=== PATIENT | male | born 1935 | race Caucasian/White ===

== ENCOUNTER → 2017-11-26 11:00 | Outpatient (CLI) | payer MEDICARE, OTHER, SELFPAY ==
--- NOTE | 2017-11-26 | DI.CT.S_ITS ---
PROCEDURE: CT ABDOMEN WO/W CON INDICATIONS: Renal lesion TECHNIQUE: Optional 5 mm thick noncontrast images acquired from the diaphragm to the iliac crests. After the administration of intravenous contrast, 5 mm thick images again acquired from the diaphragm to the iliac crests in the arterial and urographic phases. 5 mm thick coronal and sagittal reformats were then acquired. For radiation dose reduction, the following was used: automated exposure control, adjustment of mA and/or kV according to patient size. COMPARISON: [facility], CT, IVP (ABD & PEL WWO CONTRAST), 08/20/2017, 10:38. FINDINGS: Image quality: Excellent. Lung bases: Lung bases are clear. Heart size is normal. Small hiatal hernia. Genitourinary: The 7 mm partially exophytic hyperdensity in the lateral margin of the lower pole left kidney history identified. On precontrast imaging, this shows an internal attenuation of 45. On post contrast arterial phase, the attenuation is 48 and on 10 minute delayed imaging is 49. The finding is therefore most consistent with a hyperdense cyst, showing no appreciable enhancement or washout. Both kidneys otherwise appear normal. Other solid organs: Liver is normal in size and enhancement. Gallbladder appears normal. Biliary system is non dilated. Pancreas enhances normally. Spleen is normal in size and enhancement noting scattered calcifications. No adrenal nodules. Peritoneum and bowel: Unenhanced bowel loops are normal in wall thickness and caliber. No free fluid or air. Nodes and vessels: No retroperitoneal or mesenteric adenopathy by size criteria. Aorta and inferior vena cava are normal in caliber. Retroaortic left renal vein is incidentally noted. Bones: No suspicious bony lesions. No vertebral body compression fractures. Miscellaneous: Small fat filled umbilical hernia. IMPRESSION: 1. The 7 mm exophytic hyperdensity in the lower pole of the left kidney laterally is most consistent with a benign hyperdense cyst. Followup renal ultrasound at 6-12 months is suggested. 2. Incidental findings include a small hiatal hernia, colonic diverticulosis, small fat filled umbilical hernia and splenic calcifications. Dictated by: Aristeo Hansen M.D. on 11/26/2017 at 13:51 Approved by: Aristeo Hansen M.D. on 11/26/2017 at 14:03
[2017-11-26 11:38] LABS: BUN Creatinine Ratio 10.9 (6-22); Blood Urea Nitrogen 12 mg/dL (9-20); Estimated Glomerular Filt Rate > 60.0 mL/min (>60)
== END ==
PROVIDERS: Family Provider Family Medicine; PCP Family Medicine; Visit Provider Urology
DX: N28.89 Other specified disorders of kidney and ureter (principal); K44.9 Diaphragmatic hernia without obstruction or gangrene; K57.90 Diverticulosis of intestine, part unspecified, without perforation or abscess without bleeding; K42.9 Umbilical hernia without obstruction or gangrene
CPT/HCPCS: 36415; 74170; 82565; 84520; Q9967

== ENCOUNTER 2018-01-20 11:21 | Emergency (ER) | payer MEDICARE, OTHER, SELFPAY ==
--- NOTE | 2018-01-20 11:20 | ED_ITS ---
HPI - Syncope <MARC Meyer - Last Filed: 01/20/18 20:15> General Chief Complaint: Syncope Stated Complaint: Near syncope Time Seen by Provider: 01/20/18 11:28 Source: patient Mode of arrival: EMS Limitations: no limitations History of Present Illness HPI narrative: 82-year-old male with history of AFib and is a nonsmoker here for complaint of having a presyncopal episode this morning. He was brought in by EMS. He reports that for approximately about a minute he felt as if he reports having tunnel vision. He states that he did not fully lose consciousness however he states that he heard that his was talking to him and could not respond back. He reports that he has he had 4 episodes like this over the past year and has had several episodes over the last several years. 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 He denies any chest pain. No shortness of breath. No nausea vomiting. He states that he has been eating and drinking well with no nausea or vomiting. He denies any other concerns or complaints at this time. He states that he was sitting when the episode started he denies any changes in his position. Related Data Home Medications Medication Instructions Recorded Confirmed [LYSINE] 500 mg PO QDAY #0 05/30/10 [SAW PALMETTO] #0 05/30/10 [SHARK CARTILAGE] 650 mg PO QDAY #0 05/30/10 [VIT D3 ] 2,000 iu PO QDAY #0 05/30/10 finasteride 5 mg PO HS #0 05/30/10 alfuzosin [Uroxatral] 10 mg PO QAM #0 04/05/17 amiodarone 200 mg PO QDAY #0 04/05/17 apixaban [Eliquis] 2.5 mg PO BID #0 04/05/17 clobetasol 1 ruiz TOPICAL PRN PRN #0 04/05/17 ferrous sulfate [Iron (ferrous 325 mg PO QDAY #0 04/05/17 sulfate)] fluticasone [Flonase Allergy 1 spray INTRANASAL BID #0 04/05/17 Relief] furosemide 20 mg PO QDAY #0 04/05/17 ibuprofen 600 mg PO QDAYP PRN #0 04/05/17 metoprolol succinate [Toprol XL] 50 mg PO QAM #0 04/05/17 metronidazole 1 ruiz TP HS #0 04/05/17 omeprazole 20 mg PO QPM #0 04/05/17 tolterodine [Detrol LA] 2 mg PO QDAY #0 04/05/17 ascorbic acid (vitamin C) 1,000 mg PO QDAY #0 04/10/17 glucosamine sulfate [Marge] 750 mg PO QDAY #0 04/10/17 ketotifen fumarate 1 drp OU BIDP PRN #0 04/10/17 multivitamin [Multiple Vitamins] 1 tab PO QDAY #0 04/10/17 omega 8-dva-ody-fish oil [Fish Oil] 1,000 mg PO QDAY #0 04/10/17 triamcinolone acetonide 1 ruiz TOPICAL PRN PRN #0 04/10/17 fexofenadine 180 mg PO HS #0 04/23/17 Previous Rx's Medication Instructions Recorded hydrocodone-acetaminophen 1 - 2 tab PO Q4HP PRN #60 tab 04/30/17 Allergies Allergy/AdvReac Type Severity Reaction Status Date / Time oxybutynin Allergy Hives Verified 01/20/18 11:53 tamsulosin Allergy Hives Verified 01/20/18 11:52 Review of Systems <MARC Meyer - Last Filed: 01/20/18 20:15> Constitutional Denies chills, Denies fatigue, Denies fever(s), Denies lethargy and Denies weakness Eyes Denies change in vision, Denies eye discharge, Denies irritation and Denies loss of vision ENT Ears, Nose, Mouth, and Throat: Denies change in voice, Denies neck pain and Denies sore throat Cardiovascular Reports syncope, Denies dyspnea and Denies dyspnea on exertion Respiratory Denies cough, Denies dyspnea, Denies dyspnea on exertion and Denies wheezing Gastrointestinal Gastrointestinal: Denies abdominal pain, Denies change in bowel habits, Denies diarrhea, Denies nausea and Denies vomiting Genitourinary Denies hematuria, Denies flank pain, Denies urinary incontinence and Denies urinary urgency Musculoskeletal Denies neck pain Integumentary/Breasts Denies pruritus, Denies erythema, Denies rash and Denies wounds Neurologic Denies confusion, Reports syncope, Denies loss of vision and Denies weakness Psychiatric Denies anxiety, Denies confusion, Denies depression, Denies homicidal ideation and Denies suicidal ideation Endocrine Denies fatigue and Denies flushing Allergic/Immunologic Denies wheezing Exam <MARC Meyer - Last Filed: 01/20/18 20:15> Initial Vital Signs Initial Vital Signs: Vital Signs Temperature 98.0 F 01/20/18 11:32 Pulse Rate 58 L 01/20/18 11:32 Respiratory Rate 12 01/20/18 11:32 Blood Pressure 154/81 H 01/20/18 11:32 Pulse Oximetry 98 01/20/18 11:32 Const General: cooperative and well developed Nutritional Appearance: well nourished Orientation: alert, awake, oriented x3 and not confused HENMT Mouth: oral mucosae normal and moist mucous membranes Eyes Conjunctivae: conjunctivae normal Sclera: sclerae normal Pupils: PERRL EOM: EOM intact bilaterally Chest Chest: normal inspection of the chest Resp Effort & Inspection: normal respiratory effort, able to speak in complete sentences, no respiratory distress and no use of accessory muscles Auscultation: clear to auscultation bilaterally, no rales, no rhonchi and no wheezes Cardio Rate: regular rate Rhythm: abnormal rhythm regularly irregular Heart Sounds: no click, no gallops, no murmurs and no rubs Pulses: normal peripheral pulses GI Inspection: non-distended Palpation: soft, no hepatosplenomegaly, No guarding, No pulsatile mass and No tender Auscultation: normal bowel sounds Skin General: no rashes or lesions noted, No jaundice and No petechiae Neuro General: alert, oriented x3, gait normal and no focal motor deficits Speech: speech normal <Zaria Arce DO - Last Filed: 01/24/18 12:13> Initial Vital Signs Initial Vital Signs: Vital Signs Temperature 98.0 F 01/20/18 11:32 Pulse Rate 58 L 01/20/18 11:32 Respiratory Rate 12 01/20/18 11:32 Blood Pressure 154/81 H 01/20/18 11:32 Pulse Oximetry 98 01/20/18 11:32 Course <MARC Meyer - Last Filed: 01/20/18 20:15> Orders Ordered: Discontinued Medications Sodium Chloride (Normal Saline 0.9%) 1,000 mls @ 150 mls/hr IV CONT MARGO Last Infusion: 01/20/18 15:21 Dose: 0 mls/hr Admin: 01/20/18 12:00 Dose: 150 mls/hr Vital Signs - 8 hr 01/20/18 12:30 01/20/18 13:41 01/20/18 14:30 Pulse Rate 69 70 67 Respiratory Rate 17 12 12 Blood Pressure [Right Arm] 148/70 H 143/66 H 126/76 Pulse Oximetry 97 98 100 <Zaria Arce DO - Last Filed: 01/24/18 12:13> Orders Ordered: Discontinued Medications Sodium Chloride (Normal Saline 0.9%) 1,000 mls @ 150 mls/hr IV CONT MARGO Last Infusion: 01/20/18 15:21 Dose: 0 mls/hr Admin: 01/20/18 12:00 Dose: 150 mls/hr Vital Signs - 8 hr 01/20/18 12:30 01/20/18 13:41 01/20/18 14:30 Pulse Rate 69 70 67 Respiratory Rate 17 12 12 Blood Pressure [Right Arm] 148/70 H 143/66 H 126/76 Pulse Oximetry 97 98 100 MDM - Syncope <MARC Meyer - Last Filed: 01/20/18 20:15> Lab Data Result diagrams: 01/20/18 11:55 01/20/18 11:55 Lab Results 01/20/18 01/20/18 01/20/18 Range/Units 11:55 11:55 11:55 WBC 5.7 (4.5-11.0) X10^3/uL RBC 3.95 L (4.5-5.9) X10^6/uL Hgb 12.6 L (13.5-17.5) g/dL Hct 36.1 L (41-53) % MCV 91.4 (80-100) fL MCH 31.9 (26-34) PG MCHC 34.9 (30-36) % RDW 13.5 (11.6-14.8) % Plt Count 124 L (150-400) X10^3/uL Neut % (Auto) 68.4 (50-75) % Lymph % (Auto) 18.5 L (25-40) % [place] % (Auto) 9.7 (3-14) % Eos % (Auto) 3.0 (2-4) % Baso % (Auto) 0.4 (0-2) % Neut # (Auto) 3900 (7815-8985) /uL Sodium 137 (137-145) mmol/L Potassium 4.4 (3.4-5.1) mmol/L Chloride 99 (98-107) mmol/L Carbon Dioxide 29 (22-32) mmol/L BUN 19 (9-20) mg/dL Creatinine 1.20 (0.66-1.25) mg/dL Estimated GFR 58.0 L (>60) mL/min BUN/Creatinine Ratio 15.8 (6-22) Glucose 108 (80-110) mg/dL Calcium 9.3 (8.4-10.2) mg/dL Total Bilirubin 0.6 (0.2-1.3) mg/dL AST 23 (17-59) IU/L ALT 28 (21-72) IU/L Alkaline Phosphatase 53 (38-126) U/L Total Creatine Kinase 53 L (55-170) U/L Troponin I < 0.012 (0.01-0.034) ng/mL Total Protein 7.2 (6.3-8.2) g/dL Albumin 4.2 (3.5-5.0) g/dL Globulin 3.0 (1.7-4.1) g/dL Albumin/Globulin Ratio 1.4 (1.0-2.8) TSH 2.85 (0.47-4.68) uIU/mL 01/20/18 Range/Units 14:10 WBC (4.5-11.0) X10^3/uL RBC (4.5-5.9) X10^6/uL Hgb (13.5-17.5) g/dL Hct (41-53) % MCV (80-100) fL MCH (26-34) PG MCHC (30-36) % RDW (11.6-14.8) % Plt Count (150-400) X10^3/uL Neut % (Auto) (50-75) % Lymph % (Auto) (25-40) % [place] % (Auto) (3-14) % Eos % (Auto) (2-4) % Baso % (Auto) (0-2) % Neut # (Auto) (7734-8540) /uL Sodium (137-145) mmol/L Potassium (3.4-5.1) mmol/L Chloride (98-107) mmol/L Carbon Dioxide (22-32) mmol/L BUN (9-20) mg/dL Creatinine (0.66-1.25) mg/dL Estimated GFR (>60) mL/min BUN/Creatinine Ratio (6-22) Glucose (80-110) mg/dL Calcium (8.4-10.2) mg/dL Total Bilirubin (0.2-1.3) mg/dL AST (17-59) IU/L ALT (21-72) IU/L Alkaline Phosphatase (38-126) U/L Total Creatine Kinase (55-170) U/L Troponin I < 0.012 (0.01-0.034) ng/mL Total Protein (6.3-8.2) g/dL Albumin (3.5-5.0) g/dL Globulin (1.7-4.1) g/dL Albumin/Globulin Ratio (1.0-2.8) TSH (0.47-4.68) uIU/mL Point of Care Testing Glucose POC 119 Urine Dip Bedside Urine Glucose Negative Bedside Urine Bilirubin - Negative Bedside Urine Ketone - Negative Urine Specific [place] 1.015 Bedside Urine Occult Blood - Negative Bedside Urine pH 6.5 Bedside Urine Protein - Negative Bedside Urine Urobilinogen - Negative Bedside Urine Nitrite - Negative Bedside Urine Leukocytes - Negative Esterase Imaging Data Chest x-ray: Radiologist's impression: [address] [address] XRay Report Signed Patient: Beto Hernandez MR#: [id number] : 1935 Acct:[id number] Age/Sex: 82 / M Date of Service: 01/20/18 Loc: ED Accession Number: [id number] Procedure: XR chest 1V Ordering Provider: Domenico Oviedo PROCEDURE: XR CHEST 1V INDICATIONS: Pre syncopal episode TECHNIQUE: One view of the chest was acquired. COMPARISON: None. FINDINGS: Surgical changes and devices: None. Lungs and pleura: No pleural effusions or pneumothorax. Lungs are clear. Mediastinum: Mediastinal contours appear normal. Heart size is normal. Bones and chest wall: No suspicious bony lesions. Overlying soft tissues appear unremarkable. Convex-right thoracic spine scoliosis IMPRESSION: No acute cardiopulmonary disease process. Dictated by: Yessenia Gilliam MD, PhD on 01/20/2018 at 11:52 Approved by: Yessenia Gilliam MD, PhD on 01/20/2018 at 11:52 [facility] Narrative Medical decision making narrative: EKG shows sinus rhythm with 1st degree AV block and right bundle branch block and ST changes at 3 and AVF as compared to EKG from 2016. Two sets of cardiac enzymes were obtained and were negative. CBC shows slight anemia however is consistent with prior lab values. TSH was obtained and was unremarkable. Chem panel was obtained was unremarkable. Chest x -ray was negative for any acute findings. No clear etiology for syncopal episodes. He is waiting to see Cardiology as he had a syncopal episode a week 2 weeks ago and was sent to Cardiology from his primary care provider. Differential between cardiac origin and vasovagal. Follow up with primary care provider. Follow up with Cardiology. Return emergency room for worsening symptoms. <Zaria Arce, - Last Filed: 01/24/18 12:13> Lab Data Lab Results 01/20/18 01/20/18 01/20/18 Range/Units 11:55 11:55 11:55 WBC 5.7 (4.5-11.0) X10^3/uL RBC 3.95 L (4.5-5.9) X10^6/uL Hgb 12.6 L (13.5-17.5) g/dL Hct 36.1 L (41-53) % MCV 91.4 (80-100) fL MCH 31.9 (26-34) PG MCHC 34.9 (30-36) % RDW 13.5 (11.6-14.8) % Plt Count 124 L (150-400) X10^3/uL Neut % (Auto) 68.4 (50-75) % Lymph % (Auto) 18.5 L (25-40) % [place] % (Auto) 9.7 (3-14) % Eos % (Auto) 3.0 (2-4) % Baso % (Auto) 0.4 (0-2) % Neut # (Auto) 3900 (5790-7566) /uL Sodium 137 (137-145) mmol/L Potassium 4.4 (3.4-5.1) mmol/L Chloride 99 (98-107) mmol/L Carbon Dioxide 29 (22-32) mmol/L BUN 19 (9-20) mg/dL Creatinine 1.20 (0.66-1.25) mg/dL Estimated GFR 58.0 L (>60) mL/min BUN/Creatinine Ratio 15.8 (6-22) Glucose 108 (80-110) mg/dL Calcium 9.3 (8.4-10.2) mg/dL Total Bilirubin 0.6 (0.2-1.3) mg/dL AST 23 (17-59) IU/L ALT 28 (21-72) IU/L Alkaline Phosphatase 53 (38-126) U/L Total Creatine Kinase 53 L (55-170) U/L Troponin I < 0.012 (0.01-0.034) ng/mL Total Protein 7.2 (6.3-8.2) g/dL Albumin 4.2 (3.5-5.0) g/dL Globulin 3.0 (1.7-4.1) g/dL Albumin/Globulin Ratio 1.4 (1.0-2.8) TSH 2.85 (0.47-4.68) uIU/mL 01/20/18 Range/Units 14:10 WBC (4.5-11.0) X10^3/uL RBC (4.5-5.9) X10^6/uL Hgb (13.5-17.5) g/dL Hct (41-53) % MCV (80-100) fL MCH (26-34) PG MCHC (30-36) % RDW (11.6-14.8) % Plt Count (150-400) X10^3/uL Neut % (Auto) (50-75) % Lymph % (Auto) (25-40) % [place] % (Auto) (3-14) % Eos % (Auto) (2-4) % Baso % (Auto) (0-2) % Neut # (Auto) (9885-3410) /uL Sodium (137-145) mmol/L Potassium (3.4-5.1) mmol/L Chloride (98-107) mmol/L Carbon Dioxide (22-32) mmol/L BUN (9-20) mg/dL Creatinine (0.66-1.25) mg/dL Estimated GFR (>60) mL/min BUN/Creatinine Ratio (6-22) Glucose (80-110) mg/dL Calcium (8.4-10.2) mg/dL Total Bilirubin (0.2-1.3) mg/dL AST (17-59) IU/L ALT (21-72) IU/L Alkaline Phosphatase (38-126) U/L Total Creatine Kinase (55-170) U/L Troponin I < 0.012 (0.01-0.034) ng/mL Total Protein (6.3-8.2) g/dL Albumin (3.5-5.0) g/dL Globulin (1.7-4.1) g/dL Albumin/Globulin Ratio (1.0-2.8) TSH (0.47-4.68) uIU/mL Point of Care Testing Glucose POC 119 Urine Dip Bedside Urine Glucose Negative Bedside Urine Bilirubin - Negative Bedside Urine Ketone - Negative Urine Specific [place] 1.015 Bedside Urine Occult Blood - Negative Bedside Urine pH 6.5 Bedside Urine Protein - Negative Bedside Urine Urobilinogen - Negative Bedside Urine Nitrite - Negative Bedside Urine Leukocytes - Negative Esterase ECG Data Attestation: I personally reviewed and interpreted this ECG as follows: Prior ECG tracings: available for review Interpretation: Sinus rhythm with 1st degree AV block and right bundle branch block. Rate of 63, P are 221, QRS of 145 and QTC of 478. Patient has ST depression in 1 to in aVL. Patient also has some elevation in [address] changes and the 1B to as compared to prior from August of 2015. Discharge Plan Departure Patient Disposition: Home Clinical Impression: Syncope Discharge Date/Time: 01/20/18 15:22 Interventions: ED Discharge Assessment Last Done: 01/20/18 15:22 Instructions: DI for Syncope in Adults (Fainting) Activity Restrictions/Additional Instructions: EKG showed some changes to her EKG from a couple of years ago. Recommend follow up with Cardiology this week. Laboratory results show a slight anemia however is consistent with prior lab values. Follow up with your primary care provider. Ensure drinking plenty of fluids. Try to change position from sitting to standing slowly. For any worsening symptoms return to the emergency room. Prescriptions: No Action finasteride 5 MG tablet 5 mg PO HS Qty: 0 RF: 0 [SHARK CARTILAGE] 650 mg PO QDAY Qty: 0 RF: 0 [LYSINE] 500 mg PO QDAY Qty: 0 RF: 0 [VIT D3 ] 2,000 iu PO QDAY Qty: 0 RF: 0 [SAW PALMETTO] Qty: 0 RF: 0 tolterodine [Detrol LA] 2 MG capsule,extended release 24hr 2 mg PO QDAY Qty: 0 RF: 0 furosemide 20 MG tablet 20 mg PO QDAY Qty: 0 RF: 0 ferrous sulfate [Iron (ferrous sulfate)] 325 MG tablet 325 mg PO QDAY Qty: 0 RF: 0 omeprazole 20 MG capsule,delayed release(DR/EC) 20 mg PO QPM Qty: 0 RF: 0 fluticasone [Flonase Allergy Relief] 9.9 ML spray,suspension 1 spray Intranasal BID Qty: 0 RF: 0 ibuprofen 600 MG tablet 600 mg PO QDAYP PRNQty: 0 RF: 0 amiodarone 200 MG tablet 200 mg PO QDAY Qty: 0 RF: 0 apixaban [Eliquis] 2.5 MG tablet 2.5 mg PO BID Qty: 0 RF: 0 metoprolol succinate [Toprol XL] 50 MG tablet extended release 24 hr 50 mg PO QAM Qty: 0 RF: 0 clobetasol 0.05 % ointment 1 ruiz Topical PRN PRNQty: 0 RF: 0 metronidazole 1 % gel 1 ruiz TP HS Qty: 0 RF: 0 alfuzosin [Uroxatral] 10 MG tablet extended release 24 hr 10 mg PO QAM Qty: 0 RF: 0 multivitamin [Multiple Vitamins] 1 EACH tablet 1 tab PO QDAY Qty: 0 RF: 0 triamcinolone acetonide 0.5 % cream 1 ruiz Topical PRN PRNQty: 0 RF: 0 ketotifen fumarate 5 ML drops 1 drp OU BIDP PRNQty: 0 RF: 0 glucosamine sulfate [Marge] 750 MG tablet 750 mg PO QDAY Qty: 0 RF: 0 ascorbic acid (vitamin C) 500 MG tablet 1,000 mg PO QDAY Qty: 0 RF: 0 omega 2-tls-fuj-fish oil [Fish Oil] 1,000 MG capsule 1,000 mg PO QDAY Qty: 0 RF: 0 fexofenadine 180 MG tablet 180 mg PO HS Qty: 0 RF: 0 hydrocodone-acetaminophen 5 MG/325 MG tablet 1 - 2 tab PO Q4HP PRNQty: 60 RF: 0 Referrals: Rod Horn MD [Primary Care Provider] - Reinier Cruz MD [Non-Staff] - <Zaria Arce DO - Last Filed: 01/24/18 12:13> Cosign ED Attending Cosignature Attestation: I was immediately available in the department for consultation. This documentation has been reviewed and I agree with assessment and plan. Supervised by Zaria Arce DO
--- NOTE | 2018-01-20 11:29 | DI.RAD.S_ITS ---
PROCEDURE: XR CHEST 1V INDICATIONS: Pre syncopal episode TECHNIQUE: One view of the chest was acquired. COMPARISON: None. FINDINGS: Surgical changes and devices: None. Lungs and pleura: No pleural effusions or pneumothorax. Lungs are clear. Mediastinum: Mediastinal contours appear normal. Heart size is normal. Bones and chest wall: No suspicious bony lesions. Overlying soft tissues appear unremarkable. Convex-right thoracic spine scoliosis IMPRESSION: No acute cardiopulmonary disease process. Dictated by: Yessenia Gilliam MD, PhD on 01/20/2018 at 11:52 Approved by: Yessenia Gilliam MD, PhD on 01/20/2018 at 11:52
[2018-01-20 11:32] VITALS: BP 154/81; PULSE 58; RESP 12; TEMP 36.7; O2SAT 98; BMI 27.1
[2018-01-20 11:39] VITALS: BP 125/64; BP 142/69; BP 156/70; PULSE 50; PULSE 63; PULSE 65
[2018-01-20] MEDS: SODIUM CHLORIDE 0.9% 1,000 ML 150 ML IV (12:00)
[2018-01-20 12:04] VITALS: BP 158/79; PULSE 64; RESP 16; O2SAT 100
[2018-01-20 12:09] LABS: Add Manual Diff / Slide Review NO; Basophils Percent Auto 0.4 % (0-2); Hematocrit 36.1 % (41-53); Hemoglobin 12.6 g/dL (13.5-17.5); Lymphocytes Percent Auto 18.5 % (25-40); Mean Corpuscular HGB Conc 34.9 % (30-36); Mean Corpuscular Hemoglobin 31.9 PG (26-34); Mean Corpuscular Volume 91.4 fL (80-100); Monocytes Percent Auto 9.7 % (3-14); Neutrophils Absolute Auto 3900 /uL (3000-5900); Neutrophils Percent Auto 68.4 % (50-75); Platelet Count 124 X10^3/uL (150-400); Red Blood Cell Count 3.95 X10^6/uL (4.5-5.9); Red Cell Distribution Width 13.5 % (11.6-14.8); White Blood Cell Count 5.7 X10^3/uL (4.5-11.0)
[2018-01-20 12:15] LABS: Alanine Aminotransferase 28 IU/L (21-72); Albumin 4.2 g/dL (3.5-5.0); Albumin Globulin Ratio 1.4 (1.0-2.8); Alkaline Phosphatase 53 U/L (38-126); Aspartate Aminotransferase 23 IU/L (17-59); BUN Creatinine Ratio 15.8 (6-22); Bilirubin Total 0.6 mg/dL (0.2-1.3); Blood Urea Nitrogen 19 mg/dL (9-20); Calcium 9.3 mg/dL (8.4-10.2); Carbon Dioxide 29 mmol/L (22-32); Chloride 99 mmol/L (98-107); Creatine Kinase 53 U/L (55-170); Glucose 108 mg/dL (80-110); HEMOLYSIS < 15 (0-50); Potassium 4.4 mmol/L (3.4-5.1); Sodium 137 mmol/L (137-145); Total Protein 7.2 g/dL (6.3-8.2)
[2018-01-20 12:28] LABS: Troponin I < 0.012 ng/mL (0.01-0.034)
[2018-01-20 12:30] VITALS: BP 148/70; PULSE 69; RESP 17; O2SAT 97
[2018-01-20 13:08] LABS: Thyroid Stimulating Hormone 2.85 uIU/mL (0.47-4.68)
[2018-01-20 13:41] VITALS: BP 143/66; PULSE 70; RESP 12; O2SAT 98
[2018-01-20 14:30] VITALS: BP 126/76; PULSE 67; RESP 12; O2SAT 100
[2018-01-20 14:49] LABS: Troponin I < 0.012 ng/mL (0.01-0.034)
== END 2018-01-20 15:22 | disposition home or self-care (01) ==
PROVIDERS: Emergency Provider Nurse Practitioner Family; Family Provider Family Medicine; PCP Family Medicine
DX: R55 Syncope and collapse (principal)
CPT/HCPCS: 36415; 71045; 80053; 81003; 82550; 82553; 84443; 84484; 85025; 93005; 93010; 96360; 96361; 99284; 99285

== ENCOUNTER → 2018-04-23 13:27 | Outpatient (CLI) | payer MEDICARE, OTHER, SELFPAY ==
--- NOTE | 2018-04-23 15:16 | P.PCN_ITS ---
Cardiac Stress Test Report Referral & Results Date Patient Seen: 04/23/18 Requesting provider: Reinier Cruz Indication: Right bundle branch block Rest ECG: Right bundle branch block Procedure Note: After both written and verbal informed consent the patient had an IV started by the diagnostic imaging RN and then was hooked up to the treadmill monitoring system. The patient was placed on the treadmill at 1 mile an hour with no elevation and was then injected with the Sandra scan material. The Cardiolite was then immediately administered. The patient spent an additional 2-3 minutes on the treadmill before being returned to the [facility] in the supine position. The patient had a normal response to all infused materials. Occasional PVCs and PACs were identified Impression: Normal response to infuse materials as above. Perfusion imaging will be reported separately Please note: Actual ECG tracings can be found in the PACS system.
--- NOTE | 2018-04-24 14:27 | DI.NM.S_ITS ---
DATE OF SERVICE: 04/23/2018 PROCEDURE: Pharmacological perfusion study. INDICATION: Syncope with underlying right bundle branch block. RADIOPHARMACEUTICAL: 26.6 mCi technetium-99m Myoview IV was injected at stress, and 24.8 mCi technetium-99m Myoview IV was injected at rest. CARDIAC STRESS: Patient underwent IV Lexiscan perfusion study under the supervision of an attending staff as per standard protocol. Patient remained hemodynamically stable. Completed the protocol. No significant symptoms were reported. Baseline rhythm revealed sinus rhythm with right bundle branch block. During stress, there were no convincing ischemic changes; however, patient has some intermittent PACs, PVCs without any sustained ventricular or supraventricular arrhythmias. RAW DATA: There was increased subdiaphragmatic activity. Patient's weight is 209 pounds. GATED STUDY: Resting LV ejection fraction 73% and stress LV ejection fraction 90%. No obvious wall motion abnormalities. No transient ischemic dilatation. TID is 0.83, which is within normal limits. Resting end-diastolic volume 81 mL. Lung/heart ratio 0.28, which is within normal limits. MYOCARDIAL PERFUSION SCAN: Stress supine images revealed small-sized mildly decreased perfusion of distal inferior wall extending into the inferior apex which got resolved during prone images, suggestive of diaphragmatic tissue attenuation artifact. CONCLUSION: 1. I will call this study a normal myocardial perfusion study with evidence of diaphragmatic tissue attenuation artifact which got resolved during prone images. Patient had perfusion study August 27, 2015. At that time also, he had similar perfusion defect. As far as perfusion scan is concerned, there is a low- risk myocardial perfusion scan. Beto Hernandez - [employer]/fn/kv doc#: [id number]/job#: [id number] dd: 04/24/2018 12:37:00 dt: 04/24/2018 14:21:00 DICTATING MD/COPIES TO: Jose Ponce MD COPIES MNE: SELVIN
== END ==
PROVIDERS: Family Provider Family Medicine; PCP Family Medicine; Visit Provider Internal Medicine Cardiovascular Disease
DX: I45.10 Unspecified right bundle-branch block (principal); R55 Syncope and collapse
CPT/HCPCS: 78452; 93016; 93017; 93018; A9502

== ENCOUNTER → 2018-06-11 13:06 | Outpatient (CLI) | payer MEDICARE, OTHER, SELFPAY ==
--- NOTE | 2018-06-11 | DI.US.S_ITS ---
PROCEDURE: US RENAL COMPLETE INDICATIONS: RENAL CYST TECHNIQUE: Real-time scanning was performed of the kidneys and bladder, with image documentation. COMPARISON: [facility], CT, CT ABDOMEN WO/W CON, 11/26/2017, 11:36. FINDINGS: Kidneys: Kidneys are normal in size. Right kidney measures 10.0 cm long; left kidney measures 9.6 cm long. Right renal cortical thickness is 1.3 cm; left renal cortical thickness is 1.4 cm. Renal cortical echotexture is normal. No hydronephrosis or nephrolithiasis. No suspicious solid mass lesions. No renal cyst identified. Bladder: Pre-void bladder volume is 772 mL. Post-void residual is 323 mL. Pre-void images demonstrate no intraluminal masses or stones. On pre-void images, bilateral ureteral jets are noted with color Doppler interrogation. (Of note, ureteral jets may not be detectable in up to 25% of cases due to insufficient differences in specific gravity between ureteral and bladder urine). Miscellaneous: No free pelvic fluid. IMPRESSION: 1. Normal appearance the kidneys. 2. 323 cc postvoid residual. 3. Previous renal cyst seen by CT not visualized. Dictated by: Ventura Walls [facility] Interpreted: Celestino Perez MD on 06/11/2018 at 16:51 Approved by: Celestino Perez M.D. on 06/11/2018 at 17:09
== END ==
PROVIDERS: PCP Family Medicine; Visit Provider Urology
DX: N28.1 Cyst of kidney, acquired (principal)
CPT/HCPCS: 76770

== ENCOUNTER → 2018-11-18 10:29 | Outpatient (CLI) | payer MEDICARE, OTHER, SELFPAY ==
--- NOTE | 2018-11-18 | DI.RAD.S_ITS ---
PROCEDURE: XR SHOULDER RT MIN 2V INDICATIONS: R SHOULDER PAIN TECHNIQUE: 3 views of the shoulder were acquired. COMPARISON: None. FINDINGS: Bones: No fractures or dislocations. No suspicious bony lesions. Visualized ribs appear intact. Mild acromioclavicular ankle joint degeneration. Soft tissues: No suspicious soft tissue calcifications. IMPRESSION: Mild right shoulder degeneration. If the patient's pain or other symptoms persist, consider further evaluation with MRI Dictated by: Harjeet Omalley M.D. on 11/18/2018 at 16:28 Approved by: Harjeet Omalley M.D. on 11/18/2018 at 16:29
== END ==
PROVIDERS: PCP Family Medicine; Visit Provider Family Medicine
DX: M25.511 Pain in right shoulder (principal); M19.011 Primary osteoarthritis, right shoulder
CPT/HCPCS: 73030

== ENCOUNTER 2019-06-14 10:26 | Emergency (ER) | payer MEDICARE, OTHER, SELFPAY ==
[2019-06-14 11:01] VITALS: BP 132/76; PULSE 98; RESP 16; TEMP 36.2; O2SAT 98
--- NOTE | 2019-06-14 11:18 | ED_ITS ---
HPI - Fall <Zaria Gordon, EXECUTIVE VICE PRESIDENT AND CHIEF FINANCIAL OFFICER-BC - Last Filed: 06/14/19 15:14> General Chief Complaint: Trauma Stated Complaint: TRIPPED ON CURB FELL/ LEFT SIDE PAIN Time Seen by Provider: 06/14/19 11:05 Source: patient Mode of arrival: Ambulatory Limitations: no limitations History of Present Illness HPI Narrative: The patient is an 84-year-old male nonsmoker with history of AFib who takes Eliquis every day who presents with a chief complaint of a ground level fall yesterday. He states that he tripped on a curb, landed with his left ribs on wood chips on top of cement. He states it is painful to take a deep breath. He states he saw stars when he fell, not sure whether not he lost consciousness. He denies any neck pain back pain, incontinence bowel, incontinence of bladder saddle anesthesia. He states he took ibuprofen yesterday as well as half of a pain pill, he is not sure what kind of pain pill he took. He denies any other injuries, but comes to the emergency department today because there is blood in his saliva this morning. He also notes that he had a dental procedure yesterday. He states that he had specks of blood in his saliva. He is adamant that there is no hemoptysis or cough. He denies any chest pain or shortness of breath but states that he has pain on the back of the left side of his chest when he moves. Given that the patient is a ground level fall on blood thinners, a modified trauma was activated Related Data Home Medications Medication Instructions Recorded Confirmed [LYSINE] 500 mg PO QDAY #0 05/30/10 [SAW PALMETTO] #0 05/30/10 [SHARK CARTILAGE] 650 mg PO QDAY #0 05/30/10 [VIT D3 ] 2,000 iu PO QDAY #0 05/30/10 finasteride 5 mg PO HS #0 05/30/10 alfuzosin [Uroxatral] 10 mg PO QAM #0 04/05/17 amiodarone 200 mg PO QDAY #0 04/05/17 apixaban [Eliquis] 2.5 mg PO BID #0 04/05/17 clobetasol 1 ruiz TOPICAL PRN PRN #0 04/05/17 ferrous sulfate [Iron (ferrous 325 mg PO QDAY #0 04/05/17 sulfate)] fluticasone propionate [Flonase 1 spray INTRANASAL BID #0 04/05/17 Allergy Relief] furosemide 20 mg PO QDAY #0 04/05/17 ibuprofen 600 mg PO QDAYP PRN #0 04/05/17 metoprolol succinate [Toprol XL] 50 mg PO QAM #0 04/05/17 metronidazole 1 ruiz TP HS #0 04/05/17 omeprazole 20 mg PO QPM #0 04/05/17 tolterodine [Detrol LA] 2 mg PO QDAY #0 04/05/17 ascorbic acid (vitamin C) 1,000 mg PO QDAY #0 04/10/17 glucosamine sulfate [Marge] 750 mg PO QDAY #0 04/10/17 ketotifen fumarate 1 drp OU BIDP PRN #0 04/10/17 multivitamin [Multiple Vitamins] 1 tab PO QDAY #0 04/10/17 omega 7-eiq-dpv-fish oil [Fish Oil] 1,000 mg PO QDAY #0 04/10/17 triamcinolone acetonide 1 ruiz TOPICAL PRN PRN #0 04/10/17 fexofenadine 180 mg PO HS #0 04/23/17 Previous Rx's Medication Instructions Recorded hydrocodone-acetaminophen 1 - 2 tab PO Q4HP PRN #60 tab 04/30/17 hydrocodone-acetaminophen [[place]] 1 tab PO Q4-6H PRN #10 tab 06/14/19 lidocaine 1 patch TOP DAILY #15 each 06/14/19 Allergies Allergy/AdvReac Type Severity Reaction Status Date / Time oxybutynin Allergy Hives Verified 01/20/18 11:53 tamsulosin Allergy Hives Verified 01/20/18 11:52 Review of Systems <ROSEMARY De La Rosa- - Last Filed: 06/14/19 15:14> Review of Systems Narrative: GENERAL: Denies chills, fatigue, malaise, fever, sweats. HEENT: Denies sinus pain, ear pain, sore throat, difficulty swallowing, dizziness. RESPIRATORY: See HPI CARDIOVASCULAR: Denies chest pain, palpitations, orthopnea, edema, GASTROINTESTINAL: Denies nausea, vomiting, abdominal pain, diarrhea, cons tipation, melena. : Denies dysuria, frequency, incontinence, hematuria, urinary retention. MUSCULOSKELETAL: denies weakness, joint pain, or bony pain SKIN: Denies rash, skin lesions, or other NEUROLOGIC: See HPI PSYCHIATRIC: No concerning psychosocial issues. 12 point review of systems is negative except for those stated above Patient History <ROSEMARY De La Rosa-BC - Last Filed: 06/14/19 15:14> Social History Smoking Status: Never smoker Smoking Status: Never smoker Substance Use Type: does not use Exam <JORDIN De La RosaP-BC - Last Filed: 06/14/19 15:14> Narrative Exam Narrative: GENERAL: This is a well-nourished, well-developed patient, in no acute distress HEAD: Atraumatic. Normocephalic. No temporal or scalp tenderness. EYES: Pupils equal round and reactive. Extraocular motions intact. No scleral icterus. No injection or drainage. ENT: Nose without bleeding, purulent drainage or septal hematoma. Throat without erythema, tonsillar hypertrophy or exudate. Uvula midline. Airway patent. NECK: Trachea midline. No JVD or lymphadenopathy. Supple, nontender, no meningeal signs. CARDIOVASCULAR: Regular rate and rhythm without murmurs, gallops, or rubs. RESPIRATORY: Clear to auscultation. Breath sounds equal bilaterally. No wheezes, rales, or rhonchi. No cough. No increased respiratory effort. No accessory muscle use. Pain to palpation left posterior ribs. Pain on lateral chest wall compression. GASTROINTESTINAL: Abdomen soft, non-tender, nondistended. No hepato- splenomegaly, or palpable masses. No guarding. EXTREMITIES: No clubbing, cyanosis, or edema. No joint tenderness, effusion, or edema noted. BACK: No pain to cervical thoracic or lumbar spine palpation. No palpable step-offs or deformities. NEURO: AOx3. No gross cranial nerve deficit. Steady gait. Clear speech. SKIN: No rash or erythema on visible skin no ecchymosis noted posterior left ribs Initial Vital Signs Initial Vital Signs: Vital Signs Temperature 97.1 F L 06/14/19 11:01 Pulse Rate 98 H 06/14/19 11:01 Respiratory Rate 16 06/14/19 11:01 Blood Pressure 132/76 06/14/19 11:01 Pulse Oximetry 98 06/14/19 11:01 <Mounika Matson DO - Last Filed: 06/15/19 07:55> Initial Vital Signs Initial Vital Signs: Vital Signs Temperature 97.1 F L 06/14/19 11:01 Pulse Rate 98 H 06/14/19 11:01 Respiratory Rate 16 06/14/19 11:01 Blood Pressure 132/76 06/14/19 11:01 Pulse Oximetry 98 06/14/19 11:01 Scores <SERGO De La Rosa - Last Filed: 06/14/19 15:14> GCS [place] coma scale eye opening: Spontaneous [place] coma scale verbal response: Orientated [place] coma scale motor response: Obey commands [place] coma scale total score: 15 Nexus Score for C-Spine Focal Neurologic deficit present: No Midline spinal tenderness present: No Altered level of conciousness present: No Intoxication present: No Distracting Injury Present: No Nexus Criteria for C-spine: 0 Course <SERGO De La Rosa - Last Filed: 06/14/19 15:14> Orders Ordered: Discontinued Medications Hydrocodone Bitart/Acetaminophen ([place] 5/325) 1 tab PO NOW ONE Stop: 06/14/19 12:52 Last Admin: 06/14/19 13:38 Dose: 1 tab Documented by: MATHEW Lidocaine (Lidoderm) 1 each TOP NOW ONE Stop: 06/14/19 11:24 Last Admin: 06/14/19 11:56 Dose: 1 each Documented by: MATHEW Vital Signs Vital signs: Vital Signs - 8 hr 06/14/19 11:01 06/14/19 13:42 Temperature 97.1 F L Pulse Rate 98 H 88 Respiratory Rate 16 18 Blood Pressure 132/76 Blood Pressure [Right Arm] 159/89 H Pulse Oximetry 98 98 <Mounika Matson DO - Last Filed: 06/15/19 07:55> Orders Ordered: Discontinued Medications Hydrocodone Bitart/Acetaminophen ([place] 5/325) 1 tab PO NOW ONE Stop: 06/14/19 12:52 Last Admin: 06/14/19 13:38 Dose: 1 tab Documented by: MATHEW Lidocaine (Lidoderm) 1 each TOP NOW ONE Stop: 06/14/19 11:24 Last Admin: 06/14/19 11:56 Dose: 1 each Documented by: MATHEW Vital Signs Vital signs: Vital Signs - 8 hr 06/14/19 11:01 06/14/19 13:42 Temperature 97.1 F L Pulse Rate 98 H 88 Respiratory Rate 16 18 Blood Pressure 132/76 Blood Pressure [Right Arm] 159/89 H Pulse Oximetry 98 98 MDM - Fall <SERGO De La Rosa - Last Filed: 06/14/19 15:14> Imaging Data t spine xray : Radiologist's Impression: [address] [place] [id number] XRay Report Signed Patient: Beto Hernandez AMR#: [id number] : 5Acct:[id number] Age/Sex: 84 / MDate of Service: 06/14/19 Loc: ED Accession Number: [id number] Procedure: XR thoracic spine 2V Ordering Provider: Zaria Gordon PROCEDURE: XR THORACIC SPINE 2V INDICATIONS: pain sp fall TECHNIQUE: 3 views of the thoracic spine were acquired. COMPARISON: [facility], , XR CHEST 1V, 01/20/2018, 11:38. FINDINGS: Bones: On the lateral views, the cervicothoracic junction is adequately visualized and the alignment through this region is within normal limits. There is mild anterior wedging involving multiple vertebral bodies within the mid to lower thoracic spine, which appear to be chronic in nature. Otherwise, the remainder of the vertebral body heights are within normal limits throughout the thoracic spine without evidence to suggest acute compression fracture. The bone mineralization is decreased. Moderate to severe multilevel degenerative changes of the thoracic spine are identified but there is a disc height loss and anterior disc osteophyte complexes. Endplate sclerosis is evident. There is moderate dextroconvex curvature of the thoracic spine, centered at the T8-T9 level. Soft tissues: There is aortic atherosclerosis. Otherwise, the imaged overlying soft tissues of the chest are within normal limits. IMPRESSION: 1. Age-indeterminate compression deformities of the mid to lower thoracic spine are likely chronic. 2. 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 Dictated by: Clark Casas M.D. on 06/14/2019 at 11:11 Approved by: Clark Casas M.D. on 06/14/2019 at 11:14 ribs xray : Radiologist's Impression: [address] [place] [id number] XRay Report Signed Patient: Beto Hernandez AMR#: [id number] : 5Acct:[id number] Age/Sex: 84 / MDate of Service: 06/14/19 Loc: ED Accession Number: [id number] Procedure: XR ribs LT min 3V w CXR1V Ordering Provider: Zaria Gordon PROCEDURE: XR RIBS LT MIN 3V W CXR1V INDICATIONS: fall with left posterior rib pain TECHNIQUE: 2 views of the left ribs were acquired, along with a single view chest. COMPARISON: [facility], , XR CHEST 1V, 01/20/2018, 11:38. FINDINGS: Surgical changes and devices: The cardiac pacer/defibrillator is evident. Bones and chest wall: Nondisplaced posterior left 7th and 8th rib fractures are identified. There may be additional more distal rib fractures involving the 6th and 7th ribs. No suspicious bony lesions. Overlying soft tissues appear unremarkable. Dextroscoliosis of the thoracic spine is present. Lungs and pleura: No pleural effusions or pneumothorax. Lungs appear clear. Mediastinum: Mediastinal contours appear normal. Heart size is normal. There is aortic atherosclerosis. IMPRESSION: 1. Nondisplaced left 7th and 8th posterior rib fractures. 2. No pneumothorax. Dictated by: Clark Casas M.D. on 06/14/2019 at 11:14 Approved by: Clark Casas M.D. on 06/14/2019 at 11:16 CT scan - head: Radiologist's Impression: [address] [place] [id number] Scan Report Signed Patient: Beto Hernandez AMR#: [id number] : 5Acct:[id number] Age/Sex: 84 / MDate of Service: 06/14/19 Loc: ED Accession Number: [id number] Procedure: CT head/brain wo con Ordering Provider: Zaria Gordon PROCEDURE: CT HEAD/BRAIN WO CON INDICATIONS: Ground-level fall in a patient who is actively on blood thinners TECHNIQUE: Noncontrast 4.5 mm thick angled axial sections acquired from the foramen magnum to the vertex, with coronal and sagittal reformats. For radiation dose reduction, the following was used: automated exposure control, adjustment of mA and/or kV according to patient size. COMPARISON: [facility], CT, HEAD WITHOUT CONTRAST, 08/02/2015, 14:57. FINDINGS: Image quality: Diagnostic. CSF spaces: Basal cisterns are patent. No extra-axial fluid collections. Ventricles are prominent in size with corresponding parenchymal volume loss, slightly more pronounced. Brain: No midline shift. No intracranial masses or hemorrhage. Lopez-white matter interface is normal. Scattered areas of low attenuation are seen within the periventricular and deep white matter of the supratentorial brain, slightly more prominent on the current exam. Skull and face: Calvarium and visualized facial bones are intact, without suspicious lesions. Sinuses: Visualized sinuses and mastoids are clear. IMPRESSION: 1. No acute intracranial hemorrhage. 2. Chronic small vessel ischemic changes and parenchymal volume loss slightly progressed in the interim. Dictated by: Clark Casas M.D. on 06/14/2019 at 10:44 Approved by: Clark Casas M.D. on 06/14/2019 at 10:46 MDM Narrative Medical decision making narrative: The patient is an 84-year-old male who presents with a chief complaint of left posterior pain since a fall yesterday. Rib x-rays concerning for fractures, the patient received incentive trauma to the teaching was evaluated by respiratory therapist he received a prescription [place], discussing the constipating and sedating. Discussed at length the importance of follow-up with primary care provider. He is nontoxic appearing, oxygenating well and in no acute distress. T-spine x-ray shows compression fractures, which the patient states are old and correlates with the appearance of the fracture. Head CT shows no acute findings. Patient states understanding of return precautions of any acute concerns, shortness of breath, difficulty breathing etcetera. Patient has no questions or concerns upon discharge and states understanding of return precautions as well as follow-up care. Discharge Plan Departure Patient Disposition: Home Clinical Impression: Fall from ground level Left rib fracture Qualifiers: Encounter type: initial encounter Rib fracture type: multiple ribs Fracture type: closed Qualified Code(s): S22.42XA - Multiple fractures of ribs, left side, initial encounter for closed fracture Discharge Date/Time: 06/14/19 13:52 Instructions: How to Use an Incentive Spirometer, DI for Rib Fracture, How to Prevent Falls Activity Restrictions/Additional Instructions: Thank you for trusting us with your care today. As discussed you have posterior rib fractures. These can be very painful. I sent a prescription of hydrocodone with [facility] to [facility] [place] Please use the incentive spirometer as that will help prevent pneumonia You have been prescribed narcotic medications. While on these medications you cannot drive or operate heavy machinery. Additionally you cannot sign legal documents or perform any duties such as this. Many people get constipated on narcotic medications so it would be advisable to discuss stool softeners with the pharmacist when you excelsior picker your prescription. Please follow-up with primary care provider in the next few days. Your thoracic x-ray showed no acute findings and your head CT came back normal. Please come back to emergency department for any acute concerns such as shortness of breath etcetera Prescriptions: New hydrocodone-acetaminophen [[place]] 5-325 mg tablet 1 tab PO Q4-6H PRN (Reason: pain) Qty: 10 RF: 0 lidocaine 5 % adhesive patch,medicated 1 patch TOP DAILY Qty: 15 RF: 0 No Action finasteride 5 MG tablet 5 mg PO HS Qty: 0 RF: 0 [SHARK CARTILAGE] 650 mg PO QDAY Qty: 0 RF: 0 [LYSINE] 500 mg PO QDAY Qty: 0 RF: 0 [VIT D3 ] 2,000 iu PO QDAY Qty: 0 RF: 0 [SAW PALMETTO] Qty: 0 RF: 0 tolterodine [Detrol LA] 2 MG capsule,extended release 24hr 2 mg PO QDAY Qty: 0 RF: 0 furosemide 20 MG tablet 20 mg PO QDAY Qty: 0 RF: 0 ferrous sulfate [Iron (ferrous sulfate)] 325 MG tablet 325 mg PO QDAY Qty: 0 RF: 0 omeprazole 20 MG capsule,delayed release(DR/EC) 20 mg PO QPM Qty: 0 RF: 0 fluticasone propionate [Flonase Allergy Relief] 9.9 ML spray,suspension 1 spray Intranasal BID Qty: 0 RF: 0 ibuprofen 600 MG tablet 600 mg PO QDAYP PRNQty: 0 RF: 0 amiodarone 200 MG tablet 200 mg PO QDAY Qty: 0 RF: 0 apixaban [Eliquis] 2.5 MG tablet 2.5 mg PO BID Qty: 0 RF: 0 metoprolol succinate [Toprol XL] 50 MG tablet extended release 24 hr 50 mg PO QAM Qty: 0 RF: 0 clobetasol 0.05 % ointment 1 ruiz Topical PRN PRNQty: 0 RF: 0 metronidazole 1 % gel 1 ruiz TP HS Qty: 0 RF: 0 alfuzosin [Uroxatral] 10 MG tablet extended release 24 hr 10 mg PO QAM Qty: 0 RF: 0 multivitamin [Multiple Vitamins] 1 EACH tablet 1 tab PO QDAY Qty: 0 RF: 0 triamcinolone acetonide 0.5 % cream 1 ruiz Topical PRN PRNQty: 0 RF: 0 ketotifen fumarate 5 ML drops 1 drp OU BIDP PRNQty: 0 RF: 0 glucosamine sulfate [Marge] 750 MG tablet 750 mg PO QDAY Qty: 0 RF: 0 ascorbic acid (vitamin C) 500 MG tablet 1,000 mg PO QDAY Qty: 0 RF: 0 omega 3-ozl-qce-fish oil [Fish Oil] 1,000 MG capsule 1,000 mg PO QDAY Qty: 0 RF: 0 fexofenadine 180 MG tablet 180 mg PO HS Qty: 0 RF: 0 hydrocodone-acetaminophen 5 MG/325 MG tablet 1 - 2 tab PO Q4HP PRNQty: 60 RF: 0 Referrals: Rod Horn MD [Primary Care Provider] -
--- NOTE | 2019-06-14 11:23 | DI.RAD.S_ITS ---
PROCEDURE: XR THORACIC SPINE 2V INDICATIONS: pain sp fall TECHNIQUE: 3 views of the thoracic spine were acquired. COMPARISON: [facility], CR, XR CHEST 1V, 01/20/2018, 11:38. FINDINGS: Bones: On the lateral views, the cervicothoracic junction is adequately visualized and the alignment through this region is within normal limits. There is mild anterior wedging involving multiple vertebral bodies within the mid to lower thoracic spine, which appear to be chronic in nature. Otherwise, the remainder of the vertebral body heights are within normal limits throughout the thoracic spine without evidence to suggest acute compression fracture. The bone mineralization is decreased. Moderate to severe multilevel degenerative changes of the thoracic spine are identified but there is a disc height loss and anterior disc osteophyte complexes. Endplate sclerosis is evident. There is moderate dextroconvex curvature of the thoracic spine, centered at the T8-T9 level. Soft tissues: There is aortic atherosclerosis. Otherwise, the imaged overlying soft tissues of the chest are within normal limits. IMPRESSION: 1. Age-indeterminate compression deformities of the mid to lower thoracic spine are likely chronic. 2. 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 Dictated by: Clark Casas M.D. on 06/14/2019 at 11:11 Approved by: Clark Caass M.D. on 06/14/2019 at 11:14
--- NOTE | 2019-06-14 11:23 | DI.CT.S_ITS ---
PROCEDURE: CT HEAD/BRAIN WO CON INDICATIONS: Ground-level fall in a patient who is actively on blood thinners TECHNIQUE: Noncontrast 4.5 mm thick angled axial sections acquired from the foramen magnum to the vertex, with coronal and sagittal reformats. For radiation dose reduction, the following was used: automated exposure control, adjustment of mA and/or kV according to patient size. COMPARISON: [facility], CT, HEAD WITHOUT CONTRAST, 08/02/2015, 14:57. FINDINGS: Image quality: Diagnostic. CSF spaces: Basal cisterns are patent. No extra-axial fluid collections. Ventricles are prominent in size with corresponding parenchymal volume loss, slightly more pronounced. Brain: No midline shift. No intracranial masses or hemorrhage. Lopez-white matter interface is normal. Scattered areas of low attenuation are seen within the periventricular and deep white matter of the supratentorial brain, slightly more prominent on the current exam. Skull and face: Calvarium and visualized facial bones are intact, without suspicious lesions. Sinuses: Visualized sinuses and mastoids are clear. IMPRESSION: 1. No acute intracranial hemorrhage. 2. Chronic small vessel ischemic changes and parenchymal volume loss slightly progressed in the interim. Dictated by: Clark Casas M.D. on 06/14/2019 at 10:44 Approved by: Clark Casas M.D. on 06/14/2019 at 10:46
--- NOTE | 2019-06-14 11:23 | DI.RAD.S_ITS ---
PROCEDURE: XR RIBS LT MIN 3V W CXR1V INDICATIONS: fall with left posterior rib pain TECHNIQUE: 2 views of the left ribs were acquired, along with a single view chest. COMPARISON: [facility], , XR CHEST 1V, 01/20/2018, 11:38. FINDINGS: Surgical changes and devices: The cardiac pacer/defibrillator is evident. Bones and chest wall: Nondisplaced posterior left 7th and 8th rib fractures are identified. There may be additional more distal rib fractures involving the 6th and 7th ribs. No suspicious bony lesions. Overlying soft tissues appear unremarkable. Dextroscoliosis of the thoracic spine is present. Lungs and pleura: No pleural effusions or pneumothorax. Lungs appear clear. Mediastinum: Mediastinal contours appear normal. Heart size is normal. There is aortic atherosclerosis. IMPRESSION: 1. Nondisplaced left 7th and 8th posterior rib fractures. 2. No pneumothorax. Dictated by: Clark Casas M.D. on 06/14/2019 at 11:14 Approved by: Clark Casas M.D. on 06/14/2019 at 11:16
[2019-06-14] MEDS: LIDOCAINE PATCH 1 EACH ADH..PATCH TOP (11:56)
[2019-06-14] MEDS: HYDROCODONE/ACET 5/325 TABLET 1 TAB PO (13:38)
[2019-06-14 13:42] VITALS: BP 159/89; PULSE 88; RESP 18; O2SAT 98
== END 2019-06-14 13:52 | disposition home or self-care (01) ==
PROVIDERS: Emergency Provider Nurse Practitioner Family; PCP Family Medicine
DX: S22.42XA Multiple fractures of ribs, left side, initial encounter for closed fracture (principal); W01.198A Fall on same level from slipping, tripping and stumbling with subsequent striking against other object, initial encounter; Z79.01 Long term (current) use of anticoagulants
CPT/HCPCS: 70450; 71101; 72070; 93005; 99284

== ENCOUNTER → 2019-07-14 12:17 | Outpatient (CLI) | payer MEDICARE, OTHER, SELFPAY ==
--- NOTE | 2019-07-14 | DI.RAD.S_ITS ---
PROCEDURE: XR CHEST 2V INDICATIONS: left side rib fractures TECHNIQUE: 2 views of the chest were acquired. COMPARISON: [facility], , XR CHEST 1V, 01/20/2018, 11:38. [facility], , CHEST 1 VIEW, 08/23/2015, 22:09. FINDINGS: Surgical changes and devices: Implanted left paramedian cardiac monitoring device overlies the cardiac silhouette.. Lungs and pleura: Lungs are clear. No pleural effusions or pneumothorax. Mediastinum: Mediastinal contours are normal. Heart size is normal. Bones and chest wall: No definite acute suspicious bony abnormalities. Soft tissues appear unremarkable. IMPRESSION: Mild morphologic distortion of the lateral mid left chest ribs, consistent with a clinically reported history of left-sided rib fractures. No acute fracture or displaced fracture fragment is seen. Cardiac monitoring device overlies the left cardiac margin. No pneumothorax. Dictated by: Celestino Perez M.D. on 07/14/2019 at 13:10 Approved by: Celestino Perez M.D. on 07/14/2019 at 13:11
== END ==
PROVIDERS: PCP Family Medicine; Referring Provider Family Medicine; Visit Provider Family Medicine
DX: S22.42XD Multiple fractures of ribs, left side, subsequent encounter for fracture with routine healing (principal); X58.XXXD Exposure to other specified factors, subsequent encounter
CPT/HCPCS: 71046

== ENCOUNTER → 2019-09-04 10:04 | Outpatient (CLI) | payer MEDICARE, OTHER, SELFPAY ==
--- NOTE | 2019-09-04 | DI.CT.S_ITS ---
PROCEDURE: CT ANGIO HEAD AND NECK INDICATIONS: PAROXYSMAL AFIB TECHNIQUE: Pre-contrast 4.5 mm thick sections acquired from the foramen magnum to the vertex. After the administration of intravenous contrast, 1 mm thick sections acquired from the aortic arch through the [place] of [place]. Post-contrast 4.5 mm thick sections then re-acquired from the foramen magnum to the vertex. 3-dimensional ijbazfg-qolpaoieh-bocvzhwisa (MIP) and/or volume rendering reformats were acquired of the central intracranial vasculature and neck separately. COMPARISON: [facility], CT, CT ABDOMEN WO/W CON, 11/26/2017, 11:36. CT, HEAD WITHOUT CONTRAST, 01/01/2009, 13:35. MR, BRAIN WITHOUT CONTRAST, 02/09/2009, 8:13. [facility], CT, CT HEAD/BRAIN WO CON, 06/14/2019, 11:26. FINDINGS: Image quality: Excellent. BRAIN: The ventricular system and cortical sulci demonstrate atrophy, consistent for the patient's stated age. There are areas of hypodensity within the periventricular and subcortical white matter. There is no acute intra-or extra axial fluid collection. No acute hemorrhage, mass lesion or midline shift. Brainstem is unremarkable. Globes are symmetrical. Sinuses are aerated. Osseous structures are intact. HEAD CT ANGIOGRAPHY: Anterior circulation: Intracranial internal carotid arteries are normal in size and flow. The flow within the paired anterior cerebral arteries is normal and symmetric. The flow within the middle cerebral arteries is normal and symmetric. The anterior communicating artery is seen. No aneurysms are seen. Posterior circulation: Visualized portions of the vertebral arteries demonstrate normal caliber, and join to form a normal appearing basilar artery. Flow within the posterior cerebral arteries is normal and symmetric. No aneurysms are seen. NECK CT ANGIOGRAPHY: The origins of the left and right common and external carotid arteries demonstrate no areas of hemodynamically significant stenosis, vascular occlusion or aneurysmal dilation. There is calcification at the origin of the left internal carotid artery with approximately 20% stenosis. There is a second focus of prominent calcification with luminal narrowing in the proximal left internal carotid artery measuring approximately 57% located 15 mm distal to the origin. The right internal carotid artery demonstrates a focus of luminal narrowing measuring approximately 30%, 16 mm distal to the origin. Origins of the left and right vertebral arteries demonstrate no areas of hemodynamically significant stenosis, vascular occlusion or aneurysmal dilation. Aortic arch demonstrates conventional anatomy. Limited, visualized portions of the subclavian vasculature are unremarkable. There is an anterior right middle lobe nodule measuring 8 mm on series 12 image 231. Anterior right lower lobe nodule measuring 8 mm is present on series 12 image 234. No prior exams including these areas within the field of view are available for comparison. IMPRESSION: 1. No acute intracranial process. 2. Moderate atrophy and chronic microvascular ischemic changes. 3. No areas of hemodynamically significant stenosis, vascular occlusion or aneurysmal dilation within the anterior or posterior circulation. 4. Approximate 50% narrowing within the proximal left internal carotid artery as above. 5. Two, 8mm pulmonary nodules as above. No priors are available for comparison. Recommend interval followup as below, as they are nonspecific. Fleischner Society criteria for SOLID lung nodule followup. Nodule size (mm)Low-risk patientHigh-risk patient<6 (single or multiple)No routine followup.Optional CT at 12 months. 6-8 (single or multiple)CT at 6-12 months, then optional CT at 18-24 mo.CT at 6-12 months, then CT at 18-24 months. >8 (single)CT, PET-CT, or biopsy at 3 months. Same as for low-risk pts. >8 (multiple)CT at 3-6 months, then optional CT at 18-24 mo.CT at 3-6 months, then CT at 18-24 months. Recommendations do not apply to lung cancer screening, patients with immunosuppression, or patients with known primary cancer. Any quantitative measurements of stenosis were performed using NASCET criteria. Dictated by: Ada Quiroga M.D. on 09/04/2019 at 11:51 Approved by: Ada Quiroga M.D. on 09/04/2019 at 12:26
[2019-09-04 10:54] LABS: BUN Creatinine Ratio 15.9 (6-22); Blood Urea Nitrogen 17 mg/dL (9-20); Calcium 9.4 mg/dL (8.4-10.2); Carbon Dioxide 27 mmol/L (22-32); Chloride 99 mmol/L (98-107); Estimated Glomerular Filt Rate > 60.0 mL/min (>60); Glucose 103 mg/dL (80-110); HEMOLYSIS < 15 (0-50); Potassium 4.3 mmol/L (3.4-5.1); Sodium 132 mmol/L (137-145)
== END ==
PROVIDERS: PCP Family Medicine; Referring Provider Internal Medicine Cardiovascular Disease; Visit Provider Internal Medicine Cardiovascular Disease
DX: I48.0 Paroxysmal atrial fibrillation (principal); R42 Dizziness and giddiness; I65.22 Occlusion and stenosis of left carotid artery; R91.8 Other nonspecific abnormal finding of lung field
CPT/HCPCS: 36415; 70496; 70498; 80048; Q9967

== ENCOUNTER → 2019-12-13 10:33 | Outpatient (CLI) | payer MEDICARE, OTHER, SELFPAY ==
[2019-12-15 06:33] LABS: COVID19 Sendout Not Detected (Not Detect)
== END ==
PROVIDERS: PCP Family Medicine; Visit Provider Physician Assistant
DX: Z01.818 Encounter for other preprocedural examination (principal)
CPT/HCPCS: 87635

== ENCOUNTER → 2019-12-13 10:45 | Outpatient (CLI) | payer MEDICARE, OTHER, SELFPAY | PROVIDERS: PCP Family Medicine; Referring Provider Orthopaedic Surgery; Visit Provider Orthopaedic Surgery | DX: Z01.818 Encounter for other preprocedural examination (principal); Z11.59 Encounter for screening for other viral diseases | CPT/HCPCS: 87635; 93005 ==

== ENCOUNTER → 2019-12-16 11:52 | Day surgery (SDC) | payer MEDICARE, OTHER, SELFPAY ==
[2019-12-15 12:38] VITALS: BMI 28.0
[2019-12-16] VITALS (10 sets, daily range): BP systolic 166–192; BP diastolic 82–99; PULSE 65–88; RESP 10–18; TEMP 36.2–36.6; O2SAT 96–99; BMI 28.0
[2019-12-16] MEDS: LACTATED RINGERS 1,000 ML 42 ML IV (13:25)
--- NOTE | 2019-12-16 15:47 | PM.PREOP ---
Pre-operative Note Interval Note History & Physical reviewed/Exam performed by Physician: Yes Changes to H&P: No H&P completed within 30 days and has changed as indicated here:: COR RRR, no murmer, lungs clear, abd benign, left arm skin intact, TTP ulna
--- NOTE | 2019-12-16 15:48 | P.OP_ITS ---
Operative Date/Time/Diagnoses Date of procedure: 12/16/19 Time of procedure: 15:59 Pre-op diagnosis: left ulna fracture, history of a radius fracture Post-op diagnosis: same Procedure & Clinicians Procedure: ORIF left ulna Same procedure as scheduled: Yes Indications: This 84-year-old gentleman who fell on his outstretched left arm and sustained a comminuted displaced left ulna fractures brought the operating room for open reduction internal fixation. Has a remote history of a previous distal radius fracture. Surgeon: Maria Elena Soni Banking Services Officer: Klai Mauricio Anesthesia Type: General Operative Notes Findings: Comminuted left ulna fracture, stable fixation and internal fixation Closure Type: primary Prosthetic devices, grafts, tissues, transplants, or devices: Synthes DCP plate 7 hole with 7 screws. Estimated Blood Loss (mL): 100 Tourniquet time (min): 60 Procedure in detail: Patient is brought to the operating room and underwent induction of a general anesthesia the patient's left upper extremities prepped draped standard sterile fashion. High arm tourniquet was applied and elevated for just under an hour. The ulnar-sided incision was made dissection was carried out through skin and subcutaneous tissues. The soft tissue was gently stripped from the ulna. The fracture was anatomically reduced. Looked at the surfaces and picked the dorsal surface for plate fixation. Had a fairly large ulna bone there was comminution of the fragments. The fracture was anatomically reduced and held with several clamps. It was then fixed with a 7 hole sent these the CP plate with compression across the fracture site. Good quality compression was achieved. Fracture was noted to be anatomic. Radiograph AP lateral and several oblique 6 confirmed position of the screws. Several screws were a little short and had the length and 2 screws. The fracture was noted to be anatomic. The wound was meticulously irrigated with normal saline it was closed with interrupted nylon and skin leah. Marcaine was injected. The patient was placed in a sterile dressing with Xeroform and cast padding. Postoperative plan return to clinic in 10-14 days for x-rays and staple removal okay to begin immediate range of motion of his hand wrist and elbow. Complications: none Post-operative Condition: stable Disposition: Acute Care Plan for aftercare: Range of motion left wrist hand and elbow. Keep dressing dry. Suture removal 10-14 days postoperatively. X-rays a postop follow-up.
[2019-12-16] MEDS: CEFAZOLIN 2 GM/100 ML FROZ.PIGGY IV (15:55)
[2019-12-16] MEDS: BUPIVACAINE 0.5% (PF) VIAL 30 ML INJ (16:20)
--- NOTE | 2019-12-16 16:22 | SUR.OPER ---
Supine on padded OR bed, head on pillow, nonoperative arm secured on padded arm boards at <90 degrees abduction, operative arm on hand table, legs uncrossed, safety belt at thigh, tape over blanket over lower legs.
[2019-12-16] MEDS: HYDROCODONE/ACET 5/325 TABLET 1 TAB PO (18:06)
--- NOTE | 2019-12-16 18:09 | SUR.PHASEII ---
gave po pain medication for c/o pain and elevated blood pressure. Dr Soni aware patient's blood pressure is elevated. Dr advised patient to take his BP medication when he gets home.
--- NOTE | 2019-12-16 18:40 | SUR.PHASEII ---
Patient states pain is improving
--- NOTE | 2019-12-16 19:05 | SUR.PHASEII ---
Held patient in post op for elevated BP. Current GABRIELA 166/82.
== END | disposition home or self-care (01) ==
PROVIDERS: PCP Family Medicine; Referring Provider Orthopaedic Surgery; Visit Provider Orthopaedic Surgery
PROC: (CPT 25545; principal; 2019-12-16 14:30)
DX: S52.252A Displaced comminuted fracture of shaft of ulna, left arm, initial encounter for closed fracture (principal); I48.0 Paroxysmal atrial fibrillation; K21.9 Gastro-esophageal reflux disease without esophagitis; I10 Essential (primary) hypertension; E78.5 Hyperlipidemia, unspecified; W01.0XXA Fall on same level from slipping, tripping and stumbling without subsequent striking against object, initial encounter
CPT/HCPCS: 25545; J0690; J2704; J3010

== ENCOUNTER → 2020-04-14 12:26 | Outpatient (CLI) | payer MEDICARE, OTHER, SELFPAY ==
--- NOTE | 2020-04-14 12:31 | DI.RAD.S_ITS ---
PROCEDURE: XR HIP W PEL IF DONE RT 2V INDICATIONS: RT HIP PAIN TECHNIQUE: AP pelvis with lateral view(s) of the right hip(s). COMPARISON: [facility], CR, [id number] W PEL IF PERFORMED, 04/26/2017, 16:21. [facility], CR, [id number] W PEL IF PERFORMED, 11/16/2015, 15:38. FINDINGS: Bones: No fractures or dislocations. Pelvic ring appears intact. No suspicious bony lesions. Soft tissues: The visualized bowel gas pattern is normal. No suspicious soft tissue calcifications. IMPRESSION: Prior left total hip arthroplasty, recent right total hip arthroplasty, normal arthroplasty positioning and alignment, no evidence of device loosening or disruption. Dictated by: Celestino Perez M.D. on 04/14/2020 at 12:55 Approved by: Celestino Perez M.D. on 04/14/2020 at 12:56
== END ==
PROVIDERS: PCP Family Medicine; Referring Provider Family Medicine; Visit Provider Family Medicine
DX: M25.551 Pain in right hip (principal); Z96.643 Presence of artificial hip joint, bilateral
CPT/HCPCS: 73502

== ENCOUNTER 2021-06-21 12:56 | Emergency (ER) | payer MEDICARE, OTHER, SELFPAY ==
[2021-06-21] VITALS (20 sets, daily range): BP systolic 159–220; BP diastolic 75–100; PULSE 62–79; RESP 14–29; TEMP 36.2; O2SAT 97–99
--- NOTE | 2021-06-21 13:19 | DI.RAD.S_ITS ---
PROCEDURE: XR CHEST 1V INDICATIONS: chest pain TECHNIQUE: One view of the chest was acquired. COMPARISON: [facility], , CHEST 1 VIEW, 08/23/2015, 22:09. [facility], CR, XR CHEST 1V, 01/20/2018, 11:38. [facility], CR, XR CHEST 2V, 07/14/2019, 12:19. FINDINGS: Surgical changes and devices: An apparent leadless pacer can be seen. Lungs and pleura: Lungs are clear. No pleural effusions or pneumothorax. Mediastinum: The cardiac contours are within normal limits. The aorta demonstrates calcification and tortuosity. Bones and chest wall: No suspicious bony lesions. Age-appropriate bony degenerative changes are seen. Mild dextroconvex scoliotic curvature is seen. Overlying soft tissues appear unremarkable. IMPRESSION: Unremarkable portable chest for age, with postoperative and degenerative change. Dictated by: Adiel Castelan M.D. on 06/21/2021 at 13:02 Approved by: Adiel Castelan M.D. on 06/21/2021 at 13:03
[2021-06-21 13:29] LABS: Add Manual Diff / Slide Review NO; Basophils Absolute Auto 0 /uL (0-100); Basophils Percent Auto 0.7 % (0-2); Eosinophils Absolute Auto 400 /uL (0-450); Eosinophils Percent Auto 6.9 % (2-4); Hematocrit 36.1 % (41-53); Hemoglobin 12.6 g/dL (13.5-17.5); Lymphocytes Absolute Auto 1600 /uL (1100-4500); Lymphocytes Percent Auto 27.7 % (25-40); Mean Corpuscular HGB Conc 34.9 % (30-36); Mean Corpuscular Volume 88.6 fL (80-100); Monocytes Absolute Auto 600 /uL (0-900); Monocytes Percent Auto 10.9 % (3-14); Neutrophils Absolute Auto 3100 /uL (1500-7000); Neutrophils Percent Auto 53.8 % (50-75); Platelet Count 137 X10^3/uL (150-400); Red Blood Cell Count 4.08 X10^6/uL (4.5-5.9); Red Cell Distribution Width 13.5 % (11.6-14.8); White Blood Cell Count 5.8 X10^3/uL (4.5-11.0)
[2021-06-21 13:30] LABS: INR 1.3 (0.9-1.3); Prothrombin Time 14.7 SECONDS (10.1-12.7)
[2021-06-21 13:33] LABS: PTT Partial Thromboplastin Tim 39 SECONDS (26.4-36.2)
[2021-06-21 13:44] LABS: COVID19 -Nasal RAPID Negative (Negative)
[2021-06-21 13:46] LABS: Alanine Aminotransferase 15 IU/L (<50); Albumin 4.2 g/dL (3.5-5.0); Albumin Globulin Ratio 1.4 (1.0-2.8); Alkaline Phosphatase 69 U/L (38-126); Aspartate Aminotransferase 27 IU/L (17-59); Bilirubin Total 0.5 mg/dL (0.2-1.3); Blood Urea Nitrogen 18 mg/dL (9-20); Calcium 9.2 mg/dL (8.4-10.2); Carbon Dioxide 28 mmol/L (22-32); Chloride 96 mmol/L (98-107); Creatine Kinase 64 U/L (55-170); Estimated Glomerular Filt Rate > 60.0 mL/min (>60); Globulin 3.1 g/dL (1.7-4.1); Glucose 110 mg/dL (80-110); HEMOLYSIS < 15 (0-50); Lipase 126 U/L (23-300); Magnesium 2.1 mg/dL (1.6-2.3); Potassium 3.9 mmol/L (3.4-5.1); Sodium 128 mmol/L (137-145); Total Protein 7.3 g/dL (6.3-8.2)
[2021-06-21 13:58] LABS: Troponin I < 0.012 ng/mL (0.01-0.034)
--- NOTE | 2021-06-21 14:03 | ED_ITS ---
HPI - Chest Pain General Chief Complaint: Chest Pain Stated Complaint: chest pain Time Seen by Provider: 06/21/21 13:14 Source: patient and family Mode of arrival: Wheelchair Limitations: no limitations History of Present Illness HPI narrative: Patient is a 86-year-old male who is here for evaluation of chest discomfort. He states that he woke up this morning with tingling in his right hand and also right-sided chest discomfort. He states the tingling in his right hand happens to him. He states that has happened in the past when he is driving. That has since resolved. He was also having pain in the right side of his chest. He has had similar pain on the left side of his chest in the past but he states that he burps and goes away. He potentially things that happened earlier today with the right-sided discomfort. He currently is asymptomatic. Related Data Home Medications Medication Instructions Recorded Confirmed [LYSINE] 500 mg PO QDAY #0 05/30/10 12/16/19 [SAW PALMETTO] #0 05/30/10 [SHARK CARTILAGE] 650 mg PO QDAY #0 05/30/10 [VIT D3 ] 2,000 iu PO QDAY #0 05/30/10 12/16/19 finasteride 5 mg tablet 5 mg PO HS #0 05/30/10 12/16/19 alfuzosin 10 mg tablet,extended 10 mg PO QAM #0 04/05/17 12/16/19 release 24 hr (Uroxatral) amiodarone 200 mg tablet 200 mg PO QDAY #0 04/05/17 12/16/19 apixaban 2.5 mg tablet (Eliquis) 2.5 mg PO BID #0 04/05/17 12/16/19 clobetasol 0.05 % topical ointment 1 ruiz TOPICAL PRN PRN #0 04/05/17 12/16/19 ferrous sulfate 325 mg (65 mg 325 mg PO QDAY #0 04/05/17 12/16/19 iron) tablet (Iron (ferrous sulfate)) fluticasone propionate 50 1 spray INTRANASAL BID #0 04/05/17 12/16/19 mcg/actuation nasal spray,suspension (Flonase Allergy Relief) ibuprofen 600 mg tablet 600 mg PO QDAYP PRN #0 04/05/17 12/16/19 metronidazole 1 % topical gel 1 ruiz TP HS #0 04/05/17 12/16/19 omeprazole 20 mg capsule,delayed 20 mg PO QPM #0 04/05/17 12/16/19 release ascorbic acid (vitamin C) 500 mg 1,000 mg PO QDAY #0 04/10/17 tablet glucosamine sulfate 750 mg tablet 750 mg PO QDAY #0 04/10/17 12/16/19 (Marge) ketotifen fumarate 0.025 % (0.035 1 drp OU BIDP PRN #0 04/10/17 12/16/19 %) eye drops multivitamin (Multiple Vitamins) 1 tab PO QDAY #0 04/10/17 12/16/19 omega 0-btr-xrd-fish oil 1,000 mg 1,000 mg PO QDAY #0 04/10/17 12/16/19 (120 mg-180 mg) capsule (Fish Oil) triamcinolone acetonide 0.5 % 1 ruiz TOPICAL PRN PRN #0 04/10/17 12/16/19 topical cream Eliquis 2.5 mg PO DAILY 12/16/19 12/16/19 loratadine 10 mg tablet 10 mg PO DAILY 12/16/19 12/16/19 Previous Rx's Medication Instructions Recorded hydrocodone 5 mg-acetaminophen 325 1 - 2 tab PO Q4HP PRN #60 tab 04/30/17 mg tablet hydrocodone 5 mg-acetaminophen 325 1 tab PO Q4-6H PRN #10 tab 06/14/19 mg tablet ([place]) lidocaine 5 % topical patch 1 patch TOP DAILY #15 each 06/14/19 tramadol 50 mg tablet 50 mg PO Q8H PRN #10 tab 12/16/19 Allergies Allergy/AdvReac Type Severity Reaction Status Date / Time oxybutynin Allergy Hives Verified 06/21/21 13:25 tamsulosin Allergy Hives Verified 06/21/21 13:25 Review of Systems Constitutional Constitutional: Denies headache(s) ENT Ears, Nose, Mouth, and Throat: Denies headache(s) Cardiovascular Cardiovascular: Reports as per HPI, Reports system reviewed and no additional complaints, except as documented and Denies dyspnea Respiratory Respiratory: Denies cough and Denies dyspnea Gastrointestinal Gastrointestinal: Denies abdominal pain, Denies nausea and Denies vomiting Musculoskeletal Musculoskeletal: Reports system reviewed and no additional complaints, except as documented Integumentary/Breasts Skin/Breast: Reports system reviewed and no additional complaints, except as documented Neurologic Neurologic: Denies headache(s) Hematologic/Lymphatic On Anticoagulants: Yes Allergic/Immunologic Allergic/Immunologic: Reports system reviewed and no additional complaints, except as documented Patient History Medical History Afib Dermatitis Diverticulosis Edema GERD (gastroesophageal reflux disease) Heart disease HLD (hyperlipidemia) HTN (hypertension) Iron deficiency anemia Left wrist fracture Melanoma Memory changes Memory deficit PSVT (paroxysmal supraventricular tachycardia) Rheumatic fever Surgical History (Updated 12/15/19 @ 13:35 by Roopa Bai RN) 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 right hip arthroplasty (04/26/17) Hx of prostatectomy Hx of sinus surgery Hx of tonsillectomy Hx of transurethral resection of prostate Social History household members: spouse Smoking Status: Former smoker alcohol intake: current Smoking Status: Former smoker alcohol intake frequency: 0-2 drinks per day Substance Use Type: does not use Exam Initial Vital Signs Initial Vital Signs: Vital Signs Temperature 97.2 F L 06/21/21 13:00 Pulse Rate 78 06/21/21 13:00 Respiratory Rate 18 06/21/21 13:00 Blood Pressure 205/98 H 06/21/21 13:00 Pulse Oximetry 99 06/21/21 13:00 HENMT Head: normal to inspection and normocephalic Resp Effort & Inspection: normal respiratory effort Auscultation: clear to auscultation bilaterally Cardio Rate: regular rate Rhythm: regular rhythm GI Inspection: normal to inspection Skin General: no rashes or lesions noted Neuro General: patient alert, patient awake and moves all extremities Extrem General: normal to inspection and capillary refill normal Psych Appearance: grossly normal and well kempt Scores GCS Rico coma scale eye opening: Spontaneous Rico coma scale verbal response: Orientated Rico coma scale motor response: Obey commands Rico coma scale total score: 15 Course Orders Ordered: ED Orders 06/21/21 13:15 COVID19 -Nasal swab/Pre-Proc Stat Complete Blood Count AUTO DIFF Stat Comprehensive Metabolic Panel Stat Lipase Stat Magnesium Stat Partial Thromboplastin Time Stat Prothrombin Time INR Stat Troponin & CK Cardiac Panel Stat 06/21/21 13:19 XR chest 1V Stat EKG-12 Lead Stat 06/21/21 15:15 Troponin I Stat Discontinued Medications Labetalol HCl (Labetalol 20 Mg/4 Ml Syringe) 10 mg IV NOW ONE Stop: 06/21/21 14:05 Last Admin: 06/21/21 14:10 Dose: 10 mg Documented by: A[place]ANDRIA Vital Signs Vital signs: Vital Signs - 8 hr 06/21/21 13:00 06/21/21 13:08 06/21/21 13:09 Temperature 97.2 F L Pulse Rate 78 77 77 Respiratory Rate 18 14 18 Blood Pressure 205/98 H 205/98 H Pulse Oximetry 99 99 06/21/21 13:15 06/21/21 13:30 06/21/21 13:45 Temperature Pulse Rate 73 67 69 Respiratory Rate 21 20 23 Blood Pressure 200/88 H 220/96 H Pulse Oximetry 99 98 97 06/21/21 13:59 06/21/21 14:00 06/21/21 14:10 Temperature Pulse Rate 74 73 79 Respiratory Rate 28 H 24 Blood Pressure 210/98 H 205/100 H Pulse Oximetry 97 97 06/21/21 14:15 06/21/21 14:30 06/21/21 14:45 Temperature Pulse Rate 65 62 63 Respiratory Rate 20 28 H 17 Blood Pressure Pulse Oximetry 98 98 97 06/21/21 14:52 06/21/21 14:53 06/21/21 15:00 Temperature Pulse Rate 64 71 Respiratory Rate 23 29 H Blood Pressure 167/88 H 167/95 H Pulse Oximetry 98 06/21/21 15:15 06/21/21 15:30 06/21/21 15:31 Temperature Pulse Rate 62 66 67 Respiratory Rate 17 25 H 20 Blood Pressure 166/84 H 191/91 H Pulse Oximetry 06/21/21 15:45 06/21/21 16:00 Temperature Pulse Rate 66 64 Respiratory Rate 16 15 Blood Pressure 181/86 H 159/75 H Pulse Oximetry MDM - Chest Pain Lab Data Attestation: I reviewed the patient's lab results. Result diagrams: 06/21/21 13:15 06/21/21 13:15 Labs: Lab Results 06/21/21 06/21/21 06/21/21 Range/Units 13:15 13:15 13:15 WBC 5.8 (4.5-11.0) X10^3/uL RBC 4.08 L (4.5-5.9) X10^6/uL Hgb 12.6 L (13.5-17.5) g/dL Hct 36.1 L (41-53) % MCV 88.6 (80-100) fL MCH 31.0 (26-34) PG MCHC 34.9 (30-36) % RDW 13.5 (11.6-14.8) % Plt Count 137 L (150-400) X10^3/uL Neut % (Auto) 53.8 (50-75) % Lymph % (Auto) 27.7 (25-40) % [place] % (Auto) 10.9 (3-14) % Eos % (Auto) 6.9 H (2-4) % Baso % (Auto) 0.7 (0-2) % Neut # (Auto) 3100 (4554-4730) /uL Lymph # (Auto) 1600 (9825-7975) /uL [place] # (Auto) 600 (0-900) /uL Eos # (Auto) 400 (0-450) /uL Baso # (Auto) 0 (0-100) /uL PT 14.7 H (10.1-12.7) SECONDS INR 1.3 (0.9-1.3) APTT 39 H (26.4-36.2) SECONDS Sodium 128 L (137-145) mmol/L Potassium 3.9 (3.4-5.1) mmol/L Chloride 96 L (98-107) mmol/L Carbon Dioxide 28 (22-32) mmol/L BUN 18 (9-20) mg/dL Creatinine 1.06 (0.66-1.25) mg/dL Estimated GFR > 60.0 (>60) mL/min BUN/Creatinine Ratio 17.0 (6-22) Glucose 110 (80-110) mg/dL Calcium 9.2 (8.4-10.2) mg/dL Magnesium 2.1 (1.6-2.3) mg/dL Total Bilirubin 0.5 (0.2-1.3) mg/dL AST 27 (17-59) IU/L ALT 15 (<50) IU/L Alkaline Phosphatase 69 (38-126) U/L Total Creatine Kinase 64 (55-170) U/L CK-MB (CK-2) TNP CK-MB (CK-2) Rel Index TNP Troponin I < 0.012 (0.01-0.034) ng/mL Total Protein 7.3 (6.3-8.2) g/dL Albumin 4.2 (3.5-5.0) g/dL Globulin 3.1 (1.7-4.1) g/dL Albumin/Globulin Ratio 1.4 (1.0-2.8) Lipase 126 (23-300) U/L SARS-CoV-2 (PCR) (Negative) 06/21/21 06/21/21 Range/Units 13:15 15:15 WBC (4.5-11.0) X10^3/uL RBC (4.5-5.9) X10^6/uL Hgb (13.5-17.5) g/dL Hct (41-53) % MCV (80-100) fL MCH (26-34) PG MCHC (30-36) % RDW (11.6-14.8) % Plt Count (150-400) X10^3/uL Neut % (Auto) (50-75) % Lymph % (Auto) (25-40) % [place] % (Auto) (3-14) % Eos % (Auto) (2-4) % Baso % (Auto) (0-2) % Neut # (Auto) (4896-5774) /uL Lymph # (Auto) (0712-9661) /uL [place] # (Auto) (0-900) /uL Eos # (Auto) (0-450) /uL Baso # (Auto) (0-100) /uL PT (10.1-12.7) SECONDS INR (0.9-1.3) APTT (26.4-36.2) SECONDS Sodium (137-145) mmol/L Potassium (3.4-5.1) mmol/L Chloride (98-107) mmol/L Carbon Dioxide (22-32) mmol/L BUN (9-20) mg/dL Creatinine (0.66-1.25) mg/dL Estimated GFR (>60) mL/min BUN/Creatinine Ratio (6-22) Glucose (80-110) mg/dL Calcium (8.4-10.2) mg/dL Magnesium (1.6-2.3) mg/dL Total Bilirubin (0.2-1.3) mg/dL AST (17-59) IU/L ALT (<50) IU/L Alkaline Phosphatase (38-126) U/L Total Creatine Kinase (55-170) U/L CK-MB (CK-2) CK-MB (CK-2) Rel Index Troponin I < 0.012 (0.01-0.034) ng/mL Total Protein (6.3-8.2) g/dL Albumin (3.5-5.0) g/dL Globulin (1.7-4.1) g/dL Albumin/Globulin Ratio (1.0-2.8) Lipase (23-300) U/L SARS-CoV-2 (PCR) Negative (Negative) Imaging Data Chest x-ray: Radiologist's Impression: [address] [address] XRay Report Signed Patient: Beto Hernandez MR#: [id number] : 1935 Acct:[id number] Age/Sex: 86 / M Date of Service: 06/21/21 Loc: ED Accession Number: [id number] ?? Procedure: XR chest 1V Ordering Provider: Favian Thompson D.O. PROCEDURE:? XR CHEST 1V ? INDICATIONS:? chest pain ? TECHNIQUE:? One view of the chest was acquired.? ? COMPARISON:? [facility], , CHEST 1 VIEW, 08/23/2015, 22:09.? [facility], XR CHEST 1V, 01/20/2018, 11:38.? [facility], , XR CHEST 2V, 07/14/2019, 12:19. ? FINDINGS:? ? Surgical changes and devices:? An apparent leadless pacer can be seen. ? Lungs and pleura:? Lungs are clear.? No pleural effusions or pneumothorax.? ? Mediastinum:? The cardiac contours are within normal limits. The aorta demonstrates calcification and tortuosity. ? Bones and chest wall:? No suspicious bony lesions.? Age-appropriate bony degenerative changes are seen.? Mild dextroconvex scoliotic curvature is seen. ? ? Overlying soft tissues appear unremarkable.? ? ? IMPRESSION:? Unremarkable portable chest for age, with postoperative and degenerative change. ? ? Dictated by: Adiel Castelan M.D. on 06/21/2021 at 13:02 ? ? Approved by: Adiel Castelan M.D. on 06/21/2021 at 13:03? ECG Data Attestation: I personally reviewed and interpreted this ECG as follows: Interpretation: Sinus rhythm Ventricular rate is 71 QRS 1 3 milliseconds Right bundle branch block QTC [address] T wave changes MDM Narrative Medical decision making narrative: Patient has been asymptomatic. His EKG is unremarkable. Vital signs unremarkable. Troponins are negative x2. Chest x-ray is unremarkable. Right- sided chest discomfort that seemed to get better with a burp. Suspect more GI etiology. Will discharge home. Have him continue all of his medications. Was given return precautions and follow-up instructions. He expressed understanding and agreement. Discharge Plan Departure Patient Disposition: Home Clinical Impression: Atypical chest pain, Hypertension Instructions: Essential Hypertension, DI for Atypical Chest Pain Activity Restrictions/Additional Instructions: Continue to take all of your medications as directed and continue to take your blood pressure at home as directed. Contact your primary doctor for a follow- up. Return to the emergency department for any new or worsening symptoms. Prescriptions: No Action finasteride 5 MG tablet 5 mg PO HS Qty: 0 0RF [SHARK CARTILAGE] 650 mg PO QDAY Qty: 0 0RF [LYSINE] 500 mg PO QDAY Qty: 0 0RF [VIT D3 ] 2,000 iu PO QDAY Qty: 0 0RF [SAW PALMETTO] Qty: 0 0RF ferrous sulfate [Iron (ferrous sulfate)] 325 MG tablet 325 mg PO QDAY Qty: 0 0RF omeprazole 20 MG capsule,delayed release(DR/EC) 20 mg PO QPM Qty: 0 0RF fluticasone propionate [Flonase Allergy Relief] 9.9 ML spray,suspension 1 spray Intranasal BID Qty: 0 0RF ibuprofen 600 MG tablet 600 mg PO QDAYP PRN (Reason: Pain (Scale Score 1-3)) Qty: 0 0RF amiodarone 200 MG tablet 200 mg PO QDAY Qty: 0 0RF Eliquis 2.5 MG tablet 2.5 mg PO BID Qty: 0 0RF clobetasol 0.05 % ointment 1 ruiz Topical PRN PRN (Reason: Itching) Qty: 0 0RF metronidazole 1 % gel 1 ruiz TP HS Qty: 0 0RF alfuzosin [Uroxatral] 10 MG tablet extended release 24 hr 10 mg PO QAM Qty: 0 0RF multivitamin [Multiple Vitamins] 1 EACH tablet 1 tab PO QDAY Qty: 0 0RF triamcinolone acetonide 0.5 % cream 1 ruiz Topical PRN PRN (Reason: Rash) Qty: 0 0RF ketotifen fumarate 5 ML drops 1 drp OU BIDP PRN (Reason: Pain (Scale Score 1-3)) Qty: 0 0RF glucosamine sulfate [Marge] 750 MG tablet 750 mg PO QDAY Qty: 0 0RF ascorbic acid (vitamin C) 500 MG tablet 1,000 mg PO QDAY Qty: 0 0RF omega 1-wex-lyt-fish oil [Fish Oil] 1,000 MG capsule 1,000 mg PO QDAY Qty: 0 0RF hydrocodone-acetaminophen 5 MG/325 MG tablet 1 - 2 tab PO Q4HP PRNQty: 60 0RF hydrocodone-acetaminophen [[place]] 5-325 mg tablet 1 tab PO Q4-6H PRN (Reason: pain) Qty: 10 0RF lidocaine 5 % adhesive patch,medicated 1 patch TOP DAILY Qty: 15 0RF Rx Instructions: leave on most painful area for up to 12 hrs loratadine 10 mg tablet 10 mg PO DAILY 0RF Eliquis 2.5 mg PO DAILY 0RF tramadol 50 mg tablet 50 mg PO Q8H PRN (Reason: pain) Qty: 10 1RF Referrals: Rod Horn MD [Primary Care Provider] -
[2021-06-21] MEDS: LABETALOL 20 MG/4 ML SYRINGE 10 MG IV (14:10)
[2021-06-21 15:58] LABS: Troponin I < 0.012 ng/mL (0.01-0.034)
== END 2021-06-21 16:31 | disposition home or self-care (01) ==
PROVIDERS: Emergency Provider Emergency Medicine; PCP Family Medicine
DX: R07.89 Other chest pain (principal); I10 Essential (primary) hypertension; Z87.891 Personal history of nicotine dependence; Z20.822 Contact with and (suspected) exposure to COVID-19
CPT/HCPCS: 36415; 71045; 80053; 82550; 83690; 83735; 84484; 85025; 85610; 85730; 87635; 93005; 96374; 99284; C9803

== ENCOUNTER → 2021-09-12 13:22 | Outpatient (CLI) | payer MEDICARE, OTHER, SELFPAY ==
[2021-09-12 17:41] LABS: COVID19 -Nasal RAPID Negative (Negative)
== END ==
PROVIDERS: PCP Family Medicine; Visit Provider Family Medicine Sleep Medicine
DX: Z20.822 Contact with and (suspected) exposure to COVID-19 (principal)
CPT/HCPCS: 87635; C9803

== ENCOUNTER → 2021-09-13 10:36 | Outpatient (CLI) | payer MEDICARE, OTHER, SELFPAY ==
--- NOTE | 2021-09-13 10:40 | DI.NM.S_ITS ---
PROCEDURE: NM [place] PERF SPECT R&S PHARM Rest and pharmacological stress myocardial perfusion SPECT with gated imaging and ejection fraction RADIOPHARMACEUTICAL: 12.3 mCi Tc-99m tetrafosmin IV at rest and 26.6 mCi Tc-99m tetrafosmin IV at peak effect of pharmacological stress. [id number]-[id number] was performed. INDICATIONS: Cardiac murmur, unspecified;Chest pain TECHNIQUE: Radiopharmaceutical was injected at peak stress test, and also at rest. SPECT images were obtained. SPECT myocardial perfusion images were displayed in short axis, horizontal long axis, and vertical long axis views. Gated images were reviewed using [employer] software. COMPARISON: None. CARDIAC STRESS: A pharmacologic stress test was performed under the supervision of an attending staff, using an infusion of Regadenoson. Hemodynamic data: There is normal blood pressure and heart rate response to pharmacologic stress. Symptoms: The patient denied anginal chest pain. EKG: No diagnostic changes of ischemia; no ectopy. FINDINGS: Raw data: There is good myocardial uptake of radiotracer. No significant motion artifacts. Xiai-ru-[id number] ratio is 0.36 (normal is less than 0.38 for tetrafosmin tracer). Left ventricle function: Gated images demonstrate normal left ventricular wall thickening. No segmental wall motion abnormalities. No transient ischemic dilation; TID is 1.05 (normal less than 1.3). Left ventricle resting end diastolic volume is 91 mL. Left ventricle stress ejection fraction is >75%; normal range is above 45%. Myocardial perfusion: There is a large size, mild intensity fixed inferior wall defect with preserved wall motion consistent with diaphragmatic attenuation. No reversible perfusion defects. IMPRESSION: No evidence of pharmacologic induced ischemia. No significant change compared to prior study 04/23/2018. Dictated by: Salome Avery D.O. on 09/13/2021 at 16:07 Approved by: Salome Avery D.O. on 09/13/2021 at 16:13
--- NOTE | 2021-09-13 10:40 | DI.ECHO.S_ITS ---
[facility] +---------+ : : [address] [place] [address] [place] : : : : [id number] : : : : Phone: [phone]+ Echocardiogram Report + + :Name: NGOZI TORRES Study Date: 09/13/2021 Height: 71 in : :[facility] ReadingLocation: Weight: 190 lb : : Gender: Male BSA: 2.1 m2 : :: 1935 Age: 86 yrs BP: 178/100 mmHg: :Reason For Study: CARDIAC MURMUR, CHEST PAIN : :Ordering Physician: LORENA, : :YAMILE Performed By: Asia Ivory : :Referring: YAMILE CARRILLO : + + Interpretation Summary The ejection fraction is estimated to be 55-60%. Diastolic function could not be accurately assessed due to unobtainable data. The right ventricle is normal in size and function. The mitral valve leaflets are mildly calcified. The aortic valve is moderately calcified. Pulmonary artery pressures cannot be estimated because of the lack of a measurable TR jet velocity. Procedure: A two-dimensional transthoracic echocardiogram with color flow and Doppler was performed. The study quality was technically adequate. There is no prior echocardiogram noted for this patient. The patient was in sinus rhythm with heart rates between 73-85 bpm during the exam. Left Ventricle: The left ventricle is normal in size and wall thickness. The ejection fraction is estimated to be 55-60%. Diastolic function could not be accurately assessed due to unobtainable data. Right Ventricle: The right ventricle is normal in size and function. Atria: Both atria are normal in size. Mitral Valve: There is moderate mitral annular calcification. The mitral valve leaflets are mildly calcified. The mitral valve mean gradient is 3.3 mmHg. There is trace mitral regurgitation. Aortic Valve: The aortic valve is moderately calcified. There is mildly reduced leaflet mobility. There is mild aortic valve sclerosis. There is no aortic valve stenosis. There is trace aortic regurgitation. Tricuspid Valve: The tricuspid valve is not well visualized, but is grossly normal. There is trace tricuspid regurgitation. Pulmonary artery pressures cannot be estimated because of the lack of a measurable TR jet velocity. Pulmonic Valve: The pulmonic valve is not well visualized. There is mild pulmonic regurgitation. Great Vessels: The aortic root is normal size. The ascending aorta is at the upper limits of normal in size. The IVC is of normal diameter and collapses greater than 50% with a sniff. This suggests a low right atrial pressure of 3 mm Hg. Pericardium/ Pleura There is no pericardial effusion. There is no pleural effusion. MMode/2D Measurements & Calculations LVIDd: 4.7 cm LVOT diam: 2.2 cm LVIDs: 2.8 cm Ao root diam: 3.6 cm FS: 38.8 % asc Aorta Diam: 3.9 cm IVSd: 0.65 cm Ao Arch Diam (Prox Trans): 3.5 cm LVPWd: 0.95 cm LV sosa. diameter/BSA (cm/m^2): 2.3 LV sys. diameter/BSA (cm/m^2): 1.4 LA A2 area: 22.5 cm2 RA long axis: 5.4 cm LA A4 area: 18.2 cm2 RA area: 17.1 cm2 LA length (vol): 5.3 cm RA vol: 45.9 ml LA vol: 65.5 ml RA : 22.2 ml/m2 LA vol index: 31.7 ml/m2 IVC diam: 1.7 cm RVD1 (basal): 3.9 cm RVD2 (mid): 3.5 cm TAPSE: 2.2 cm Doppler Measurements & Calculations Ao V2 max: 189.1 cm/sec LVOT Max Slim: 106.3 cm/sec Ao V2 mean: 122.8 cm/sec LV V1 max P.5 mmHg Ao max P.5 mmHg LV V1 VTI: 24.2 cm Ao mean P.7 mmHg LIDIA(I,D): 2.2 cm2 Ao V2 VTI: 42.4 cm LIDIA(V,D): 2.1 cm2 sev ratio: 0.57 LIDIA indexed to BSA (cm^2/m^2): 1.0 MV E max slim: 87.4 cm/sec PA V2 max: 92.3 cm/sec MV A max slim: 121.7 cm/sec PA V2 mean: 66.2 cm/sec MV E/A: 0.72 PA mean P.0 mmHg Med Peak E' Slim: 7.6 cm/sec PA pr(Accel): 41.3 mmHg E/E' med: 11.6 Lat Peak E' Slim: 6.9 cm/sec E/E' lat: 12.7 E/e' average: 12.1 MV dec time: 0.45 sec MVA(VTI): 2.4 cm2 MV V2 mean: 82.4 cm/sec SV(LVOT): 91.7 ml MV mean P.2 mmHg MV V2 VTI: 38.1 cm Reading Physician:03:44 PM
== END ==
PROVIDERS: PCP Family Medicine; Referring Provider Nurse Practitioner Acute Care; Visit Provider Nurse Practitioner Acute Care
DX: R01.1 Cardiac murmur, unspecified (principal); R07.9 Chest pain, unspecified
CPT/HCPCS: 78452; 93017; 93306; A9502; J2785

== ENCOUNTER → 2021-10-14 11:27 | Outpatient (CLI) | payer MEDICARE, OTHER, SELFPAY ==
[2021-10-14 12:50] LABS: COVID19 -Nasal RAPID Negative (Negative)
== END ==
PROVIDERS: PCP Family Medicine; Referring Provider Internal Medicine; Visit Provider Internal Medicine
DX: Z20.822 Contact with and (suspected) exposure to COVID-19 (principal)
CPT/HCPCS: 87635; C9803

== ENCOUNTER → 2021-10-14 11:30 | Outpatient (CLI) | payer MEDICARE, OTHER, SELFPAY ==
--- NOTE | 2021-10-23 13:37 | PM.PFT.1 ---
Pulmonary Function Test Referral & Results Date Patient Seen: 10/14/21 Requesting provider: Angela Velasco Results: The spirometry demonstrates an FVC of 3.89 L which is 95% of predicted. The FEV1 was measured at 2.62 L which is 92% of predicted. The FEV1/FVC ratio was 67 which is 96% of predicted. Following the administration of bronchodilator there was no notable change Lung volumes show an SVC of 3.52 L which is 76% of predicted. The diffusing capacity was measured at 21.13 which is 60% of predicted. No hemoglobin value was provided, so no correction for potential anemia could be made, if appropriate. The maximum voluntary ventilation was normal Interpretation: This study demonstrates normal spirometry although there may be a slight reduction in lung volumes suggesting the possibility of very mild restrictive lung disease Diffusing capacity is moderately reduced suggesting disease at the capillary alveolar level Clinical correlation suggested
== END ==
PROVIDERS: PCP Family Medicine; Referring Provider Nurse Practitioner Acute Care; Visit Provider Nurse Practitioner Acute Care
DX: Z79.899 Other long term (current) drug therapy (principal); Z87.891 Personal history of nicotine dependence; Z20.822 Contact with and (suspected) exposure to COVID-19; J98.8 Other specified respiratory disorders
CPT/HCPCS: 87635; 94060; 94726; 94729; C9803

== ENCOUNTER → 2021-10-21 10:13 | Outpatient (CLI) | payer MEDICARE, OTHER, SELFPAY ==
--- NOTE | 2021-10-21 | DI.RAD.S_ITS ---
PROCEDURE: XR CERVICAL SPINE 2V OR 3V INDICATIONS: NECK PAIN TECHNIQUE: 5 view(s) of the cervical spine were acquired. COMPARISON: None. FINDINGS: Bones: No fractures or dislocations to the T1 level. There is rightward curvature of the cervical spine. The lateral masses of C1 appear intact on the odontoid view. No suspicious bony lesions. Soft tissues: No prevertebral soft tissue swelling. Calcifications are noted in the IMPRESSION: 1. Multilevel degenerative changes of the cervical spine. 2. Rightward curvature of the cervical spine. Dictated by: Myke Tavera M.D. on 10/21/2021 at 11:32 Approved by: Myke Tavera M.D. on 10/21/2021 at 12:02
== END ==
PROVIDERS: PCP Family Medicine; Referring Provider Family Medicine; Visit Provider Family Medicine
DX: M54.2 Cervicalgia (principal); M47.812 Spondylosis without myelopathy or radiculopathy, cervical region
CPT/HCPCS: 72040

== ENCOUNTER 2022-02-08 20:19 | Emergency (ER) | payer MEDICARE, OTHER, SELFPAY ==
[2022-02-08] VITALS (12 sets, daily range): BP systolic 164–203; BP diastolic 78–94; PULSE 71–80; RESP 16–22; TEMP 36.6; O2SAT 96–99; BMI 27.8
--- NOTE | 2022-02-08 20:28 | DI.CT.S_ITS ---
PROCEDURE: CT ANGIO CHEST ABDOMEN PELVIS INDICATIONS: HTN with chest pain TECHNIQUE: Precontrast 5 mm thick sections acquired from the lung apices to the iliac crests. After the administration of intravenous contrast, 2.5 mm thick sections again acquired from the lung apices to the iliac crests. Maximum intensity projection (MIP) oblique sagittal and coronal reformats were then acquired. For radiation dose reduction, the following was used: automated exposure control. COMPARISON: Merged With [facility], CT, CT ABDOMEN WO/W CON, 11/26/2017, 11:36. FINDINGS: Image quality: There is metallic streak artifact from patient's bilateral hip prostheses limiting evaluation. AORTA: Noncontrast images demonstrate no evidence of intramural hematoma. The aorta is normal in caliber and contour without intimal flaps to suggest dissection. There is conventional branching of the aortic arch. The visualized great vessels are normal in caliber and appear patent. The celiac, superior mesenteric, and inferior mesenteric arteries are patent, with mild to moderate narrowing at the origin of the superior mesenteric artery. There are single renal arteries bilaterally which also appear patent. The common, external, and internal iliac arteries appear patent. The common femoral and visualized proximal superficial femoral arteries appear patent. CHEST: Lower Neck: No lymphadenopathy by size criteria. Thyroid: Visualized thyroid demonstrates no discrete nodules. Axillae: No lymphadenopathy by size criteria. Chest Wall: Unremarkable. Bones: Visualized osseous structures demonstrate no suspicious lesions. Lungs and Airways: No acute consolidation. There is scarring within the bilateral apices. Linear dependent atelectasis and scarring also demonstrated in the lung bases. There is a pleural-based nodule in the right hemithorax along the right upper and middle lobes measuring up to 1.0 cm on series 6, image 162. There is nodular thickening in the right lower lobe along the major fissure measuring up to 0.6 cm on series 6, image 170. The trachea and central airways are patent. Pleura: No pneumothorax or pleural effusions. Heart: Heart size is normal. No pericardial effusion. Thoracic Vessels: The pulmonary arteries are normal in size and demonstrate no filling defects to suggest central pulmonary embolism. Mediastinum and [place]: There are mildly enlarged mediastinal lymph nodes measuring up to 1.0 cm in short axis. Esophagus: No wall thickening. There is a small hiatal hernia. ABDOMEN: Liver: No mass lesion. Gallbladder: Within normal limits without calcified gallstones. Biliary ducts: No biliary ductal dilatation. Pancreas: Unremarkable. Spleen: Normal in size. Adrenal Glands: No adrenal nodules. Kidneys and Ureters: No hydronephrosis. Stomach and Bowel: Stomach, small bowel loops, and colon are normal in caliber and wall thickness. The appendix is normal in appearance. There is colonic diverticulosis without acute diverticulitis. Peritoneum: No abnormal intraperitoneal fluid. No free air. Ventral Wall: No hernia. Abdominal Nodes: No retroperitoneal or mesenteric adenopathy by size criteria. Vessels: Aorta and inferior vena cava are normal in size. PELVIS: Pelvic Organs: Unremarkable. Bladder: Unremarkable. Pelvic Nodes: No enlarged lymph nodes. Miscellaneous: No inguinal hernias are seen. Bones: There is a mild S-shaped scoliosis of the thoracolumbar spine. Visualized osseous structures demonstrate no suspicious focal lesions. IMPRESSION: 1. No evidence of aortic aneurysm or dissection. 2. No evidence of central pulmonary embolism. 3. No acute airspace consolidation. 4. Small pulmonary nodules as described. If clinically indicated, follow-up chest CT may be performed in 6-12 months to demonstrate stability. 5. Colonic diverticulosis. Dictated by: Terrance Nieves M.D. on 02/08/2022 at 22:41 Approved by: Terrance Nieves M.D. on 02/08/2022 at 22:48
[2022-02-08] MEDS: SODIUM CHLORIDE 0.9% 1,000 ML 150 ML IV (20:34)
[2022-02-08 20:45] LABS: INR 1.2 (0.9-1.3); Prothrombin Time 14.3 SECONDS (10.1-12.7)
[2022-02-08 20:47] LABS: Add Manual Diff / Slide Review NO; Basophils Absolute Auto 0 /uL (0-100); Basophils Percent Auto 0.5 % (0-2); Eosinophils Absolute Auto 300 /uL (0-450); Eosinophils Percent Auto 5.1 % (2-4); Hematocrit 31.5 % (41-53); Hemoglobin 11.1 g/dL (13.5-17.5); Lymphocytes Absolute Auto 1700 /uL (1100-4500); Mean Corpuscular HGB Conc 35.1 % (30-36); Mean Corpuscular Hemoglobin 31.2 PG (26-34); Mean Corpuscular Volume 88.8 fL (80-100); Monocytes Absolute Auto 700 /uL (0-900); Neutrophils Absolute Auto 2900 /uL (1500-7000); Neutrophils Percent Auto 51.4 % (50-75); Platelet Count 124 X10^3/uL (150-400); Red Blood Cell Count 3.55 X10^6/uL (4.5-5.9); Red Cell Distribution Width 13.8 % (11.6-14.8); White Blood Cell Count 5.6 X10^3/uL (4.5-11.0)
[2022-02-08 20:48] LABS: PTT Partial Thromboplastin Tim 34 SECONDS (26-36)
[2022-02-08 20:51] LABS: Alanine Aminotransferase 16 IU/L (<50); Albumin 3.9 g/dL (3.5-5.0); Albumin Globulin Ratio 1.3 (1.0-2.8); Alkaline Phosphatase 63 U/L (38-126); Aspartate Aminotransferase 26 IU/L (17-59); Bilirubin Total 0.4 mg/dL (0.2-1.3); Blood Urea Nitrogen 23 mg/dL (9-20); Calcium 8.8 mg/dL (8.4-10.2); Carbon Dioxide 23 mmol/L (22-32); Chloride 98 mmol/L (98-107); Creatine Kinase 67 U/L (55-170); Estimated Glomerular Filt Rate > 60 mL/min (>60); Globulin 2.9 g/dL (1.7-4.1); Glucose 103 mg/dL (80-110); HEMOLYSIS 34 (0-50); Lipase 151 U/L (23-300); Potassium 3.7 mmol/L (3.4-5.1); Sodium 130 mmol/L (137-145); Total Protein 6.8 g/dL (6.3-8.2)
[2022-02-08 21:00] LABS: NT-proBNP (BNP-Adult 18+) 342 pg/mL (<450)
[2022-02-08 21:02] LABS: Troponin I < 0.012 ng/mL (0.01-0.034)
--- NOTE | 2022-02-08 21:04 | ED_ITS ---
HPI - Chest Pain General Chief Complaint: Chest Pain Stated Complaint: Chest Pain Time Seen by Provider: 02/08/22 20:27 Source: patient and EMS Mode of arrival: EMS Limitations: no limitations History of Present Illness HPI narrative: Patient is an 86-year-old male with presumed history of atrial fibrillation being on amiodarone and Eliquis, hypertension and hyperlipidemia presenting today with chest discomfort. He says he was sitting in [employer] crying when he felt some chest discomfort. It did not radiate. Nothing made it worse. EMS was called he was given 3 nitroglycerin in the ambulance and is no longer having chest pain. He has no shortness of breath. He states that he has a loop recorder that was placed. His director of managed care Dr. Arias called the few weeks ago for an event that happened that he was completely asymptomatic for. Related Data Home Medications Medication Instructions Recorded Confirmed [LYSINE] 500 mg PO QDAY ##0 05/30/10 12/16/19 [SAW PALMETTO] ##0 05/30/10 [SHARK CARTILAGE] 650 mg PO QDAY ##0 05/30/10 [VIT D3 ] 2,000 iu PO QDAY ##0 05/30/10 12/16/19 finasteride 5 mg tablet 5 mg PO HS ##0 05/30/10 12/16/19 alfuzosin 10 mg tablet,extended 10 mg PO QAM ##0 04/05/17 12/16/19 release 24 hr (Uroxatral) amiodarone 200 mg tablet 200 mg PO QDAY ##0 04/05/17 12/16/19 apixaban 2.5 mg tablet (Eliquis) 2.5 mg PO BID ##0 04/05/17 12/16/19 clobetasol 0.05 % topical ointment 1 ruiz topical PRN PRN Itching ##0 04/05/17 12/16/19 ferrous sulfate 325 mg (65 mg 325 mg PO QDAY ##0 04/05/17 12/16/19 iron) tablet (Iron (ferrous sulfate)) fluticasone propionate 50 1 spray intranasal BID ##0 04/05/17 12/16/19 mcg/actuation nasal spray,suspension (Flonase Allergy Relief) ibuprofen 600 mg tablet 600 mg PO QDAYP PRN Pain (Scale 04/05/17 12/16/19 Score 1-3) ##0 metronidazole 1 % topical gel 1 ruiz TP HS ##0 04/05/17 12/16/19 omeprazole 20 mg capsule,delayed 20 mg PO QPM ##0 04/05/17 12/16/19 release ascorbic acid (vitamin C) 500 mg 1,000 mg PO QDAY ##0 04/10/17 tablet glucosamine sulfate 750 mg tablet 750 mg PO QDAY ##0 04/10/17 12/16/19 (Marge) ketotifen fumarate 0.025 % (0.035 1 drp OU BIDP PRN Pain (Scale 04/10/17 12/16/19 %) eye drops Score 1-3) ##0 multivitamin (Multiple Vitamins 1 tab PO QDAY ##0 04/10/17 12/16/19 tablet) omega 1-zzu-nyi-fish oil 1,000 mg 1,000 mg PO QDAY ##0 04/10/17 12/16/19 (120 mg-180 mg) capsule (Fish Oil) triamcinolone acetonide 0.5 % 1 ruiz topical PRN PRN Rash ##0 04/10/17 12/16/19 topical cream Eliquis 2.5 mg PO DAILY 12/16/19 12/16/19 loratadine 10 mg tablet 10 mg PO DAILY 12/16/19 12/16/19 Previous Rx's Medication Instructions Recorded hydrocodone 5 mg-acetaminophen 325 1 - 2 tab PO Q4HP PRN #60 tabs 04/30/17 mg tablet hydrocodone 5 mg-acetaminophen 325 1 tab PO Q4-6H PRN pain #10 tabs 06/14/19 mg tablet ([place]) lidocaine 5 % topical patch 1 patch topical DAILY #15 ea 06/14/19 tramadol 50 mg tablet 50 mg PO Q8H PRN pain #10 tabs 12/16/19 Allergies Allergy/AdvReac Type Severity Reaction Status Date / Time oxybutynin Allergy Hives Verified 02/08/22 20:24 tamsulosin Allergy Hives Verified 02/08/22 20:24 Review of Systems Review of Systems Narrative: GENERAL: Denies chills, fatigue, malaise, fever, sweats, travel HEENT: Denies sinus pain, ear pain, sore throat, difficulty swallowing, neck pain RESPIRATORY: Denies dyspnea, cough, wheezing, hemoptysis, sputum. CARDIOVASCULAR: See HPI GASTROINTESTINAL: Denies nausea, vomiting, abdominal pain, diarrhea, constipation, melena. : Denies dysuria, frequency, incontinence, hematuria, urinary retention, flank pain. MUSCULOSKELETAL: Denies weakness, joint pain, or bony pain SKIN: No rash, no erythema, no pruritus NEUROLOGIC: Denies weakness, dizziness, headache, numbness, change in speech, confusion PSYCHIATRIC: No concerning psychosocial issues. 12 point review of systems is negative except for those stated above and HPI Patient History Medical History Afib Dermatitis Diverticulosis Edema GERD (gastroesophageal reflux disease) Heart disease HLD (hyperlipidemia) HTN (hypertension) Iron deficiency anemia Left wrist fracture Melanoma Memory changes Memory deficit PSVT (paroxysmal supraventricular tachycardia) Rheumatic fever Surgical History (Updated 12/15/19 @ 13:35 by Roopa Bai RN) 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 right hip arthroplasty (04/26/17) Hx of prostatectomy Hx of sinus surgery Hx of tonsillectomy Hx of transurethral resection of prostate Social History household members: spouse Smoking Status: Former smoker alcohol intake: current Smoking Status: Former smoker alcohol intake frequency: 0-2 drinks per day Substance Use Type: does not use Exam Initial Vital Signs Initial Vital Signs: Vital Signs Pulse Rate 80 02/08/22 20:21 Blood Pressure 201/91 H 02/08/22 20:21 Pulse Oximetry 96 02/08/22 20:21 GENERAL: Pleasant alert 86-year-old male HEENT: Head atraumatic,EOMI, pupils reactive, face symmetric, moist mucous membranes CARDIOVASCULAR: Regular rate and rhythm without murmurs, rubs or gallops. RESPIRATORY: Breath sounds equal bilaterally, no wheezes rales or rhonchi. ABDOMEN: Soft, nontender. Normoactive bowel sounds all 4 quadrants. No guarding or rebound. EXTREMITIES: Normal range of motion, no clubbing or edema. Neurovascularly intact NEUROLOGICAL: Alert and oriented x4.Normal gait and speech. SKIN: Warm, dry, no laceration, no petechiae, no rashes or lesions. Course Orders Ordered: ED Orders 02/08/22 20:34 EKG-12 Lead Stat 02/08/22 22:14 Trop I [Troponin I] Stat Discontinued Medications Sodium Chloride (Normal Saline 0.9%) 1,000 mls @ 150 mls/hr IV CONT MARGO Last Infusion: 02/09/22 00:03 Dose: 0 mls/hr Documented By: Admin: 02/08/22 20:34 Dose: 150 mls/hr Documented By: ROSALINA Vital Signs Vital signs: Vital Signs - 8 hr 02/08/22 21:33 02/08/22 21:34 02/08/22 21:34 Pulse Rate 79 Respiratory Rate 17 Blood Pressure 200/89 H Pulse Oximetry 98 98 Oxygen Delivery Method 02/08/22 21:57 02/08/22 21:57 02/08/22 22:00 Pulse Rate 73 Respiratory Rate 16 Blood Pressure 168/78 H 177/82 H Pulse Oximetry 98 Oxygen Delivery Method 02/08/22 22:00 02/08/22 22:30 02/08/22 22:30 Pulse Rate 78 75 Respiratory Rate 22 16 Blood Pressure 168/88 H Pulse Oximetry 98 Oxygen Delivery Method 02/08/22 23:08 02/08/22 23:09 02/08/22 23:09 Pulse Rate 79 Respiratory Rate 18 Blood Pressure 177/85 H Pulse Oximetry 99 99 Oxygen Delivery Method 02/09/22 00:04 Pulse Rate 75 Respiratory Rate 16 Blood Pressure 175/88 H Pulse Oximetry 95 Oxygen Delivery Method Room Air MDM - Chest Pain Lab Data Result diagrams: 02/08/22 20:29 02/08/22 20:29 Labs: Lab Results 02/08/22 02/08/22 02/08/22 Range/Units 20:29 20:29 20:29 WBC 5.6 (4.5-11.0) X10^3/uL RBC 3.55 L (4.5-5.9) X10^6/uL Hgb 11.1 L (13.5-17.5) g/dL Hct 31.5 L (41-53) % MCV 88.8 (80-100) fL MCH 31.2 (26-34) PG MCHC 35.1 (30-36) % RDW 13.8 (11.6-14.8) % Plt Count 124 L (150-400) X10^3/uL Neut % (Auto) 51.4 (50-75) % Lymph % (Auto) 31.0 (25-40) % Thomas % (Auto) 12.0 (3-14) % Eos % (Auto) 5.1 H (2-4) % Baso % (Auto) 0.5 (0-2) % Neut # (Auto) 2900 (2967-7220) /uL Lymph # (Auto) 1700 (8183-8619) /uL Thomas # (Auto) 700 (0-900) /uL Eos # (Auto) 300 (0-450) /uL Baso # (Auto) 0 (0-100) /uL PT 14.3 H (10.1-12.7) SECONDS INR 1.2 (0.9-1.3) APTT 34 (26-36) SECONDS Sodium 130 L (137-145) mmol/L Potassium 3.7 (3.4-5.1) mmol/L Chloride 98 (98-107) mmol/L Carbon Dioxide 23 (22-32) mmol/L BUN 23 H (9-20) mg/dL Creatinine 1.15 (0.66-1.25) mg/dL Estimated GFR > 60 (>60) mL/min BUN/Creatinine Ratio 20.0 (6-22) Glucose 103 (80-110) mg/dL Calcium 8.8 (8.4-10.2) mg/dL Total Bilirubin 0.4 (0.2-1.3) mg/dL AST 26 (17-59) IU/L ALT 16 (<50) IU/L Alkaline Phosphatase 63 (38-126) U/L Total Creatine Kinase 67 (55-170) U/L CK-MB (CK-2) TNP CK-MB (CK-2) Rel Index TNP Troponin I < 0.012 (0.01-0.034) ng/mL NT-Pro-B Natriuret Pep (<450) pg/mL Total Protein 6.8 (6.3-8.2) g/dL Albumin 3.9 (3.5-5.0) g/dL Globulin 2.9 (1.7-4.1) g/dL Albumin/Globulin Ratio 1.3 (1.0-2.8) Lipase 151 (23-300) U/L 02/08/22 02/08/22 Range/Units 20:29 22:14 WBC (4.5-11.0) X10^3/uL RBC (4.5-5.9) X10^6/uL Hgb (13.5-17.5) g/dL Hct (41-53) % MCV (80-100) fL MCH (26-34) PG MCHC (30-36) % RDW (11.6-14.8) % Plt Count (150-400) X10^3/uL Neut % (Auto) (50-75) % Lymph % (Auto) (25-40) % Thomas % (Auto) (3-14) % Eos % (Auto) (2-4) % Baso % (Auto) (0-2) % Neut # (Auto) (3648-0820) /uL Lymph # (Auto) (1722-4761) /uL Thomas # (Auto) (0-900) /uL Eos # (Auto) (0-450) /uL Baso # (Auto) (0-100) /uL PT (10.1-12.7) SECONDS INR (0.9-1.3) APTT (26-36) SECONDS Sodium (137-145) mmol/L Potassium (3.4-5.1) mmol/L Chloride (98-107) mmol/L Carbon Dioxide (22-32) mmol/L BUN (9-20) mg/dL Creatinine (0.66-1.25) mg/dL Estimated GFR (>60) mL/min BUN/Creatinine Ratio (6-22) Glucose (80-110) mg/dL Calcium (8.4-10.2) mg/dL Total Bilirubin (0.2-1.3) mg/dL AST (17-59) IU/L ALT (<50) IU/L Alkaline Phosphatase (38-126) U/L Total Creatine Kinase (55-170) U/L CK-MB (CK-2) CK-MB (CK-2) Rel Index Troponin I < 0.012 (0.01-0.034) ng/mL NT-Pro-B Natriuret Pep 342 (<450) pg/mL Total Protein (6.3-8.2) g/dL Albumin (3.5-5.0) g/dL Globulin (1.7-4.1) g/dL Albumin/Globulin Ratio (1.0-2.8) Lipase (23-300) U/L Imaging Data CT scan - chest: Radiologist's Impression: : Beto Hernandez MR#: [id number] : 1935 Acct:[id number] Age/Sex: 86 / M Date of Service: 02/08/22 Loc: ED Accession Number: [id number] ?? Procedure: CT angio chest abdomen pelvis Ordering Provider: Mounika Matson D.O. PROCEDURE:? CT ANGIO CHEST ABDOMEN PELVIS ? INDICATIONS:? HTN with chest pain ? TECHNIQUE:? Precontrast 5 mm thick sections acquired from the lung apices to the iliac crests.? After the administration of intravenous contrast, 2.5 mm thick sections again acquired from the lung apices to the iliac crests.? Maximum intensity projection (MIP) oblique sagittal and coronal reformats were then acquired.? For radiation dose reduction, the follow ing was used:? automated exposure control.? ? COMPARISON:? , CT, CT ABDOMEN WO/W CON, 11/26/2017, 11:36. ? FINDINGS:? Image quality:? There is metallic streak artifact from patient's bilateral hip prostheses limiting evaluation.? ? AORTA:? Noncontrast images demonstrate no evidence of intramural hematoma.? The aorta is normal in caliber and contour without intimal flaps to suggest dissection.? There is conventional branching of the aortic arch.? The visualized great vessels are nor mal in caliber and appear patent.? The celiac, superior mesenteric, and inferior mesenteric arteries are patent, with mild to moderate narrowing at the origin of the superior mesenteric artery.? There are single renal arteries bilaterally which also appear patent. ?The common, external, and internal iliac arteries appear patent.? The common femoral and visualized proximal superficial femoral arteries appear patent. ? CHEST:? Lower Neck: No lymphadenopathy by size criteria. Thyroid:? Visualized thyroid demonstrates no discrete nodules. Axillae: No lymphadenopathy by size criteria. Chest Wall:? Unremarkable.? Bones: Visualized osseous structures demonstrate no suspicious lesions. ? Lungs and Airways:? No acute consolidation.? There is scarring within the bilateral apices.? Linear dependent atelectasis and scarring also demonstrated in the lung bases.? There is a pleural-based nodule in the right hemithorax along the right upper and middle lobes measuring up to 1.0 cm on series 6, image 162. There is nodular thickening in the right lower lobe along the major fissure measuring up to 0.6 cm on series 6, image 170.? The trachea and central airways are patent. Pleura: No pneumothorax or pleural effusions.? ? Heart: Heart size is normal.? No pericardial effusion. Thoracic Vessels: The pulmonary arteries are normal in size and demonstrate no filling defects to suggest central pulmonary embolism.? Mediastinum and [place]:? There are mildly enlarged mediastinal lymph nodes measuring up to 1.0 cm in short axis. Esophagus: No wall thickening.? There is a small hiatal hernia. ? ABDOMEN: Liver:? No mass lesion. Gallbladder:? Within normal limits without calcified gallstones.? ? Biliary ducts:? No biliary ductal dilatation.? ? Pancreas:? Unremarkable.? ? Spleen:? Normal in size.? ? Adrenal Glands:? No adrenal nodules.? ? Kidneys and Ureters:? No hydronephrosis.? ? ? Stomach and Bowel:? Stomach, small bowel loops, and colon are normal in caliber and wall thickness.? The appendix is normal in appearance.? There is colonic diverticulosis without acute diverticulitis. Peritoneum:? No abnormal intraperitoneal fluid.? No free air.? ? Ventral Wall: ? No hernia.? Abdominal Nodes:? No retroperitoneal or mesenteric adenopathy by size criteria.? Vessels:? Aorta and inferior vena cava are normal in size.? ? PELVIS: Pelvic Organs:? Unremarkable.? ? Bladder:? Unremarkable.? ? Pelvic Nodes: No enlarged lymph nodes.? Miscellaneous: No inguinal hernias are seen. ? ? ? Bones:? There is a mild S-shaped scoliosis of the thoracolumbar spine.? Visualized osseous structures demonstrate no suspicious focal lesions. ? ? IMPRESSION:? ? 1. No evidence of aortic aneurysm or dissection. ? 2. No evidence of central pulmonary embolism. ? 3. No acute airspace consolidation. ? 4. Small pulmonary nodules as described.? If clinically indicated, follow-up chest CT may be performed in 6-12 months to demonstrate stability.? ? 5. Colonic diverticulosis. ? Dictated by: Terrance Nieves M.D. on 02/08/2022 at 22:41 ? ? ECG Data Interpretation: Sinus rhythm artifact noted rate 76 KS interval 180 QRS [address] changes similar to previous EKG and June 2021 MDM Narrative Medical decision making narrative: Patient has had no recurrence of chest discomfort while in the emergency department. He said the aspirin and the nitro that EMS provided him has relieved it. He is noted to be quite hypertensive in the emergency department blood pressure in the 200s. CT angio did not show any sort of dissection. Patient actually had a stress test 09/13/2021 of this year which did not show any evidence of ischemia. At this time recommend patient follow-up with Cardiology in monitor his blood pressure Discharge Plan Departure Patient Disposition: Home Clinical Impression: Atypical chest pain Instructions: DI for Atypical Chest Pain Activity Restrictions/Additional Instructions: *You have been diagnosed with atypical chest pain *What to do: At this time please follow-up with your primary care provider in your director of managed care. Blood work head scan today do not show any abnormality *Continue to take medications as directed *Follow up with your primary care provider in 2-3 days or call [phone] *Return to ER if you should have increasing chest pain palpitation shortness of or any new, worsening or concerning symptoms Prescriptions: No Action finasteride 5 MG tablet 5 mg PO HS Qty: 0 [SHARK CARTILAGE] 650 mg PO QDAY Qty: 0 [LYSINE] 500 mg PO QDAY Qty: 0 [VIT D3 ] 2,000 iu PO QDAY Qty: 0 [SAW PALMETTO] Qty: 0 ferrous sulfate [Iron (ferrous sulfate)] 325 MG tablet 325 mg PO QDAY Qty: 0 omeprazole 20 MG capsule,delayed release(DR/EC) 20 mg PO QPM Qty: 0 fluticasone propionate [Flonase Allergy Relief] 9.9 ML spray,suspension 1 spray Intranasal BID Qty: 0 ibuprofen 600 MG tablet 600 mg PO QDAYP PRN (Reason: Pain (Scale Score 1-3)) Qty: 0 amiodarone 200 MG tablet 200 mg PO QDAY Qty: 0 Eliquis 2.5 MG tablet 2.5 mg PO BID Qty: 0 clobetasol 0.05 % ointment 1 ruiz Topical PRN PRN (Reason: Itching) Qty: 0 metronidazole 1 % gel 1 ruiz TP HS Qty: 0 alfuzosin [Uroxatral] 10 MG tablet extended release 24 hr 10 mg PO QAM Qty: 0 multivitamin [Multiple Vitamins] 1 EACH tablet 1 tab PO QDAY Qty: 0 triamcinolone acetonide 0.5 % cream 1 ruiz Topical PRN PRN (Reason: Rash) Qty: 0 ketotifen fumarate 5 ML drops 1 drp OU BIDP PRN (Reason: Pain (Scale Score 1-3)) Qty: 0 glucosamine sulfate [Marge] 750 MG tablet 750 mg PO QDAY Qty: 0 ascorbic acid (vitamin C) 500 MG tablet 1,000 mg PO QDAY Qty: 0 omega 8-hug-tpy-fish oil [Fish Oil] 1,000 MG capsule 1,000 mg PO QDAY Qty: 0 hydrocodone-acetaminophen 5 MG/325 MG tablet 1 - 2 tab PO Q4HP PRNQty: 60 0RF hydrocodone-acetaminophen [[place]] 5-325 mg tablet 1 tab PO Q4-6H PRN (Reason: pain) Qty: 10 0RF lidocaine 5 % adhesive patch,medicated 1 patch TOP DAILY Qty: 15 0RF Rx Instructions: leave on most painful area for up to 12 hrs loratadine 10 mg tablet 10 mg PO DAILY Eliquis 2.5 mg PO DAILY tramadol 50 mg tablet 50 mg PO Q8H PRN (Reason: pain) Qty: 10 1RF Referrals: Rod Horn MD [Primary Care Provider] - Visit Report Forms: Patient Portal/API
[2022-02-08 22:42] LABS: Troponin I < 0.012 ng/mL (0.01-0.034)
[2022-02-09 00:04] VITALS: BP 175/88; PULSE 75; RESP 16; O2SAT 95
== END 2022-02-09 00:04 | disposition home or self-care (01) ==
PROVIDERS: Emergency Provider Emergency Medicine; PCP Family Medicine
DX: R07.89 Other chest pain (principal)
CPT/HCPCS: 36415; 71275; 74174; 80053; 82550; 83690; 83880; 84484; 85025; 85610; 85730; 93005; 93010; 96360; 96361; 99284; Q9967

== ENCOUNTER 2022-02-09 15:03 | Emergency (ER) | payer MEDICARE, OTHER, SELFPAY ==
[2022-02-09] VITALS (9 sets, daily range): BP systolic 179–201; BP diastolic 90–97; PULSE 70–76; RESP 15; TEMP 36.7; O2SAT 97–98; BMI 26.2
--- NOTE | 2022-02-09 15:14 | DI.RAD.S_ITS ---
PROCEDURE: XR CHEST 1V INDICATIONS: chest pain TECHNIQUE: One view of the chest was acquired. COMPARISON: [facility], CT, CT ANGIO CHEST ABDOMEN PELVIS, 02/08/2022, 21:19. [facility], CR, XR CHEST 2V, 07/14/2019, 12:19. [facility], CR, XR CHEST 1V, 06/21/2021, 13:38. FINDINGS: Surgical changes and devices: A leadless pacer can be seen. Lungs and pleura: Lungs are clear. No pleural effusions or pneumothorax. Mediastinum: Mediastinal contours appear normal. Heart size is normal. The cardiac contours are within normal limits. The aorta demonstrates calcification and tortuosity. Bones and chest wall: No suspicious bony lesions. Mild dextroconvex scoliotic curvature is seen. Age-appropriate bony degenerative changes are seen. Overlying soft tissues appear unremarkable. IMPRESSION: No acute portable chest abnormality can be seen. Dictated by: Adiel Castelan M.D. on 02/09/2022 at 14:55 Approved by: Adiel Castelan M.D. on 02/09/2022 at 14:56
[2022-02-09 15:33] LABS: Add Manual Diff / Slide Review NO; Basophils Absolute Auto 0 /uL (0-100); Basophils Percent Auto 0.8 % (0-2); Eosinophils Absolute Auto 300 /uL (0-450); Hematocrit 34.4 % (41-53); Hemoglobin 11.8 g/dL (13.5-17.5); Lymphocytes Absolute Auto 1200 /uL (1100-4500); Lymphocytes Percent Auto 24.1 % (25-40); Mean Corpuscular HGB Conc 34.4 % (30-36); Mean Corpuscular Hemoglobin 30.6 PG (26-34); Monocytes Absolute Auto 600 /uL (0-900); Monocytes Percent Auto 11.9 % (3-14); Neutrophils Absolute Auto 2900 /uL (1500-7000); Neutrophils Percent Auto 57.2 % (50-75); Platelet Count 128 X10^3/uL (150-400); Red Blood Cell Count 3.86 X10^6/uL (4.5-5.9); Red Cell Distribution Width 13.6 % (11.6-14.8); White Blood Cell Count 5.1 X10^3/uL (4.5-11.0)
[2022-02-09 15:45] LABS: Alanine Aminotransferase 15 IU/L (<50); Albumin 4.1 g/dL (3.5-5.0); Albumin Globulin Ratio 1.4 (1.0-2.8); Alkaline Phosphatase 67 U/L (38-126); Aspartate Aminotransferase 25 IU/L (17-59); BUN Creatinine Ratio 15.5 (6-22); Bilirubin Total 0.5 mg/dL (0.2-1.3); Blood Urea Nitrogen 18 mg/dL (9-20); Calcium 8.7 mg/dL (8.4-10.2); Carbon Dioxide 23 mmol/L (22-32); Chloride 98 mmol/L (98-107); Creatine Kinase 79 U/L (55-170); Estimated Glomerular Filt Rate > 60 mL/min (>60); Glucose 90 mg/dL (80-110); HEMOLYSIS < 15 (0-50); Lipase 115 U/L (23-300); Magnesium 2.1 mg/dL (1.6-2.3); Potassium 3.6 mmol/L (3.4-5.1); Sodium 138 mmol/L (137-145); Total Protein 7.1 g/dL (6.3-8.2)
[2022-02-09 15:56] LABS: Troponin I < 0.012 ng/mL (0.01-0.034)
--- NOTE | 2022-02-09 17:03 | PC.NURSE ---
during iv insertion pt states he's had this chest pain on and off for 2 years and no one can figure it out. i asked how long does it last when it happens, a breath, its quick
--- NOTE | 2022-02-09 17:54 | ED.CHESTPAIN ---
HPI - Chest Pain <Kodi Green MD - Last Filed: 02/10/22 07:08> General Chief Complaint: Chest Pain Stated Complaint: SHARP PAIN IN CHEST/BACK PAIN Time Seen by Provider: 02/09/22 17:26 Source: patient Mode of arrival: Ambulatory Limitations: no limitations History of Present Illness HPI narrative: Patient here for chest pain this morning that was less than 5 minutes. Sharp pain 9/10. Patient seen here last night for the same pain. It was relieved with nitroglycerin prior to arrival to this department by EMS. Patient sees Dr. Avery. Patient in no chest pain at this time. Patient states pain is sharp. Not radiating. No nausea sweating syncope. It is left breast area. At times it feels as if it is reproducible at times it is not. Patient uncertain when his last stress test was. Patient has history atrial fibrillation. Related Data Home Medications Medication Instructions Recorded Confirmed [LYSINE] 500 mg PO QDAY ##0 05/30/10 12/16/19 [SAW PALMETTO] ##0 05/30/10 [SHARK CARTILAGE] 650 mg PO QDAY ##0 05/30/10 [VIT D3 ] 2,000 iu PO QDAY ##0 05/30/10 12/16/19 finasteride 5 mg tablet 5 mg PO HS ##0 05/30/10 12/16/19 alfuzosin 10 mg tablet,extended 10 mg PO QAM ##0 04/05/17 12/16/19 release 24 hr (Uroxatral) amiodarone 200 mg tablet 200 mg PO QDAY ##0 04/05/17 12/16/19 apixaban 2.5 mg tablet (Eliquis) 2.5 mg PO BID ##0 04/05/17 12/16/19 clobetasol 0.05 % topical ointment 1 ruiz topical PRN PRN Itching ##0 04/05/17 12/16/19 ferrous sulfate 325 mg (65 mg 325 mg PO QDAY ##0 04/05/17 12/16/19 iron) tablet (Iron (ferrous sulfate)) fluticasone propionate 50 1 spray intranasal BID ##0 04/05/17 12/16/19 mcg/actuation nasal spray,suspension (Flonase Allergy Relief) ibuprofen 600 mg tablet 600 mg PO QDAYP PRN Pain (Scale 04/05/17 12/16/19 Score 1-3) ##0 metronidazole 1 % topical gel 1 ruiz TP HS ##0 04/05/17 12/16/19 omeprazole 20 mg capsule,delayed 20 mg PO QPM ##0 04/05/17 12/16/19 release ascorbic acid (vitamin C) 500 mg 1,000 mg PO QDAY ##0 04/10/17 tablet glucosamine sulfate 750 mg tablet 750 mg PO QDAY ##0 04/10/17 12/16/19 (Marge) ketotifen fumarate 0.025 % (0.035 1 drp OU BIDP PRN Pain (Scale 04/10/17 12/16/19 %) eye drops Score 1-3) ##0 multivitamin (Multiple Vitamins 1 tab PO QDAY ##0 04/10/17 12/16/19 tablet) omega 9-qtx-xyf-fish oil 1,000 mg 1,000 mg PO QDAY ##0 04/10/17 12/16/19 (120 mg-180 mg) capsule (Fish Oil) triamcinolone acetonide 0.5 % 1 ruiz topical PRN PRN Rash ##0 04/10/17 12/16/19 topical cream Eliquis 2.5 mg PO DAILY 12/16/19 12/16/19 loratadine 10 mg tablet 10 mg PO DAILY 12/16/19 12/16/19 Previous Rx's Medication Instructions Recorded hydrocodone 5 mg-acetaminophen 325 1 - 2 tab PO Q4HP PRN #60 tabs 04/30/17 mg tablet hydrocodone 5 mg-acetaminophen 325 1 tab PO Q4-6H PRN pain #10 tabs 06/14/19 mg tablet (Eden) lidocaine 5 % topical patch 1 patch topical DAILY #15 ea 06/14/19 tramadol 50 mg tablet 50 mg PO Q8H PRN pain #10 tabs 12/16/19 Allergies Allergy/AdvReac Type Severity Reaction Status Date / Time oxybutynin Allergy Hives Verified 02/09/22 15:41 tamsulosin Allergy Hives Verified 02/09/22 15:41 Review of Systems <Kodi Green MD - Last Filed: 02/10/22 07:08> Review of Systems Narrative: GENERAL: Denies chills, fatigue, malaise, fever, sweats. HEENT: Denies sinus pain, ear pain, sore throat RESPIRATORY: Denies dyspnea, cough CARDIOVASCULAR: Positive for chest pain, negative palpitations GASTROINTESTINAL: Denies nausea, vomiting, abdominal pain : Denies dysuria, frequency, hematuria MUSCULOSKELETAL: denies muscle or bony pain SKIN: Denies rash, skin lesions NEUROLOGIC: Denies weakness, numbness ROS Unobtainable: All systems reviewed & are unremarkable except as noted in HPI and below Patient History <Kodi Green MD - Last Filed: 02/10/22 07:08> Medical History Afib Dermatitis Diverticulosis Edema GERD (gastroesophageal reflux disease) Heart disease HLD (hyperlipidemia) HTN (hypertension) Iron deficiency anemia Left wrist fracture Melanoma Memory changes Memory deficit PSVT (paroxysmal supraventricular tachycardia) Rheumatic fever Surgical History 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 EYES: Pupils equal round No scleral icterus. ENT: Mucous membranes moist. NECK: Trachea midline. CARDIOVASCULAR: Regular rate and rhythm, strong bilateral carotid and radial pulses RESPIRATORY: Clear to auscultation. Breath sounds equal bilaterally. No wheezes, rales, or rhonchi. GASTROINTESTINAL: Abdomen soft, non-tender EXTREMITIES: No gross deformities. BACK: No flank tenderness. NEURO: AOx4. SKIN: Warm and dry PSYCH: Not anxious, is cooperative Initial Vital Signs Initial Vital Signs: Vital Signs Temperature 98.1 F 02/09/22 15:05 Pulse Rate 70 02/09/22 15:05 Respiratory Rate 15 02/09/22 15:05 Blood Pressure 179/91 H 02/09/22 15:05 Pulse Oximetry 98 02/09/22 15:05 Oxygen Delivery Method 02/09/22 15:05 <Mounika Matson DO - Last Filed: 02/10/22 01:14> Initial Vital Signs Initial Vital Signs: Vital Signs Temperature 98.1 F 02/09/22 15:05 Pulse Rate 70 02/09/22 15:05 Respiratory Rate 15 02/09/22 15:05 Blood Pressure 179/91 H 02/09/22 15:05 Pulse Oximetry 98 02/09/22 15:05 Oxygen Delivery Method 02/09/22 15:05 Course <Kodi Green MD - Last Filed: 02/10/22 07:08> Course Course Narrative: 6:00 p.m.. Sign out to Dr. Matson, will need repeat trop, all patient's cardiology group or may need admit/transfer for stress echo Orders Ordered: Discontinued Medications Aspirin (Aspirin 81 Mg Chew Tab) 324 mg PO NOW ONE Stop: 02/09/22 17:55 Last Admin: 02/09/22 18:10 Dose: 324 mg Documented By: JOCE Metoprolol Succinate (Metoprolol Er 25 Mg Tablet) 25 mg PO NOW ONE Stop: 02/09/22 20:33 Last Admin: 02/09/22 20:49 Dose: 25 mg Documented By: STEPHANIE Vital Signs Vital signs: Vital Signs - 8 hr 02/09/22 20:49 02/09/22 20:18 02/09/22 20:21 Pulse Rate 71 71 Blood Pressure 197/97 H 197/97 H Pulse Oximetry 98 02/09/22 20:21 02/09/22 20:30 02/09/22 20:30 Pulse Rate 75 76 Blood Pressure 198/97 H Pulse Oximetry 98 98 02/09/22 20:48 02/09/22 20:48 02/09/22 21:00 Pulse Rate 72 71 Blood Pressure 201/94 H Pulse Oximetry 97 97 02/09/22 21:01 02/09/22 21:01 02/09/22 21:07 Pulse Rate 72 Blood Pressure 195/90 H 185/92 H Pulse Oximetry 97 <Mounika Matson DO - Last Filed: 02/10/22 01:14> Orders Ordered: Discontinued Medications Aspirin (Aspirin 81 Mg Chew Tab) 324 mg PO NOW ONE Stop: 02/09/22 17:55 Last Admin: 02/09/22 18:10 Dose: 324 mg Documented By: JOCE Metoprolol Succinate (Metoprolol Er 25 Mg Tablet) 25 mg PO NOW ONE Stop: 02/09/22 20:33 Last Admin: 02/09/22 20:49 Dose: 25 mg Documented By: STEPHANIE Vital Signs Vital signs: Vital Signs - 8 hr 02/09/22 20:49 02/09/22 20:18 02/09/22 20:21 Pulse Rate 71 71 Blood Pressure 197/97 H 197/97 H Pulse Oximetry 98 02/09/22 20:21 02/09/22 20:30 02/09/22 20:30 Pulse Rate 75 76 Blood Pressure 198/97 H Pulse Oximetry 98 98 02/09/22 20:48 02/09/22 20:48 02/09/22 21:00 Pulse Rate 72 71 Blood Pressure 201/94 H Pulse Oximetry 97 97 02/09/22 21:01 02/09/22 21:01 02/09/22 21:07 Pulse Rate 72 Blood Pressure 195/90 H 185/92 H Pulse Oximetry 97 MDM - Chest Pain <Kodi Green MD - Last Filed: 02/10/22 07:08> Differential Diagnosis Differential diagnosis: Likely stable angina, unstable angina pectoris, atypical chest pain, st elevation myocardial infarction, costochondritis and chest pain Lab Data Result diagrams: 02/09/22 15:18 02/09/22 15:18 Labs: Lab Results 02/09/22 02/09/22 02/09/22 Range/Units 15:18 15:18 17:59 WBC 5.1 (4.5-11.0) X10^3/uL RBC 3.86 L (4.5-5.9) X10^6/uL Hgb 11.8 L (13.5-17.5) g/dL Hct 34.4 L (41-53) % MCV 89.0 (80-100) fL MCH 30.6 (26-34) PG MCHC 34.4 (30-36) % RDW 13.6 (11.6-14.8) % Plt Count 128 L (150-400) X10^3/uL Neut % (Auto) 57.2 (50-75) % Lymph % (Auto) 24.1 L (25-40) % [place] % (Auto) 11.9 (3-14) % Eos % (Auto) 6.0 H (2-4) % Baso % (Auto) 0.8 (0-2) % Neut # (Auto) 2900 (4314-9641) /uL Lymph # (Auto) 1200 (4526-5209) /uL [place] # (Auto) 600 (0-900) /uL Eos # (Auto) 300 (0-450) /uL Baso # (Auto) 0 (0-100) /uL Sodium 138 (137-145) mmol/L Potassium 3.6 (3.4-5.1) mmol/L Chloride 98 (98-107) mmol/L Carbon Dioxide 23 (22-32) mmol/L BUN 18 (9-20) mg/dL Creatinine 1.16 (0.66-1.25) mg/dL Estimated GFR > 60 (>60) mL/min BUN/Creatinine Ratio 15.5 (6-22) Glucose 90 (80-110) mg/dL Calcium 8.7 (8.4-10.2) mg/dL Magnesium 2.1 (1.6-2.3) mg/dL Total Bilirubin 0.5 (0.2-1.3) mg/dL AST 25 (17-59) IU/L ALT 15 (<50) IU/L Alkaline Phosphatase 67 (38-126) U/L Total Creatine Kinase 79 84 (55-170) U/L CK-MB (CK-2) TNP TNP CK-MB (CK-2) Rel Index TNP TNP Troponin I < 0.012 < 0.012 (0.01-0.034) ng/mL Total Protein 7.1 (6.3-8.2) g/dL Albumin 4.1 (3.5-5.0) g/dL Globulin 3.0 (1.7-4.1) g/dL Albumin/Globulin Ratio 1.4 (1.0-2.8) Lipase 115 (23-300) U/L Imaging Data Chest x-ray: Radiologist's Impression: [address] [address] XRay Report Signed Patient: Beto Hernandez MR#: [id number] : 1935 Acct:[id number] Age/Sex: 86 / M Date of Service: 02/09/22 Loc: ED Accession Number: [id number] ?? Procedure: XR chest 1V Ordering Provider: Kodi Green MD PROCEDURE:? XR CHEST 1V ? INDICATIONS:? chest pain ? TECHNIQUE:? One view of the chest was acquired.? ? COMPARISON:? [facility], CT, CT ANGIO CHEST ABDOMEN PELVIS, 02/08/2022, 21:19.? [facility], CR, XR CHEST 2V, 07/14/2019, 12:19.? [facility], CR, XR CHEST 1V, 06/21/2021, 13:38. ? FINDINGS:? ? Surgical changes and devices:? A leadless pacer can be seen. ? Lungs and pleura:? Lungs are clear.? No pleural effusions or pneumothorax.? ? Mediastinum:? Mediastinal contours appear normal.? Heart size is normal.? The cardiac contours are within normal limits. The aorta demonstrates calcification and tortuosity. ? Bones and chest wall:? No suspicious bony lesions.? Mild dextroconvex scoliotic curvature is seen.? Age-appropriate bony degenerative changes are seen. ? ? Overlying soft tissues appear unremarkable.? ? IMPRESSION:? No acute portable chest abnormality can be seen. ? Dictated by: Adiel Castelan M.D. on 02/09/2022 at 14:55 ? ? Approved by: Adiel Castelan M.D. on 02/09/2022 at 14:56 ? ECG Data Interpretation: Sinus rhythm rate 66 right bundle-branch block no ST elevation or depression <Mounika Matson, - Last Filed: 02/10/22 01:14> Lab Data Labs: Lab Results 02/09/22 02/09/22 02/09/22 Range/Units 15:18 15:18 17:59 WBC 5.1 (4.5-11.0) X10^3/uL RBC 3.86 L (4.5-5.9) X10^6/uL Hgb 11.8 L (13.5-17.5) g/dL Hct 34.4 L (41-53) % MCV 89.0 (80-100) fL MCH 30.6 (26-34) PG MCHC 34.4 (30-36) % RDW 13.6 (11.6-14.8) % Plt Count 128 L (150-400) X10^3/uL Neut % (Auto) 57.2 (50-75) % Lymph % (Auto) 24.1 L (25-40) % [place] % (Auto) 11.9 (3-14) % Eos % (Auto) 6.0 H (2-4) % Baso % (Auto) 0.8 (0-2) % Neut # (Auto) 2900 (0418-5846) /uL Lymph # (Auto) 1200 (0404-6264) /uL [place] # (Auto) 600 (0-900) /uL Eos # (Auto) 300 (0-450) /uL Baso # (Auto) 0 (0-100) /uL Sodium 138 (137-145) mmol/L Potassium 3.6 (3.4-5.1) mmol/L Chloride 98 (98-107) mmol/L Carbon Dioxide 23 (22-32) mmol/L BUN 18 (9-20) mg/dL Creatinine 1.16 (0.66-1.25) mg/dL Estimated GFR > 60 (>60) mL/min BUN/Creatinine Ratio 15.5 (6-22) Glucose 90 (80-110) mg/dL Calcium 8.7 (8.4-10.2) mg/dL Magnesium 2.1 (1.6-2.3) mg/dL Total Bilirubin 0.5 (0.2-1.3) mg/dL AST 25 (17-59) IU/L ALT 15 (<50) IU/L Alkaline Phosphatase 67 (38-126) U/L Total Creatine Kinase 79 84 (55-170) U/L CK-MB (CK-2) TNP TNP CK-MB (CK-2) Rel Index TNP TNP Troponin I < 0.012 < 0.012 (0.01-0.034) ng/mL Total Protein 7.1 (6.3-8.2) g/dL Albumin 4.1 (3.5-5.0) g/dL Globulin 3.0 (1.7-4.1) g/dL Albumin/Globulin Ratio 1.4 (1.0-2.8) Lipase 115 (23-300) U/L MDM Narrative Medical decision making narrative: Patient signed out to me by Dr. Green. I have seen evaluated patient myself. Actually saw him last night for chest discomfort what he received nitroglycerin. He went home went to sleep woke up and then felt some left-sided chest pain for just few seconds. It seems to be reproducible on the left side to palpation. It did not seem to be this way last night. He has a negative troponin his EKG does not show any changes. It is reproducible with palpation. 1939 Dr. Pollack cardiology updated patient's symptoms test results. Agrees with atypical chest pain and agrees with outpatient follow-up. Also reassuring with her recent stress test Discharge Plan Departure Patient Disposition: Home Clinical Impression: Atypical chest pain Instructions: DI for Atypical Chest Pain Activity Restrictions/Additional Instructions: *You have been diagnosed with atypical chest *What to do: At this time please follow-up with your note specialist *Continue to take medications as directed Tylenol 650 mg every 4-6 hours if needed for pain *Follow up with your primary care provider in 2-3 days or call [phone] *Return to ER if you should have increase pain shortness of breath or any new, worsening or concerning symptoms Prescriptions: No Action finasteride 5 MG tablet 5 mg PO HS Qty: 0 [SHARK CARTILAGE] 650 mg PO QDAY Qty: 0 [LYSINE] 500 mg PO QDAY Qty: 0 [VIT D3 ] 2,000 iu PO QDAY Qty: 0 [SAW PALMETTO] Qty: 0 ferrous sulfate [Iron (ferrous sulfate)] 325 MG tablet 325 mg PO QDAY Qty: 0 omeprazole 20 MG capsule,delayed release(DR/EC) 20 mg PO QPM Qty: 0 fluticasone propionate [Flonase Allergy Relief] 9.9 ML spray,suspension 1 spray Intranasal BID Qty: 0 ibuprofen 600 MG tablet 600 mg PO QDAYP PRN (Reason: Pain (Scale Score 1-3)) Qty: 0 amiodarone 200 MG tablet 200 mg PO QDAY Qty: 0 Eliquis 2.5 MG tablet 2.5 mg PO BID Qty: 0 clobetasol 0.05 % ointment 1 ruiz Topical PRN PRN (Reason: Itching) Qty: 0 metronidazole 1 % gel 1 ruiz TP HS Qty: 0 alfuzosin [Uroxatral] 10 MG tablet extended release 24 hr 10 mg PO QAM Qty: 0 multivitamin [Multiple Vitamins] 1 EACH tablet 1 tab PO QDAY Qty: 0 triamcinolone acetonide 0.5 % cream 1 ruiz Topical PRN PRN (Reason: Rash) Qty: 0 ketotifen fumarate 5 ML drops 1 drp OU BIDP PRN (Reason: Pain (Scale Score 1-3)) Qty: 0 glucosamine sulfate [Marge] 750 MG tablet 750 mg PO QDAY Qty: 0 ascorbic acid (vitamin C) 500 MG tablet 1,000 mg PO QDAY Qty: 0 omega 4-nva-fmv-fish oil [Fish Oil] 1,000 MG capsule 1,000 mg PO QDAY Qty: 0 hydrocodone-acetaminophen 5 MG/325 MG tablet 1 - 2 tab PO Q4HP PRNQty: 60 0RF hydrocodone-acetaminophen [Eden] 5-325 mg tablet 1 tab PO Q4-6H PRN (Reason: pain) Qty: 10 0RF lidocaine 5 % adhesive patch,medicated 1 patch TOP DAILY Qty: 15 0RF Rx Instructions: leave on most painful area for up to 12 hrs loratadine 10 mg tablet 10 mg PO DAILY Eliquis 2.5 mg PO DAILY tramadol 50 mg tablet 50 mg PO Q8H PRN (Reason: pain) Qty: 10 1RF Referrals: Rod Horn MD [Primary Care Provider] - Visit Report Forms: Patient Portal/API
[2022-02-09] MEDS: ASPIRIN 81 MG CHEW TAB 324 MG PO (18:10)
[2022-02-09 19:50] LABS: Creatine Kinase 84 U/L (55-170)
[2022-02-09 20:03] LABS: Troponin I < 0.012 ng/mL (0.01-0.034)
[2022-02-09] MEDS: METOPROLOL ER 25 MG TABLET PO (20:49)
== END 2022-02-09 21:12 | disposition home or self-care (01) ==
PROVIDERS: Emergency Medicine; Emergency Provider Emergency Medicine; PCP Family Medicine
DX: R07.89 Other chest pain (principal)
CPT/HCPCS: 36415; 71045; 80053; 82550; 83690; 83735; 84484; 85025; 93005; 93010; 99283; 99284

== ENCOUNTER 2022-09-13 08:36 | Inpatient (IN) | payer MEDICARE, OTHER, SELFPAY ==
[2022-09-13] VITALS (54 sets, daily range): BP systolic 125–212; BP diastolic 60–93; PULSE 72–107; RESP 17–36; TEMP 36.7–37.6; O2SAT 93–98; BMI 25.7
--- NOTE | 2022-09-13 08:44 | ED.GENADULT ---
HPI - General Adult General Chief complaint: Fever Stated complaint: weak, cough,spitting blood, can't hold head up Time Seen by Provider: 09/13/22 08:42 History of Present Illness HPI narrative: 87-year-old male former smoker with reported history of atrial fibrillation on Eliquis presents with his in the chief complaint of gradually worsening generalized weakness over the past few days. He states he started feeling poorly a few days ago and it started with some left ear pain that resulted in some drainage followed by a nosebleed and since he is had continued worsening generalized weakness, poor appetite. cough. He states today he is so weak that he is having a hard time getting out of bed and struggling even to keep his head upright. He denies any blurred vision or trouble with speech. He denies any chest pain or trouble breathing. He has no abdominal pain but does admit to frequent urination particularly at night. He denies any new medications or specific dietary change other than having a poor appetite. Related Data Home Medications Medication Instructions Recorded Confirmed [VIT D3 ] 2,000 iu PO QDAY ##0 05/30/10 09/13/22 finasteride 5 mg tablet 5 mg PO HS ##0 05/30/10 09/13/22 alfuzosin 10 mg tablet,extended 10 mg PO QAM ##0 04/05/17 09/13/22 release 24 hr (Uroxatral) amiodarone 200 mg tablet 200 mg PO QDAY ##0 04/05/17 09/13/22 clobetasol 0.05 % topical ointment 1 ruiz topical PRN PRN Itching ##0 04/05/17 09/13/22 ferrous sulfate 325 mg (65 mg 325 mg PO QDAY ##0 04/05/17 09/13/22 iron) tablet (Iron (ferrous sulfate)) fluticasone propionate 50 1 spray intranasal BID ##0 04/05/17 09/13/22 mcg/actuation nasal spray,suspension (Flonase Allergy Relief) ibuprofen 600 mg tablet 600 mg PO QDAYP PRN Pain (Scale 04/05/17 09/13/22 Score 1-3) ##0 metronidazole 1 % topical gel 1 ruiz TP HS ##0 04/05/17 09/13/22 omeprazole 20 mg capsule,delayed 20 mg PO QPM ##0 04/05/17 09/13/22 release ascorbic acid (vitamin C) 500 mg 1,000 mg PO QDAY ##0 04/10/17 09/13/22 tablet multivitamin (Multiple Vitamins 1 tab PO QDAY ##0 04/10/17 09/13/22 tablet) omega 3-[id number] oil 1,000 mg 1,000 mg PO QDAY ##0 04/10/17 09/13/22 (120 mg-180 mg) capsule (Fish Oil) Eliquis 2.5 mg PO DAILY 12/16/19 09/13/22 loratadine 10 mg tablet 10 mg PO DAILY 12/16/19 09/13/22 amlodipine 2.5 mg tablet 2.5 mg PO DAILY 09/13/22 09/13/22 metoprolol succinate 25 mg 25 mg PO DAILY 09/13/22 09/13/22 tablet,extended release 24 hr rosuvastatin 10 mg tablet 10 mg PO DAILY 09/13/22 09/13/22 Allergies Allergy/AdvReac Type Severity Reaction Status Date / Time oxybutynin Allergy Hives Verified 09/13/22 09:00 tamsulosin Allergy Hives Verified 09/13/22 09:00 Review of Systems Review of Systems Narrative: GENERAL: See HPI HEENT: See HPI RESPIRATORY: See HPI CARDIOVASCULAR: Denies chest pain, palpitations, orthopnea, edema, GASTROINTESTINAL: Denies nausea, vomiting, abdominal pain, diarrhea, constipation, melena. : Denies dysuria, frequency, incontinence, hematuria, urinary retention. MUSCULOSKELETAL: denies weakness, joint pain, or bony pain SKIN: Denies rash, skin lesions, or other NEUROLOGIC: See HPI PSYCHIATRIC: No concerning psychosocial issues. 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 Well-developed patient, in mild distress. Generally weak, GCS 15. HEAD: Atraumatic. Normocephalic. EYES: Pupils equal round and reactive. Extraocular motions intact. No scleral icterus. No injection or drainage. ENT: Dry mucous membranes, Nose without bleeding, purulent drainage. Throat without erythema, tonsillar hypertrophy or exudate. Airway patent. NECK: Trachea midline. Non tender CARDIOVASCULAR: Regular rate and rhythm without murmurs, gallops, or rubs. RESPIRATORY: Clear to auscultation. Breath sounds equal bilaterally. No wheezes, rales, or rhonchi. GASTROINTESTINAL: Abdomen soft, non-tender, nondistended. EXTREMITIES: No edema or joint tenderness. BACK: Nontender without deformity or crepitance. No flank tenderness. NEURO: AOx3. SKIN: Poor skin turgor No rash or erythema of visible areas Initial Vital Signs Initial Vital Signs: Vital Signs Temperature 98.7 F 09/13/22 08:55 Pulse Rate 80 09/13/22 08:55 Respiratory Rate 18 09/13/22 08:55 Blood Pressure 212/93 H 09/13/22 08:55 Pulse Oximetry 97 09/13/22 08:55 Oxygen Delivery Method Room Air 09/13/22 08:55 Course Orders Ordered: ED Orders 09/15/22 05:00 BMP [Basic Metabolic Panel] DAILY CBC Auto Diff [Complete Blood Count AUTO DIFF] DAILY Magnesium DAILY 09/16/22 05:00 BMP [Basic Metabolic Panel] DAILY CBC Auto Diff [Complete Blood Count AUTO DIFF] DAILY Magnesium DAILY Acetaminophen (Acetaminophen 325 Mg Tablet) 650 mg PO Q6H PRN PRN Reason: Fever/Mild Pain (1-3) Amiodarone HCl (Amiodarone 200 Mg Tablet) 200 mg PO DAILY [facility] Last Admin: 09/14/22 08:43 Dose: 200 mg Documented By: DELANO Amlodipine Besylate (Amlodipine 5 Mg Tablet) 2.5 mg PO DAILY [facility] Last Admin: 09/14/22 08:42 Dose: 2.5 mg Documented By: MM Apixaban (Apixaban 5 Mg Tablet) 5 mg PO BID [facility] Last Admin: 09/14/22 20:28 Dose: 5 mg Documented By: CT Atorvastatin Calcium (Atorvastatin 20 Mg Tablet) 20 mg PO BEDTIME [facility] Last Admin: 09/14/22 20:28 Dose: 20 mg Documented By: Admin: 09/13/22 20:42 Dose: 20 mg Documented By: CT Benzonatate (Benzonatate 100 Mg Capsule) 100 mg PO TID PRN PRN Reason: Cough Last Admin: 09/14/22 15:42 Dose: 100 mg Documented By: Admin: 09/13/22 20:41 Dose: 100 mg Documented By: Admin: 09/13/22 12:01 Dose: 100 mg Documented By: RLS Doxycycline Hyclate (Doxycycline Hyclate 100 Mg Tablet) 100 mg PO BID [facility] Stop: 09/18/22 14:59 Last Admin: 09/14/22 20:28 Dose: 100 mg Documented By: Admin: 09/14/22 08:43 Dose: 100 mg Documented By: Admin: 09/13/22 20:41 Dose: 100 mg Documented By: Admin: 09/13/22 15:28 Dose: 100 mg Documented By: MM Finasteride (Finasteride 5 Mg Tablet) 5 mg PO BEDTIME [facility] Last Admin: 09/14/22 20:28 Dose: 5 mg Documented By: Admin: 09/13/22 20:41 Dose: 5 mg Documented By: CT Guaifenesin (Guaifenesin Solution 100 Mg/5 Ml Udc) 100 mg PO Q4HR PRN PRN Reason: Cough Last Admin: 09/14/22 20:28 Dose: 100 mg Documented By: Admin: 09/14/22 16:37 Dose: 100 mg Documented By: Admin: 09/14/22 12:31 Dose: 100 mg Documented By: Admin: 09/14/22 08:41 Dose: 100 mg Documented By: Admin: 09/13/22 20:40 Dose: 100 mg Documented By: Admin: 09/13/22 15:28 Dose: 100 mg Documented By: MM Ceftriaxone Sodium 1,000 mg/ (Sodium Chloride) 100 mls @ 200 mls/hr IV Q24H [place] Stop: 09/18/22 08:59 Last Infusion: 09/14/22 10:43 Dose: 0 mls/hr Documented By: Admin: 09/14/22 08:43 Dose: 200 mls/hr Documented By: MM Loratadine (Loratadine 10 Mg Tablet) 10 mg PO DAILY [facility] Last Admin: 09/14/22 08:43 Dose: 10 mg Documented By: MM Melatonin (Melatonin 3 Mg Tablet) 6 mg PO BEDTIME PRN PRN Reason: Insomnia Metoprolol Succinate (Metoprolol Er 25 Mg Tablet) 25 mg PO DAILY [facility] Last Admin: 09/14/22 08:45 Dose: 25 mg Documented By: MM Naloxone HCl (Naloxone 0.4 Mg/Ml Vial) 0.2 mg IV Q2MIN PRN PRN Reason: Opiate Reversal Nf - Alfuzosin ( Uroxatral) 10 Mg Er Tablet 10 mg PO DAILY [facility] Last Admin: 09/14/22 08:44 Dose: Not Given Documented By: MM Ondansetron HCl (Ondansetron 4 Mg/2 Ml Inj) 4 mg IV Q6HR [facility] Last Admin: 09/14/22 19:16 Dose: Not Given Documented By: Admin: 09/14/22 13:01 Dose: Not Given Documented By: Admin: 09/14/22 05:55 Dose: Not Given Documented By: Admin: 09/14/22 00:01 Dose: Not Given Documented By: Admin: 09/13/22 17:41 Dose: Not Given Documented By: Admin: 09/13/22 14:12 Dose: Not Given Documented By: MM Pantoprazole Sodium (Pantoprazole Dr 20 Mg Tablet) 20 mg PO BEDTIME [facility] Last Admin: 09/14/22 20:28 Dose: 20 mg Documented By: Admin: 09/13/22 20:41 Dose: 20 mg Documented By: CT Polyethylene Glycol (Polyethylene Glycol 3350 17 Gm Powd.Pack) 17 gm PO DAILY PRN PRN Reason: Constipation Potassium Chloride (Potassium Chloride 20 Meq Tab) 40 meq PO TIDWM [facility] Stop: 09/15/22 08:01 Last Admin: 09/14/22 16:38 Dose: 40 meq Documented By: Admin: 09/14/22 13:55 Dose: 40 meq Documented By: MM Sennosides (Sennosides 8.6 Mg Tablet) 8.6 mg PO BID PRN PRN Reason: Constipation Sodium Chloride (Sodium Chloride 1,000 Mg Tablet) 1,000 mg PO DAILY [facility] Last Admin: 09/14/22 08:42 Dose: 1,000 mg Documented By: MM Discontinued Medications Apixaban (Apixaban 5 Mg Tablet) 2.5 mg PO BID [facility] Last Admin: 09/14/22 08:42 Dose: 2.5 mg Documented By: Admin: 09/13/22 20:41 Dose: 2.5 mg Documented By: CT Doxycycline Hyclate (Doxycycline Hyclate 100 Mg Tablet) 100 mg PO BID [facility] Stop: 09/18/22 11:29 Last Admin: 09/13/22 13:53 Dose: Not Given Documented By: DELANO Guaifenesin (Guaifenesin Er 600 Mg Tab) 600 mg PO NOW ONE Stop: 09/13/22 11:23 Last Admin: 09/13/22 14:11 Dose: 600 mg Documented By: DELANO Sodium Chloride (Normal Saline 0.9%) 1,000 mls @ 1,000 mls/hr IV BOLUS ONE Stop: 09/13/22 10:21 Last Infusion: 09/13/22 10:35 Dose: 0 mls/hr Documented By: Admin: 09/13/22 09:33 Dose: 1,000 mls/hr Documented By: RADHA POTASSIUM CHLORIDE IN WATER (Potassium Cl 10 Meq/100 Ml Loren) 10 meq in 100 mls @ 100 mls/hr IV Q1H [facility] Stop: 09/13/22 14:14 Last Infusion: 09/13/22 17:38 Dose: 0 mls/hr Documented By: Admin: 09/13/22 15:36 Dose: 100 mls/hr Documented By: Infusion: 09/13/22 15:14 Dose: 100 mls/hr Documented By: Admin: 09/13/22 14:14 Dose: 100 mls/hr Documented By: Infusion: 09/13/22 13:01 Dose: 0 mls/hr Documented By: Admin: 09/13/22 11:31 Dose: 100 mls/hr Documented By: Infusion: 09/13/22 11:28 Dose: 0 mls/hr Documented By: Admin: 09/13/22 10:17 Dose: 100 mls/hr Documented By: RADHA Ceftriaxone Sodium 1,000 mg/ (Sodium Chloride) 100 mls @ 200 mls/hr IV NOW ONE Stop: 09/13/22 11:14 Last Infusion: 09/13/22 12:05 Dose: 0 mls/hr Documented By: Admin: 09/13/22 11:32 Dose: 200 mls/hr Documented By: RADHA Azithromycin 500 mg/ Dextrose 250 mls @ 250 mls/hr IV NOW ONE Stop: 09/13/22 11:14 Last Infusion: 09/13/22 13:13 Dose: 0 mls/hr Documented By: Admin: 09/13/22 12:22 Dose: 250 mls/hr Documented By: RADHA Sodium Chloride (Normal Saline 0.9%) 1,000 mls @ 100 mls/hr IV CONT [facility] Stop: 09/13/22 23:29 Last Infusion: 09/14/22 07:00 Dose: 100 mls/hr Documented By: Admin: 09/13/22 14:12 Dose: 100 mls/hr Documented By: DELANO Magnesium Sulfate (Magnesium Sulfate) 2 gm in 50 mls @ 25 mls/hr IV NOW ONE Stop: 09/13/22 13:19 Last Infusion: 09/13/22 16:25 Dose: 0 mls/hr Documented By: DELANO Co-signed By: HCW Admin: 09/13/22 14:12 Dose: 25 mls/hr Documented By: DELANO Co-signed By: KATHERINE Magnesium Sulfate (Magnesium Sulfate) 2 gm in 50 mls @ 25 mls/hr IV NOW ONE Stop: 09/14/22 09:50 Last Infusion: 09/14/22 10:43 Dose: 0 mls/hr Documented By: DELANO Co-signed By: CLL Admin: 09/14/22 08:49 Dose: 25 mls/hr Documented By: DELANO Co-signed By: KATHERINE Potassium Chloride (Potassium Chloride 20 Meq Tab) 40 meq PO TIDWM [facility] Stop: 09/14/22 08:01 Last Admin: 09/14/22 08:42 Dose: 40 meq Documented By: Admin: 09/13/22 17:41 Dose: 40 meq Documented By: Admin: 09/13/22 14:34 Dose: 40 meq Documented By: DELANO Potassium Chloride (Potassium Chloride 20 Meq Tab) 40 meq PO Q6H [facility] Stop: 09/14/22 17:01 Last Admin: 09/14/22 12:31 Dose: 40 meq Documented By: MM Vital Signs Vital signs: Vital Signs - 8 hr 09/13/22 08:55 09/13/22 09:27 09/13/22 09:10 Temperature 98.7 F Pulse Rate 80 78 Pulse Rate [Orthostatic Lying] 75 Pulse Rate [Orthostatic Sitting] 80 Pulse Rate [Orthostatic Standing] 86 Respiratory Rate 18 23 Blood Pressure 212/93 H Blood Pressure [Orthostatic Lying] 201/86 H Blood Pressure [Orthostatic Sitting] 169/80 H Blood Pressure [Orthostatic Standing] 125/60 Pulse Oximetry 97 98 Oxygen Delivery Method Room Air 09/13/22 09:11 09/13/22 09:12 09/13/22 09:13 Temperature Pulse Rate 75 77 75 Pulse Rate [Orthostatic Lying] Pulse Rate [Orthostatic Sitting] Pulse Rate [Orthostatic Standing] Respiratory Rate 23 Blood Pressure Blood Pressure [Orthostatic Lying] Blood Pressure [Orthostatic Sitting] Blood Pressure [Orthostatic Standing] Pulse Oximetry 98 98 98 Oxygen Delivery Method 09/13/22 09:14 09/13/22 09:15 09/13/22 09:16 Temperature Pulse Rate 75 76 74 Pulse Rate [Orthostatic Lying] Pulse Rate [Orthostatic Sitting] Pulse Rate [Orthostatic Standing] Respiratory Rate 22 25 H 23 Blood Pressure Blood Pressure [Orthostatic Lying] Blood Pressure [Orthostatic Sitting] Blood Pressure [Orthostatic Standing] Pulse Oximetry 97 97 97 Oxygen Delivery Method 09/13/22 09:17 09/13/22 09:18 09/13/22 09:19 Temperature Pulse Rate 79 79 74 Pulse Rate [Orthostatic Lying] Pulse Rate [Orthostatic Sitting] Pulse Rate [Orthostatic Standing] Respiratory Rate 21 26 H 25 H Blood Pressure Blood Pressure [Orthostatic Lying] Blood Pressure [Orthostatic Sitting] Blood Pressure [Orthostatic Standing] Pulse Oximetry 97 98 96 Oxygen Delivery Method 09/13/22 09:20 09/13/22 09:21 09/13/22 09:22 Temperature Pulse Rate 74 74 73 Pulse Rate [Orthostatic Lying] Pulse Rate [Orthostatic Sitting] Pulse Rate [Orthostatic Standing] Respiratory Rate 24 24 22 Blood Pressure Blood Pressure [Orthostatic Lying] Blood Pressure [Orthostatic Sitting] Blood Pressure [Orthostatic Standing] Pulse Oximetry 96 96 96 Oxygen Delivery Method 09/13/22 09:23 09/13/22 09:24 09/13/22 09:25 Temperature Pulse Rate 81 79 79 Pulse Rate [Orthostatic Lying] Pulse Rate [Orthostatic Sitting] Pulse Rate [Orthostatic Standing] Respiratory Rate 32 H 31 H 27 H Blood Pressure Blood Pressure [Orthostatic Lying] Blood Pressure [Orthostatic Sitting] Blood Pressure [Orthostatic Standing] Pulse Oximetry 97 97 97 Oxygen Delivery Method 09/13/22 09:26 09/13/22 09:26 09/13/22 09:27 Temperature Pulse Rate 75 75 Pulse Rate [Orthostatic Lying] Pulse Rate [Orthostatic Sitting] Pulse Rate [Orthostatic Standing] Respiratory Rate 26 H 24 Blood Pressure 201/86 H Blood Pressure [Orthostatic Lying] Blood Pressure [Orthostatic Sitting] Blood Pressure [Orthostatic Standing] Pulse Oximetry 95 96 Oxygen Delivery Method 09/13/22 09:28 09/13/22 09:29 09/13/22 09:30 Temperature Pulse Rate 86 85 Pulse Rate [Orthostatic Lying] Pulse Rate [Orthostatic Sitting] Pulse Rate [Orthostatic Standing] Respiratory Rate 28 H 21 Blood Pressure 169/80 H Blood Pressure [Orthostatic Lying] Blood Pressure [Orthostatic Sitting] Blood Pressure [Orthostatic Standing] Pulse Oximetry 96 95 Oxygen Delivery Method 09/13/22 09:30 09/13/22 09:31 09/13/22 09:32 Temperature Pulse Rate 80 81 Pulse Rate [Orthostatic Lying] Pulse Rate [Orthostatic Sitting] Pulse Rate [Orthostatic Standing] Respiratory Rate 22 25 H Blood Pressure 125/60 Blood Pressure [Orthostatic Lying] Blood Pressure [Orthostatic Sitting] Blood Pressure [Orthostatic Standing] Pulse Oximetry 95 94 Oxygen Delivery Method 09/13/22 09:32 09/13/22 09:33 09/13/22 09:34 Temperature Pulse Rate 89 107 H 95 H Pulse Rate [Orthostatic Lying] Pulse Rate [Orthostatic Sitting] Pulse Rate [Orthostatic Standing] Respiratory Rate 25 H 31 H 29 H Blood Pressure Blood Pressure [Orthostatic Lying] Blood Pressure [Orthostatic Sitting] Blood Pressure [Orthostatic Standing] Pulse Oximetry 94 94 Oxygen Delivery Method 09/13/22 09:35 09/13/22 09:36 09/13/22 09:37 Temperature Pulse Rate 88 98 H 78 Pulse Rate [Orthostatic Lying] Pulse Rate [Orthostatic Sitting] Pulse Rate [Orthostatic Standing] Respiratory Rate 25 H 36 H 30 H Blood Pressure Blood Pressure [Orthostatic Lying] Blood Pressure [Orthostatic Sitting] Blood Pressure [Orthostatic Standing] Pulse Oximetry Oxygen Delivery Method 09/13/22 09:38 09/13/22 09:39 09/13/22 09:40 Temperature Pulse Rate 81 80 77 Pulse Rate [Orthostatic Lying] Pulse Rate [Orthostatic Sitting] Pulse Rate [Orthostatic Standing] Respiratory Rate 27 H 21 24 Blood Pressure Blood Pressure [Orthostatic Lying] Blood Pressure [Orthostatic Sitting] Blood Pressure [Orthostatic Standing] Pulse Oximetry 96 97 97 Oxygen Delivery Method 09/13/22 09:41 09/13/22 09:42 09/13/22 09:43 Temperature Pulse Rate 76 76 77 Pulse Rate [Orthostatic Lying] Pulse Rate [Orthostatic Sitting] Pulse Rate [Orthostatic Standing] Respiratory Rate 26 H 27 H 28 H Blood Pressure Blood Pressure [Orthostatic Lying] Blood Pressure [Orthostatic Sitting] Blood Pressure [Orthostatic Standing] Pulse Oximetry 96 96 97 Oxygen Delivery Method 09/13/22 09:44 Temperature Pulse Rate 77 Pulse Rate [Orthostatic Lying] Pulse Rate [Orthostatic Sitting] Pulse Rate [Orthostatic Standing] Respiratory Rate 26 H Blood Pressure Blood Pressure [Orthostatic Lying] Blood Pressure [Orthostatic Sitting] Blood Pressure [Orthostatic Standing] Pulse Oximetry 97 Oxygen Delivery Method Medical Decision Making Lab Data 09/14/22 05:44 09/14/22 17:03 Labs: Lab Results 09/13/22 09/13/22 09/13/22 Range/Units 09:09 09:09 09:09 WBC 5.3 (4.5-11.0) X10^3/uL RBC 3.83 L (4.5-5.9) X10^6/uL Hgb 11.9 L (13.5-17.5) g/dL Hct 33.6 L (41-53) % MCV 87.7 (80-100) fL MCH 31.1 (26-34) PG MCHC 35.4 (30-36) % RDW 13.3 (11.6-14.8) % Plt Count 102 L (150-400) X10^3/uL Neut % (Auto) 68.7 (50-75) % Lymph % (Auto) 14.4 L (25-40) % [place] % (Auto) 16.4 H (3-14) % Eos % (Auto) 0.1 L (2-4) % Baso % (Auto) 0.4 (0-2) % Neut # (Auto) 3600 (9699-8091) /uL Lymph # (Auto) 800 L (9831-6429) /uL [place] # (Auto) 900 (0-900) /uL Eos # (Auto) 0 (0-450) /uL Baso # (Auto) 0 (0-100) /uL PT (10.1-12.7) SECONDS INR (0.9-1.3) APTT (26-36) SECONDS D-Dimer 609 H (<500) ng/ml Sodium 126 L (137-145) mmol/L Potassium 2.8 L (3.4-5.1) mmol/L Chloride 89 L (98-107) mmol/L Carbon Dioxide 28 (22-32) mmol/L BUN 10 (9-20) mg/dL Creatinine 0.73 (0.66-1.25) mg/dL Estimated GFR > 60 (>60) mL/min BUN/Creatinine Ratio 13.7 (6-22) Glucose 118 H (80-110) mg/dL Lactate (0.7-2.1) mmol/L Calcium 8.5 (8.4-10.2) mg/dL Magnesium (1.6-2.3) mg/dL Total Bilirubin 1.2 (0.2-1.3) mg/dL AST 35 (17-59) IU/L ALT 19 (<50) IU/L Alkaline Phosphatase 57 (38-126) U/L Total Creatine Kinase (55-170) U/L CK-MB (CK-2) CK-MB (CK-2) Rel Index Troponin I (0.01-0.034) ng/mL C-Reactive Protein 7.1 H (<1.0) mg/dL NT-Pro-B Natriuret Pep (<450) pg/mL Total Protein 7.1 (6.3-8.2) g/dL Albumin 3.9 (3.5-5.0) g/dL Globulin 3.2 (1.7-4.1) g/dL Albumin/Globulin Ratio 1.2 (1.0-2.8) Lipase (23-300) U/L Procalcitonin (<0.5) ng/mL Urine Color Urine Appearance Urine pH (4.5-8.0) Ur Specific [place] (1.000-1.035) Urine Protein (Negative) Urine Glucose (UA) (Negative) g/dL Urine Ketones (NEGATIVE) Urine Occult Blood (Negative) Urine Nitrate (Negative) Urine Bilirubin (NEGATIVE) Urine Urobilinogen (0.2) E.U./dL Ur Leukocyte Esterase (NEGATIVE) Urine RBC (0-5/HPF) Urine WBC (0-5/HPF) Ur Squamous Epith Cells (0-5/HPF) Urine Bacteria (None) Ur Culture Indicated? SARS-CoV-2 (PCR) (Negative) Influenza A (RT-PCR) (NEGATIVE) Influenza B (RT-PCR) (NEGATIVE) RSV (PCR) (Negative) 09/13/22 09/13/22 09/13/22 Range/Units 09:09 09:09 09:09 WBC (4.5-11.0) X10^3/uL RBC (4.5-5.9) X10^6/uL Hgb (13.5-17.5) g/dL Hct (41-53) % MCV (80-100) fL MCH (26-34) PG MCHC (30-36) % RDW (11.6-14.8) % Plt Count (150-400) X10^3/uL Neut % (Auto) (50-75) % Lymph % (Auto) (25-40) % [place] % (Auto) (3-14) % Eos % (Auto) (2-4) % Baso % (Auto) (0-2) % Neut # (Auto) (9808-5979) /uL Lymph # (Auto) (2376-8714) /uL [place] # (Auto) (0-900) /uL Eos # (Auto) (0-450) /uL Baso # (Auto) (0-100) /uL PT 16.2 H (10.1-12.7) SECONDS INR 1.4 H (0.9-1.3) APTT 32 (26-36) SECONDS D-Dimer (<500) ng/ml Sodium (137-145) mmol/L Potassium (3.4-5.1) mmol/L Chloride (98-107) mmol/L Carbon Dioxide (22-32) mmol/L BUN (9-20) mg/dL Creatinine (0.66-1.25) mg/dL Estimated GFR (>60) mL/min BUN/Creatinine Ratio (6-22) Glucose (80-110) mg/dL Lactate 1.1 (0.7-2.1) mmol/L Calcium (8.4-10.2) mg/dL Magnesium 1.8 (1.6-2.3) mg/dL Total Bilirubin (0.2-1.3) mg/dL AST (17-59) IU/L ALT (<50) IU/L Alkaline Phosphatase (38-126) U/L Total Creatine Kinase (55-170) U/L CK-MB (CK-2) CK-MB (CK-2) Rel Index Troponin I (0.01-0.034) ng/mL C-Reactive Protein (<1.0) mg/dL NT-Pro-B Natriuret Pep 1530 H (<450) pg/mL Total Protein (6.3-8.2) g/dL Albumin (3.5-5.0) g/dL Globulin (1.7-4.1) g/dL Albumin/Globulin Ratio (1.0-2.8) Lipase 84 (23-300) U/L Procalcitonin (<0.5) ng/mL Urine Color Urine Appearance Urine pH (4.5-8.0) Ur Specific [place] (1.000-1.035) Urine Protein (Negative) Urine Glucose (UA) (Negative) g/dL Urine Ketones (NEGATIVE) Urine Occult Blood (Negative) Urine Nitrate (Negative) Urine Bilirubin (NEGATIVE) Urine Urobilinogen (0.2) E.U./dL Ur Leukocyte Esterase (NEGATIVE) Urine RBC (0-5/HPF) Urine WBC (0-5/HPF) Ur Squamous Epith Cells (0-5/HPF) Urine Bacteria (None) Ur Culture Indicated? SARS-CoV-2 (PCR) (Negative) Influenza A (RT-PCR) (NEGATIVE) Influenza B (RT-PCR) (NEGATIVE) RSV (PCR) (Negative) 09/13/22 09/13/22 09/13/22 Range/Units 09:09 09:09 09:40 WBC (4.5-11.0) X10^3/uL RBC (4.5-5.9) X10^6/uL Hgb (13.5-17.5) g/dL Hct (41-53) % MCV (80-100) fL MCH (26-34) PG MCHC (30-36) % RDW (11.6-14.8) % Plt Count (150-400) X10^3/uL Neut % (Auto) (50-75) % Lymph % (Auto) (25-40) % [place] % (Auto) (3-14) % Eos % (Auto) (2-4) % Baso % (Auto) (0-2) % Neut # (Auto) (1271-9213) /uL Lymph # (Auto) (3981-0498) /uL [place] # (Auto) (0-900) /uL Eos # (Auto) (0-450) /uL Baso # (Auto) (0-100) /uL PT (10.1-12.7) SECONDS INR (0.9-1.3) APTT (26-36) SECONDS D-Dimer (<500) ng/ml Sodium (137-145) mmol/L Potassium (3.4-5.1) mmol/L Chloride (98-107) mmol/L Carbon Dioxide (22-32) mmol/L BUN (9-20) mg/dL Creatinine (0.66-1.25) mg/dL Estimated GFR (>60) mL/min BUN/Creatinine Ratio (6-22) Glucose (80-110) mg/dL Lactate (0.7-2.1) mmol/L Calcium (8.4-10.2) mg/dL Magnesium (1.6-2.3) mg/dL Total Bilirubin (0.2-1.3) mg/dL AST (17-59) IU/L ALT (<50) IU/L Alkaline Phosphatase (38-126) U/L Total Creatine Kinase 68 (55-170) U/L CK-MB (CK-2) TNP CK-MB (CK-2) Rel Index TNP Troponin I 0.031 (0.01-0.034) ng/mL C-Reactive Protein (<1.0) mg/dL NT-Pro-B Natriuret Pep (<450) pg/mL Total Protein (6.3-8.2) g/dL Albumin (3.5-5.0) g/dL Globulin (1.7-4.1) g/dL Albumin/Globulin Ratio (1.0-2.8) Lipase (23-300) U/L Procalcitonin (<0.5) ng/mL Urine Color Yellow Urine Appearance Clear Urine pH 7.5 (4.5-8.0) Ur Specific [place] 1.015 (1.000-1.035) Urine Protein 1+ H (Negative) Urine Glucose (UA) Negative (Negative) g/dL Urine Ketones 2+ H (NEGATIVE) Urine Occult Blood Negative (Negative) Urine Nitrate Negative (Negative) Urine Bilirubin Negative (NEGATIVE) Urine Urobilinogen 4.0 H (0.2) E.U./dL Ur Leukocyte Esterase Trace H (NEGATIVE) Urine RBC 1-5/hpf (0-5/HPF) Urine WBC 5-10/hpf H (0-5/HPF) Ur Squamous Epith Cells 1-5 /hpf (0-5/HPF) Urine Bacteria Few (2-10) H (None) Ur Culture Indicated? Specimen cultured SARS-CoV-2 (PCR) Positive H (Negative) Influenza A (RT-PCR) Flu a negative (NEGATIVE) Influenza B (RT-PCR) Flu b negative (NEGATIVE) RSV (PCR) Negative (Negative) 09/13/22 Range/Units 11:21 WBC (4.5-11.0) X10^3/uL RBC (4.5-5.9) X10^6/uL Hgb (13.5-17.5) g/dL Hct (41-53) % MCV (80-100) fL MCH (26-34) PG MCHC (30-36) % RDW (11.6-14.8) % Plt Count (150-400) X10^3/uL Neut % (Auto) (50-75) % Lymph % (Auto) (25-40) % [place] % (Auto) (3-14) % Eos % (Auto) (2-4) % Baso % (Auto) (0-2) % Neut # (Auto) (0621-4122) /uL Lymph # (Auto) (7441-5204) /uL [place] # (Auto) (0-900) /uL Eos # (Auto) (0-450) /uL Baso # (Auto) (0-100) /uL PT (10.1-12.7) SECONDS INR (0.9-1.3) APTT (26-36) SECONDS D-Dimer (<500) ng/ml Sodium (137-145) mmol/L Potassium (3.4-5.1) mmol/L Chloride (98-107) mmol/L Carbon Dioxide (22-32) mmol/L BUN (9-20) mg/dL Creatinine (0.66-1.25) mg/dL Estimated GFR (>60) mL/min BUN/Creatinine Ratio (6-22) Glucose (80-110) mg/dL Lactate (0.7-2.1) mmol/L Calcium (8.4-10.2) mg/dL Magnesium (1.6-2.3) mg/dL Total Bilirubin (0.2-1.3) mg/dL AST (17-59) IU/L ALT (<50) IU/L Alkaline Phosphatase (38-126) U/L Total Creatine Kinase (55-170) U/L CK-MB (CK-2) CK-MB (CK-2) Rel Index Troponin I (0.01-0.034) ng/mL C-Reactive Protein (<1.0) mg/dL NT-Pro-B Natriuret Pep (<450) pg/mL Total Protein (6.3-8.2) g/dL Albumin (3.5-5.0) g/dL Globulin (1.7-4.1) g/dL Albumin/Globulin Ratio (1.0-2.8) Lipase (23-300) U/L Procalcitonin 0.12 (<0.5) ng/mL Urine Color Urine Appearance Urine pH (4.5-8.0) Ur Specific [place] (1.000-1.035) Urine Protein (Negative) Urine Glucose (UA) (Negative) g/dL Urine Ketones (NEGATIVE) Urine Occult Blood (Negative) Urine Nitrate (Negative) Urine Bilirubin (NEGATIVE) Urine Urobilinogen (0.2) E.U./dL Ur Leukocyte Esterase (NEGATIVE) Urine RBC (0-5/HPF) Urine WBC (0-5/HPF) Ur Squamous Epith Cells (0-5/HPF) Urine Bacteria (None) Ur Culture Indicated? SARS-CoV-2 (PCR) (Negative) Influenza A (RT-PCR) (NEGATIVE) Influenza B (RT-PCR) (NEGATIVE) RSV (PCR) (Negative) ECG Data Interpretation: [77] EKG is normal sinus rhythm rate [ ] and free of any signs of ischemia or ectopy. No ST segmental elevation or depression. No T wave inversions MDM Narrative Medical decision making narrative: 87-year-old male presents with , generally weak and worsening over the past few days is found to have critically low sodium and potassium as well as BNP. There is no notable elevated white blood cell count, no signs of anemia, no significant left shift Discharge Plan Departure Patient Disposition: Admitted As Inpatient Clinical Impression: Acute hyponatremia, Acute hypokalemia, Acute dehydration, Acute UTI, Left lower lobe pneumonia, COVID-19 Admit Date/Time: 09/13/22 11:48 Admit Provider: Zach James
[2022-09-13 09:22] LABS: Add Manual Diff / Slide Review NO; Basophils Absolute Auto 0 /uL (0-100); Basophils Percent Auto 0.4 % (0-2); Eosinophils Absolute Auto 0 /uL (0-450); Eosinophils Percent Auto 0.1 % (2-4); Hematocrit 33.6 % (41-53); Hemoglobin 11.9 g/dL (13.5-17.5); Lymphocytes Absolute Auto 800 /uL (1100-4500); Lymphocytes Percent Auto 14.4 % (25-40); Mean Corpuscular HGB Conc 35.4 % (30-36); Mean Corpuscular Hemoglobin 31.1 PG (26-34); Mean Corpuscular Volume 87.7 fL (80-100); Monocytes Absolute Auto 900 /uL (0-900); Monocytes Percent Auto 16.4 % (3-14); Neutrophils Absolute Auto 3600 /uL (1500-7000); Neutrophils Percent Auto 68.7 % (50-75); Platelet Count 102 X10^3/uL (150-400); Red Blood Cell Count 3.83 X10^6/uL (4.5-5.9); Red Cell Distribution Width 13.3 % (11.6-14.8); White Blood Cell Count 5.3 X10^3/uL (4.5-11.0)
[2022-09-13 09:28] LABS: INR 1.4 (0.9-1.3); Prothrombin Time 16.2 SECONDS (10.1-12.7)
[2022-09-13 09:30] LABS: PTT Partial Thromboplastin Tim 32 SECONDS (26-36)
[2022-09-13] MEDS: SODIUM CHLORIDE 0.9% 1,000 ML 1000 ML IV (09:33)
[2022-09-13 09:35] LABS: Creatine Kinase 68 U/L (55-170); Lipase 84 U/L (23-300); Magnesium 1.8 mg/dL (1.6-2.3)
[2022-09-13 09:37] LABS: Lactate (Lactic Acid) 1.1 mmol/L (0.7-2.1)
[2022-09-13 09:41] LABS: Alanine Aminotransferase 19 IU/L (<50); Albumin 3.9 g/dL (3.5-5.0); Albumin Globulin Ratio 1.2 (1.0-2.8); Alkaline Phosphatase 57 U/L (38-126); Aspartate Aminotransferase 35 IU/L (17-59); BUN Creatinine Ratio 13.7 (6-22); Bilirubin Total 1.2 mg/dL (0.2-1.3); Blood Urea Nitrogen 10 mg/dL (9-20); C-Reactive Protein Quant 7.1 mg/dL (<1.0); Calcium 8.5 mg/dL (8.4-10.2); Carbon Dioxide 28 mmol/L (22-32); Chloride 89 mmol/L (98-107); Estimated Glomerular Filt Rate > 60 mL/min (>60); Globulin 3.2 g/dL (1.7-4.1); Glucose 118 mg/dL (80-110); HEMOLYSIS < 15 (0-50); Potassium 2.8 mmol/L (3.4-5.1); Sodium 126 mmol/L (137-145); Total Protein 7.1 g/dL (6.3-8.2)
[2022-09-13 09:42] LABS: D Dimer 609 ng/ml (<500)
[2022-09-13 09:43] LABS: NT-proBNP (BNP-Adult 18+) 1530 pg/mL (<450)
[2022-09-13 09:47] LABS: Troponin I 0.031 ng/mL (0.01-0.034)
--- NOTE | 2022-09-13 09:49 | DI.RAD.S_ITS ---
PROCEDURE: XR CHEST 2V INDICATIONS: cough, fever TECHNIQUE: 2 views of the chest were acquired. COMPARISON: [facility], CR, XR CHEST 1V, 02/09/2022, 15:32. [facility], CR, XR CHEST 1V, 06/21/2021, 13:38. [facility], CR, XR CHEST 2V, 07/14/2019, 12:19. FINDINGS: Surgical changes and devices: None. Lungs and pleura: Left lower lobe infiltrate and consolidation suspicious for pneumonia. Bilateral interstitial prominence. Right apical scarring. No pleural effusions or pneumothorax. Mediastinum: Mediastinal contours are normal. Heart size is normal. Bones and chest wall: No suspicious bony abnormalities. Soft tissues appear unremarkable. IMPRESSION: Left lower lobe pneumonia. Dictated by: Julius Shukla M.D. on 09/13/2022 at 10:11 Approved by: Julius Shukla M.D. on 09/13/2022 at 10:12
[2022-09-13 09:59] LABS: Influenza A - CEPHEID Flu A NEGATIVE (NEGATIVE); Influenza B - CEPHEID Flu B NEGATIVE (NEGATIVE); Respiratory Syncytial Virus Negative (Negative)
[2022-09-13 10:06] LABS: Appearance Urine UA CLEAR; Bilirubin Urine UA NEGATIVE (NEGATIVE); Color Urine UA YELLOW; Glucose Urine UA NEGATIVE (Negative); Ketones Urine UA 2+ (NEGATIVE); Leukocyte Esterase Urine UA TRACE (NEGATIVE); Nitrite Urine UA NEGATIVE (Negative); Occult Blood Urine UA NEGATIVE (Negative); Protein Urine UA 1+ (Negative); Specific Gravity Urine UA 1.015 (1.000-1.035); pH Urine UA 7.5 (4.5-8.0)
[2022-09-13] MEDS: POTASSIUM CHLORIDE IN WATER 10 MEQ/100 ML PIGGYBACK 100 MEQ IV ×4 (10:17→15:36)
[2022-09-13 10:18] LABS: Bacteria Urine Few (2-10); Culture Indicated Urine Specimen Cultured; RBC Urine 1-5/HPF (0-5/HPF); Squamous Epithelial Cell Urine 1-5 /HPF (0-5/HPF); WBC Urine 5-10/HPF (0-5/HPF)
[2022-09-13 10:36] LABS: COVID-19 CEPHEID 4-PLEX PCR POSITIVE (Negative)
--- NOTE | 2022-09-13 11:25 | PM.HP.1 ---
History of Present Illness History of Present Illness Chief complaint: weak, cough,spitting blood, can't hold head up Narrative: Beto Hernanedz is an 87yo M with PMH of A-fib on eliquis, HTN, HLD, GERD, and BPH who presents with worsening weakness and found to have COVID with pneumonia, hyponatremia and hypokalemia. Patient says he has had a hacking cough for the past couple weeks and has gotten progressively weaker where even walking across the room is too difficult. He also hasn't eaten much the past couple days. He is vaccinated against COVID and has never had COVID before. He denies SOB, CP, abd pain or diarrhea. In the ED patient found to be COVID positive with Na of 126, K of 2.8 and CRP 7.1. CXR showed LLL infiltrate consistent with pneumonia. 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/17) Hx of prostatectomy Hx of sinus surgery Hx of tonsillectomy Hx of transurethral resection of prostate Social History household members: spouse Smoking Status: Former smoker alcohol intake: current Meds Home Medications and Allergies Home Medications Medication Instructions Recorded Confirmed Type [VIT D3 ] 2,000 iu PO QDAY ##0 05/30/10 09/13/22 History finasteride 5 mg tablet 5 mg PO HS ##0 05/30/10 09/13/22 History alfuzosin 10 mg tablet,extended 10 mg PO QAM ##0 04/05/17 09/13/22 History release 24 hr (Uroxatral) amiodarone 200 mg tablet 200 mg PO QDAY ##0 04/05/17 09/13/22 History clobetasol 0.05 % topical ointment 1 ruiz topical PRN PRN Itching ##0 04/05/17 09/13/22 History ferrous sulfate 325 mg (65 mg 325 mg PO QDAY ##0 04/05/17 09/13/22 History iron) tablet (Iron (ferrous sulfate)) fluticasone propionate 50 1 spray intranasal BID ##0 04/05/17 09/13/22 History mcg/actuation nasal spray,suspension (Flonase Allergy Relief) ibuprofen 600 mg tablet 600 mg PO QDAYP PRN Pain (Scale 04/05/17 09/13/22 History Score 1-3) ##0 metronidazole 1 % topical gel 1 ruiz TP HS ##0 04/05/17 09/13/22 History omeprazole 20 mg capsule,delayed 20 mg PO QPM ##0 04/05/17 09/13/22 History release ascorbic acid (vitamin C) 500 mg 1,000 mg PO QDAY ##0 04/10/17 09/13/22 History tablet multivitamin (Multiple Vitamins 1 tab PO QDAY ##0 04/10/17 09/13/22 History tablet) omega 0-auw-fwz-fish oil 1,000 mg 1,000 mg PO QDAY ##0 04/10/17 09/13/22 History (120 mg-180 mg) capsule (Fish Oil) Eliquis 2.5 mg PO DAILY 12/16/19 09/13/22 History loratadine 10 mg tablet 10 mg PO DAILY 12/16/19 09/13/22 History amlodipine 2.5 mg tablet 2.5 mg PO DAILY 09/13/22 09/13/22 History metoprolol succinate 25 mg 25 mg PO DAILY 09/13/22 09/13/22 History tablet,extended release 24 hr rosuvastatin 10 mg tablet 10 mg PO DAILY 09/13/22 09/13/22 History Allergies Allergy/AdvReac Type Severity Reaction Status Date / Time oxybutynin Allergy Hives Verified 09/13/22 09:00 tamsulosin Allergy Hives Verified 09/13/22 09:00 Review of Systems Review of Systems Narrative: All other systems reviewed with the patient and are negative unless otherwise stated. Exam Vital Signs (past 8 hours): - 09/13/22 08:55 09/13/22 09:27 09/13/22 09:10 Temperature 98.7 F Pulse Rate 80 78 Pulse Rate [Orthostatic Lying] 75 Pulse Rate [Orthostatic Sitting] 80 Pulse Rate [Orthostatic Standing] 86 Respiratory Rate 18 23 Blood Pressure 212/93 H Blood Pressure [Orthostatic Lying] 201/86 H Blood Pressure [Orthostatic Sitting] 169/80 H Blood Pressure [Orthostatic Standing] 125/60 Pulse Oximetry 97 98 Oxygen Delivery Method Room Air 09/13/22 09:11 09/13/22 09:12 09/13/22 09:13 Temperature Pulse Rate 75 77 75 Pulse Rate [Orthostatic Lying] Pulse Rate [Orthostatic Sitting] Pulse Rate [Orthostatic Standing] Respiratory Rate 23 Blood Pressure Blood Pressure [Orthostatic Lying] Blood Pressure [Orthostatic Sitting] Blood Pressure [Orthostatic Standing] Pulse Oximetry 98 98 98 Oxygen Delivery Method 09/13/22 09:14 09/13/22 09:15 09/13/22 09:16 Temperature Pulse Rate 75 76 74 Pulse Rate [Orthostatic Lying] Pulse Rate [Orthostatic Sitting] Pulse Rate [Orthostatic Standing] Respiratory Rate 22 25 H 23 Blood Pressure Blood Pressure [Orthostatic Lying] Blood Pressure [Orthostatic Sitting] Blood Pressure [Orthostatic Standing] Pulse Oximetry 97 97 97 Oxygen Delivery Method 09/13/22 09:17 09/13/22 09:18 09/13/22 09:19 Temperature Pulse Rate 79 79 74 Pulse Rate [Orthostatic Lying] Pulse Rate [Orthostatic Sitting] Pulse Rate [Orthostatic Standing] Respiratory Rate 21 26 H 25 H Blood Pressure Blood Pressure [Orthostatic Lying] Blood Pressure [Orthostatic Sitting] Blood Pressure [Orthostatic Standing] Pulse Oximetry 97 98 96 Oxygen Delivery Method 09/13/22 09:20 09/13/22 09:21 09/13/22 09:22 Temperature Pulse Rate 74 74 73 Pulse Rate [Orthostatic Lying] Pulse Rate [Orthostatic Sitting] Pulse Rate [Orthostatic Standing] Respiratory Rate 24 24 22 Blood Pressure Blood Pressure [Orthostatic Lying] Blood Pressure [Orthostatic Sitting] Blood Pressure [Orthostatic Standing] Pulse Oximetry 96 96 96 Oxygen Delivery Method 09/13/22 09:23 09/13/22 09:24 09/13/22 09:25 Temperature Pulse Rate 81 79 79 Pulse Rate [Orthostatic Lying] Pulse Rate [Orthostatic Sitting] Pulse Rate [Orthostatic Standing] Respiratory Rate 32 H 31 H 27 H Blood Pressure Blood Pressure [Orthostatic Lying] Blood Pressure [Orthostatic Sitting] Blood Pressure [Orthostatic Standing] Pulse Oximetry 97 97 97 Oxygen Delivery Method 09/13/22 09:26 09/13/22 09:26 09/13/22 09:27 Temperature Pulse Rate 75 75 Pulse Rate [Orthostatic Lying] Pulse Rate [Orthostatic Sitting] Pulse Rate [Orthostatic Standing] Respiratory Rate 26 H 24 Blood Pressure 201/86 H Blood Pressure [Orthostatic Lying] Blood Pressure [Orthostatic Sitting] Blood Pressure [Orthostatic Standing] Pulse Oximetry 95 96 Oxygen Delivery Method 09/13/22 09:28 09/13/22 09:29 09/13/22 09:30 Temperature Pulse Rate 86 85 Pulse Rate [Orthostatic Lying] Pulse Rate [Orthostatic Sitting] Pulse Rate [Orthostatic Standing] Respiratory Rate 28 H 21 Blood Pressure 169/80 H Blood Pressure [Orthostatic Lying] Blood Pressure [Orthostatic Sitting] Blood Pressure [Orthostatic Standing] Pulse Oximetry 96 95 Oxygen Delivery Method 09/13/22 09:30 09/13/22 09:31 09/13/22 09:32 Temperature Pulse Rate 80 81 Pulse Rate [Orthostatic Lying] Pulse Rate [Orthostatic Sitting] Pulse Rate [Orthostatic Standing] Respiratory Rate 22 25 H Blood Pressure 125/60 Blood Pressure [Orthostatic Lying] Blood Pressure [Orthostatic Sitting] Blood Pressure [Orthostatic Standing] Pulse Oximetry 95 94 Oxygen Delivery Method 09/13/22 09:32 09/13/22 09:33 09/13/22 09:34 Temperature Pulse Rate 89 107 H 95 H Pulse Rate [Orthostatic Lying] Pulse Rate [Orthostatic Sitting] Pulse Rate [Orthostatic Standing] Respiratory Rate 25 H 31 H 29 H Blood Pressure Blood Pressure [Orthostatic Lying] Blood Pressure [Orthostatic Sitting] Blood Pressure [Orthostatic Standing] Pulse Oximetry 94 94 Oxygen Delivery Method 09/13/22 09:35 09/13/22 09:36 09/13/22 09:37 Temperature Pulse Rate 88 98 H 78 Pulse Rate [Orthostatic Lying] Pulse Rate [Orthostatic Sitting] Pulse Rate [Orthostatic Standing] Respiratory Rate 25 H 36 H 30 H Blood Pressure Blood Pressure [Orthostatic Lying] Blood Pressure [Orthostatic Sitting] Blood Pressure [Orthostatic Standing] Pulse Oximetry Oxygen Delivery Method 09/13/22 09:38 09/13/22 09:39 09/13/22 09:40 Temperature Pulse Rate 81 80 77 Pulse Rate [Orthostatic Lying] Pulse Rate [Orthostatic Sitting] Pulse Rate [Orthostatic Standing] Respiratory Rate 27 H 21 24 Blood Pressure Blood Pressure [Orthostatic Lying] Blood Pressure [Orthostatic Sitting] Blood Pressure [Orthostatic Standing] Pulse Oximetry 96 97 97 Oxygen Delivery Method 09/13/22 09:41 09/13/22 09:42 09/13/22 09:43 Temperature Pulse Rate 76 76 77 Pulse Rate [Orthostatic Lying] Pulse Rate [Orthostatic Sitting] Pulse Rate [Orthostatic Standing] Respiratory Rate 26 H 27 H 28 H Blood Pressure Blood Pressure [Orthostatic Lying] Blood Pressure [Orthostatic Sitting] Blood Pressure [Orthostatic Standing] Pulse Oximetry 96 96 97 Oxygen Delivery Method 09/13/22 09:44 09/13/22 09:45 09/13/22 10:00 Temperature Pulse Rate 77 78 Pulse Rate [Orthostatic Lying] Pulse Rate [Orthostatic Sitting] Pulse Rate [Orthostatic Standing] Respiratory Rate 26 H 34 H Blood Pressure 185/88 H Blood Pressure [Orthostatic Lying] Blood Pressure [Orthostatic Sitting] Blood Pressure [Orthostatic Standing] Pulse Oximetry 97 97 Oxygen Delivery Method 09/13/22 10:00 09/13/22 10:15 09/13/22 10:30 Temperature Pulse Rate 74 106 H 80 Pulse Rate [Orthostatic Lying] Pulse Rate [Orthostatic Sitting] Pulse Rate [Orthostatic Standing] Respiratory Rate 26 H 29 H 24 Blood Pressure Blood Pressure [Orthostatic Lying] Blood Pressure [Orthostatic Sitting] Blood Pressure [Orthostatic Standing] Pulse Oximetry 97 98 Oxygen Delivery Method 09/13/22 10:45 09/13/22 11:00 Temperature Pulse Rate 83 93 H Pulse Rate [Orthostatic Lying] Pulse Rate [Orthostatic Sitting] Pulse Rate [Orthostatic Standing] Respiratory Rate 29 H 28 H Blood Pressure Blood Pressure [Orthostatic Lying] Blood Pressure [Orthostatic Sitting] Blood Pressure [Orthostatic Standing] Pulse Oximetry 96 95 Oxygen Delivery Method Room Air Oxygen Delivery Method Room Air Narrative Exam Narrative: GEN: ill appearing elderly male HEENT: moist mucous membranes, PERRL NECK: trachea midline, no JVD CV: regular rate and rhythm, no murmurs PULM: diffuse coarse breath sounds ABD: soft, nontender, nondistended, no organomegaly EXT: warm and well perfused with no edema NEURO: awake, alert, oriented, no focal deficits Objective Labs 09/13/22 09:09 09/13/22 09:09 Labs: Laboratory Results - last 24 hr 09/13/22 09/13/22 09/13/22 09:09 09:09 09:09 WBC 5.3 RBC 3.83 L Hgb 11.9 L Hct 33.6 L MCV 87.7 MCH 31.1 MCHC 35.4 RDW 13.3 Plt Count 102 L Neut % (Auto) 68.7 Lymph % (Auto) 14.4 L [place] % (Auto) 16.4 H Eos % (Auto) 0.1 L Baso % (Auto) 0.4 Neut # (Auto) 3600 Lymph # (Auto) 800 L [place] # (Auto) 900 Eos # (Auto) 0 Baso # (Auto) 0 PT INR APTT D-Dimer 609 H Sodium 126 L Potassium 2.8 L Chloride 89 L Carbon Dioxide 28 BUN 10 Creatinine 0.73 Estimated GFR > 60 BUN/Creatinine Ratio 13.7 Glucose 118 H Lactate Calcium 8.5 Magnesium Total Bilirubin 1.2 AST 35 ALT 19 Alkaline Phosphatase 57 Total Creatine Kinase CK-MB (CK-2) CK-MB (CK-2) Rel Index Troponin I C-Reactive Protein 7.1 H NT-Pro-B Natriuret Pep Total Protein 7.1 Albumin 3.9 Globulin 3.2 Albumin/Globulin Ratio 1.2 Lipase Urine Color Urine Appearance Urine pH Ur Specific [place] Urine Protein Urine Glucose (UA) Urine Ketones Urine Occult Blood Urine Nitrate Urine Bilirubin Urine Urobilinogen Ur Leukocyte Esterase Urine RBC Urine WBC Ur Squamous Epith Cells Urine Bacteria Ur Culture Indicated? SARS-CoV-2 (PCR) Influenza A (RT-PCR) Influenza B (RT-PCR) RSV (PCR) 09/13/22 09/13/22 09/13/22 09:09 09:09 09:09 WBC RBC Hgb Hct MCV MCH MCHC RDW Plt Count Neut % (Auto) Lymph % (Auto) [place] % (Auto) Eos % (Auto) Baso % (Auto) Neut # (Auto) Lymph # (Auto) [place] # (Auto) Eos # (Auto) Baso # (Auto) PT 16.2 H INR 1.4 H APTT 32 D-Dimer Sodium Potassium Chloride Carbon Dioxide BUN Creatinine Estimated GFR BUN/Creatinine Ratio Glucose Lactate 1.1 Calcium Magnesium 1.8 Total Bilirubin AST ALT Alkaline Phosphatase Total Creatine Kinase CK-MB (CK-2) CK-MB (CK-2) Rel Index Troponin I C-Reactive Protein NT-Pro-B Natriuret Pep 1530 H Total Protein Albumin Globulin Albumin/Globulin Ratio Lipase 84 Urine Color Urine Appearance Urine pH Ur Specific [place] Urine Protein Urine Glucose (UA) Urine Ketones Urine Occult Blood Urine Nitrate Urine Bilirubin Urine Urobilinogen Ur Leukocyte Esterase Urine RBC Urine WBC Ur Squamous Epith Cells Urine Bacteria Ur Culture Indicated? SARS-CoV-2 (PCR) Influenza A (RT-PCR) Influenza B (RT-PCR) RSV (PCR) 09/13/22 09/13/22 09/13/22 09:09 09:09 09:40 WBC RBC Hgb Hct MCV MCH MCHC RDW Plt Count Neut % (Auto) Lymph % (Auto) [place] % (Auto) Eos % (Auto) Baso % (Auto) Neut # (Auto) Lymph # (Auto) [place] # (Auto) Eos # (Auto) Baso # (Auto) PT INR APTT D-Dimer Sodium Potassium Chloride Carbon Dioxide BUN Creatinine Estimated GFR BUN/Creatinine Ratio Glucose Lactate Calcium Magnesium Total Bilirubin AST ALT Alkaline Phosphatase Total Creatine Kinase 68 CK-MB (CK-2) TNP CK-MB (CK-2) Rel Index TNP Troponin I 0.031 C-Reactive Protein NT-Pro-B Natriuret Pep Total Protein Albumin Globulin Albumin/Globulin Ratio Lipase Urine Color Yellow Urine Appearance Clear Urine pH 7.5 Ur Specific [place] 1.015 Urine Protein 1+ H Urine Glucose (UA) Negative Urine Ketones 2+ H Urine Occult Blood Negative Urine Nitrate Negative Urine Bilirubin Negative Urine Urobilinogen 4.0 H Ur Leukocyte Esterase Trace H Urine RBC 1-5/hpf Urine WBC 5-10/hpf H Ur Squamous Epith Cells 1-5 /hpf Urine Bacteria Few (2-10) H Ur Culture Indicated? Specimen cultured SARS-CoV-2 (PCR) Positive H Influenza A (RT-PCR) Flu a negative Influenza B (RT-PCR) Flu b negative RSV (PCR) Negative Assessment & Plan Assessment & Plan narrative: # community acquired pneumonia -CXR with LLL infiltrate, procal 0.12 -given age will elect to treat with IV abx -continue rocephin and doxy (instead of azithro since patient on amio) -sputum culture if able -f/u blood cultures # COVID -positive on admission PCR swab -supportive care -not on supp O2 # UTI -UA with pyuria -f/u urine culture -abx as above # hyponatremia, unknown if acute or chronic -sodium 126, likely hypovolemic from poor po intake as chloride also low -start IVF -daily BMP's -goal 134 on 09/14 # hypokalemia -K 2.8 on admission -from poor po intake -replete and monitor # generalized weakness -likely secondary to electrolyte derangements, PNA and COVID -PT/OT ordered -treat PNA, hyponatremia and hypokalemia as above # paroxysmal atrial fibrillation -continue home Eliquis, amio and metoprolol # hypertension -continue home amlodipine # hyperlipidemia -continue home Crestor # GERD -continue home PPI # BPH -continue home finasteride and uroxatral Code status is DNR. COVID positive. DVT prophylaxis with Eliquis. Proxy is Ly[place]. I have reviewed home meds and used all available resources to reconcile the home meds. This patient will be admitted as inpatient and will require greater than 2 midnights of hospital time to treat pneumonia, hyponatremia and hypokalemia.
[2022-09-13] MEDS: cefTRIAXone 1,000 MG in SODIUM CHLORIDE 0.9% 100 ML 200 MG IV (11:32)
[2022-09-13 11:58] LABS: Procalcitonin 0.12 ng/mL (<0.5)
[2022-09-13] MEDS: BENZONATATE 100 MG CAPSULE PO ×2 (12:01→20:41)
[2022-09-13] MEDS: AZITHROMYCIN 500 MG in DEXTROSE 5% IN WATER 250 ML 250 MG IV (12:22)
[2022-09-13] MEDS: guaiFENesin ER 600 MG TAB PO (14:11)
[2022-09-13] MEDS: MAGNESIUM SULFATE 2 GM/50 ML PIGGYBACK IV (14:12)
[2022-09-13] MEDS: SODIUM CHLORIDE 0.9% 1,000 ML 100 ML IV (14:12)
[2022-09-13] MEDS: POTASSIUM CHLORIDE 20 MEQ TAB 40 MEQ PO ×2 (14:34→17:41)
[2022-09-13] MEDS: DOXYCYCLINE HYCLATE 100 MG TABLET PO ×2 (15:28→20:41)
[2022-09-13] MEDS: guaiFENesin Solution 100 MG/5 ML UDC PO ×2 (15:28→20:40)
[2022-09-13] MEDS: FINASTERIDE 5 MG TABLET PO (20:41)
[2022-09-13] MEDS: APIXABAN 5 MG TABLET 2.5 MG PO (20:41)
[2022-09-13] MEDS: PANTOPRAZOLE DR 20 MG TABLET PO (20:41)
[2022-09-13] MEDS: ATORVASTATIN 20 MG TABLET PO (20:42)
[2022-09-14] VITALS (10 sets, daily range): BP systolic 159–181; BP diastolic 78–95; PULSE 74–86; RESP 17–20; TEMP 36.8–37.7; O2SAT 93–98
[2022-09-14 05:56] LABS: Add Manual Diff / Slide Review NO; Basophils Absolute Auto 0 /uL (0-100); Basophils Percent Auto 0.2 % (0-2); Eosinophils Absolute Auto 0 /uL (0-450); Eosinophils Percent Auto 0.1 % (2-4); Hematocrit 30.4 % (41-53); Hemoglobin 10.8 g/dL (13.5-17.5); Lymphocytes Absolute Auto 1100 /uL (1100-4500); Lymphocytes Percent Auto 17.3 % (25-40); Mean Corpuscular HGB Conc 35.4 % (30-36); Mean Corpuscular Hemoglobin 30.6 PG (26-34); Mean Corpuscular Volume 86.5 fL (80-100); Monocytes Absolute Auto 1100 /uL (0-900); Monocytes Percent Auto 16.9 % (3-14); Neutrophils Absolute Auto 4100 /uL (1500-7000); Neutrophils Percent Auto 65.5 % (50-75); Platelet Count 107 X10^3/uL (150-400); Red Blood Cell Count 3.51 X10^6/uL (4.5-5.9); Red Cell Distribution Width 13.4 % (11.6-14.8); White Blood Cell Count 6.3 X10^3/uL (4.5-11.0)
[2022-09-14 06:07] LABS: Magnesium 1.7 mg/dL (1.6-2.3)
[2022-09-14 06:08] LABS: BUN Creatinine Ratio 9.6 (6-22); Blood Urea Nitrogen 7 mg/dL (9-20); Calcium 7.5 mg/dL (8.4-10.2); Carbon Dioxide 27 mmol/L (22-32); Chloride 91 mmol/L (98-107); Estimated Glomerular Filt Rate > 60 mL/min (>60); Glucose 119 mg/dL (80-110); HEMOLYSIS < 15 (0-50); Potassium 3.3 mmol/L (3.4-5.1); Sodium 122 mmol/L (137-145)
--- NOTE | 2022-09-14 07:48 | PM.PN.1 ---
Subjective Subjective Interval history: Sodium dropped to 122 from 126 with IVF. Now on fluid restriction and improved to 124. Patient says he is thirsty but his cough is slowly improving. Exam Vital Signs (past 8 hours): - 09/14/22 00:38 09/14/22 03:24 Temperature 99.1 F 99.8 F H Pulse Rate 74 86 Respiratory Rate 17 19 Blood Pressure 159/78 H 181/94 H Pulse Oximetry 94 95 Oxygen Flow Rate 0 0 Oxygen Delivery Method Room Air Oxygen Flow Rate 0 Narrative Exam Narrative: GEN: ill appearing elderly male HEENT: moist mucous membranes, PERRL NECK: trachea midline, no JVD CV: regular rate and rhythm, no murmurs PULM: diffuse coarse breath sounds ABD: soft, nontender, nondistended, no organomegaly EXT: warm and well perfused with no edema NEURO: awake, alert, oriented, no focal deficits Objective Labs 09/14/22 05:44 09/14/22 11:11 Labs: Laboratory Results - last 24 hr 09/13/22 09/13/22 09/13/22 09:09 09:09 09:09 WBC 5.3 RBC 3.83 L Hgb 11.9 L Hct 33.6 L MCV 87.7 MCH 31.1 MCHC 35.4 RDW 13.3 Plt Count 102 L Neut % (Auto) 68.7 Lymph % (Auto) 14.4 L [place] % (Auto) 16.4 H Eos % (Auto) 0.1 L Baso % (Auto) 0.4 Neut # (Auto) 3600 Lymph # (Auto) 800 L [place] # (Auto) 900 Eos # (Auto) 0 Baso # (Auto) 0 PT INR APTT D-Dimer 609 H Sodium 126 L Potassium 2.8 L Chloride 89 L Carbon Dioxide 28 BUN 10 Creatinine 0.73 Estimated GFR > 60 BUN/Creatinine Ratio 13.7 Glucose 118 H Lactate Calcium 8.5 Magnesium Total Bilirubin 1.2 AST 35 ALT 19 Alkaline Phosphatase 57 Total Creatine Kinase CK-MB (CK-2) CK-MB (CK-2) Rel Index Troponin I C-Reactive Protein 7.1 H NT-Pro-B Natriuret Pep Total Protein 7.1 Albumin 3.9 Globulin 3.2 Albumin/Globulin Ratio 1.2 Lipase Procalcitonin Urine Color Urine Appearance Urine pH Ur Specific [place] Urine Protein Urine Glucose (UA) Urine Ketones Urine Occult Blood Urine Nitrate Urine Bilirubin Urine Urobilinogen Ur Leukocyte Esterase Urine RBC Urine WBC Ur Squamous Epith Cells Urine Bacteria Ur Culture Indicated? SARS-CoV-2 (PCR) Influenza A (RT-PCR) Influenza B (RT-PCR) RSV (PCR) 09/13/22 09/13/22 09/13/22 09:09 09:09 09:09 WBC RBC Hgb Hct MCV MCH MCHC RDW Plt Count Neut % (Auto) Lymph % (Auto) [place] % (Auto) Eos % (Auto) Baso % (Auto) Neut # (Auto) Lymph # (Auto) [place] # (Auto) Eos # (Auto) Baso # (Auto) PT 16.2 H INR 1.4 H APTT 32 D-Dimer Sodium Potassium Chloride Carbon Dioxide BUN Creatinine Estimated GFR BUN/Creatinine Ratio Glucose Lactate 1.1 Calcium Magnesium 1.8 Total Bilirubin AST ALT Alkaline Phosphatase Total Creatine Kinase CK-MB (CK-2) CK-MB (CK-2) Rel Index Troponin I C-Reactive Protein NT-Pro-B Natriuret Pep 1530 H Total Protein Albumin Globulin Albumin/Globulin Ratio Lipase 84 Procalcitonin Urine Color Urine Appearance Urine pH Ur Specific [place] Urine Protein Urine Glucose (UA) Urine Ketones Urine Occult Blood Urine Nitrate Urine Bilirubin Urine Urobilinogen Ur Leukocyte Esterase Urine RBC Urine WBC Ur Squamous Epith Cells Urine Bacteria Ur Culture Indicated? SARS-CoV-2 (PCR) Influenza A (RT-PCR) Influenza B (RT-PCR) RSV (PCR) 09/13/22 09/13/22 09/13/22 09:09 09:09 09:40 WBC RBC Hgb Hct MCV MCH MCHC RDW Plt Count Neut % (Auto) Lymph % (Auto) [place] % (Auto) Eos % (Auto) Baso % (Auto) Neut # (Auto) Lymph # (Auto) [place] # (Auto) Eos # (Auto) Baso # (Auto) PT INR APTT D-Dimer Sodium Potassium Chloride Carbon Dioxide BUN Creatinine Estimated GFR BUN/Creatinine Ratio Glucose Lactate Calcium Magnesium Total Bilirubin AST ALT Alkaline Phosphatase Total Creatine Kinase 68 CK-MB (CK-2) TNP CK-MB (CK-2) Rel Index TNP Troponin I 0.031 C-Reactive Protein NT-Pro-B Natriuret Pep Total Protein Albumin Globulin Albumin/Globulin Ratio Lipase Procalcitonin Urine Color Yellow Urine Appearance Clear Urine pH 7.5 Ur Specific [place] 1.015 Urine Protein 1+ H Urine Glucose (UA) Negative Urine Ketones 2+ H Urine Occult Blood Negative Urine Nitrate Negative Urine Bilirubin Negative Urine Urobilinogen 4.0 H Ur Leukocyte Esterase Trace H Urine RBC 1-5/hpf Urine WBC 5-10/hpf H Ur Squamous Epith Cells 1-5 /hpf Urine Bacteria Few (2-10) H Ur Culture Indicated? Specimen cultured SARS-CoV-2 (PCR) Positive H Influenza A (RT-PCR) Flu a negative Influenza B (RT-PCR) Flu b negative RSV (PCR) Negative 09/13/22 09/14/22 09/14/22 11:21 05:44 05:44 WBC 6.3 RBC 3.51 L Hgb 10.8 L Hct 30.4 L MCV 86.5 MCH 30.6 MCHC 35.4 RDW 13.4 Plt Count 107 L Neut % (Auto) 65.5 Lymph % (Auto) 17.3 L [place] % (Auto) 16.9 H Eos % (Auto) 0.1 L Baso % (Auto) 0.2 Neut # (Auto) 4100 Lymph # (Auto) 1100 [place] # (Auto) 1100 H Eos # (Auto) 0 Baso # (Auto) 0 PT INR APTT D-Dimer Sodium Potassium Chloride Carbon Dioxide BUN Creatinine Estimated GFR BUN/Creatinine Ratio Glucose Lactate Calcium Magnesium 1.7 Total Bilirubin AST ALT Alkaline Phosphatase Total Creatine Kinase CK-MB (CK-2) CK-MB (CK-2) Rel Index Troponin I C-Reactive Protein NT-Pro-B Natriuret Pep Total Protein Albumin Globulin Albumin/Globulin Ratio Lipase Procalcitonin 0.12 Urine Color Urine Appearance Urine pH Ur Specific [place] Urine Protein Urine Glucose (UA) Urine Ketones Urine Occult Blood Urine Nitrate Urine Bilirubin Urine Urobilinogen Ur Leukocyte Esterase Urine RBC Urine WBC Ur Squamous Epith Cells Urine Bacteria Ur Culture Indicated? SARS-CoV-2 (PCR) Influenza A (RT-PCR) Influenza B (RT-PCR) RSV (PCR) 09/14/22 05:44 WBC RBC Hgb Hct MCV MCH MCHC RDW Plt Count Neut % (Auto) Lymph % (Auto) [place] % (Auto) Eos % (Auto) Baso % (Auto) Neut # (Auto) Lymph # (Auto) [place] # (Auto) Eos # (Auto) Baso # (Auto) PT INR APTT D-Dimer Sodium 122 L Potassium 3.3 L Chloride 91 L Carbon Dioxide 27 BUN 7 L Creatinine 0.73 Estimated GFR > 60 BUN/Creatinine Ratio 9.6 Glucose 119 H Lactate Calcium 7.5 L Magnesium Total Bilirubin AST ALT Alkaline Phosphatase Total Creatine Kinase CK-MB (CK-2) CK-MB (CK-2) Rel Index Troponin I C-Reactive Protein NT-Pro-B Natriuret Pep Total Protein Albumin Globulin Albumin/Globulin Ratio Lipase Procalcitonin Urine Color Urine Appearance Urine pH Ur Specific [place] Urine Protein Urine Glucose (UA) Urine Ketones Urine Occult Blood Urine Nitrate Urine Bilirubin Urine Urobilinogen Ur Leukocyte Esterase Urine RBC Urine WBC Ur Squamous Epith Cells Urine Bacteria Ur Culture Indicated? 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/17) Hx of prostatectomy Hx of sinus surgery Hx of tonsillectomy Hx of transurethral resection of prostate Social History household members: spouse Smoking Status: Former smoker alcohol intake: current Assessment & Plan Assessment & Plan narrative: # community acquired pneumonia -CXR with LLL infiltrate, procal 0.12 -given age will elect to treat with IV abx -continue rocephin and doxy (instead of azithro since patient on amio) -sputum culture if able -blood cultures NGTD # COVID -positive on admission PCR swab -supportive care -not on supp O2 # UTI, ruled out -UA with pyuria -urine culture negative # hyponatremia, unknown if acute or chronic -sodium 126, then dropped to 122 with IVF 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 COVID positive. DVT prophylaxis with Eliquis. Proxy is Lyly. Dispo: Home in 1-2 days pending PT eval and Na improvement. Quality VTE Deep Vein Thrombosis/Pulmonary Embolism Present on Admission: No
[2022-09-14] MEDS: guaiFENesin Solution 100 MG/5 ML UDC PO ×4 (08:41→20:28)
[2022-09-14] MEDS: SODIUM CHLORIDE 1,000 MG TABLET 1000 MG PO (08:42)
[2022-09-14] MEDS: AMLODIPINE 5 MG TABLET 2.5 MG PO (08:42)
[2022-09-14] MEDS: POTASSIUM CHLORIDE 20 MEQ TAB 40 MEQ PO ×4 (08:42→16:38)
[2022-09-14] MEDS: APIXABAN 5 MG TABLET 2.5 MG PO (08:42)
[2022-09-14] MEDS: DOXYCYCLINE HYCLATE 100 MG TABLET PO ×2 (08:43→20:28)
[2022-09-14] MEDS: AMIODARONE 200 MG TABLET PO (08:43)
[2022-09-14] MEDS: cefTRIAXone 1,000 MG in SODIUM CHLORIDE 0.9% 100 ML 200 MG IV (08:43)
[2022-09-14] MEDS: LORATADINE 10 MG TABLET PO (08:43)
[2022-09-14] MEDS: METOPROLOL ER 25 MG TABLET PO (08:45)
[2022-09-14] MEDS: MAGNESIUM SULFATE 2 GM/50 ML PIGGYBACK IV (08:49)
[2022-09-14 11:48] LABS: BUN Creatinine Ratio 8.3 (6-22); Blood Urea Nitrogen 6 mg/dL (9-20); Calcium 7.4 mg/dL (8.4-10.2); Carbon Dioxide 27 mmol/L (22-32); Chloride 92 mmol/L (98-107); Estimated Glomerular Filt Rate > 60 mL/min (>60); Glucose 146 mg/dL (80-110); HEMOLYSIS < 15 (0-50); Potassium 3.2 mmol/L (3.4-5.1); Sodium 124 mmol/L (137-145)
--- NOTE | 2022-09-14 14:02 | CM.DANOTE ---
Initial DCP Assessment Note 87 yo M resident of [place], arrives with increasing weakness at home and found to be COVID+ with community acquired pneumonia, admitted for further management Chart reviewed. Therapy eval pending. Patient appears to navigate indp at his baseline. CM team will plan to follow closely for continued assessment of need and coordination of DCP; likely return home w/family and HH DORIE Discharge Planning/Care Management CM Discharge Assessment Start: 09/14/22 13:57 Freq: Status: Active Protocol: Document 09/14/22 13:57 DORIE (Rec: 09/14/22 14:02 DORIE [id number]) Discharge Planning Assessment Assigned Warehouse Processor LORETO Simmons DPOA/Assigned Designee Name Lyly Hernandez, spouse Contact Information [phone] Advance Directives? Yes Advance Directives on File No History Provided By Patient,Medical Record Prior Living Arrangements House Household Members spouse Type of transporation used prior to Relies on Others admit Independent with ADL's Yes Is patient alert and oriented? Yes Patient/Family Preference Home with Home Health Barriers to Discharge No Comment Anticipate home w/spouse and HH. COVID+ will be a barrier to SNF placement and patient may not require SNF. Home health may benefit patient Discharge Plan Home with Home Health Transportation Arrangement Family Additional Comment Following closely as medical plan of care unfolds
--- NOTE | 2022-09-14 15:17 | OT.IPNOTE ---
Pt's nurse states pt has been able to get up and PT states mainly pt is mainly barrier is deconditioning. Therefore discharge OT eval orders.
--- NOTE | 2022-09-14 15:41 | PT.IIE ---
Addendum entered and electronically signed by Erica Soni PT 09/14/22 16:06: Patient has a hurry cane at home. Original Note: Current Diagnoses Pneumonia, unspecified organism (09/13/22) Surgical History (Last Reviewed 09/13/22 @ 10:09 by Ventura Live DO) 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 right hip arthroplasty (04/26/17) Hx of prostatectomy Hx of sinus surgery Hx of tonsillectomy Hx of transurethral resection of prostate Medical History (Last Reviewed 09/13/22 @ 10:09 by Ventura Live DO) Afib Dermatitis Diverticulosis Edema GERD (gastroesophageal reflux disease) Heart disease HLD (hyperlipidemia) HTN (hypertension) Iron deficiency anemia Left wrist fracture Melanoma Memory changes Memory deficit PSVT (paroxysmal supraventricular tachycardia) Rheumatic fever Physical Therapy Inpatient Evaluation/Re-Eval M1 PT/OT-IP Prior Functional Status Start: 09/14/22 15:24 Freq: NEEDED Status: Active Protocol: Document 09/14/22 15:26 ES (Rec: 09/14/22 15:40 ES [id number]) Medical Review Prior Functional Status Medical History Reviewed Yes Communication WFL Mobility and Gait Indep Activities of Daily Living and IADL's Indep Social History Household Members spouse Living Arrangements House Number of Floors (Floors) 3 or More Floors Number of Stairs To Enter/Railing? 3 with B rails Employment Status Retired Additional Social History Comment 3 story home, kitchen and living area on main level as well as recliner he can sleep in, bedroom and bathroom on upper level with full fight of stairs and B rails. Can get a FWW from the [employer] if needed. is currently sick with COVID also. M2 PT-IP Current Condition Start: 09/14/22 15:24 Freq: NEEDED Status: Active Protocol: Document 09/14/22 15:26 ES (Rec: 09/14/22 15:40 ES [id number]) Physical Therapy Current Condition Current Condition Evaluation Date 09/14/22 Treatment Diagnosis COVID+, pneumonia, weakness Onset Date 09/13/22 M3 PT-IP Subjective Start: 09/14/22 15:24 Freq: NEEDED Status: Active Protocol: Document 09/14/22 15:26 ES (Rec: 04/27/23 15:40 ES [id number]) Subjective Physical Therapy Visit Type Type Initial Evaluation Visit Start Time 14:49 Visit Stop Time 15:11 Total Visit Minutes 22 Physical Therapy Visit Comments Patient Comments Patient reported feeling overall weak and tired. Has been coughing a lot. Agreeable to work with PT but declined to get up to chair. Therapy Pain Assessment Pain Present Pain Present Denied Pain M4 PT-IP Mobility and Gait Start: 09/14/22 15:24 Freq: NEEDED Status: Active Protocol: Document 09/14/22 15:26 ES (Rec: 09/14/22 15:40 ES [id number]) PT-Bed Mobility Assessment Rolling Type of Rolling Log Rolling,Roll to Right,Roll to Left Level of Assist Standby Assistance Supine to Sit Supine to Sit Standby Assistance,Bedrails Sit to Supine Sit to Supine Minimal Assistance,Bedrails Scooting Scooting to Edge of Bed Standby Assistance Scooting Up and Down in Bed Independent PT-Transfer Assessment Sit to and From Stand Sit to and from Stand Contact Guard Assistance,Use of Upper Extremities Equipment Transfer Assistive Device Gait Belt,Front Wheeled Walker Gait Assessment Gait Gait Assistance Required: Standby Assistance Distance (Feet) 45 Assistive Devices Assistive Device Gait Belt,Front Wheeled Walker Gait Deviations General Gait Pattern Decreased Stride Length, Decreased Feet Clearance, Flexed Trunk Factors Limiting Gait Function Factors Limiting Gait Function Decreased Strength Comments Gait Comments Ambulated with decreased speed and tia. PT-Balance Assessment Sitting Balance and Reactions Static Sitting Balance Ability Good Dynamic Sitting Balance Ability Good Standing Balance and Reactions Static Standing Balance Ability Good Dynamic Standing Balance Ability Fair Device Used FWW M5 PT-IP Objective Assessments Start: 09/14/22 15:24 Freq: NEEDED Status: Active Protocol: Document 09/14/22 15:26 ES (Rec: 09/14/22 15:40 ES [id number]) Orientation Orientation/Cognition Level of Alertness Alert Language Function Ability Hard of Hearing Safety Awareness Understands Safety Issues Memory Description No Deficits Noted Gross Range of Motion Upper Extremity ROM Assessment Within Functional Limits Lower Extremity ROM Assessment Within Functional Limits Strength Upper Extremity Strength Assessment Within Functional Limits Lower Extremity Strength Assessment Within Functional Limits Coordination Assessment Gross Coordination Gross Coordination WNL M6 PT-IP Treatment Start: 09/14/22 15:24 Freq: NEEDED Status: Active Protocol: Document 09/14/22 15:26 ES (Rec: 09/14/22 15:40 ES [id number]) Physical Therapy Treatment Education Education Provided Safety M7 PT-IP Assessment and Plan Start: 09/14/22 15:24 Freq: NEEDED Status: Active Protocol: Document 09/14/22 15:26 ES (Rec: 09/14/22 15:40 ES [id number]) PT Summary Assessment and Plan Potential Rehabilitation Potential Good Status of Condition at Evaluation Stable Summary Impairments Strength,Bed Mobility, Transfers,Gait,Activity Tolerance Assessment Summary Patient is a 87 year old male who presents with impaired functional mobility due to the above problems. He demonstrated overall weakness and deconditioning, requiring assist to get in bed and with limited distance ambulation with use of FWW. He will need to be able to navigate a flight of stairs at home. Recommend continued PT to increase strength and activity tolerance to be able to d/c home safely. Goals Bed Mobility Goal Independent Transfer Goal Independent,Front Wheeled Walker Gait Goal Independent,Front Wheel Walker Gait Distance 100 Other Goals Patient will be able to ascend /descend 12 stairs with B rails independently. Days to Meet Goals 3 Frequency of Treatment Frequency Of Treatment Once a Day Treatment Plan Physical Therapy Treatment Plan Bed Mobility Training,Transfer Training,Gait Training, Therapeutic Exercise,Balance Retraining,Discharge Planning, Neuromuscular Re-ed Recommendations To Nursing Amount of Assist Needed 1 Person Assist Discharge Recommendations PT Discharge Recommendations Home Equipment Needed for Home Before Likely FWW Discharge Transportation Needs at Discharge Private Vehicle
[2022-09-14] MEDS: BENZONATATE 100 MG CAPSULE PO (15:42)
[2022-09-14 18:00] LABS: BUN Creatinine Ratio 9.6 (6-22); Blood Urea Nitrogen 7 mg/dL (9-20); Calcium 7.8 mg/dL (8.4-10.2); Carbon Dioxide 27 mmol/L (22-32); Chloride 93 mmol/L (98-107); Estimated Glomerular Filt Rate > 60 mL/min (>60); Glucose 115 mg/dL (80-110); HEMOLYSIS < 15 (0-50); Potassium 4.5 mmol/L (3.4-5.1); Sodium 124 mmol/L (137-145)
[2022-09-14] MEDS: FINASTERIDE 5 MG TABLET PO (20:28)
[2022-09-14] MEDS: ATORVASTATIN 20 MG TABLET PO (20:28)
[2022-09-14] MEDS: PANTOPRAZOLE DR 20 MG TABLET PO (20:28)
[2022-09-14] MEDS: APIXABAN 5 MG TABLET PO (20:28)
[2022-09-15] VITALS (7 sets, daily range): BP systolic 152–178; BP diastolic 67–88; PULSE 68–85; RESP 16–20; TEMP 36.4–37.3; O2SAT 93–95
[2022-09-15 06:13] LABS: Blood Urea Nitrogen 9 mg/dL (9-20); Calcium 7.8 mg/dL (8.4-10.2); Carbon Dioxide 26 mmol/L (22-32); Chloride 93 mmol/L (98-107); Estimated Glomerular Filt Rate > 60 mL/min (>60); Glucose 107 mg/dL (80-110); HEMOLYSIS < 15 (0-50); Potassium 3.7 mmol/L (3.4-5.1); Sodium 123 mmol/L (137-145)
[2022-09-15 06:17] LABS: Magnesium 1.9 mg/dL (1.6-2.3)
[2022-09-15 07:03] LABS: Add Manual Diff / Slide Review NO; Basophils Absolute Auto 0 /uL (0-100); Basophils Percent Auto 0.3 % (0-2); Eosinophils Absolute Auto 0 /uL (0-450); Eosinophils Percent Auto 0.5 % (2-4); Hematocrit 31.4 % (41-53); Hemoglobin 11.1 g/dL (13.5-17.5); Lymphocytes Absolute Auto 900 /uL (1100-4500); Lymphocytes Percent Auto 16.9 % (25-40); Mean Corpuscular HGB Conc 35.2 % (30-36); Mean Corpuscular Volume 87.9 fL (80-100); Monocytes Absolute Auto 1000 /uL (0-900); Monocytes Percent Auto 17.9 % (3-14); Neutrophils Absolute Auto 3600 /uL (1500-7000); Neutrophils Percent Auto 64.4 % (50-75); Platelet Count 132 X10^3/uL (150-400); Red Blood Cell Count 3.58 X10^6/uL (4.5-5.9); Red Cell Distribution Width 13.6 % (11.6-14.8); White Blood Cell Count 5.6 X10^3/uL (4.5-11.0)
[2022-09-15 08:30] LABS: Sodium Urine Random 110 mmol/L (30-90)
[2022-09-15] MEDS: SODIUM CHLORIDE 1,000 MG TABLET 1000 MG PO ×3 (09:19→22:01)
[2022-09-15] MEDS: AMIODARONE 200 MG TABLET PO (09:20)
[2022-09-15] MEDS: DOXYCYCLINE HYCLATE 100 MG TABLET PO ×2 (09:20→22:01)
[2022-09-15] MEDS: cefTRIAXone 1,000 MG in SODIUM CHLORIDE 0.9% 100 ML 200 MG IV (09:20)
[2022-09-15] MEDS: APIXABAN 5 MG TABLET PO ×2 (09:20→22:02)
[2022-09-15] MEDS: AMLODIPINE 5 MG TABLET 2.5 MG PO (09:20)
[2022-09-15] MEDS: METOPROLOL ER 25 MG TABLET PO (09:21)
[2022-09-15] MEDS: LORATADINE 10 MG TABLET PO (09:21)
[2022-09-15] MEDS: POTASSIUM CHLORIDE 20 MEQ TAB 40 MEQ PO (09:24)
[2022-09-15] MEDS: guaiFENesin Solution 100 MG/5 ML UDC PO (09:30)
[2022-09-15] MEDS: BENZONATATE 100 MG CAPSULE PO (09:31)
[2022-09-15] MEDS: ACETAMINOPHEN 325 MG TABLET 650 MG PO ×2 (11:34→17:04)
[2022-09-15 12:26] LABS: BUN Creatinine Ratio 13.2 (6-22); Blood Urea Nitrogen 9 mg/dL (9-20); Calcium 7.9 mg/dL (8.4-10.2); Carbon Dioxide 27 mmol/L (22-32); Chloride 89 mmol/L (98-107); Estimated Glomerular Filt Rate > 60 mL/min (>60); Glucose 117 mg/dL (80-110); HEMOLYSIS < 15 (0-50); Potassium 4.9 mmol/L (3.4-5.1); Sodium 122 mmol/L (137-145)
--- NOTE | 2022-09-15 13:15 | PT.IPTN ---
Current Diagnoses Pneumonia, unspecified organism (09/13/22) Physical Therapy Treatment Note M2 PT-IP Current Condition Start: 09/14/22 15:24 Freq: NEEDED Status: Active Protocol: Document 09/14/22 15:26 ES (Rec: 09/14/22 15:40 ES [id number]) Physical Therapy Current Condition Current Condition Evaluation Date 09/14/22 Treatment Diagnosis COVID+, pneumonia, weakness Onset Date 09/13/22 M3 PT-IP Subjective Start: 09/14/22 15:24 Freq: NEEDED Status: Active Protocol: Document 09/15/22 13:54 TS (Rec: 09/15/22 14:11 TS [id number]) Subjective Physical Therapy Visit Type Type Treatment Note Visit Start Time 13:15 Visit Stop Time 13:45 Total Visit Minutes 30 Number of LABEL DRIER Visits 1 Physical Therapy Visit Comments Patient Comments Pt reports feeling tired/ sleeping all day, agreeable to PT session. M4 PT-IP Mobility and Gait Start: 09/14/22 15:24 Freq: NEEDED Status: Active Protocol: Document 09/15/22 13:54 TS (Rec: 09/15/22 14:11 TS [id number]) PT-Bed Mobility Assessment Supine to Sit Supine to Sit Contact Guard Assistance, Bedrails Scooting Scooting to Edge of Bed Standby Assistance PT-Transfer Assessment Sit to and From Stand Sit to and from Stand Standby Assistance,Use of Upper Extremities Equipment Transfer Assistive Device None,Gait Belt,Front Wheeled Walker Comments Mobility Comments Pt found resting in bed, agreeable to PT session. Supine to sit CGA from flat bed, provided cues to come up on elbows for uprighting of trunk and progression of LEs over EOB. Sit to stand x2 SBA w/FWW, required momentum to come into standing from chair. Pt ambulated in room ~75' SBA , reported some dizziness required rest break after ~30' , BP unremarkable, no signs of LOB or buckling. Pt performed stairs x8 CGA with BUE support on FWW and sink counter, no signs of LOB. Pt was left in bedside chair with call light nearby, all needs met. Gait Assessment Gait Gait Assistance Required: Standby Assistance Distance (Feet) 75 Assistive Devices Assistive Device Gait Belt,Front Wheeled Walker Gait Deviations General Gait Pattern Decreased Stride Length, Decreased Feet Clearance, Flexed Trunk Factors Limiting Gait Function Factors Limiting Gait Function Decreased Activity Tolerance, Decreased Strength Comments Gait Comments Pt amublated ~5' with no AD. See mobility comments. Stair Climbing Assessment Evaluation Level of Assist On Stairs Contact Guard Assistance Devices Stair Climbing Assistive Devices Left Railing,Right Railing Technique/Endurance Stair Climbing Direction Ascend and Descend Stair Climbing Technique Step to Step Number of Steps Climbed 8 Comments Stair Climbing Comments See mobility comments. PT-Balance Assessment Sitting Balance and Reactions Static Sitting Balance Ability Good Dynamic Sitting Balance Ability Good Standing Balance and Reactions Static Standing Balance Ability Good Dynamic Standing Balance Ability Fair Device Used FWW M5 PT-IP Objective Assessments Start: 09/14/22 15:24 Freq: NEEDED Status: Active Protocol: Document 09/14/22 15:26 ES (Rec: 09/14/22 15:40 ES [id number]) Orientation Orientation/Cognition Level of Alertness Alert Language Function Ability Hard of Hearing Safety Awareness Understands Safety Issues Memory Description No Deficits Noted Gross Range of Motion Upper Extremity ROM Assessment Within Functional Limits Lower Extremity ROM Assessment Within Functional Limits Strength Upper Extremity Strength Assessment Within Functional Limits Lower Extremity Strength Assessment Within Functional Limits Coordination Assessment Gross Coordination Gross Coordination WNL M6 PT-IP Treatment Start: 09/14/22 15:24 Freq: NEEDED Status: Active Protocol: Document 09/15/22 13:54 TS (Rec: 09/15/22 14:11 TS [id number]) Physical Therapy Treatment Education Education Provided Safety M7 PT-IP Assessment and Plan Start: 09/14/22 15:24 Freq: NEEDED Status: Active Protocol: Document 09/15/22 13:54 TS (Rec: 09/15/22 14:11 TS [id number]) PT Summary Assessment and Plan Potential Rehabilitation Potential Good Status of Condition at Evaluation Stable Summary Impairments Strength,Bed Mobility, Transfers,Gait,Activity Tolerance Assessment Summary Pt requiring increased assist for supine to sit from flat bed to CGA. He progressed his sit to stands x1 SBA with FWW, x1 with no AD, increased his ambulation distance to ~75 SBA with FWW and ~5' with no AD, no signs of buckling or LOB and performed stairs x8 with BUE support with rails. Pt c/o some dizziness during ambulation and required ~30 sec rest break, BP was unremarkable. PT recommends at this time return home with assistance. Goals Bed Mobility Goal Independent Transfer Goal Independent,Front Wheeled Walker Gait Goal Independent,Front Wheel Walker Gait Distance 100 Other Goals Patient will be able to ascend /descend 12 stairs with B rails independently. Days to Meet Goals 3 Frequency of Treatment Frequency Of Treatment Once a Day Treatment Plan Physical Therapy Treatment Plan Bed Mobility Training,Transfer Training,Gait Training, Therapeutic Exercise,Balance Retraining,Discharge Planning, Neuromuscular Re-ed Recommendations To Nursing Amount of Assist Needed 1 Person Assist Discharge Recommendations PT Discharge Recommendations Home,Home with Assistance Equipment Needed for Home Before Likely FWW Discharge Transportation Needs at Discharge Private Vehicle
[2022-09-15] MEDS: ONDANSETRON 4 MG/2 ML INJ IV (17:02)
--- NOTE | 2022-09-15 19:01 | P.PN_ITS ---
Subjective Subjective Interval history: Sodium levels down to 122. Patient's salt tabs increased to TID. Patient says he is feeling better with less cough today. Exam Vital Signs (past 8 hours): Oxygen Delivery Method Room Air Oxygen Flow Rate 0 Narrative Exam Narrative: GEN: ill appearing elderly male HEENT: moist mucous membranes, PERRL NECK: trachea midline, no JVD CV: regular rate and rhythm, no murmurs PULM: diffuse coarse breath sounds ABD: soft, nontender, nondistended, no organomegaly EXT: warm and well perfused with no edema NEURO: awake, alert, oriented, no focal deficits Objective Labs 09/15/22 05:20 09/15/22 12:05 Labs: Laboratory Results - last 24 hr 09/15/22 09/15/22 09/15/22 05:20 05:20 05:20 WBC 5.6 RBC 3.58 L Hgb 11.1 L Hct 31.4 L MCV 87.9 MCH 31.0 MCHC 35.2 RDW 13.6 Plt Count 132 L Neut % (Auto) 64.4 Lymph % (Auto) 16.[address] [place] % (Auto) 17.9 H Eos % (Auto) 0.5 L Baso % (Auto) 0.3 Neut # (Auto) 3600 Lymph # (Auto) [address] [place] # (Auto) 1000 H Eos # (Auto) 0 Baso # (Auto) 0 Sodium 123 L Potassium 3.7 Chloride 93 L Carbon Dioxide 26 BUN 9 Creatinine 0.69 Estimated GFR > 60 BUN/Creatinine Ratio 13.0 Glucose 107 Calcium 7.8 L Magnesium 1.9 Ur Random Sodium 09/15/22 09/15/22 08:00 12:05 WBC RBC Hgb Hct MCV MCH MCHC RDW Plt Count Neut % (Auto) Lymph % (Auto) [place] % (Auto) Eos % (Auto) Baso % (Auto) Neut # (Auto) Lymph # (Auto) [place] # (Auto) Eos # (Auto) Baso # (Auto) Sodium 122 L Potassium 4.9 D Chloride 89 L Carbon Dioxide 27 BUN 9 Creatinine 0.68 Estimated GFR > 60 BUN/Creatinine Ratio 13.2 Glucose 117 H Calcium 7.9 L Magnesium Ur Random Sodium 110 H 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/17) Hx of prostatectomy Hx of sinus surgery Hx of tonsillectomy Hx of transurethral resection of prostate Social History household members: spouse Smoking Status: Former smoker alcohol intake: current Assessment & Plan Assessment & Plan narrative: # community acquired pneumonia -CXR with LLL infiltrate, procal 0.12 -given age will elect to treat with IV abx -continue rocephin and doxy (instead of azithro since patient on amio) -sputum culture if able -blood cultures NGTD # COVID -positive on admission PCR swab -supportive care -not on supp O2 # UTI, ruled out -UA with pyuria -urine culture negative # hyponatremia, unknown if acute or chronic -sodium 126, then dropped to 122 with IVF 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 COVID positive. DVT prophylaxis with Eliquis. Proxy is Lyly. Dispo: Home in 1-2 days pending Na improvement. Quality VTE Deep Vein Thrombosis/Pulmonary Embolism Present on Admission: No
[2022-09-15 19:27] LABS: BUN Creatinine Ratio 14.9 (6-22); Blood Urea Nitrogen 11 mg/dL (9-20); Calcium 7.7 mg/dL (8.4-10.2); Carbon Dioxide 24 mmol/L (22-32); Chloride 93 mmol/L (98-107); Estimated Glomerular Filt Rate > 60 mL/min (>60); Glucose 124 mg/dL (80-110); HEMOLYSIS < 15 (0-50); Potassium 4.2 mmol/L (3.4-5.1); Sodium 122 mmol/L (137-145)
[2022-09-15] MEDS: PANTOPRAZOLE DR 20 MG TABLET PO (22:01)
[2022-09-15] MEDS: FINASTERIDE 5 MG TABLET PO (22:01)
[2022-09-15] MEDS: ATORVASTATIN 20 MG TABLET PO (22:01)
[2022-09-16] VITALS (39 sets, daily range): BP systolic 164–201; BP diastolic 74–93; PULSE 63–87; RESP 16–36; TEMP 36.2–37.2; O2SAT 92–98
[2022-09-16] MEDS: ACETAMINOPHEN 325 MG TABLET 650 MG PO (03:39)
[2022-09-16 06:47] LABS: BUN Creatinine Ratio 15.7 (6-22); Blood Urea Nitrogen 11 mg/dL (9-20); Calcium 8.2 mg/dL (8.4-10.2); Carbon Dioxide 24 mmol/L (22-32); Chloride 92 mmol/L (98-107); Estimated Glomerular Filt Rate > 60 mL/min (>60); Glucose 97 mg/dL (80-110); HEMOLYSIS < 15 (0-50); Potassium 3.9 mmol/L (3.4-5.1); Sodium 123 mmol/L (137-145)
[2022-09-16 07:02] LABS: Add Manual Diff / Slide Review NO; Basophils Absolute Auto 0 /uL (0-100); Basophils Percent Auto 0.5 % (0-2); Eosinophils Absolute Auto 100 /uL (0-450); Eosinophils Percent Auto 1.5 % (2-4); Hematocrit 33.8 % (41-53); Lymphocytes Absolute Auto 1400 /uL (1100-4500); Lymphocytes Percent Auto 21.5 % (25-40); Mean Corpuscular HGB Conc 35.5 % (30-36); Mean Corpuscular Hemoglobin 30.7 PG (26-34); Mean Corpuscular Volume 86.3 fL (80-100); Monocytes Absolute Auto 800 /uL (0-900); Monocytes Percent Auto 12.8 % (3-14); Neutrophils Absolute Auto 4100 /uL (1500-7000); Neutrophils Percent Auto 63.7 % (50-75); Platelet Count 158 X10^3/uL (150-400); Red Blood Cell Count 3.92 X10^6/uL (4.5-5.9); Red Cell Distribution Width 13.4 % (11.6-14.8); White Blood Cell Count 6.5 X10^3/uL (4.5-11.0)
[2022-09-16] MEDS: cefTRIAXone 1,000 MG in SODIUM CHLORIDE 0.9% 100 ML 200 MG IV (10:01)
[2022-09-16] MEDS: METOPROLOL ER 25 MG TABLET PO (10:01)
[2022-09-16] MEDS: AMLODIPINE 5 MG TABLET 2.5 MG PO ×2 (10:02→23:01)
[2022-09-16] MEDS: SODIUM CHLORIDE 1,000 MG TABLET 1000 MG PO ×3 (10:02→21:00)
[2022-09-16] MEDS: LORATADINE 10 MG TABLET PO (10:04)
[2022-09-16] MEDS: APIXABAN 5 MG TABLET PO ×2 (10:04→21:00)
[2022-09-16] MEDS: AMIODARONE 200 MG TABLET PO (10:06)
[2022-09-16] MEDS: DOXYCYCLINE HYCLATE 100 MG TABLET PO ×2 (10:06→21:00)
[2022-09-16] MEDS: BENZONATATE 100 MG CAPSULE PO (10:19)
[2022-09-16] MEDS: guaiFENesin Solution 100 MG/5 ML UDC PO (10:19)
--- NOTE | 2022-09-16 12:30 | PT.IPTN ---
Current Diagnoses Pneumonia, unspecified organism (09/13/22) Physical Therapy Treatment Note M2 PT-IP Current Condition Start: 09/14/22 15:24 Freq: NEEDED Status: Active Protocol: Document 09/14/22 15:26 ES (Rec: 09/14/22 15:40 ES [id number]) Physical Therapy Current Condition Current Condition Evaluation Date 09/14/22 Treatment Diagnosis COVID+, pneumonia, weakness Onset Date 09/13/22 M3 PT-IP Subjective Start: 09/14/22 15:24 Freq: NEEDED Status: Active Protocol: Document 09/16/22 13:11 TS (Rec: 09/16/22 13:23 TS [id number]) Subjective Physical Therapy Visit Type Type Treatment Note Visit Start Time 12:30 Visit Stop Time 12:55 Total Visit Minutes 25 Number of FIELD TECHNICAL SUPPORT CONSULTANT Visits 2 Physical Therapy Visit Comments Patient Comments Pt reports feeling weak today, c/o dizziness standing. M4 PT-IP Mobility and Gait Start: 09/14/22 15:24 Freq: NEEDED Status: Active Protocol: Document 09/16/22 13:11 TS (Rec: 09/16/22 13:23 TS [id number]) PT-Bed Mobility Assessment Supine to Sit Supine to Sit Standby Assistance Sit to Supine Sit to Supine Standby Assistance Scooting Scooting to Edge of Bed Standby Assistance Scooting Up and Down in Bed Standby Assistance PT-Transfer Assessment Sit to and From Stand Sit to and from Stand Standby Assistance,Use of Upper Extremities Equipment Transfer Assistive Device None,Gait Belt,Front Wheeled Walker Comments Mobility Comments Pt found resting in bed, agreeable to PT session. Supine to sit SBA with bed flat and BUE support into sitting. Sit to stand x2 SBA with BUE support pushing from bed, demmonstrated good carryover from previous session. In standing pt reported dizziness, BP unremarkable, pt requested back to bed. Sit to supine SBA , required cues for pushing through heels and handrail assist for scooting to HOB. Pt was left in bed with call light nearby, all needs met, RN notified. Gait Assessment Comments Gait Comments Did not ambulate today. Stair Climbing Assessment Comments Stair Climbing Comments Did not want to ambulate. M5 PT-IP Objective Assessments Start: 09/14/22 15:24 Freq: NEEDED Status: Active Protocol: Document 09/14/22 15:26 ES (Rec: 09/14/22 15:40 ES [id number]) Orientation Orientation/Cognition Level of Alertness Alert Language Function Ability Hard of Hearing Safety Awareness Understands Safety Issues Memory Description No Deficits Noted Gross Range of Motion Upper Extremity ROM Assessment Within Functional Limits Lower Extremity ROM Assessment Within Functional Limits Strength Upper Extremity Strength Assessment Within Functional Limits Lower Extremity Strength Assessment Within Functional Limits Coordination Assessment Gross Coordination Gross Coordination WNL M6 PT-IP Treatment Start: 09/14/22 15:24 Freq: NEEDED Status: Active Protocol: Document 09/16/22 13:11 TS (Rec: 09/16/22 13:23 TS [id number]) Physical Therapy Treatment Education Education Provided Safety M7 PT-IP Assessment and Plan Start: 09/14/22 15:24 Freq: NEEDED Status: Active Protocol: Document 09/16/22 13:11 TS (Rec: 09/16/22 13:23 TS [id number]) PT Summary Assessment and Plan Potential Rehabilitation Potential Good Status of Condition at Evaluation Stable Summary Impairments Strength,Bed Mobility, Transfers,Gait,Activity Tolerance Assessment Summary Pt progressed his bed mobility to SBA from flat bed and sit to stands SBA x2. Pt c/o dizziness in standing, BP unremarkable. He requestd to go back to bed stating he feels too weak. PT recommends return home with assist from spouse. Goals Bed Mobility Goal Independent Transfer Goal Independent,Front Wheeled Walker Gait Goal Independent,Front Wheel Walker Gait Distance 100 Other Goals Patient will be able to ascend /descend 12 stairs with B rails independently. Days to Meet Goals 3 Frequency of Treatment Frequency Of Treatment Once a Day Treatment Plan Physical Therapy Treatment Plan Bed Mobility Training,Transfer Training,Gait Training, Therapeutic Exercise,Balance Retraining,Discharge Planning, Neuromuscular Re-ed Recommendations To Nursing Amount of Assist Needed Standby Assistance Discharge Recommendations PT Discharge Recommendations Home,Home with Assistance Equipment Needed for Home Before Likely FWW Discharge Transportation Needs at Discharge Private Vehicle
[2022-09-16 12:45] LABS: BUN Creatinine Ratio 14.1 (6-22); Blood Urea Nitrogen 11 mg/dL (9-20); Calcium 7.8 mg/dL (8.4-10.2); Carbon Dioxide 25 mmol/L (22-32); Chloride 91 mmol/L (98-107); Estimated Glomerular Filt Rate > 60 mL/min (>60); Glucose 104 mg/dL (80-110); HEMOLYSIS < 15 (0-50); Potassium 4.3 mmol/L (3.4-5.1); Sodium 121 mmol/L (137-145)
--- NOTE | 2022-09-16 13:02 | PC.NURSE ---
Call placed to by this nurse at wifes request. states concerns of patient being on a fluid restiction and not able to have any water. states he needs Smart water to get better. This nurse explained that given the current level of patients sodium levels its imparative we cont. with the fluid restrictions and other medical treatments guided by physician at this time. states she is going to bring in water for patient to drink. Explained to that this would only make his sodium levels worsen. states she too had low sodium levels and passed out in town and was admited and the only thing that helped her was Smart Water. Patients is asking for prognosis of patient and expected lenght of time for stay. Vidya was then forwarded to Provider on staff to answer questions and concerns.
--- NOTE | 2022-09-16 13:46 | CM.DPNOTE ---
DCP NOte Discharge anticipated today, home w/spouse and close outpatient folllow up No needs identified from this CM team, patient cleared by therapy for return home w/assist during his recovery JW
[2022-09-16] MEDS: SODIUM CHLORIDE 3 % 50 ML 20 ML IV (14:29)
[2022-09-16] MEDS: ONDANSETRON 4 MG/2 ML INJ IV (16:30)
[2022-09-16 16:38] LABS: MRSA (Nasal) PCR Not Detected (Not Detect)
--- NOTE | 2022-09-16 17:00 | PC.NURSE ---
Pt moved to room 231 from 212 due to need for 3% Hypertonic solution due to hyponatremia (121), report received from Christopher GUNTER pt oriented to room and call light system, bed alarm on and call light within reach, will continue to monitor.
[2022-09-16 17:34] LABS: BUN Creatinine Ratio 15.7 (6-22); Blood Urea Nitrogen 11 mg/dL (9-20); Calcium 8.2 mg/dL (8.4-10.2); Carbon Dioxide 25 mmol/L (22-32); Chloride 91 mmol/L (98-107); Estimated Glomerular Filt Rate > 60 mL/min (>60); Glucose 103 mg/dL (80-110); HEMOLYSIS < 15 (0-50); Potassium 3.8 mmol/L (3.4-5.1); Sodium 122 mmol/L (137-145)
[2022-09-16 17:58] LABS: Sodium Urine Random 96 mmol/L (30-90)
--- NOTE | 2022-09-16 18:22 | P.PN_ITS ---
Subjective Subjective Interval history: Patient doing well and has no complaints. Na dipped to 121 today. Spoke to nephro who recommended 3% NS so pt moved to ICU for this. Exam Vital Signs (past 8 hours): - 09/16/22 12:20 09/16/22 12:20 09/16/22 14:26 Temperature Pulse Rate 69 Respiratory Rate 27 H Blood Pressure Pulse Oximetry 95 96 Oxygen Delivery Method Room Air Room Air 09/16/22 14:30 09/16/22 14:45 09/16/22 15:00 Temperature Pulse Rate 69 65 72 Respiratory Rate 22 18 23 Blood Pressure Pulse Oximetry 96 95 92 Oxygen Delivery Method 09/16/22 15:15 09/16/22 15:30 09/16/22 15:31 Temperature Pulse Rate 65 68 Respiratory Rate 22 25 H Blood Pressure 184/86 H Pulse Oximetry 96 95 Oxygen Delivery Method 09/16/22 15:31 09/16/22 15:45 09/16/22 16:00 Temperature Pulse Rate 67 63 Respiratory Rate 25 H 26 H Blood Pressure 185/86 H Pulse Oximetry 95 95 Oxygen Delivery Method 09/16/22 16:00 09/16/22 16:15 09/16/22 16:30 Temperature Pulse Rate 67 69 77 Respiratory Rate 23 24 27 H Blood Pressure Pulse Oximetry 95 95 94 Oxygen Delivery Method 09/16/22 17:00 Temperature 98.7 F Pulse Rate Respiratory Rate Blood Pressure Pulse Oximetry Oxygen Delivery Method Oxygen Delivery Method Room Air Oxygen Flow Rate 0 Narrative Exam Narrative: GEN: elderly male in NAD HEENT: moist mucous membranes, PERRL NECK: trachea midline, no JVD CV: regular rate and rhythm, no murmurs PULM: diffuse coarse breath sounds ABD: soft, nontender, nondistended, no organomegaly EXT: warm and well perfused with no edema NEURO: awake, alert, oriented, no focal deficits Objective Labs 09/16/22 05:40 09/16/22 16:35 Labs: Laboratory Results - last 24 hr 09/15/22 09/16/22 09/16/22 19:08 05:40 05:40 WBC 6.5 RBC 3.92 L Hgb 12.0 L Hct 33.8 L MCV 86.3 MCH 30.7 MCHC 35.5 RDW 13.4 Plt Count 158 Neut % (Auto) 63.7 Lymph % (Auto) 21.5 L [place] % (Auto) 12.8 Eos % (Auto) 1.5 L Baso % (Auto) 0.5 Neut # (Auto) 4100 Lymph # (Auto) 1400 [place] # (Auto) 800 Eos # (Auto) 100 Baso # (Auto) 0 Sodium 122 L 123 L Potassium 4.2 3.9 Chloride 93 L 92 L Carbon Dioxide 24 24 BUN 11 11 Creatinine 0.74 0.70 Estimated GFR > 60 > 60 BUN/Creatinine Ratio 14.9 15.7 Glucose 124 H 97 Calcium 7.7 L 8.2 L Ur Random Sodium Nasal Screen MRSA (PCR) 09/16/22 09/16/22 09/16/22 12:25 14:41 16:32 WBC RBC Hgb Hct MCV MCH MCHC RDW Plt Count Neut % (Auto) Lymph % (Auto) [place] % (Auto) Eos % (Auto) Baso % (Auto) Neut # (Auto) Lymph # (Auto) [place] # (Auto) Eos # (Auto) Baso # (Auto) Sodium 121 L Potassium 4.3 Chloride 91 L Carbon Dioxide 25 BUN 11 Creatinine 0.78 Estimated GFR > 60 BUN/Creatinine Ratio 14.1 Glucose 104 Calcium 7.8 L Ur Random Sodium 96 H Nasal Screen MRSA (PCR) Not detected 09/16/22 16:35 WBC RBC Hgb Hct MCV MCH MCHC RDW Plt Count Neut % (Auto) Lymph % (Auto) [place] % (Auto) Eos % (Auto) Baso % (Auto) Neut # (Auto) Lymph # (Auto) [place] # (Auto) Eos # (Auto) Baso # (Auto) Sodium 122 L Potassium 3.8 Chloride 91 L Carbon Dioxide 25 BUN 11 Creatinine 0.70 Estimated GFR > 60 BUN/Creatinine Ratio 15.7 Glucose 103 Calcium 8.2 L Ur Random Sodium Nasal Screen MRSA (PCR) [facility] Medical History Afib Dermatitis Diverticulosis Edema GERD (gastroesophageal reflux disease) Heart disease HLD (hyperlipidemia) HTN (hypertension) Iron deficiency anemia Left wrist fracture Melanoma Memory changes Memory deficit PSVT (paroxysmal supraventricular tachycardia) Rheumatic fever Surgical History 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 Last sodium on record was 138 back in Jan 2022 -daily BMP's -improved to 124 with fluid restriction and salt tabs, then dropped to 121 -increased salt tabs to TID -spoke to nephro who rec 3% NS at 20cc/hr and checking Na every 2 hours, dc 3% NS once Na at 125 then continue with fluid restriction and salt tabs # community acquired pneumonia -CXR with LLL infiltrate, procal 0.12 -given age will elect to treat with IV abx -continue rocephin and doxy (instead of azithro since patient on amio) -sputum culture if able -blood cultures NGTD # COVID -positive on admission PCR swab -supportive care -not on supp O2 # UTI, ruled out -UA with pyuria -urine culture negative # hypokalemia -K 2.8 on admission -from poor po intake -replete and monitor # generalized weakness -likely secondary to electrolyte derangements, PNA and COVID -PT/OT ordered -treat PNA, hyponatremia and hypokalemia as above # paroxysmal atrial fibrillation -continue home Eliquis, amio and metoprolol # hypertension -continue home amlodipine # hyperlipidemia -continue home Crestor # GERD -continue home PPI # BPH -continue home finasteride and uroxatral Code status is DNR. COVID positive. DVT prophylaxis with Eliquis. Proxy is Lyly. Dispo: Home in 1-2 days pending Na improvement. Quality VTE Deep Vein Thrombosis/Pulmonary Embolism Present on Admission: No
[2022-09-16 18:57] LABS: Sodium 122 mmol/L (137-145)
[2022-09-16] MEDS: FINASTERIDE 5 MG TABLET PO (21:00)
[2022-09-16] MEDS: PANTOPRAZOLE DR 20 MG TABLET PO (21:00)
[2022-09-16] MEDS: ATORVASTATIN 20 MG TABLET PO (21:00)
[2022-09-16 21:57] LABS: Sodium 122 mmol/L (137-145)
--- NOTE | 2022-09-16 23:09 | PC.NURSE ---
Addendum entered by Oneida Mendoza R.N. 09/17/22 06:04: Blood pressure varying greatly throughout shift, blood pressure decreasing after dose of norvasc, but slowly increasing once again towards morning. Original Note: Blood pressure elevated and called to Dr. Doss. Patient medicated with additional dose of norvasc awaiting results.
[2022-09-17] VITALS (25 sets, daily range): BP systolic 113–194; BP diastolic 65–88; PULSE 63–79; RESP 17–30; TEMP 36.5–37.1; O2SAT 93–98
[2022-09-17 01:38] LABS: BUN Creatinine Ratio 14.5 (6-22); Blood Urea Nitrogen 10 mg/dL (9-20); Calcium 7.9 mg/dL (8.4-10.2); Carbon Dioxide 25 mmol/L (22-32); Chloride 91 mmol/L (98-107); Estimated Glomerular Filt Rate > 60 mL/min (>60); Glucose 95 mg/dL (80-110); HEMOLYSIS < 15 (0-50); Potassium 3.5 mmol/L (3.4-5.1); Sodium 122 mmol/L (137-145)
[2022-09-17 05:12] LABS: Add Manual Diff / Slide Review NO; Basophils Absolute Auto 0 /uL (0-100); Basophils Percent Auto 0.2 % (0-2); Eosinophils Absolute Auto 0 /uL (0-450); Eosinophils Percent Auto 0.9 % (2-4); Hematocrit 33.3 % (41-53); Hemoglobin 11.9 g/dL (13.5-17.5); Lymphocytes Absolute Auto 1000 /uL (1100-4500); Mean Corpuscular HGB Conc 35.8 % (30-36); Mean Corpuscular Hemoglobin 30.7 PG (26-34); Mean Corpuscular Volume 85.7 fL (80-100); Monocytes Absolute Auto 600 /uL (0-900); Monocytes Percent Auto 11.4 % (3-14); Neutrophils Absolute Auto 4000 /uL (1500-7000); Neutrophils Percent Auto 69.5 % (50-75); Platelet Count 171 X10^3/uL (150-400); Red Blood Cell Count 3.88 X10^6/uL (4.5-5.9); Red Cell Distribution Width 13.5 % (11.6-14.8); White Blood Cell Count 5.7 X10^3/uL (4.5-11.0)
[2022-09-17 05:25] LABS: BUN Creatinine Ratio 14.1 (6-22); Blood Urea Nitrogen 10 mg/dL (9-20); Carbon Dioxide 24 mmol/L (22-32); Chloride 93 mmol/L (98-107); Estimated Glomerular Filt Rate > 60 mL/min (>60); Glucose 93 mg/dL (80-110); HEMOLYSIS < 15 (0-50); Potassium 3.5 mmol/L (3.4-5.1); Sodium 123 mmol/L (137-145)
[2022-09-17] MEDS: SODIUM CHLORIDE 3 % 500 ML 29 ML IV (08:32)
[2022-09-17] MEDS: AMIODARONE 200 MG TABLET PO (08:54)
[2022-09-17] MEDS: AMLODIPINE 5 MG TABLET PO (08:54)
[2022-09-17] MEDS: APIXABAN 5 MG TABLET PO ×2 (08:54→21:38)
[2022-09-17] MEDS: METOPROLOL ER 25 MG TABLET PO (08:54)
[2022-09-17] MEDS: LORATADINE 10 MG TABLET PO (08:54)
[2022-09-17] MEDS: SODIUM CHLORIDE 1,000 MG TABLET 1000 MG PO ×3 (08:54→21:38)
[2022-09-17] MEDS: DOXYCYCLINE HYCLATE 100 MG TABLET PO ×2 (08:55→21:38)
[2022-09-17] MEDS: cefTRIAXone 1,000 MG in SODIUM CHLORIDE 0.9% 100 ML 200 MG IV (08:55)
[2022-09-17] MEDS: ALFUZOSIN 10 MG 10 EACH PO (09:00)
[2022-09-17 09:14] LABS: BUN Creatinine Ratio 13.3 (6-22); Blood Urea Nitrogen 10 mg/dL (9-20); Calcium 7.8 mg/dL (8.4-10.2); Carbon Dioxide 27 mmol/L (22-32); Chloride 92 mmol/L (98-107); Estimated Glomerular Filt Rate > 60 mL/min (>60); Glucose 93 mg/dL (80-110); HEMOLYSIS < 15 (0-50); Potassium 3.6 mmol/L (3.4-5.1); Sodium 124 mmol/L (137-145)
[2022-09-17 12:45] LABS: BUN Creatinine Ratio 14.3 (6-22); Blood Urea Nitrogen 11 mg/dL (9-20); Calcium 7.9 mg/dL (8.4-10.2); Carbon Dioxide 26 mmol/L (22-32); Chloride 93 mmol/L (98-107); Estimated Glomerular Filt Rate > 60 mL/min (>60); Glucose 102 mg/dL (80-110); HEMOLYSIS < 15 (0-50); Potassium 3.7 mmol/L (3.4-5.1); Sodium 126 mmol/L (137-145)
--- NOTE | 2022-09-17 13:32 | P.PN_ITS ---
Subjective Subjective Date Patient Seen: 09/17/22 Interval history: Pt states feeling better. Denies dyspnea. Has slight cough. Na 123 this AM, only 1 to 2 points up in 24 hr, on 20 cc/hr hypertonic saline. Exam Vital Signs (past 8 hours): - 09/17/22 06:00 09/17/22 06:00 09/17/22 07:00 Pulse Rate 66 Respiratory Rate 25 H Blood Pressure 166/78 H Pulse Oximetry 94 Oxygen Delivery Method Room Air 09/17/22 07:00 Pulse Rate Respiratory Rate Blood Pressure Pulse Oximetry Oxygen Delivery Method Room Air Oxygen Delivery Method Room Air Oxygen Flow Rate 0 Narrative Exam Narrative: Gen: alert, NAD Lungs: clear Ext: no edema Neuro: not appearing confused, nl affect and speech Objective Labs 09/17/22 04:50 09/17/22 12:15 Labs: Laboratory Results - last 24 hr 09/16/22 09/16/22 09/16/22 14:41 16:32 16:35 WBC RBC Hgb Hct MCV MCH MCHC RDW Plt Count Neut % (Auto) Lymph % (Auto) [place] % (Auto) Eos % (Auto) Baso % (Auto) Neut # (Auto) Lymph # (Auto) [place] # (Auto) Eos # (Auto) Baso # (Auto) Sodium 122 L Potassium 3.8 Chloride 91 L Carbon Dioxide 25 BUN 11 Creatinine 0.70 Estimated GFR > 60 BUN/Creatinine Ratio 15.7 Glucose 103 Calcium 8.2 L Ur Random Sodium 96 H Nasal Screen MRSA (PCR) Not detected 09/16/22 09/16/22 09/17/22 18:43 21:30 01:20 WBC RBC Hgb Hct MCV MCH MCHC RDW Plt Count Neut % (Auto) Lymph % (Auto) [place] % (Auto) Eos % (Auto) Baso % (Auto) Neut # (Auto) Lymph # (Auto) [place] # (Auto) Eos # (Auto) Baso # (Auto) Sodium 122 L 122 L 122 L Potassium 3.5 Chloride 91 L Carbon Dioxide 25 BUN 10 Creatinine 0.69 Estimated GFR > 60 BUN/Creatinine Ratio 14.5 Glucose 95 Calcium 7.9 L Ur Random Sodium Nasal Screen MRSA (PCR) 09/17/22 09/17/22 09/17/22 04:50 04:50 08:40 WBC 5.7 RBC 3.88 L Hgb 11.9 L Hct 33.3 L MCV 85.7 MCH 30.7 MCHC 35.8 RDW 13.5 Plt Count 171 Neut % (Auto) 69.5 Lymph % (Auto) 18.0 L [place] % (Auto) 11.4 Eos % (Auto) 0.9 L Baso % (Auto) 0.2 Neut # (Auto) 4000 Lymph # (Auto) 1000 L [place] # (Auto) 600 Eos # (Auto) 0 Baso # (Auto) 0 Sodium 123 L 124 L Potassium 3.5 3.6 Chloride 93 L 92 L Carbon Dioxide 24 27 BUN 10 10 Creatinine 0.71 0.75 Estimated GFR > 60 > 60 BUN/Creatinine Ratio 14.1 13.3 Glucose 93 93 Calcium 8.0 L 7.8 L Ur Random Sodium Nasal Screen MRSA (PCR) 09/17/22 12:15 WBC RBC Hgb Hct MCV MCH MCHC RDW Plt Count Neut % (Auto) Lymph % (Auto) [place] % (Auto) Eos % (Auto) Baso % (Auto) Neut # (Auto) Lymph # (Auto) [place] # (Auto) Eos # (Auto) Baso # (Auto) Sodium 126 L Potassium 3.7 Chloride 93 L Carbon Dioxide 26 BUN 11 Creatinine 0.77 Estimated GFR > 60 BUN/Creatinine Ratio 14.3 Glucose 102 Calcium 7.9 L Ur Random Sodium Nasal Screen MRSA (PCR) 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 Last sodium on record was 138 back in Jan 2022 -daily BMP's -improved to 124 with fluid restriction and salt tabs, then dropped to 121 -increased salt tabs to TID -spoke to nephro who rec 3% NS at 20cc/hr and checking Na every 2 hours, dc 3% NS once Na at 125 then continue with fluid restriction and salt tabs -on 09/17 increased 3% NS to 29 cc/hr, with sodium increased from 123 to 126 after 4 hrs, d/c'd 3% NS, cont fluid restriction and salt tabs # community acquired pneumonia -CXR with LLL infiltrate, procal 0.12 -given age will elect to treat with IV abx -continue rocephin and doxy (instead of azithro since patient on amnio) -sputum culture neg -blood cultures NGTD # COVID -positive on admission PCR swab -supportive care -not on supp O2 # UTI, ruled out -UA with pyuria -urine culture negative # hypokalemia, corrected -K 2.8 on admission -from poor po intake # generalized weakness -likely secondary to electrolyte derangements, PNA and COVID -PT/OT ordered -treat PNA, hyponatremia and hypokalemia as above # paroxysmal atrial fibrillation -continue home Eliquis, amio and metoprolol # hypertension -continue home amlodipine # hyperlipidemia -continue home Crestor # GERD -continue home PPI # BPH -continue home finasteride and uroxatral Code status is DNR. COVID positive. DVT prophylaxis with Eliquis. Proxy is Lyly. Home tomorrow if medically stable. Quality VTE Deep Vein Thrombosis/Pulmonary Embolism Present on Admission: No
[2022-09-17 14:43] LABS: BUN Creatinine Ratio 14.9 (6-22); Blood Urea Nitrogen 11 mg/dL (9-20); Carbon Dioxide 26 mmol/L (22-32); Chloride 93 mmol/L (98-107); Estimated Glomerular Filt Rate > 60 mL/min (>60); Glucose 119 mg/dL (80-110); HEMOLYSIS < 15 (0-50); Potassium 3.7 mmol/L (3.4-5.1); Sodium 125 mmol/L (137-145)
--- NOTE | 2022-09-17 16:40 | PT.IPTN ---
Current Diagnoses Pneumonia, unspecified organism (09/13/22) Physical Therapy Treatment Note M2 PT-IP Current Condition Start: 09/14/22 15:24 Freq: NEEDED Status: Active Protocol: Document 09/14/22 15:26 ES (Rec: 09/14/22 15:40 ES [id number]) Physical Therapy Current Condition Current Condition Evaluation Date 09/14/22 Treatment Diagnosis COVID+, pneumonia, weakness Onset Date 09/13/22 M3 PT-IP Subjective Start: 09/14/22 15:24 Freq: NEEDED Status: Active Protocol: Document 09/17/22 16:20 KS (Rec: 09/17/22 16:50 KS [id number]) Subjective Physical Therapy Visit Type Type Treatment Note Visit Start Time 16:20 Visit Stop Time 16:40 Total Visit Minutes 20 Number of LIVESTOCK TRADER Visits 3 Physical Therapy Visit Comments Patient Comments Pt cont feeling weak w/ low energy M4 PT-IP Mobility and Gait Start: 09/14/22 15:24 Freq: NEEDED Status: Active Protocol: Document 09/17/22 16:20 KS (Rec: 09/17/22 16:50 KS [id number]) PT-Bed Mobility Assessment Supine to Sit Supine to Sit Standby Assistance Sit to Supine Sit to Supine Standby Assistance Scooting Scooting to Edge of Bed Standby Assistance Scooting Up and Down in Bed Standby Assistance PT-Transfer Assessment Sit to and From Stand Sit to and from Stand Standby Assistance,Use of Upper Extremities Equipment Transfer Assistive Device None,Gait Belt,Front Wheeled Walker Transfers Transfer Destination Bed Transfer Technique sit<>stand Transfer Ability Level of Assist Standby Assistance,Contact Guard Assistance,1 Person Assistance,Use of Upper Extremities Comments Mobility Comments Pt in bed upon arrival, requesting to use urinal. SBA for sup<>sit and scooting EOB as well as sit<>stand w/ FWW. Pt stood ~6 min trying to use urinal w/ little success voiding. Pt reported high level of fatigue following standing and was too tired to attempt ambulation and refused to transfer to chair. SBA for sit<>sup and repositioning in bed. Pt not wanting to participate in LE exercises at this time. Left in bed w/ alarm on and all needs in reach. Gait Assessment Comments Gait Comments Not agreeable to ambulation d/ t fatigue. Stair Climbing Assessment Comments Stair Climbing Comments Did not want to ambulate. PT-Balance Assessment Standing Balance and Reactions Static Standing Balance Ability Good Dynamic Standing Balance Ability Fair Device Used FWW M5 PT-IP Objective Assessments Start: 09/14/22 15:24 Freq: NEEDED Status: Active Protocol: Document 09/14/22 15:26 ES (Rec: 09/14/22 15:40 ES [id number]) Orientation Orientation/Cognition Level of Alertness Alert Language Function Ability Hard of Hearing Safety Awareness Understands Safety Issues Memory Description No Deficits Noted Gross Range of Motion Upper Extremity ROM Assessment Within Functional Limits Lower Extremity ROM Assessment Within Functional Limits Strength Upper Extremity Strength Assessment Within Functional Limits Lower Extremity Strength Assessment Within Functional Limits Coordination Assessment Gross Coordination Gross Coordination WNL M6 PT-IP Treatment Start: 09/14/22 15:24 Freq: NEEDED Status: Active Protocol: Document 09/17/22 16:20 KS (Rec: 09/17/22 16:50 KS [id number]) Physical Therapy Treatment Education Education Provided Safety M7 PT-IP Assessment and Plan Start: 09/14/22 15:24 Freq: NEEDED Status: Active Protocol: Document 09/17/22 16:20 KS (Rec: 09/17/22 16:50 KS [id number]) PT Summary Assessment and Plan Potential Rehabilitation Potential Good Summary Impairments Strength,Bed Mobility, Transfers,Gait,Activity Tolerance Progress Towards Goals Slow Progress due to Medical Issues,Slow Progress due to Activity Tolerance Assessment Summary Pt unable to tolerate ambulation today, but did stand ~6 min at EOB w/ FWW. SBA for bed mobility and STS. Will continue to assess progress, pt will need to increase gait distance and improve activity tolerance to d/c home safely. Goals Bed Mobility Goal Independent Transfer Goal Independent,Front Wheeled Walker Gait Goal Independent,Front Wheel Walker Gait Distance 100 Other Goals Patient will be able to ascend /descend 12 stairs with B rails independently. Days to Meet Goals 3 Frequency of Treatment Frequency Of Treatment Once a Day Treatment Plan Physical Therapy Treatment Plan Bed Mobility Training,Transfer Training,Gait Training, Therapeutic Exercise,Balance Retraining,Discharge Planning, Neuromuscular Re-ed Recommendations To Nursing Amount of Assist Needed Standby Assistance Discharge Recommendations PT Discharge Recommendations Home,Home with Assistance Equipment Needed for Home Before Likely FWW Discharge Transportation Needs at Discharge Private Vehicle
[2022-09-17 18:40] LABS: Carbon Dioxide 24 mmol/L (22-32); Chloride 94 mmol/L (98-107); HEMOLYSIS 38 (0-50); Potassium 3.7 mmol/L (3.4-5.1); Sodium 125 mmol/L (137-145)
[2022-09-17] MEDS: PANTOPRAZOLE DR 20 MG TABLET PO (21:37)
[2022-09-17] MEDS: FINASTERIDE 5 MG TABLET PO (21:37)
[2022-09-17] MEDS: ATORVASTATIN 20 MG TABLET PO (21:38)
[2022-09-18] VITALS (14 sets, daily range): BP systolic 153–162; BP diastolic 69–79; PULSE 64–83; RESP 18–28; TEMP 36.5; O2SAT 92–96
--- NOTE | 2022-09-18 00:12 | PC.NURSE ---
spoke to Dr. Doss in regards patient ICU status according to Dr. Doss he was never told pt was down graded to acute care. At the moment patient isn't on any icu gtts. pt bp has been elevated 183/86 and now 179/80, no new orders received.
[2022-09-18 05:30] LABS: BUN Creatinine Ratio 18.1 (6-22); Blood Urea Nitrogen 13 mg/dL (9-20); Calcium 7.9 mg/dL (8.4-10.2); Carbon Dioxide 26 mmol/L (22-32); Chloride 96 mmol/L (98-107); Estimated Glomerular Filt Rate > 60 mL/min (>60); Glucose 97 mg/dL (80-110); HEMOLYSIS < 15 (0-50); Potassium 3.2 mmol/L (3.4-5.1); Sodium 128 mmol/L (137-145)
[2022-09-18] MEDS: SODIUM CHLORIDE 1,000 MG TABLET 1000 MG PO ×3 (09:28→20:18)
[2022-09-18] MEDS: APIXABAN 5 MG TABLET PO ×2 (09:28→20:18)
[2022-09-18] MEDS: ALFUZOSIN 10 MG 10 EACH PO (09:28)
[2022-09-18] MEDS: AMLODIPINE 5 MG TABLET PO (09:28)
[2022-09-18] MEDS: DOXYCYCLINE HYCLATE 100 MG TABLET PO (09:29)
[2022-09-18] MEDS: METOPROLOL ER 25 MG TABLET PO (09:29)
[2022-09-18] MEDS: AMIODARONE 200 MG TABLET PO (09:29)
[2022-09-18] MEDS: LORATADINE 10 MG TABLET PO (09:30)
[2022-09-18] MEDS: POTASSIUM CHLORIDE 20 MEQ TAB 40 MEQ PO ×2 (09:39→14:44)
[2022-09-18 14:11] LABS: Osmolality Urine 465 mOsmol/kg (.)
--- NOTE | 2022-09-18 14:40 | PT.IPTN ---
Current Diagnoses Pneumonia, unspecified organism (09/13/22) Physical Therapy Treatment Note M2 PT-IP Current Condition Start: 09/14/22 15:24 Freq: NEEDED Status: Active Protocol: Document 09/14/22 15:26 ES (Rec: 09/14/22 15:40 ES [id number]) Physical Therapy Current Condition Current Condition Evaluation Date 09/14/22 Treatment Diagnosis COVID+, pneumonia, weakness Onset Date 09/13/22 M3 PT-IP Subjective Start: 09/14/22 15:24 Freq: NEEDED Status: Active Protocol: Document 09/18/22 15:09 TS (Rec: 09/18/22 15:21 TS [id number]) Subjective Physical Therapy Visit Type Type Treatment Note Visit Start Time 14:40 Visit Stop Time 15:00 Total Visit Minutes 20 Number of ADJUNCT PROFESSOR OF VOICE Visits 4 Physical Therapy Visit Comments Patient Comments Pt continues to have low energy, reports feeling slightly nauseous sitting EOB , nursing in room dispensing meds. M4 PT-IP Mobility and Gait Start: 09/14/22 15:24 Freq: NEEDED Status: Active Protocol: Document 09/18/22 15:09 TS (Rec: 09/18/22 15:21 TS [id number]) PT-Bed Mobility Assessment Supine to Sit Supine to Sit Standby Assistance Scooting Scooting to Edge of Bed Standby Assistance PT-Transfer Assessment Sit to and From Stand Sit to and from Stand Standby Assistance,Use of Upper Extremities Equipment Transfer Assistive Device None,Gait Belt,Front Wheeled Walker Comments Mobility Comments Pt found resting in bed, agreeable to PT. Supine to sit SBA with HOB elevated BUE support on bed to upright trunk. Pt scooted to EOB SBA with BUE support. Sit to stand x1 SBA w/FWW, provided cues for weight forward and BUE on FWW. He ambulated in room ~75' SBA w/FWW, ~30' with no AD, unsteady with some swaying but no LOB, c/o of nausea, required rest break in chair. Pt was left in chair with call light and phone nearby, monitor on, RN notified. Gait Assessment Gait Gait Assistance Required: Standby Assistance Distance (Feet) 105 Assistive Devices Assistive Device None,Gait Belt,Front Wheeled Walker Gait Deviations General Gait Pattern Decreased Stride Length, Decreased Feet Clearance, Flexed Trunk Factors Limiting Gait Function Factors Limiting Gait Function Decreased Activity Tolerance, Decreased Strength,Poor Balance Comments Gait Comments See mobility comments. Stair Climbing Assessment Comments Stair Climbing Comments Did not assess this afternoon. PT-Balance Assessment Sitting Balance and Reactions Static Sitting Balance Ability Good Dynamic Sitting Balance Ability Good Standing Balance and Reactions Static Standing Balance Ability Good Dynamic Standing Balance Ability Fair Device Used FWW M5 PT-IP Objective Assessments Start: 09/14/22 15:24 Freq: NEEDED Status: Active Protocol: Document 09/14/22 15:26 ES (Rec: 09/14/22 15:40 ES [id number]) Orientation Orientation/Cognition Level of Alertness Alert Language Function Ability Hard of Hearing Safety Awareness Understands Safety Issues Memory Description No Deficits Noted Gross Range of Motion Upper Extremity ROM Assessment Within Functional Limits Lower Extremity ROM Assessment Within Functional Limits Strength Upper Extremity Strength Assessment Within Functional Limits Lower Extremity Strength Assessment Within Functional Limits Coordination Assessment Gross Coordination Gross Coordination WNL M6 PT-IP Treatment Start: 09/14/22 15:24 Freq: NEEDED Status: Active Protocol: Document 09/18/22 15:09 TS (Rec: 09/18/22 15:21 TS [id number]) Physical Therapy Treatment Education Education Provided Safety M7 PT-IP Assessment and Plan Start: 09/14/22 15:24 Freq: NEEDED Status: Active Protocol: Document 09/18/22 15:09 TS (Rec: 09/18/22 15:21 TS [id number]) PT Summary Assessment and Plan Potential Rehabilitation Potential Good Summary Impairments Strength,Bed Mobility, Transfers,Gait,Activity Tolerance Progress Towards Goals Slow Progress due to Medical Issues,Slow Progress due to Activity Tolerance Assessment Summary Pt progressed his ambulation to 75' with FWW and 30' no AD SBA, unsteady and some swaying with no AD but no buckling or LOB. Pt continues to be lethargic with decreased activity tolerance. During ambulation pt became nauseous and required to sit in chair. PT is recommending home with assist from spouse. Pt will need to progress stairs before safe d/c home. Goals Bed Mobility Goal Independent Transfer Goal Independent,Front Wheeled Walker Gait Goal Independent,Front Wheel Walker Gait Distance 100 Other Goals Patient will be able to ascend /descend 12 stairs with B rails independently. Days to Meet Goals 3 Frequency of Treatment Frequency Of Treatment Once a Day Treatment Plan Physical Therapy Treatment Plan Bed Mobility Training,Transfer Training,Gait Training, Therapeutic Exercise,Balance Retraining,Discharge Planning, Neuromuscular Re-ed Recommendations To Nursing Amount of Assist Needed 1 Person Assist Discharge Recommendations PT Discharge Recommendations Home,Home with Assistance Equipment Needed for Home Before Likely FWW Discharge Transportation Needs at Discharge Private Vehicle
--- NOTE | 2022-09-18 16:20 | PM.PN.1 ---
Subjective Subjective Date Patient Seen: 09/18/22 Interval history: Pt states feeling better. Denies dyspnea. Has slight cough. Sodium up to 128 today with fluid restriction and salt tablets. Exam Vital Signs (past 8 hours): - 09/18/22 09:29 09/18/22 13:04 Pulse Rate 70 Respiratory Rate 18 Blood Pressure 162/79 H 154/69 H Oxygen Delivery Method Room Air Oxygen Flow Rate 0 Narrative Exam Narrative: Gen: alert, NAD Lungs: clear Ext: no edema Neuro: not appearing confused, nl affect and speech Objective Labs 09/17/22 04:50 09/18/22 04:00 Labs: Laboratory Results - last 24 hr 09/15/22 09/17/22 09/18/22 10:44 18:05 04:00 Sodium 125 L 128 L Potassium 3.7 3.2 L Chloride 94 L 96 L Carbon Dioxide 24 26 BUN 13 Creatinine 0.72 Estimated GFR > 60 BUN/Creatinine Ratio 18.1 Glucose 97 Calcium 7.9 L Urine Osmolality 465 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 Last sodium on record was 138 back in Jan 2022 -daily BMP's -improved to 124 with fluid restriction and salt tabs, then dropped to 121 -increased salt tabs to TID -spoke to nephro who rec 3% NS at 20cc/hr and checking Na every 2 hours, dc 3% NS once Na at 125 then continue with fluid restriction and salt tabs -on 09/17 increased 3% NS to 29 cc/hr, with sodium increased from 123 to 126 after 4 hrs, d/c'd 3% NS, cont fluid restriction and salt tabs and has slowly improved today, up to 128. Will make sure this trend continues with BMP tomorrow AM, if improving he can likely discharge home. # community acquired pneumonia -CXR with LLL infiltrate, procal 0.12, probable bacterial pneumonia after COVID infection -given age will elect to treat with IV abx -continue rocephin and doxy (instead of azithro since patient on amio) -sputum culture neg -blood cultures NGTD # COVID -positive on admission PCR swab -supportive care -not on supp O2 # UTI, ruled out -UA with pyuria -urine culture negative # hypokalemia, corrected -K 2.8 on admission -from poor po intake # generalized weakness -likely secondary to electrolyte derangements, PNA and COVID -PT/OT ordered with OT stating no need and PT recommending okay for home -treat PNA, hyponatremia and hypokalemia as above # paroxysmal atrial fibrillation -continue home Eliquis, amio and metoprolol # hypertension -continue home amlodipine # hyperlipidemia -continue home Crestor # GERD -continue home PPI # BPH -continue home finasteride and uroxatral Code status is DNR. COVID positive. DVT prophylaxis with Eliquis. Proxy is Lyly. Home tomorrow if sodium continues to improve with fluid restriction. Quality VTE Deep Vein Thrombosis/Pulmonary Embolism Present on Admission: No
[2022-09-18] MEDS: FINASTERIDE 5 MG TABLET PO (20:18)
[2022-09-18] MEDS: ATORVASTATIN 20 MG TABLET PO (20:18)
[2022-09-18] MEDS: PANTOPRAZOLE DR 20 MG TABLET PO (20:18)
[2022-09-18] MEDS: SODIUM CHLORIDE 0.9% FLUSH 10 ML IV (20:22)
[2022-09-19] VITALS (33 sets, daily range): BP systolic 95–166; BP diastolic 51–91; PULSE 58–91; RESP 16–27; TEMP 36–37.2; O2SAT 92–95
[2022-09-19 05:26] LABS: BUN Creatinine Ratio 15.7 (6-22); Blood Urea Nitrogen 11 mg/dL (9-20); Carbon Dioxide 26 mmol/L (22-32); Chloride 95 mmol/L (98-107); Estimated Glomerular Filt Rate > 60 mL/min (>60); Glucose 92 mg/dL (80-110); HEMOLYSIS < 15 (0-50); Potassium 3.4 mmol/L (3.4-5.1); Sodium 126 mmol/L (137-145)
[2022-09-19] MEDS: APIXABAN 5 MG TABLET PO ×2 (09:10→21:11)
[2022-09-19] MEDS: SODIUM CHLORIDE 1,000 MG TABLET 1000 MG PO ×2 (09:10→15:10)
[2022-09-19] MEDS: ALFUZOSIN 10 MG 10 EACH PO (09:10)
[2022-09-19] MEDS: AMLODIPINE 5 MG TABLET PO (09:10)
[2022-09-19] MEDS: LORATADINE 10 MG TABLET PO (09:10)
[2022-09-19] MEDS: AMIODARONE 200 MG TABLET PO (09:10)
[2022-09-19] MEDS: METOPROLOL ER 25 MG TABLET PO (09:10)
[2022-09-19] MEDS: FUROSEMIDE 20 MG TABLET PO (09:12)
[2022-09-19] MEDS: POTASSIUM CHLORIDE 20 MEQ TAB 40 MEQ PO (11:48)
--- NOTE | 2022-09-19 13:03 | CM.DPNOTE ---
DCP Note According to Dr Lyles's report in multidisciplinary rounds, patient staying today as sodium has dropped again No DC needs anticipated from this CM team however following closely in case any arise JW
[2022-09-19 13:22] LABS: Sodium Urine Random 97 mmol/L (30-90)
--- NOTE | 2022-09-19 13:35 | PT.IPTN ---
Current Diagnoses Pneumonia, unspecified organism (09/13/22) Physical Therapy Treatment Note M2 PT-IP Current Condition Start: 09/14/22 15:24 Freq: NEEDED Status: Active Protocol: Document 09/14/22 15:26 ES (Rec: 09/14/22 15:40 ES [id number]) Physical Therapy Current Condition Current Condition Evaluation Date 09/14/22 Treatment Diagnosis COVID+, pneumonia, weakness Onset Date 09/13/22 M3 PT-IP Subjective Start: 09/14/22 15:24 Freq: NEEDED Status: Active Protocol: Document 09/19/22 14:08 TS (Rec: 09/19/22 14:25 TS [id number]) Subjective Physical Therapy Visit Type Type Treatment Note Visit Start Time 13:35 Visit Stop Time 14:02 Total Visit Minutes 27 Notes BP: Sitting EOB 95/51, Supine 141/70 Spouse in room. Number of USED EQUIPMENT SALES REPRESENTATIVE Visits 5 Physical Therapy Visit Comments Patient Comments Pt reports ready to go, MD checking sodium levels. M4 PT-IP Mobility and Gait Start: 09/14/22 15:24 Freq: NEEDED Status: Active Protocol: Document 09/19/22 14:08 TS (Rec: 09/19/22 14:25 TS [id number]) PT-Bed Mobility Assessment Supine to Sit Supine to Sit Standby Assistance Sit to Supine Sit to Supine Standby Assistance Scooting Scooting to Edge of Bed Standby Assistance Scooting Up and Down in Bed Standby Assistance PT-Transfer Assessment Sit to and From Stand Sit to and from Stand Standby Assistance,Use of Upper Extremities Equipment Transfer Assistive Device None,Gait Belt,Front Wheeled Walker Comments Mobility Comments Pt found resting in bed, agreeable to PT session after motivation from spouse. Supine to sit with HOB elevated 20D SBA with BUE support on bed. Sit to stand no AD CGA, slight posterior lean, braced legs against bed. Ambulated SBA with no AD, bed handrail/wall assist to sink counter ~5', LOB x2. Pt performed stairs x2 SBA with BUE handrial assist, pt reporting dizziness and fatigue, required to sit back on bed. BP taken sitting EOB 95/51, supine 141/70. Pt was left back in bed with call light nearby, spouse and hospitalist discussing care. Gait Assessment Gait Gait Assistance Required: Standby Assistance Distance (Feet) 5 Assistive Devices Assistive Device None,Gait Belt Gait Deviations General Gait Pattern Decreased Stride Length, Decreased Feet Clearance, Flexed Trunk Factors Limiting Gait Function Factors Limiting Gait Function Decreased Activity Tolerance, Decreased Strength,Poor Balance Comments Gait Comments See mobility comments. Stair Climbing Assessment Evaluation Level of Assist On Stairs Standby Assistance Devices Stair Climbing Assistive Devices Left Railing,Right Railing Technique/Endurance Stair Climbing Direction Ascend and Descend Stair Climbing Technique Step to Step Number of Steps Climbed 3 Comments Stair Climbing Comments Pt orthostatic after x2 steps, required back to bed. PT-Balance Assessment Sitting Balance and Reactions Static Sitting Balance Ability Good Dynamic Sitting Balance Ability Good Standing Balance and Reactions Static Standing Balance Ability Good Dynamic Standing Balance Ability Fair Device Used FWW M5 PT-IP Objective Assessments Start: 09/14/22 15:24 Freq: NEEDED Status: Active Protocol: Document 09/14/22 15:26 ES (Rec: 09/14/22 15:40 ES [id number]) Orientation Orientation/Cognition Level of Alertness Alert Language Function Ability Hard of Hearing Safety Awareness Understands Safety Issues Memory Description No Deficits Noted Gross Range of Motion Upper Extremity ROM Assessment Within Functional Limits Lower Extremity ROM Assessment Within Functional Limits Strength Upper Extremity Strength Assessment Within Functional Limits Lower Extremity Strength Assessment Within Functional Limits Coordination Assessment Gross Coordination Gross Coordination WNL M6 PT-IP Treatment Start: 09/14/22 15:24 Freq: NEEDED Status: Active Protocol: Document 09/19/22 14:08 TS (Rec: 09/19/22 14:25 TS [id number]) Physical Therapy Treatment Education Education Provided Safety M7 PT-IP Assessment and Plan Start: 09/14/22 15:24 Freq: NEEDED Status: Active Protocol: Document 09/19/22 14:08 TS (Rec: 09/19/22 14:25 TS [id number]) PT Summary Assessment and Plan Potential Rehabilitation Potential Good Status of Condition at Evaluation Evolving Summary Impairments Strength,Bed Mobility, Transfers,Gait,Activity Tolerance Progress Towards Goals Slow Progress due to Medical Issues,Slow Progress due to Activity Tolerance Assessment Summary Pt continues to be SBA for all bed mobility. He progressed sit to stand with no AD CGA. He ambulated ~5' SBA with no AD SBA, required bed handrail and wall for balance, unsteady with no AD. During stairs pt reported feeling dizzy and required to sit on bed, BP 95/ 51 sitting, Supine 141/70. Ended session early due to pt being orthostatic. PT recommends home with assist from spouse when medically stable. Goals Bed Mobility Goal Independent Transfer Goal Independent,Front Wheeled Walker Gait Goal Independent,Front Wheel Walker Gait Distance 100 Other Goals Patient will be able to ascend /descend 12 stairs with B rails independently. Days to Meet Goals 3 Frequency of Treatment Frequency Of Treatment Once a Day Treatment Plan Physical Therapy Treatment Plan Bed Mobility Training,Transfer Training,Gait Training, Therapeutic Exercise,Balance Retraining,Discharge Planning, Neuromuscular Re-ed Recommendations To Nursing Amount of Assist Needed 1 Person Assist Discharge Recommendations PT Discharge Recommendations Home,Home with Assistance Equipment Needed for Home Before Likely FWW Discharge Transportation Needs at Discharge Private Vehicle
--- NOTE | 2022-09-19 15:19 | P.PN_ITS ---
Subjective Subjective Date Patient Seen: 09/18/22 Interval history: Pt feels worse today, his sodium dropped to 126 again this morning. Denies dyspnea. Has slight cough. Attempted addition of lasix this morning, but became severey orthostatic today after dosing when working with therapy. Stopped lasix and will need to increase salt tabs. Exam Vital Signs (past 8 hours): - 09/19/22 08:49 09/19/22 09:10 09/19/22 09:10 Temperature 96.8 F L Pulse Rate 68 68 Respiratory Rate 21 Blood Pressure 147/91 H 147/91 H Pulse Oximetry 93 93 Oxygen Delivery Method Room Air Oxygen Flow Rate 0 0 09/19/22 12:00 Temperature 97.1 F L Pulse Rate 74 Respiratory Rate 20 Blood Pressure 140/87 Pulse Oximetry 94 Oxygen Delivery Method Oxygen Flow Rate 0 Oxygen Delivery Method Room Air Oxygen Flow Rate 0 Narrative Exam Narrative: Gen: alert, NAD Lungs: clear Ext: no edema Neuro: not appearing confused, nl affect and speech Objective Labs 09/17/22 04:50 09/19/22 04:00 Labs: Laboratory Results - last 24 hr 09/19/22 09/19/22 04:00 09:10 Sodium 126 L Potassium 3.4 Chloride 95 L Carbon Dioxide 26 BUN 11 Creatinine 0.70 Estimated GFR > 60 BUN/Creatinine Ratio 15.7 Glucose 92 Calcium 8.0 L Ur Random Sodium 97 H [facility] Medical History Afib Dermatitis Diverticulosis Edema GERD (gastroesophageal reflux disease) Heart disease HLD (hyperlipidemia) HTN (hypertension) Iron deficiency anemia Left wrist fracture Melanoma Memory changes Memory deficit PSVT (paroxysmal supraventricular tachycardia) Rheumatic fever Surgical History 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 right hip arthroplasty (04/26/17) Hx of prostatectomy Hx of sinus surgery Hx of tonsillectomy Hx of transurethral resection of prostate Social History household members: spouse Smoking Status: Former smoker alcohol intake: current Assessment & Plan Assessment & Plan narrative: # hyponatremia, unknown if acute or chronic -has had waxing and waning sodium levels. ultimately consistent with SIADH. He was given 3% NS initially with slow improvement, however Sodium dropped from 128 to 126 today after improving to 128 without 3%. Repeat testing done which showed high urine sodium consistent with SIADH. Has been on salt tabs though Na dropped today. Attempted furosemide today, however patient became orthostatic. - will increase salt tabs further. If no improvement may need transfer for a vaptan or nephrology consultation. # community acquired pneumonia -CXR with LLL infiltrate, procal 0.12, probable bacterial pneumonia after COVID infection -given age will elect to treat with IV abx -continue rocephin and doxy (instead of azithro since patient on amio) x5 days -sputum culture neg -blood cultures NGTD # COVID -positive on admission PCR swab -supportive care -not on supp O2 # UTI, ruled out -UA with pyuria -urine culture negative # hypokalemia, corrected -K 2.8 on admission -from poor po intake # generalized weakness -likely secondary to electrolyte derangements, PNA and COVID -PT/OT ordered with OT stating no need and PT recommending okay for home -treat PNA, hyponatremia and hypokalemia as above # paroxysmal atrial fibrillation -continue home Eliquis, amio and metoprolol # hypertension -continue home amlodipine # hyperlipidemia -continue home Crestor # GERD -continue home PPI # BPH -continue home finasteride and uroxatral Code status is DNR. COVID positive. DVT prophylaxis with Eliquis. Proxy is Lyly. Home if sodium continues to improve with fluid restriction and salt tablets as discussed above.. Quality VTE Deep Vein Thrombosis/Pulmonary Embolism Present on Admission: No
[2022-09-19 18:30] LABS: BUN Creatinine Ratio 13.5 (6-22); Blood Urea Nitrogen 10 mg/dL (9-20); Carbon Dioxide 27 mmol/L (22-32); Chloride 94 mmol/L (98-107); Estimated Glomerular Filt Rate > 60 mL/min (>60); Glucose 120 mg/dL (80-110); HEMOLYSIS < 15 (0-50); Potassium 3.7 mmol/L (3.4-5.1); Sodium 124 mmol/L (137-145)
[2022-09-19] MEDS: PANTOPRAZOLE DR 20 MG TABLET PO (21:11)
[2022-09-19] MEDS: FINASTERIDE 5 MG TABLET PO (21:11)
[2022-09-19] MEDS: SODIUM CHLORIDE 1,000 MG TABLET 2000 MG PO (21:11)
[2022-09-19] MEDS: ATORVASTATIN 20 MG TABLET PO (21:11)
[2022-09-19] MEDS: ONDANSETRON 4 MG/2 ML INJ IV (21:40)
[2022-09-20] VITALS (10 sets, daily range): BP systolic 114–144; BP diastolic 58–90; PULSE 63–80; RESP 17–20; TEMP 36.6; O2SAT 86–97
[2022-09-20] MEDS: SENNOSIDES 8.6 MG TABLET PO (01:45)
[2022-09-20] MEDS: BENZONATATE 100 MG CAPSULE PO (01:45)
[2022-09-20] MEDS: guaiFENesin Solution 100 MG/5 ML UDC PO (01:54)
[2022-09-20] MEDS: ACETAMINOPHEN 325 MG TABLET 650 MG PO (02:09)
[2022-09-20 05:28] LABS: Blood Urea Nitrogen 12 mg/dL (9-20); Calcium 7.9 mg/dL (8.4-10.2); Carbon Dioxide 27 mmol/L (22-32); Chloride 93 mmol/L (98-107); Estimated Glomerular Filt Rate > 60 mL/min (>60); Glucose 98 mg/dL (80-110); HEMOLYSIS < 15 (0-50); Potassium 3.6 mmol/L (3.4-5.1); Sodium 123 mmol/L (137-145)
[2022-09-20] MEDS: ONDANSETRON 4 MG/2 ML INJ IV (06:40)
[2022-09-20] MEDS: ALFUZOSIN 10 MG 10 EACH PO (09:13)
[2022-09-20] MEDS: AMLODIPINE 5 MG TABLET PO (09:13)
[2022-09-20] MEDS: LORATADINE 10 MG TABLET PO (09:14)
[2022-09-20] MEDS: METOPROLOL ER 25 MG TABLET PO (09:14)
[2022-09-20] MEDS: SODIUM CHLORIDE 1,000 MG TABLET 2000 MG PO (09:14)
[2022-09-20] MEDS: AMIODARONE 200 MG TABLET PO (09:14)
[2022-09-20] MEDS: APIXABAN 5 MG TABLET PO (09:14)
--- NOTE | 2022-09-20 09:58 | PC.NURSE ---
Pt refusing to have PIV x2 changed out. Inserted on 09/13/22, Provider notified, will continue to monitor
--- NOTE | 2022-09-20 10:31 | PT.IPRE ---
Current Diagnoses Pneumonia, unspecified organism (09/13/22) Surgical History (Last Reviewed 09/13/22 @ 10:09 by Ventura Live DO) 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 right hip arthroplasty (04/26/17) Hx of prostatectomy Hx of sinus surgery Hx of tonsillectomy Hx of transurethral resection of prostate Medical History (Last Reviewed 09/13/22 @ 10:09 by Ventura Live DO) Afib Dermatitis Diverticulosis Edema GERD (gastroesophageal reflux disease) Heart disease HLD (hyperlipidemia) HTN (hypertension) Iron deficiency anemia Left wrist fracture Melanoma Memory changes Memory deficit PSVT (paroxysmal supraventricular tachycardia) Rheumatic fever Physical Therapy Inpatient Evaluation/Re-Eval M1 PT/OT-IP Prior Functional Status Start: 09/14/22 15:24 Freq: NEEDED Status: Active Protocol: Document 09/14/22 15:26 ES (Rec: 09/14/22 15:40 ES [id number]) Medical Review Prior Functional Status Medical History Reviewed Yes Communication WFL Mobility and Gait Indep Activities of Daily Living and IADL's Indep Social History Household Members spouse Living Arrangements House Number of Floors (Floors) 3 or More Floors Number of Stairs To Enter/Railing? 3 with B rails Employment Status Retired Additional Social History Comment 3 story home, kitchen and living area on main level as well as recliner he can sleep in, bedroom and bathroom on upper level with full fight of stairs and B rails. Can get a FWW from the [employer] if needed. is currently sick with COVID also. M2 PT-IP Current Condition Start: 09/14/22 15:24 Freq: NEEDED Status: Active Protocol: Document 09/14/22 15:26 ES (Rec: 09/14/22 15:40 ES [id number]) Physical Therapy Current Condition Current Condition Evaluation Date 09/14/22 Treatment Diagnosis COVID+, pneumonia, weakness Onset Date 09/13/22 M3 PT-IP Subjective Start: 09/14/22 15:24 Freq: NEEDED Status: Active Protocol: Document 09/20/22 10:26 ES (Rec: 09/20/22 10:31 ES [id number]) Subjective Physical Therapy Visit Type Type Progress Note M4 PT-IP Mobility and Gait Start: 09/14/22 15:24 Freq: NEEDED Status: Active Protocol: Document 09/19/22 14:08 TS (Rec: 09/19/22 14:25 TS [id number]) PT-Bed Mobility Assessment Supine to Sit Supine to Sit Standby Assistance Sit to Supine Sit to Supine Standby Assistance Scooting Scooting to Edge of Bed Standby Assistance Scooting Up and Down in Bed Standby Assistance PT-Transfer Assessment Sit to and From Stand Sit to and from Stand Standby Assistance,Use of Upper Extremities Equipment Transfer Assistive Device None,Gait Belt,Front Wheeled Walker Comments Mobility Comments Pt found resting in bed, agreeable to PT session after motivation from spouse. Supine to sit with HOB elevated 20D SBA with BUE support on bed. Sit to stand no AD CGA, slight posterior lean, braced legs against bed. Ambulated SBA with no AD, bed handrail/wall assist to sink counter ~5', LOB x2. Pt performed stairs x2 SBA with BUE handrial assist, pt reporting dizziness and fatigue, required to sit back on bed. BP taken sitting EOB 95/51, supine 141/70. Pt was left back in bed with call light nearby, spouse and hospitalist discussing care. Gait Assessment Gait Gait Assistance Required: Standby Assistance Distance (Feet) 5 Assistive Devices Assistive Device None,Gait Belt Gait Deviations General Gait Pattern Decreased Stride Length, Decreased Feet Clearance, Flexed Trunk Factors Limiting Gait Function Factors Limiting Gait Function Decreased Activity Tolerance, Decreased Strength,Poor Balance Comments Gait Comments See mobility comments. Stair Climbing Assessment Evaluation Level of Assist On Stairs Standby Assistance Devices Stair Climbing Assistive Devices Left Railing,Right Railing Technique/Endurance Stair Climbing Direction Ascend and Descend Stair Climbing Technique Step to Step Number of Steps Climbed 3 Query Text: Comments Stair Climbing Comments Pt orthostatic after x2 steps, required back to bed. PT-Balance Assessment Sitting Balance and Reactions Static Sitting Balance Ability Good Dynamic Sitting Balance Ability Good Standing Balance and Reactions Static Standing Balance Ability Good Dynamic Standing Balance Ability Fair Device Used FWW M5 PT-IP Objective Assessments Start: 09/14/22 15:24 Freq: NEEDED Status: Active Protocol: Document 09/14/22 15:26 ES (Rec: 09/14/22 15:40 ES [id number]) Orientation Orientation/Cognition Level of Alertness Alert Language Function Ability Hard of Hearing Safety Awareness Understands Safety Issues Memory Description No Deficits Noted Gross Range of Motion Upper Extremity ROM Assessment Within Functional Limits Lower Extremity ROM Assessment Within Functional Limits Strength Upper Extremity Strength Assessment Within Functional Limits Lower Extremity Strength Assessment Within Functional Limits Coordination Assessment Gross Coordination Gross Coordination WNL M6 PT-IP Treatment Start: 09/14/22 15:24 Freq: NEEDED Status: Active Protocol: Document 09/19/22 14:08 TS (Rec: 09/19/22 14:25 TS [id number]) Physical Therapy Treatment Education Education Provided Safety M7 PT-IP Assessment and Plan Start: 09/14/22 15:24 Freq: NEEDED Status: Active Protocol: Document 09/20/22 10:26 ES (Rec: 09/20/22 10:31 ES [id number]) PT Summary Assessment and Plan Potential Rehabilitation Potential Good Status of Condition at Evaluation Evolving Summary Impairments Strength,Bed Mobility, Transfers,Gait,Activity Tolerance Progress Towards Goals Slow Progress due to Medical Issues,Slow Progress due to Activity Tolerance Assessment Summary Visually assessed patient and discussed progress with NEONATAL NURSE PRACTITIONER, along with chart review and discussion of patient progress in multi-disciplinary rounds. Patient has been making overall satisfactory progress with therapy, however has had varied tolerance for mobility due to changes in medical stability/sodium levels/ orthostatic hypotension. Patient will continue to benefit from skilled PT to assess mobility and safety and for discharge planning. Continue to anticipate patient will d/c home with assistance . Goals Bed Mobility Goal Independent Transfer Goal Independent,Front Wheeled Walker Gait Goal Independent,Front Wheel Walker Gait Distance 100 Other Goals Patient will be able to ascend /descend 12 stairs with B rails independently. Days to Meet Goals 3 Frequency of Treatment Frequency Of Treatment Once a Day Treatment Plan Physical Therapy Treatment Plan Bed Mobility Training,Transfer Training,Gait Training, Therapeutic Exercise,Balance Retraining,Discharge Planning, Neuromuscular Re-ed Recommendations To Nursing Amount of Assist Needed 1 Person Assist Discharge Recommendations PT Discharge Recommendations Home,Home with Assistance Equipment Needed for Home Before Likely FWW Discharge Transportation Needs at Discharge Private Vehicle
[2022-09-20 11:02] LABS: Sodium Urine Random 82 mmol/L (30-90)
--- NOTE | 2022-09-20 13:53 | PM.DS.1 ---
History of Present Illness History of Present Illness Date Patient Seen: 09/20/22 Time Patient Seen: 13:53 Chief complaint: weak, cough,spitting blood, can't hold head up Narrative: Per admitting provider, Beto Hernandez is an 87yo M with PMH of A-fib on eliquis, HTN, HLD, GERD, and BPH who presents with worsening weakness and found to have COVID with pneumonia, hyponatremia and hypokalemia. Patient says he has had a hacking cough for the past couple weeks and has gotten progressively weaker where even walking across the room is too difficult. He also hasn't eaten much the past couple days. He is vaccinated against COVID and has never had COVID before. He denies SOB, CP, abd pain or diarrhea. In the ED patient found to be COVID positive with Na of 126, K of 2.8 and CRP 7.1. CXR showed LLL infiltrate consistent with pneumonia. Discharge Providers Provider Date of admission: 09/13/22 11:48 Discharge Date: 09/20/22 Primary care physician: Rod Horn MD Consults: 09/13/22 11:21 Consult to Occupational Therapy Evaluate & Treat Comment: Physician Instructions: Evaluate and treat Consult to Physical Therapy Evaluate & Treat Comment: Physician Instructions: Evaluate and Treat Discharge provider: Trung Lyles DO Summary Hospital Course Discharge Diagnosis: Please see hospital course by problem list noted below. Hospital Course: # hyponatremia, unknown if acute or chronic -has had waxing and waning sodium levels. ultimately consistent with SIADH. Initial sodium was 126 on admission, this worsened with fluids to 122. He was started on salt tabs and had continued deline to 121. He was given 3% NS initially with slow improvement to a sodium of 128 on 09/18/22 (hypertonic saline was given from 09/16-09/17 over the course of about 18 hours). Sodium dropped after completion of 3% slowly again to 123 this morning (09/20) despite increase in salt tablets to 2g TID and 1L fluid restriction. Repeat testing done which showed high urine sodium consistent with SIADH. Attempted furosemide on 09/19, however patient became severely orthostatic. Discussed with Dr. Flores at [facility], neprhology, whom agreed with need for a vaptan in this case. Discussed with Dr. Carson, hospitalist at [facility], whom accepted transfer. - urine osm on admit 460, urine sodium 110 on admit, has been slowly dropping but urine sodium 82 today consistent with SIADH (09/20). -suspect SIADH related to COVID infection # community acquired pneumonia, resolved -CXR with LLL infiltrate, procal 0.12, probable bacterial pneumonia after COVID infection so patient was started on antibiotics. -continued rocephin and doxy (instead of azithro since patient on amio) x5 days -sputum culture neg -blood cultures negative # COVID -positive on admission PCR swab -supportive care provided, other than weakness he is asymptomatic from a pulmonary perspective. -was briefly hypoxic but resolved quickly. No steroids or remdesevir were given. # UTI, ruled out -UA with pyuria -urine culture negative -would have been adequately treated with above antibiotics for presumed LLL pneumonia. # hypokalemia, corrected -K 2.8 on admission, improved with repletion, levels >3.4 for the past 3 days without repletion. -from poor po intake initially # generalized weakness -likely secondary to electrolyte derangements, PNA and COVID -PT/OT ordered with OT stating no need and PT recommending okay for home -treat PNA, hyponatremia and hypokalemia as above # paroxysmal atrial fibrillation -continued home Eliquis, amio and metoprolol # hypertension -continued home amlodipine # hyperlipidemia -continued home Crestor # GERD -continued home PPI # BPH -continued home finasteride and uroxatral Code status is DNR. COVID positive. DVT prophylaxis with Eliquis. Proxy is Lyly. Transfer to [facility] for nephrology consultation and likely need for tolvaptan. Time Spent with Patient Time spent: Greater than 30 minutes Exam Vital Signs (past 8 hours): - 09/20/22 06:25 09/20/22 07:00 09/20/22 07:00 Temperature Pulse Rate 63 Respiratory Rate 20 Blood Pressure 141/90 H Pulse Oximetry 94 97 Oxygen Delivery Method Room Air Room Air Oxygen Flow Rate 0 0 09/20/22 09:05 09/20/22 06:15 09/20/22 06:16 Temperature 97.8 F Pulse Rate 64 Respiratory Rate 18 Blood Pressure Pulse Oximetry 86 L 95 Oxygen Delivery Method Oxygen Flow Rate 09/20/22 06:16 09/20/22 08:05 09/20/22 08:05 Temperature Pulse Rate 65 Respiratory Rate Blood Pressure 141/90 H 144/69 H Pulse Oximetry 94 Oxygen Delivery Method Oxygen Flow Rate 09/20/22 13:07 09/20/22 13:07 Temperature Pulse Rate 80 Respiratory Rate Blood Pressure 114/58 L Pulse Oximetry 94 Oxygen Delivery Method Oxygen Flow Rate Oxygen Delivery Method Room Air Oxygen Flow Rate 0 Narrative Exam Narrative: Gen: alert, NAD Lungs: clear Ext: no edema Neuro: not appearing confused, nl affect and speech Objective Labs 09/17/22 04:50 09/20/22 04:15 Labs: Laboratory Results - last 24 hr 09/19/22 09/20/22 09/20/22 18:05 04:15 10:00 Sodium 124 L 123 L Potassium 3.7 3.6 Chloride 94 L 93 L Carbon Dioxide 27 27 BUN 10 12 Creatinine 0.74 0.75 Estimated GFR > 60 > 60 BUN/Creatinine Ratio 13.5 16.0 Glucose 120 H 98 Calcium 8.0 L 7.9 L Ur Random Sodium 82 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/17) Hx of prostatectomy Hx of sinus surgery Hx of tonsillectomy Hx of transurethral resection of prostate Social History household members: spouse Smoking Status: Former smoker alcohol intake: current Discharge Plan Discharge Plan Patient Disposition: [facility] Under care of provider: Dr. Carson Provider Discharge Comment: Please see discharge / transfer summary. Diet/Activity/Treatments Diet: Diet as Tolerated Liquid consistency: Normal/Thin Food texture: Regular Diet comment: Fluid restriction 1L / 24 hours Activity: As tolerated Discharge Data Primary Care Provider: Rod Horn VTE Deep Vein Thrombosis/Pulmonary Embolism Present on Admission: No
--- NOTE | 2022-09-20 14:12 | PC.NURSE ---
Pt to transfer to [facility] at 1445 via EMS. Attempted to call report to Colette GUNTER for room 3018 at [phone] unable to reach.
--- NOTE | 2022-09-20 15:31 | CM.DPC ---
DCP Hospital transfer Per MD, pt's labs continue to not be stable and recommendation is hospital transfer for Nephrology. Per MD, pt accepted at [facility] and S scheduled for transport for hospital transfer around 1500. Per PT, recommending home with assist. SW spoke to spouse who was bedside and she is aware of transfer and spouse will take pt's clothing home to wash and bring him additional clothes to [facility]. LORETO Du
[2022-09-21 11:36] LABS: Osmolality Urine 455 mOsmol/kg (.)
== END 2022-09-20 14:58 | disposition short-term general hospital (02) | DRG 177 ==
LOC: ED 10:55 → AC 11:48 → ICU 09-16 14:49
PROVIDERS: Internal Medicine; Admitting Provider Student in an Organized Health Care Education/Training Program; Emergency Provider Emergency Medicine; PCP Family Medicine; Referring Provider Emergency Medicine; Visit Provider Student in an Organized Health Care Education/Training Program
DX: U07.1 COVID-19 (principal); J12.82 Pneumonia due to coronavirus disease 2019; E22.2 Syndrome of inappropriate secretion of antidiuretic hormone; I48.0 Paroxysmal atrial fibrillation; E87.6 Hypokalemia; I10 Essential (primary) hypertension; E78.5 Hyperlipidemia, unspecified; K21.9 Gastro-esophageal reflux disease without esophagitis; N40.0 Benign prostatic hyperplasia without lower urinary tract symptoms; E86.0 Dehydration; Z66 Do not resuscitate; Z87.891 Personal history of nicotine dependence; Z79.01 Long term (current) use of anticoagulants
CPT/HCPCS: 0241U; 36415; 51798; 71046; 80048; 80051; 80053; 81001; 82550; 83605; 83690; 83735; 83880; 83935; 84145; 84295; 84300; 84484; 85025; 85379; 85610; 85730; 86140; 87040; 87086; 87205; 87797; 93005; 93010; 96361; 96365; 96366; 96368; 97116; 97161; 97530; 99284; 99285; J0696; J2405; J3475

== ENCOUNTER → 2022-12-26 11:45 | Outpatient (CLI) | payer MEDICARE, OTHER, SELFPAY ==
[2022-09-13 13:18] VITALS: BMI 25.7
--- NOTE | 2022-12-26 | DI.RAD.S_ITS ---
PROCEDURE: XR CERVICAL SPINE 2V OR 3V INDICATIONS: CERVICALGIA TECHNIQUE: 3 view(s) of the cervical spine were acquired. COMPARISON: [facility], CR, XR CERVICAL SPINE 2V OR 3V, 10/21/2021, 10:15. FINDINGS: Bones: No fractures or dislocations to the C6-7 evel. Degenerative endplate changes, loss of disc height and bilateral facet hypertrophic changes are noted throughout cervical spine. The lateral masses of C1 appear intact on the odontoid view. No suspicious bony lesions. Soft tissues: No prevertebral soft tissue swelling. IMPRESSION: Degenerative disc disease throughout cervical spine. No gross acute fracture or dislocation. Dictated by: Dameon Charles M.D. on 12/26/2022 at 14:58 Approved by: Dameon Charles M.D. on 12/26/2022 at 14:58
--- NOTE | 2022-12-26 11:47 | DI.RAD.S_ITS ---
PROCEDURE: XR LUMBAR SPINE 2-3V INDICATIONS: Back/neck pain TECHNIQUE: 3 views of the lumbar spine were acquired. COMPARISON: None. FINDINGS: Bones: 5 [id number] vertebrae are present. There is mild, approximately 5 millimeters of L3-L4 and L4-L5 anterolisthesis. Convex left scoliosis. No vertebral body compression fractures. No suspicious bony lesions. Mild degenerative disc disease throughout the lumbar spine. Moderate L3-L4, L4-L5 and L5-S1 facet arthropathy. Partially visualized bilateral hip arthroplasties. Soft tissues: Overlying bowel gas pattern is normal. No suspicious soft tissue calcifications. IMPRESSION: 1. Multilevel degenerative disc disease. 2. Multilevel facet arthropathy. 3. No fracture. No acute osseous lesion. If symptoms and/or clinical suspicion for pathology persists, evaluation with MRI should be considered for further assessment. Dictated by: Yessenia Gilliam MD, PhD on 12/26/2022 at 13:37 Approved by: Yessenia Gilliam MD, PhD on 12/26/2022 at 13:38
--- NOTE | 2022-12-26 11:47 | DI.RAD.S_ITS ---
PROCEDURE: XR THORACIC SPINE 3V INDICATIONS: Back/Neck Pain TECHNIQUE: 3 views of the thoracic spine were acquired. COMPARISON: None. FINDINGS: Bones: Convex right scoliosis. Loss of height noted in the T4, T5 T8, T9 and T11 vertebral bodies compatible with compression fracture of indeterminate age. No suspicious bony lesions. 12 pairs of ribs are noted, and appear intact where visualized. Moderate degenerative disc changes throughout the thoracic spine. Soft tissues: No paravertebral stripe thickening. IMPRESSION: T4, T5, T8, T9 and T11 compression fractures of indeterminate age. Dictated by: Yessenia Gilliam MD, PhD on 12/26/2022 at 13:38 Approved by: Yessenia Gilliam MD, PhD on 12/26/2022 at 13:40
== END ==
PROVIDERS: PCP Family Medicine; Referring Provider Family Medicine; Visit Provider Family Medicine
DX: M47.816 Spondylosis without myelopathy or radiculopathy, lumbar region (principal); M47.817 Spondylosis without myelopathy or radiculopathy, lumbosacral region; M51.36 Other intervertebral disc degeneration, lumbar region; M51.37 Other intervertebral disc degeneration, lumbosacral region; M48.54XA Collapsed vertebra, not elsewhere classified, thoracic region, initial encounter for fracture; M50.30 Other cervical disc degeneration, unspecified cervical region; I25.10 Atherosclerotic heart disease of native coronary artery without angina pectoris; M54.50 Low back pain, unspecified
CPT/HCPCS: 72040; 72072; 72100

== ENCOUNTER 2023-01-18 11:51 | Emergency (ER) | payer MEDICARE, OTHER, SELFPAY ==
[2022-09-13 13:18] VITALS: BMI 25.7
[2023-01-18 12:08] VITALS: BP 148/74; PULSE 59; RESP 15; TEMP 36.5; O2SAT 98; BMI 24.4
--- NOTE | 2023-01-18 18:23 | ED_ITS ---
HPI - Fall General Chief Complaint: Fall Stated Complaint: Nusrat-Nina fell off ladder/ tore skin on back L hand Time Seen by Provider: 01/18/23 18:21 Source: patient Mode of arrival: Ambulatory Limitations: no limitations History of Present Illness HPI Narrative: This is an 87-year-old male anticoagulated on Eliquis with reported history of prior atrial fibrillation. Patient states yesterday afternoon he fell off of a ladder about 3 steps up. He states he did not hit his head he states he did not get knocked out. He thinks the keith I would have landed on his hand and he has a large laceration over his left hand. He states he does not think he broke any bones he can move everything well but has quite a bit of bruising. Did go to would be to have it evaluated but left before being seen. He presents here today for similar. He denies any other injuries. He states pain is minimal. He took some ibuprofen last night. Denies any other symptoms. No headache no neck pain, no other symptoms. Patient's tetanus is up-to-date as of last year. He is accompanied by his . Related Data Home Medications Medication Instructions Recorded Confirmed [VIT D3 ] 2,000 iu PO QDAY ##0 05/30/10 09/13/22 finasteride 5 mg tablet 5 mg PO HS ##0 05/30/10 09/13/22 alfuzosin 10 mg tablet,extended 10 mg PO QAM ##0 04/05/17 09/13/22 release 24 hr (Uroxatral) amiodarone 200 mg tablet 200 mg PO QDAY ##0 04/05/17 09/13/22 clobetasol 0.05 % topical ointment 1 ruiz topical PRN PRN Itching ##0 04/05/17 09/13/22 ferrous sulfate 325 mg (65 mg 325 mg PO QDAY ##0 04/05/17 09/13/22 iron) tablet (Iron (ferrous sulfate)) fluticasone propionate 50 1 spray intranasal BID ##0 04/05/17 09/13/22 mcg/actuation nasal spray,suspension (Flonase Allergy Relief) ibuprofen 600 mg tablet 600 mg PO QDAYP PRN Pain (Scale 04/05/17 09/13/22 Score 1-3) ##0 metronidazole 1 % topical gel 1 ruiz TP HS ##0 04/05/17 09/13/22 omeprazole 20 mg capsule,delayed 20 mg PO QPM ##0 04/05/17 09/13/22 release ascorbic acid (vitamin C) 500 mg 1,000 mg PO QDAY ##0 04/10/17 09/13/22 tablet multivitamin (Multiple Vitamins 1 tab PO QDAY ##0 04/10/17 09/13/22 tablet) omega 7-kuo-efa-fish oil 1,000 mg 1,000 mg PO QDAY ##0 04/10/17 09/13/22 (120 mg-180 mg) capsule (Fish Oil) Eliquis 2.5 mg PO DAILY 12/16/19 09/13/22 loratadine 10 mg tablet 10 mg PO DAILY 12/16/19 09/13/22 amlodipine 2.5 mg tablet 2.5 mg PO DAILY 09/13/22 09/13/22 metoprolol succinate 25 mg 25 mg PO DAILY 09/13/22 09/13/22 tablet,extended release 24 hr rosuvastatin 10 mg tablet 10 mg PO DAILY 09/13/22 09/13/22 Allergies Allergy/AdvReac Type Severity Reaction Status Date / Time oxybutynin Allergy Hives Verified 01/18/23 12:08 tamsulosin Allergy Hives Verified 01/18/23 12:08 Review of Systems Review of Systems ROS Unobtainable: All systems reviewed & are unremarkable except as noted in HPI and below Patient History Medical History Afib Dermatitis Diverticulosis Edema GERD (gastroesophageal reflux disease) Heart disease HLD (hyperlipidemia) HTN (hypertension) Iron deficiency anemia Left wrist fracture Melanoma Memory changes Memory deficit PSVT (paroxysmal supraventricular tachycardia) Rheumatic fever Surgical History 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 right hip arthroplasty (04/26/17) Hx of prostatectomy Hx of sinus surgery Hx of tonsillectomy Hx of transurethral resection of prostate Social History household members: spouse Smoking Status: Former smoker alcohol intake: current Smoking Status: Former smoker alcohol intake frequency: holidays/special occasions only Substance Use Type: does not use Exam Narrative Exam Narrative: GENERAL: Alert and oriented x three, elderly male in mild distress. HEENT: Head normocephalic, atraumatic, EOMI, pupils reactive, face symmetric, moist mucous membranes NECK: Supple, full range of motion, no cervical vertebral tenderness. CARDIOVASCULAR: Regular rate and rhythm without murmurs, rubs or gallops. RESPIRATORY: Breath sounds equal bilaterally, no wheezes rales or rhonchi. ABDOMEN: Soft, nontender. Normoactive bowel sounds all 4 quadrants. No guarding or rebound, rigidity, no mass : No CVA tenderness EXTREMITIES: Normal range of motion, no clubbing or edema. Neurovascularly intact. Patient has a large skin tear on the dorsum of his left hand extending from the 2nd metacarpal towards the wrist. It is gapped. There is subcutaneous tissue exposed. Patient neurovascularly intact with normal range of motion. No other bony tenderness. He is quite a bit of ecchymosis. 2+ radial pulse. Cap refill less than 2 seconds in all 5 fingers neurovascularly intact in all 5 fingers. NEUROLOGICAL: Cranial nerves II through XII grossly intact. Moving all extremities SKIN: Warm, dry, no petechiae, no rashes or lesions otherwise noted. Initial Vital Signs Initial Vital Signs: Vital Signs Temperature 97.7 F 01/18/23 12:08 Pulse Rate 59 L 01/18/23 12:08 Respiratory Rate 15 01/18/23 12:08 Blood Pressure 148/74 H 01/18/23 12:08 Pulse Oximetry 98 01/18/23 12:08 Oxygen Delivery Method Room Air 01/18/23 12:08 Course Orders Ordered: ED Orders 01/18/23 18:31 XR hand LT min 3V Stat Vital Signs Vital signs: Vital Signs - 8 hr 01/18/23 12:08 Temperature 97.7 F Pulse Rate 59 L Respiratory Rate 15 Blood Pressure 148/74 H Pulse Oximetry 98 Oxygen Delivery Method Room Air MDM - Fall Imaging Data Extremity x-ray #1: Radiologist's Impression: [address] [address] XRay Report Signed Patient: Beto Hernandez MR#: [id number] : 1935 Acct:[id number] Age/Sex: 87 / M Date of Service: 01/18/23 Loc: ED Accession Number: [id number] ?? Procedure: XR hand LT min 3V Ordering Provider: Zaria Arce D.O. PROCEDURE:? XR HAND LT MIN 3V ? INDICATIONS:? left hand fall, laceration ? TECHNIQUE:? 3 views of the hand(s) acquired.? ? COMPARISON:? [facility] [place], CR, XR FOREARM LEFT, 01/28/2020, 11:01. ? FINDINGS:? ? Bones:? Moderate diffuse osteopenia.? No definite fracture seen.? Stable alignment.? Partially imaged surgical hardware involving the distal ulna.? 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 Diffuse background degenerative changes of the interphalangeal joints of the imaged left hand. ? Soft tissues:? No suspicious soft tissue calcifications.? ? ? IMPRESSION:? Moderate diffuse osteopenia.? No definite fracture or dislocation identified.? Severe polyarticular degenerative changes most pronounced over the radiocarpal joint and 1st carpometacarpal joint. ? If there is persistent clinical concern for occult fracture given adequate mechanism of injury, consider repeat imaging in 10-14 days. ? ? ? Dictated by: Anthony Parks M.D. on 01/18/2023 at 19:45 ? ? Approved by: Anthony Parks M.D. on 01/18/2023 at 19:47?? [facility] Narrative Medical decision making narrative: 87-year-old male presents with complaint of skin tear the left hand. Patient denies head injury or neck injury. Denies pain elsewhere. His tetanus is up-to-date. He is on Eliquis daily. He is quite a bit of bruising he does seem somewhat tender although he denies any bony tenderness. X-ray of the hand was obtained and is negative for acute fracture. Patient's injury does not appear that it would suture well and was treated with wound care for large skin tear. Patient's wounds were dressed here in the department. Did offer to set up some follow up with wound care but they deferred and will follow up with primary care. Discussed return precautions. Discharge Plan Departure Patient Disposition: Home Clinical Impression: Skin tear of hand without complication Instructions: DI for Open Laceration Activity Restrictions/Additional Instructions: Wound Care: Keep wound(s) clean and dry. Wash daily with soap and water only. Do not use over the counter products (alcohol or peroxide)on the wounds unless instructed by a physician. You may use Neosporin or topical triple antibiotic ointment to affected area with wound changes. If wound condition worsens (increased/expanding redness, developing fluid blisters, or worsening pain), either contact your doctor for an urgent re- assessment , or return to the Emergency Department. Return to the Emergency Department for any new or worsening symptoms. Return if fever greater than 100.4 Fahrenheit, increased swelling, increasing pain or worsening symptoms such as increased discharge or spreading redness. Prescriptions: No Action finasteride 5 MG tablet 5 mg PO HS Qty: 0 [VIT D3 ] 2,000 iu PO QDAY Qty: 0 ferrous sulfate [Iron (ferrous sulfate)] 325 MG tablet 325 mg PO QDAY Qty: 0 omeprazole 20 MG capsule,delayed release(DR/EC) 20 mg PO QPM Qty: 0 fluticasone propionate [Flonase Allergy Relief] 9.9 ML spray,suspension 1 spray Intranasal BID Qty: 0 ibuprofen 600 MG tablet 600 mg PO QDAYP PRN (Reason: Pain (Scale Score 1-3)) Qty: 0 amiodarone 200 MG tablet 200 mg PO QDAY Qty: 0 clobetasol 0.05 % ointment 1 ruiz Topical PRN PRN (Reason: Itching) Qty: 0 metronidazole 1 % gel 1 ruiz TP HS Qty: 0 alfuzosin [Uroxatral] 10 MG tablet extended release 24 hr 10 mg PO QAM Qty: 0 multivitamin [Multiple Vitamins] 1 EACH tablet 1 tab PO QDAY Qty: 0 ascorbic acid (vitamin C) 500 MG tablet 1,000 mg PO QDAY Qty: 0 omega 8-iwf-vdn-fish oil [Fish Oil] 1,000 MG capsule 1,000 mg PO QDAY Qty: 0 loratadine 10 mg tablet 10 mg PO DAILY Eliquis 2.5 mg PO DAILY amlodipine 2.5 mg tablet 2.5 mg PO DAILY metoprolol succinate 25 mg tablet extended release 24 hr 25 mg PO DAILY rosuvastatin 10 mg tablet 10 mg PO DAILY Referrals: Rod Horn MD [Primary Care Provider] - Stand Alone Forms: Patient Portal/API
--- NOTE | 2023-01-18 18:31 | DI.RAD.S_ITS ---
PROCEDURE: XR HAND LT MIN 3V INDICATIONS: left hand fall, laceration TECHNIQUE: 3 views of the hand(s) acquired. COMPARISON: [facility] [place], CR, XR FOREARM LEFT, 01/28/2020, 11:01. FINDINGS: Bones: Moderate diffuse osteopenia. No definite fracture seen. Stable alignment. Partially imaged surgical hardware involving the distal ulna. Severe degenerative changes of the left wrist with significant joint space loss of the radiocarpal joint and 1st carpometacarpal joint. Diffuse background degenerative changes of the interphalangeal joints of the imaged left hand. Soft tissues: No suspicious soft tissue calcifications. IMPRESSION: Moderate diffuse osteopenia. No definite fracture or dislocation identified. Severe polyarticular degenerative changes most pronounced over the radiocarpal joint and 1st carpometacarpal joint. If there is persistent clinical concern for occult fracture given adequate mechanism of injury, consider repeat imaging in 10-14 days. Dictated by: Anthony Parks M.D. on 01/18/2023 at 19:45 Approved by: Anthony Parks M.D. on 01/18/2023 at 19:47
[2023-01-18 20:07] VITALS: BP 135/90; PULSE 76; O2SAT 97
--- NOTE | 2023-01-18 20:16 | PC.NURSE ---
non adherent dressing applied to et hand wound & secured with kerlix.
== END 2023-01-18 20:12 | disposition home or self-care (01) ==
PROVIDERS: Emergency Provider Emergency Medicine; PCP Family Medicine
DX: S61.412A Laceration without foreign body of left hand, initial encounter (principal); W11.XXXA Fall on and from ladder, initial encounter
CPT/HCPCS: 73130; 99281; 99283

== ENCOUNTER → 2023-01-26 14:37 | Outpatient (CLI) | payer MEDICARE, OTHER, SELFPAY ==
[2022-09-13 13:18] VITALS: BMI 25.7
--- NOTE | 2023-01-26 16:58 | DI.RAD.S_ITS ---
PROCEDURE: XR ELBOW LT MIN 3V INDICATIONS: LEFT ELBOW PAIN FROM FALL TECHNIQUE: 3 views of the elbow were acquired. COMPARISON: [facility] [place], CR, XR FOREARM LEFT, 01/28/2020, 11:01. FINDINGS: Bones: No fractures or dislocations. No suspicious bony lesions. Generalized degenerative changes are seen. There is a moderate enthesophyte seen along the posterior aspect of the olecranon. Soft tissues: No large elbow joint effusion. No suspicious soft tissue calcifications. IMPRESSION: Generalized degenerative changes are seen, without a focal acute abnormality. If there is point tenderness (or other clinical suspicion for a fracture not seen on these images) then a dedicated CT could be considered for further evaluation, if clinically appropriate. Dictated by: Adiel Castelan M.D. on 01/26/2023 at 22:41 Approved by: Adiel Castelan M.D. on 01/26/2023 at 22:42
== END ==
PROVIDERS: PCP Family Medicine; Referring Provider Family Medicine; Visit Provider Family Medicine
DX: S66.922D Laceration of unspecified muscle, fascia and tendon at wrist and hand level, left hand, subsequent encounter (principal)
CPT/HCPCS: 73080

== ENCOUNTER → 2023-06-29 13:04 | Outpatient (CLI) | payer MEDICARE, OTHER, SELFPAY ==
[2022-09-13 13:18] VITALS: BMI 25.7
--- NOTE | 2023-06-29 13:07 | DI.RAD.S_ITS ---
PROCEDURE: XR CHEST 2V INDICATIONS: AMIODARONE THERAPY TECHNIQUE: 2 views of the chest were acquired. COMPARISON: [facility], CR, XR CHEST 2V, 09/13/2022, 10:00. FINDINGS: Surgical changes and devices: None. Lungs and pleura: Lungs are clear. No pleural effusions or pneumothorax. Mediastinum: Mediastinal contours are normal. Heart size is normal. Atherosclerotic vascular calcification noted in the aortic arch. Bones and chest wall: No suspicious bony abnormalities. Soft tissues appear unremarkable. IMPRESSION: No acute cardiopulmonary abnormality is seen. Approved by: Jose Russo M.D. on 06/29/2023 at 18:43
== END ==
PROVIDERS: PCP Family Medicine; Referring Provider Internal Medicine Cardiovascular Disease; Visit Provider Internal Medicine Cardiovascular Disease
DX: Z79.899 Other long term (current) drug therapy (principal); I70.0 Atherosclerosis of aorta
CPT/HCPCS: 71046

== ENCOUNTER 2023-09-28 14:04 | Observation (INO) | payer MEDICARE, OTHER, SELFPAY ==
[2022-09-13 13:18] VITALS: BMI 25.7
[2023-09-28 14:17] VITALS: BP 138/61; PULSE 67; RESP 16; TEMP 37.1; O2SAT 99; BMI 23.6
[2023-09-28] MEDS: PANTOPRAZOLE 40 MG VIAL 80 MG IV (14:57)
--- NOTE | 2023-09-28 15:02 | PC.NURSE ---
Pt denies history of GI bleeds, reports noticing blood on toilet paper yesterday. Today gross hematochezia covering the entire toilet. Pt denies pain or SOB. He is dizzy with movement. A&O x4. Pt's at bedside.
[2023-09-28 15:12] LABS: Add Manual Diff / Slide Review NO; Basophils Absolute Auto 0 /uL (0-100); Basophils Percent Auto 0.6 % (0-2); Eosinophils Absolute Auto 100 /uL (0-450); Eosinophils Percent Auto 1.6 % (2-4); Hematocrit 29.4 % (41-53); Hemoglobin 10.4 g/dL (13.5-17.5); Lymphocytes Absolute Auto 1600 /uL (1100-4500); Lymphocytes Percent Auto 27.6 % (25-40); Mean Corpuscular HGB Conc 35.2 % (30-36); Mean Corpuscular Hemoglobin 31.5 PG (26-34); Mean Corpuscular Volume 89.3 fL (80-100); Monocytes Absolute Auto 600 /uL (0-900); Monocytes Percent Auto 10.1 % (3-14); Neutrophils Absolute Auto 3500 /uL (1500-7000); Neutrophils Percent Auto 60.1 % (50-75); Platelet Count 127 X10^3/uL (150-400); Red Blood Cell Count 3.29 X10^6/uL (4.5-5.9); Red Cell Distribution Width 13.5 % (11.6-14.8); White Blood Cell Count 5.9 X10^3/uL (4.5-11.0)
[2023-09-28 15:15] LABS: INR 1.5 (0.9-1.3); Prothrombin Time 17.3 SECONDS (9.4-12.5)
[2023-09-28 15:18] LABS: PTT Partial Thromboplastin Tim 37 SECONDS (25.1-36.5)
[2023-09-28 15:21] LABS: Alanine Aminotransferase 14 IU/L (<50); Albumin 3.7 g/dL (3.5-5.0); Albumin Globulin Ratio 1.5 (1.0-2.8); Alkaline Phosphatase 52 U/L (38-126); Aspartate Aminotransferase 22 IU/L (17-59); BUN Creatinine Ratio 25.7 (6-22); Bilirubin Total 0.5 mg/dL (0.2-1.3); Blood Urea Nitrogen 37 mg/dL (9-20); Calcium 8.6 mg/dL (8.4-10.2); Carbon Dioxide 23 mmol/L (22-32); Chloride 100 mmol/L (98-107); Estimated Glomerular Filt Rate 47 mL/min (>60); Globulin 2.4 g/dL (1.7-4.1); Glucose 103 mg/dL (80-110); HEMOLYSIS < 15 (0-50); Potassium 3.9 mmol/L (3.4-5.1); Sodium 130 mmol/L (137-145); Total Protein 6.1 g/dL (6.3-8.2)
--- NOTE | 2023-09-28 15:38 | DI.CT.S_ITS ---
PROCEDURE: CT ANGIO ABD/PEL GI BLEED INDICATIONS: BRBPR TECHNIQUE: After the administration of intravenous contrast, 2.5 mm thick sections acquired from the diaphragm to the symphysis. 10 mm maximum-intensity projection (MIP) reformats were then acquired. For radiation dose reduction, the following was used: automated exposure control. COMPARISON: None. FINDINGS: Image Quality: Diagnostic. Abdominal aorta: No aortic aneurysm or evidence of acute aortic syndrome. Mesenteric arteries: Patent without hemodynamically significant stenosis. Renal arteries: Patent without hemodynamically significant stenosis. OTHER: Lower Chest: No significant findings. Liver: No solid mass. Gallbladder: No radiopaque gallstones or wall thickening. Biliary ducts: No biliary dilation. Pancreas: No ductal dilation. Spleen: Size is within normal limits. Adrenal Glands: No adrenal nodules. Kidneys and Ureters: No hydronephrosis. No solid mass. No complex renal cystic lesion which requires follow up. Stomach and Bowel: Normal colonic caliber, without significant wall thickening. Peritoneum: No abnormal intraperitoneal fluid. No free air. Ventral Wall: No hernia. Abdominal Nodes: No retroperitoneal or mesenteric adenopathy by size criteria. Vessels: Aorta and inferior vena cava are normal in size. PELVIS: Pelvic Organs: Unremarkable. Bladder: Unremarkable. Pelvic Nodes: No enlarged lymph nodes. Miscellaneous: No inguinal hernias are seen. Bones: No aggressive osseous abnormality. Bilateral hip arthroplasties produce metal artifact through the lower 3rd of pelvis, this allowing assessment bowel structures in area. IMPRESSION: As noted above the bilateral arthroplasty devices produce metal artifact through the lower 3rd of pelvis, which distal outs clear visualization of bowel structures in that area. There is no CT angiographic evidence of active extravasation of contrast during image acquisition. No mass is seen. Source of hematochezia is not identified. No acute disease is found. Dictated by: Celestino Perez M.D. on 09/28/2023 at 16:44 Approved by: Celestino Perez M.D. on 09/28/2023 at 16:47
--- NOTE | 2023-09-28 15:38 | ED.GIBLEED ---
HPI - GI Bleed General Chief complaint: GI Bleed Stated complaint: bloody stools Time Seen by Provider: 09/28/23 14:42 Source: patient Mode of arrival: Ambulatory History of Present Illness HPI Narrative: 88-year-old male with history of atrial fibrillation on Eliquis, hypertension presents for evaluation of bloody stools for the last 2 days. Patient states that last night he notes a little bit of spotting on the toilet tissue, however today he had 2 frankly bloody bowel movements, prompting him to seek evaluation in the emergency department. Last bowel movement 12:30 p.m. Denies pain. States that he has not had a colonoscopy since he was in his 40s or 50s. Related Data Home Medications Medication Instructions Recorded Confirmed [VIT D3 ] 2,000 iu PO QDAY ##0 05/30/10 10/01/23 finasteride 5 mg tablet 5 mg PO HS ##0 05/30/10 10/01/23 alfuzosin 10 mg tablet,extended 10 mg PO QAM ##0 04/05/17 10/01/23 release 24 hr (Uroxatral) amiodarone 200 mg tablet 200 mg PO QDAY ##0 04/05/17 10/01/23 ferrous sulfate 325 mg (65 mg 325 mg PO QDAY ##0 04/05/17 10/01/23 iron) tablet (Iron (ferrous sulfate)) fluticasone propionate 50 1 spray intranasal BID ##0 04/05/17 10/01/23 mcg/actuation nasal spray,suspension (Flonase Allergy Relief) omeprazole 20 mg capsule,delayed 20 mg PO QPM ##0 04/05/17 10/01/23 release ascorbic acid (vitamin C) 500 mg 1,000 mg PO QDAY ##0 04/10/17 10/01/23 tablet multivitamin (Multiple Vitamins 1 tab PO QDAY ##0 04/10/17 10/01/23 tablet) omega 4-cow-oqk-fish oil 1,000 mg 1,000 mg PO QDAY ##0 04/10/17 10/01/23 (120 mg-180 mg) capsule (Fish Oil) loratadine 10 mg tablet 10 mg PO DAILY 12/16/19 10/01/23 amlodipine 2.5 mg tablet 2.5 mg PO DAILY 09/13/22 10/01/23 metoprolol succinate 25 mg 25 mg PO DAILY 09/13/22 10/01/23 tablet,extended release 24 hr rosuvastatin 10 mg tablet 10 mg PO DAILY 09/13/22 10/01/23 linaclotide 145 mcg capsule 145 mcg PO DAILY 09/28/23 10/01/23 (Linzess) Allergies Allergy/AdvReac Type Severity Reaction Status Date / Time oxybutynin Allergy Hives Verified 10/01/23 12:57 tamsulosin Allergy Hives Verified 10/01/23 12:57 Review of Systems Review of Systems Narrative: see HPI Patient History Medical History Memory deficit Memory changes Iron deficiency anemia Melanoma Dermatitis Edema Rheumatic fever HLD (hyperlipidemia) HTN (hypertension) PSVT (paroxysmal supraventricular tachycardia) Diverticulosis GERD (gastroesophageal reflux disease) Left wrist fracture Heart disease Afib Surgical History History of total left hip arthroplasty Hx of transurethral resection of prostate Hx of prostatectomy Hx of sinus surgery History of total right hip arthroplasty (04/26/17) Hx of tonsillectomy Social History household members: spouse Smoking Status: Former smoker alcohol intake: current Smoking Status: Former smoker alcohol intake frequency: holidays/special occasions only Substance Use Type: does not use Exam Initial Vital Signs Initial Vital Signs: Vital Signs Temperature 98.7 F 09/28/23 14:17 Pulse Rate 67 09/28/23 14:17 Respiratory Rate 16 09/28/23 14:17 Blood Pressure 138/61 09/28/23 14:17 Pulse Oximetry 99 09/28/23 14:17 Oxygen Delivery Method Room Air 09/28/23 14:17 Const: Awake, alert, no acute distress, nontoxic appearing Cardiac: regular rate, regular rhythm RESP: unlabored, clear bilaterally, no wheezing GI: Soft, nontender, nondistended Rectal: gross blood present Skin: Warm, Dry, intact, no rashes Neuro: AO x3, CN II-XII grossly intact, moves all extremities Course Orders Ordered: Discontinued Medications Acetaminophen (Acetaminophen 325 Mg Tablet) 650 mg PO Q6H PRN PRN Reason: Fever/Mild Pain (1-3) Amiodarone HCl (Amiodarone 200 Mg Tablet) 200 mg PO DAILY [facility] Last Admin: 09/30/23 08:41 Dose: 200 mg Documented By: Admin: 09/29/23 08:32 Dose: 200 mg Documented By: BT Amlodipine Besylate (Amlodipine 5 Mg Tablet) 2.5 mg PO DAILY [facility] Last Admin: 09/30/23 08:41 Dose: 2.5 mg Documented By: Admin: 09/29/23 08:33 Dose: 2.5 mg Documented By: BT Finasteride (Finasteride 5 Mg Tablet) 5 mg PO BEDTIME [facility] Last Admin: 09/29/23 21:02 Dose: 5 mg Documented By: Admin: 09/28/23 21:02 Dose: 5 mg Documented By: SR Metoprolol Succinate (Metoprolol Er 25 Mg Tablet) 25 mg PO DAILY [facility] Last Admin: 09/30/23 08:42 Dose: 25 mg Documented By: Admin: 09/29/23 08:32 Dose: 25 mg Documented By: BT Naloxone HCl (Naloxone 0.4 Mg/Ml Vial) 0.2 mg IV Q2MIN PRN PRN Reason: Opiate Reversal Non-Formulary Medication (Alfuzosin [Uroxatral]) 10 mg PO DAILY [facility] Last Admin: 09/30/23 08:42 Dose: Not Given Documented By: Admin: 09/29/23 08:34 Dose: Not Given Documented By: ASHLEY Ondansetron HCl (Ondansetron 4 Mg/2 Ml Inj) 4 mg IV NOW PRN PRN Reason: Nausea And Vomiting Ondansetron HCl (Ondansetron 4 Mg Odt) 4 mg SL NOW PRN PRN Reason: Nausea And Vomiting Ondansetron HCl (Ondansetron 4 Mg/2 Ml Inj) 4 mg IV Q8HR PRN PRN Reason: Nausea And Vomiting Pantoprazole Sodium (Pantoprazole 40 Mg Vial) 80 mg IV NOW ONE Stop: 09/28/23 14:20 Last Admin: 09/28/23 14:57 Dose: 80 mg Documented By: JOEY Pantoprazole Sodium (Pantoprazole Dr 20 Mg Tablet) 20 mg PO QPM [facility] Last Admin: 09/29/23 17:10 Dose: 20 mg Documented By: CW Vital Signs Vital signs: Vital Signs - 8 hr 09/28/23 14:17 09/28/23 16:52 Temperature 98.7 F Pulse Rate 67 67 Respiratory Rate 16 16 Blood Pressure 138/61 191/81 H Pulse Oximetry 99 Oxygen Delivery Method Room Air MDM - GI Bleed Lab Data 09/30/23 05:55 09/30/23 05:55 Labs: Lab Results 09/28/23 09/28/23 09/28/23 Range/Units 14:56 16:20 17:00 WBC 5.9 (4.5-11.0) X10^3/uL RBC 3.29 L (4.5-5.9) X10^6/uL Hgb 10.4 L 9.6 L (13.5-17.5) g/dL Hct 29.4 L 27.2 L (41-53) % MCV 89.3 (80-100) fL MCH 31.5 (26-34) PG MCHC 35.2 (30-36) % RDW 13.5 (11.6-14.8) % Plt Count 127 L (150-400) X10^3/uL Neut % (Auto) 60.1 (50-75) % Lymph % (Auto) 27.6 (25-40) % [place] % (Auto) 10.1 (3-14) % Eos % (Auto) 1.6 L (2-4) % Baso % (Auto) 0.6 (0-2) % Neut # (Auto) 3500 (9111-0302) /uL Lymph # (Auto) 1600 (4730-1775) /uL [place] # (Auto) 600 (0-900) /uL Eos # (Auto) 100 (0-450) /uL Baso # (Auto) 0 (0-100) /uL PT 17.3 H (9.4-12.5) SECONDS INR 1.5 H (0.9-1.3) APTT 37 H (25.1-36.5) SECONDS Sodium 130 L (137-145) mmol/L Potassium 3.9 (3.4-5.1) mmol/L Chloride 100 (98-107) mmol/L Carbon Dioxide 23 (22-32) mmol/L BUN 37 H (9-20) mg/dL Creatinine 1.44 H (0.66-1.25) mg/dL Estimated GFR 47 L (>60) mL/min BUN/Creatinine Ratio 25.7 H (6-22) Glucose 103 (80-110) mg/dL Calcium 8.6 (8.4-10.2) mg/dL Total Bilirubin 0.5 (0.2-1.3) mg/dL AST 22 (17-59) IU/L ALT 14 (<50) IU/L Alkaline Phosphatase 52 (38-126) U/L Total Protein 6.1 L (6.3-8.2) g/dL Albumin 3.7 (3.5-5.0) g/dL Globulin 2.4 (1.7-4.1) g/dL Albumin/Globulin Ratio 1.5 (1.0-2.8) Urine RBC None seen (0-5/HPF) Urine WBC 1-5/hpf (0-5/HPF) Ur Squamous Epith Cells None seen (0-5/HPF) Urine Bacteria None seen (None) Vol Urine Centrifuged 10ml (spun) Blood Type B Positive Antibody Screen Negative Point of Care Testing Stool Occult Blood Positive Urine Dip Bedside Urine Glucose Negative Bedside Urine Bilirubin - Negative Bedside Urine Ketone - Negative Urine Specific [place] 1.015 Bedside Urine Occult Blood - Negative Bedside Urine pH 6.0 Bedside Urine Protein - Negative Bedside Urine Urobilinogen - Negative Bedside Urine Nitrite - Negative Bedside Urine Leukocytes +++ 500 Esterase MDM Narrative Medical decision making narrative: Presumed lower GI bleed on Eliquis. Abdomen soft, nontender. While in emergency department patient had bright red bloody bowel movement. Hemoglobin dropped from 11.9-10.4. CT of the abdomen and pelvis did not show any active extravasation of contrast, no definitive source of bleeding. Since patient has had active bleeding while in the emergency department and drop in hemoglobin plan to admit for observation. Discharge Plan Departure Patient Disposition: Admitted as Observation Clinical Impression: Acute lower gastrointestinal bleeding Admit Date/Time: 09/28/23 18:22 Admit Provider: Zach James
[2023-09-28 16:52] VITALS: BP 191/81; PULSE 67; RESP 16
[2023-09-28 17:06] LABS: RBC Urine None Seen (0-5/HPF); Urine Volume 10mL (spun); WBC Urine 1-5/HPF (0-5/HPF)
[2023-09-28 17:07] LABS: Hematocrit 27.2 % (41-53); Hemoglobin 9.6 g/dL (13.5-17.5)
[2023-09-28 17:07] LABS: Bacteria Urine None Seen; Squamous Epithelial Cell Urine None Seen (0-5/HPF)
[2023-09-28 19:14] VITALS: BMI 24.7
--- NOTE | 2023-09-28 19:47 | PM.HP.1 ---
History of Present Illness History of Present Illness Date Patient Seen: 09/28/23 Time Patient Seen: 19:30 Chief complaint: bloody stools Narrative: 88-year-old male with history of atrial fibrillation on Eliquis, hypertension presents for evaluation of bloody stools for the last 2 days. Patient states that last night he notes a little bit of spotting on the toilet tissue, however today he had 2 frankly bloody bowel movements, prompting him to seek evaluation in the emergency department. Last bowel movement 12:30 p.m. Denies pain. States that he has not had a colonoscopy since he was in his 40s or 50s.' [facility] Medical History (Updated 09/29/23 @ 07:34 by Don Millard MD) Memory deficit Memory changes Iron deficiency anemia Melanoma Dermatitis Edema Rheumatic fever HLD (hyperlipidemia) HTN (hypertension) PSVT (paroxysmal supraventricular tachycardia) Diverticulosis GERD (gastroesophageal reflux disease) Left wrist fracture Heart disease Afib Surgical History (Updated 09/29/23 @ 07:34 by Don Millard MD) History of total left hip arthroplasty Hx of transurethral resection of prostate Hx of prostatectomy Hx of sinus surgery History of total right hip arthroplasty (04/26/17) Hx of tonsillectomy Social History household members: spouse Smoking Status: Former smoker alcohol intake: current Meds Home Medications and Allergies Home Medications Medication Instructions Recorded Confirmed Type [VIT D3 ] 2,000 iu PO QDAY ##0 05/30/10 09/28/23 History finasteride 5 mg tablet 5 mg PO HS ##0 05/30/10 09/28/23 History alfuzosin 10 mg tablet,extended 10 mg PO QAM ##0 04/05/17 09/28/23 History release 24 hr (Uroxatral) amiodarone 200 mg tablet 200 mg PO QDAY ##0 04/05/17 09/28/23 History ferrous sulfate 325 mg (65 mg 325 mg PO QDAY ##0 04/05/17 09/28/23 History iron) tablet (Iron (ferrous sulfate)) fluticasone propionate 50 1 spray intranasal BID ##0 04/05/17 09/28/23 History mcg/actuation nasal spray,suspension (Flonase Allergy Relief) ibuprofen 600 mg tablet 600 mg PO QDAYP PRN Pain (Scale 04/05/17 09/28/23 History Score 1-3) ##0 omeprazole 20 mg capsule,delayed 20 mg PO QPM ##0 04/05/17 09/28/23 History release ascorbic acid (vitamin C) 500 mg 1,000 mg PO QDAY ##0 04/10/17 09/28/23 History tablet multivitamin (Multiple Vitamins 1 tab PO QDAY ##0 04/10/17 09/28/23 History tablet) omega 9-kkc-fgq-fish oil 1,000 mg 1,000 mg PO QDAY ##0 04/10/17 09/28/23 History (120 mg-180 mg) capsule (Fish Oil) Eliquis 2.5 mg PO DAILY 12/16/19 09/28/23 History loratadine 10 mg tablet 10 mg PO DAILY 12/16/19 09/28/23 History amlodipine 2.5 mg tablet 2.5 mg PO DAILY 09/13/22 09/28/23 History metoprolol succinate 25 mg 25 mg PO DAILY 09/13/22 09/28/23 History tablet,extended release 24 hr rosuvastatin 10 mg tablet 10 mg PO DAILY 09/13/22 09/28/23 History linaclotide 145 mcg capsule 145 mcg PO DAILY 09/28/23 09/28/23 History (Linzess) Allergies Allergy/AdvReac Type Severity Reaction Status Date / Time oxybutynin Allergy Hives Verified 01/18/23 12:08 tamsulosin Allergy Hives Verified 01/18/23 12:08 Review of Systems Constitutional Comments: negative Cardiovascular Comments: w/o chest pain Respiratory Comments: not SOB Gastrointestinal Comments: w/o abdominal pain or constipation Genitourinary Comments: w/o hematuria Exam Vital Signs (past 8 hours): - 09/28/23 14:17 09/28/23 16:52 Temperature 98.7 F Pulse Rate 67 67 Respiratory Rate 16 16 Blood Pressure 138/61 191/81 H Pulse Oximetry 99 Oxygen Delivery Method Room Air Oxygen Delivery Method Room Air Const Other: sitting in bed in no distress Resp Other: normal respiratory effort Cardio Other: irregular GI Other: not tender or distended Psych Other: mild memory loss Objective Labs 09/29/23 03:09 09/29/23 03:09 Labs: Laboratory Results - last 24 hr 09/28/23 09/28/23 09/28/23 14:56 16:20 17:00 WBC 5.9 RBC 3.29 L Hgb 10.4 L 9.6 L Hct 29.4 L 27.2 L MCV 89.3 MCH 31.5 MCHC 35.2 RDW 13.5 Plt Count 127 L Neut % (Auto) 60.1 Lymph % (Auto) 27.6 [place] % (Auto) 10.1 Eos % (Auto) 1.6 L Baso % (Auto) 0.6 Neut # (Auto) 3500 Lymph # (Auto) 1600 [place] # (Auto) 600 Eos # (Auto) 100 Baso # (Auto) 0 PT 17.3 H INR 1.5 H APTT 37 H Sodium 130 L Potassium 3.9 Chloride 100 Carbon Dioxide 23 BUN 37 H Creatinine 1.44 H Estimated GFR 47 L BUN/Creatinine Ratio 25.7 H Glucose 103 Calcium 8.6 Total Bilirubin 0.5 AST 22 ALT 14 Alkaline Phosphatase 52 Total Protein 6.1 L Albumin 3.7 Globulin 2.4 Albumin/Globulin Ratio 1.5 Urine RBC None seen Urine WBC 1-5/hpf Ur Squamous Epith Cells None seen Urine Bacteria None seen Vol Urine Centrifuged 10ml (spun) Blood Type B Positive Antibody Screen Negative Assessment & Plan Assessment and plan (1) Acute lower gastrointestinal bleeding: Status: Acute (2) HTN (hypertension): Status: Acute (3) GERD (gastroesophageal reflux disease): Status: Acute (4) Afib: Problem details: Taking Eliquis Status: Acute (5) Hx of transurethral resection of prostate: Problem details: x 2 Status: Acute Assessment & Plan narrative: 1. Lower GI bleed - monitored counts - eliquis on hold - GI referral for outpt colonoscopy 2. A-fib - amiodarone, BB - Eliquis on hold 3. Urinary retention / Hx of TURP - afluzosin, finasteride 4. GERD - PPI DVT prophylaxis - SCDs Quality VTE Deep Vein Thrombosis/Pulmonary Embolism Present on Admission: No
[2023-09-28] MEDS: FINASTERIDE 5 MG TABLET PO (21:02)
[2023-09-28 21:21] VITALS: BP 169/78; PULSE 98; RESP 18; TEMP 36.1; O2SAT 97
[2023-09-29] LABS: Alanine Aminotransferase 13 IU/L (<50); Albumin Globulin Ratio 1.3 (1.0-2.8); Alkaline Phosphatase 47 U/L (38-126); Aspartate Aminotransferase 21 IU/L (17-59); BUN Creatinine Ratio 32.4 (6-22); Bilirubin Total 0.4 mg/dL (0.2-1.3); Blood Urea Nitrogen 36 mg/dL (9-20); Calcium 7.8 mg/dL (8.4-10.2); Carbon Dioxide 25 mmol/L (22-32); Chloride 102 mmol/L (98-107); Estimated Glomerular Filt Rate > 60 mL/min (>60); Globulin 2.4 g/dL (1.7-4.1); Glucose 106 mg/dL (80-110); HEMOLYSIS < 15 (0-50); Potassium 3.7 mmol/L (3.4-5.1); Sodium 129 mmol/L (137-145); Total Protein 5.4 g/dL (6.3-8.2)
[2023-09-29 00:58] VITALS: BP 140/75; PULSE 67; RESP 18; TEMP 36.3; O2SAT 97
[2023-09-29 03:18] LABS: Add Manual Diff / Slide Review NO; Basophils Absolute Auto 0 /uL (0-100); Basophils Percent Auto 0.5 % (0-2); Eosinophils Absolute Auto 100 /uL (0-450); Eosinophils Percent Auto 1.7 % (2-4); Hemoglobin 8.1 g/dL (13.5-17.5); Lymphocytes Absolute Auto 1200 /uL (1100-4500); Lymphocytes Percent Auto 23.5 % (25-40); Mean Corpuscular HGB Conc 35.4 % (30-36); Mean Corpuscular Hemoglobin 31.3 PG (26-34); Mean Corpuscular Volume 88.5 fL (80-100); Monocytes Absolute Auto 400 /uL (0-900); Monocytes Percent Auto 8.7 % (3-14); Neutrophils Absolute Auto 3300 /uL (1500-7000); Neutrophils Percent Auto 65.6 % (50-75); Platelet Count 106 X10^3/uL (150-400); Red Blood Cell Count 2.59 X10^6/uL (4.5-5.9); Red Cell Distribution Width 13.9 % (11.6-14.8)
[2023-09-29 03:33] LABS: BUN Creatinine Ratio 29.8 (6-22); Blood Urea Nitrogen 34 mg/dL (9-20); Calcium 7.9 mg/dL (8.4-10.2); Carbon Dioxide 24 mmol/L (22-32); Chloride 102 mmol/L (98-107); Estimated Glomerular Filt Rate > 60 mL/min (>60); Glucose 104 mg/dL (80-110); HEMOLYSIS < 15 (0-50); Potassium 3.7 mmol/L (3.4-5.1); Sodium 130 mmol/L (137-145)
[2023-09-29 06:10] VITALS: BP 101/57; PULSE 63; RESP 16; TEMP 36.2; O2SAT 97
[2023-09-29 08:32] VITALS: BP 144/65; PULSE 83
[2023-09-29] MEDS: METOPROLOL ER 25 MG TABLET PO (08:32)
[2023-09-29] MEDS: AMIODARONE 200 MG TABLET PO (08:32)
[2023-09-29] MEDS: AMLODIPINE 5 MG TABLET 2.5 MG PO (08:33)
[2023-09-29 09:42] VITALS: BP 144/65; PULSE 69; RESP 16; TEMP 36.4; O2SAT 98
[2023-09-29 10:10] LABS: Hemoglobin 8.4 g/dL (13.5-17.5)
--- NOTE | 2023-09-29 10:49 | CM.DANOTE ---
Initial DCP Assessment Note Pt is a 88 yo male, resident of [place], arrives with suspected lower GI bleed, admitted for medical management and close monitoring of H+H. Expect scope may be ordered if patient continues to bleed and H+H drops. PCP: Rod Horn Payer: [facility]/[employer] Reviewed chart, met w/patient to introduce self and role. Patient reports he lives w/spouse, indp with most ADLs, spouse assists with higher ADLs and typically drives. Patient /spouse have three daughters, two live out of town, one lives in [place] and available to assist as needed. No hx of HH or SNF. No barriers identified at this time to patient's safe discharge home w/family to assist; close outpatient f/u recommended. CM team will plan to follow clinical course closely. LORETO Mckeon Discharge Planning/Care Management CM Discharge Assessment Start: 09/29/23 10:45 Freq: Status: Active Protocol: Document 09/29/23 10:45 DORIE (Rec: 09/29/23 10:48 DORIE [id number]) Discharge Planning Assessment Assigned Commercial Loan Reviewer LORETO Simmons DPOA/Assigned Designee Name Lyly Hernandez, spouse Contact Information [phone] Advance Directives? Yes Advance Directives on File No History Provided By Patient,Medical Record Prior Living Arrangements House Household Members spouse Type of transporation used prior to Relies on Others admit Independent with ADL's Yes: cane Is patient alert and oriented? Yes Needs Assistance With Meal Prep,Managing Medications ,Home Chores / Shopping Patient/Family Preference Home with Home Health Barriers to Discharge No Comment Home w/family is expected. Patient may be a good candidiate for Discharge Plan Home Transportation Arrangement Family Additional Comment TBD. Following closely as medical plan of care unfolds
--- NOTE | 2023-09-29 14:59 | P.PN_ITS ---
Subjective Subjective Interval history: Patient feels well overall and said his fatigue has improved today. Had 1 bloody BM today, down from 5 yesterday. Hgb stable at 8.4. Exam Vital Signs (past 8 hours): - 09/29/23 08:32 09/29/23 09:42 Temperature 97.5 F L Pulse Rate 83 69 Respiratory Rate 16 Blood Pressure 144/65 H 144/65 H Pulse Oximetry 98 Oxygen Delivery Method Room Air Oxygen Flow Rate 0 Const Other: sitting in bed in no distress Resp Other: normal respiratory effort Cardio Other: irregular GI Other: not tender or distended Psych Other: mild memory loss Objective Labs 09/29/23 10:00 09/29/23 03:09 Labs: Laboratory Results - last 24 hr 09/28/23 09/28/23 09/28/23 14:56 16:20 17:00 WBC 5.9 RBC 3.29 L Hgb 10.4 L 9.6 L Hct 29.4 L 27.2 L MCV 89.3 MCH 31.5 MCHC 35.2 RDW 13.5 Plt Count 127 L Neut % (Auto) 60.1 Lymph % (Auto) 27.6 [place] % (Auto) 10.1 Eos % (Auto) 1.6 L Baso % (Auto) 0.6 Neut # (Auto) 3500 Lymph # (Auto) 1600 [place] # (Auto) 600 Eos # (Auto) 100 Baso # (Auto) 0 PT 17.3 H INR 1.5 H APTT 37 H Sodium 130 L Potassium 3.9 Chloride 100 Carbon Dioxide 23 BUN 37 H Creatinine 1.44 H Estimated GFR 47 L BUN/Creatinine Ratio 25.7 H Glucose 103 Calcium 8.6 Total Bilirubin 0.5 AST 22 ALT 14 Alkaline Phosphatase 52 Total Protein 6.1 L Albumin 3.7 Globulin 2.4 Albumin/Globulin Ratio 1.5 Urine RBC None seen Urine WBC 1-5/hpf Ur Squamous Epith Cells None seen Urine Bacteria None seen Vol Urine Centrifuged 10ml (spun) Blood Type B Positive Antibody Screen Negative 09/28/23 09/29/23 09/29/23 23:39 03:09 10:00 WBC 5.0 RBC 2.59 L Hgb 8.1 L 8.4 L Hct 23.0 L MCV 88.5 MCH 31.3 MCHC 35.4 RDW 13.9 Plt Count 106 L Neut % (Auto) 65.6 Lymph % (Auto) 23.5 L [place] % (Auto) 8.7 Eos % (Auto) 1.7 L Baso % (Auto) 0.5 Neut # (Auto) 3300 Lymph # (Auto) 1200 [place] # (Auto) 400 Eos # (Auto) 100 Baso # (Auto) 0 PT INR APTT Sodium 129 L 130 L Potassium 3.7 3.7 Chloride 102 102 Carbon Dioxide 25 24 BUN 36 H 34 H Creatinine 1.11 1.14 Estimated GFR > 60 > 60 BUN/Creatinine Ratio 32.4 H 29.8 H Glucose 106 104 Calcium 7.8 L 7.9 L Total Bilirubin 0.4 AST 21 ALT 13 Alkaline Phosphatase 47 Total Protein 5.4 L Albumin 3.0 L Globulin 2.4 Albumin/Globulin Ratio 1.3 Urine RBC Urine WBC Ur Squamous Epith Cells Urine Bacteria Vol Urine Centrifuged Blood Type Antibody Screen PFSH Medical History (Updated 09/29/23 @ 07:34 by Don Millard MD) Memory deficit Memory changes Iron deficiency anemia Melanoma Dermatitis Edema Rheumatic fever HLD (hyperlipidemia) HTN (hypertension) PSVT (paroxysmal supraventricular tachycardia) Diverticulosis GERD (gastroesophageal reflux disease) Left wrist fracture Heart disease Afib Surgical History (Updated 09/29/23 @ 07:34 by Don Millard MD) History of total left hip arthroplasty Hx of transurethral resection of prostate Hx of prostatectomy Hx of sinus surgery History of total right hip arthroplasty (04/26/17) Hx of tonsillectomy Social History household members: spouse Smoking Status: Former smoker alcohol intake: current Assessment & Plan Assessment & Plan narrative: 1. Lower GI bleed - 5 bloody BM's on 09/27, 1 bloody BM on 09/28, continue to monitor - Hgb stable, continue to trend - eliquis on hold, last dose morning of 09/27 - GI referral for outpt colonoscopy 2. A-fib - amiodarone, BB - Eliquis on hold, will likely stop on discharge until f/up with GI and cardiology 3. Urinary retention / Hx of TURP - afluzosin, finasteride 4. GERD - PPI DVT prophylaxis - SCDs Dispo: Home in 1-2 days if blood counts stable and hematochezia improves. Quality VTE Deep Vein Thrombosis/Pulmonary Embolism Present on Admission: No
[2023-09-29 15:33] VITALS: BP 149/64; PULSE 72; RESP 16; TEMP 36.4; O2SAT 98
[2023-09-29 16:13] LABS: Hemoglobin 8.3 g/dL (13.5-17.5)
--- NOTE | 2023-09-29 16:25 | PT.IIE ---
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) Other specified postprocedural states (09/28/23) Surgical History (Last Updated 09/29/23 @ 07:34 by Don Millard MD) 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 right hip arthroplasty (04/26/17) Hx of prostatectomy Hx of sinus surgery Hx of tonsillectomy Hx of transurethral resection of prostate Medical History (Last Updated 09/29/23 @ 07:34 by Don Millard MD) Afib Dermatitis Diverticulosis Edema GERD (gastroesophageal reflux disease) Heart disease HLD (hyperlipidemia) HTN (hypertension) Iron deficiency anemia Left wrist fracture Melanoma Memory changes Memory deficit PSVT (paroxysmal supraventricular tachycardia) Rheumatic fever Physical Therapy Inpatient Evaluation/Re-Eval M1 PT/OT-IP Prior Functional Status Start: 09/29/23 17:09 Freq: NEEDED Status: Active Protocol: Document 09/29/23 16:25 AB (Rec: 09/29/23 17:24 AB [id number]) Medical Review Prior Functional Status Medical History Reviewed Yes Communication able to make needs known; [facility] Mobility and Gait pt stated that he was modified independent with all mobilities and ambulation without AD but occasionally uses a SPC for outdoor mobility if he does not feel too well per pt Social History Household Members spouse Living Arrangements House Number of Floors (Floors) 3 or More Floors Number of Stairs To Enter/Railing? pt has 3 steps B rails to enter the house; has 1 step down to living room and another step down to dining room has 13 steps B rails to get to bedroom level Home Environment High Toilet,Walk in Shower Home Equipment Straight Cane,Hand Held Shower ,Grab Bars Near Toilet M2 PT-IP Current Condition Start: 09/29/23 17:09 Freq: NEEDED Status: Active Protocol: Document 09/29/23 16:25 AB (Rec: 09/29/23 17:24 AB [id number]) Physical Therapy Current Condition Current Condition Evaluation Date 09/29/23 Treatment Diagnosis GI bleed; difficulty in walking Onset Date 09/28/23 M3 PT-IP Subjective Start: 09/29/23 17:09 Freq: NEEDED Status: Active Protocol: Document 09/29/23 16:25 AB (Rec: 09/29/23 17:24 AB [id number]) Subjective Physical Therapy Visit Type Type Initial Evaluation Visit Start Time 16:24 Visit Stop Time 17:08 Number of MOBILE ENGINEER Visits 0 Physical Therapy Visit Comments Patient Comments agreeable to do PT Therapy Pain Assessment Pain When Pain Assessed During Mobility Location Right Ribs Scale Used pain scale not stated; intermittent pain during movement since fall Description With Movement M4 PT-IP Mobility and Gait Start: 09/29/23 17:09 Freq: NEEDED Status: Active Protocol: Document 09/29/23 16:25 AB (Rec: 09/29/23 17:24 AB [id number]) PT-Bed Mobility Assessment Supine to Sit Supine to Sit Standby Assistance Sit to Supine Sit to Supine Standby Assistance PT-Transfer Assessment Sit to and From Stand Sit to and from Stand Contact Guard Assistance, Moderate Assistance,1 Person Assistance,Use of Upper Extremities Equipment Transfer Assistive Device None,Gait Belt,Straight Cane Orthotic/Prosthetic Devices or Brace: No Comments Mobility Comments pt supine in bed and agreeable to do PT. obtained PLOF and home set up from pt. BP in supine: 119/68. pt completed supine to sit SBA. c/o R sided anterior ribs/chest intermittent pain with movement. pt stated that he had a fall ~ 4 days ago thus has L side lateral thigh hematoma and rib pain since then. stated that nurse knows about it. pt completed sit to stand from EOB mod A and max cues. tends to lean backwards and push trunk backwards with sit to stand. pt ambulated in room using SPC SBA ~ 30 ft. Assessed ambulation without AD and completed ~ 40 ft SBA to occasional CGA. pt sat back on EOB. sit<>stand training. educated pt on how to do sit<>stand. pt completed x 3 SBA to cGA. pt requested to go back to bed. completed sit to supine SBA. positioned pt in bed. call light and table placed within reach. educated pt regarding safety and use of SPC for ambulation at this time even inside the house. pt understood. Gait Assessment Gait Gait Assistance Required: Standby Assistance,Contact Guard Assist,1 Person Assist Distance (Feet) 40 Able to Maintain Weight Bearing Status Yes During Gait Assistive Devices Assistive Device None,Gait Belt,Straight Cane Orthotic/Prosthetic Devices or Brace: No Gait Deviations General Gait Pattern Decreased Stride Length, Decreased Feet Clearance Factors Limiting Gait Function Factors Limiting Gait Function Decreased Activity Tolerance, Decreased Strength,Poor Balance,Poor Safety Awareness PT-Balance Assessment Sitting Balance and Reactions Static Sitting Balance Ability Good Dynamic Sitting Balance Ability Good Standing Balance and Reactions Static Standing Balance Ability Good Dynamic Standing Balance Ability Fair Device Used without AD M5 PT-IP Objective Assessments Start: 09/29/23 17:09 Freq: NEEDED Status: Active Protocol: Document 09/29/23 16:25 AB (Rec: 09/29/23 17:24 AB [id number]) Orientation Orientation/Cognition Level of Alertness Alert Orientation Name,Age Language Function Ability Hard of Hearing Safety Awareness Decreased Safety Awareness Memory Description No Deficits Noted Gross Range of Motion Lower Extremity ROM Assessment Within Functional Limits Strength Lower Extremity Strength Assessment Within Functional Limits Coordination Assessment Gross Coordination Gross Coordination WNL Sensation Assessment Sensation Gross Sensation WNL M6 PT-IP Treatment Start: 09/29/23 17:09 Freq: NEEDED Status: Active Protocol: Document 09/29/23 16:25 AB (Rec: 09/29/23 17:24 AB [id number]) Physical Therapy Treatment Education Education Provided Safety M7 PT-IP Assessment and Plan Start: 09/29/23 17:09 Freq: NEEDED Status: Active Protocol: Document 09/29/23 16:25 AB (Rec: 09/29/23 17:24 AB [id number]) PT Summary Assessment and Plan Potential Rehabilitation Potential Fair Status of Condition at Evaluation Evolving Summary Impairments Pain,ROM,Strength,Balance, Coordination,Bed Mobility, Transfers,Gait,Activity Tolerance Assessment Summary pt is an 88 y/o M who presented to the ED due to bloody stool. pt admitted for GI bleed. pt requiring SBA to CGA with mobility using SPC and also assessed without AD SBA to CGA. pt with h/o falls . pt plans to go home with spouse to assist him if needed . will continue to assess progress. pt also has stairs to get in to the house and get to bedroom level and will have to complete stair climbing training prior to d/c . Goals Bed Mobility Goal Independent Transfer Goal Independent,Cane Gait Goal Independent,Cane Gait Distance 200 Other Goals improve transfers and ambulation without AD ~ 250 ft mod I up/down 1 step without AD mod I up/down 13 steps B rails mod I Days to Meet Goals 10 Frequency of Treatment Frequency Of Treatment Once a Day Treatment Plan Physical Therapy Treatment Plan Bed Mobility Training,Transfer Training,Gait Training, Therapeutic Exercise,Balance Retraining,Discharge Planning, Hot or Cold Pack,Neuromuscular Re-ed,Coordination Retraining Precautions Other Precautions falls Recommendations To Nursing Amount of Assist Needed 1 Person Assist Discharge Recommendations PT Discharge Recommendations Home with Assistance, Outpatient PT Transportation Needs at Discharge Private Vehicle
[2023-09-29] MEDS: PANTOPRAZOLE DR 20 MG TABLET PO (17:10)
[2023-09-29 20:00] VITALS: BP 130/74; PULSE 62; RESP 16; TEMP 35.9; O2SAT 97
[2023-09-29] MEDS: FINASTERIDE 5 MG TABLET PO (21:02)
[2023-09-29 22:20] LABS: Hemoglobin 7.8 g/dL (13.5-17.5)
[2023-09-30 00:05] VITALS: BP 126/88; PULSE 64; RESP 17; TEMP 36.4; O2SAT 96
[2023-09-30 06:00] VITALS: BP 129/65; PULSE 63; RESP 16; TEMP 37; O2SAT 97
[2023-09-30 06:26] LABS: Add Manual Diff / Slide Review NO; Basophils Absolute Auto 0 /uL (0-100); Basophils Percent Auto 0.6 % (0-2); Eosinophils Absolute Auto 200 /uL (0-450); Eosinophils Percent Auto 3.8 % (2-4); Hematocrit 22.6 % (41-53); Hemoglobin 7.9 g/dL (13.5-17.5); Lymphocytes Absolute Auto 1200 /uL (1100-4500); Lymphocytes Percent Auto 28.6 % (25-40); Mean Corpuscular HGB Conc 35.1 % (30-36); Mean Corpuscular Hemoglobin 31.4 PG (26-34); Mean Corpuscular Volume 89.7 fL (80-100); Monocytes Absolute Auto 400 /uL (0-900); Monocytes Percent Auto 10.4 % (3-14); Neutrophils Absolute Auto 2300 /uL (1500-7000); Neutrophils Percent Auto 56.6 % (50-75); Platelet Count 105 X10^3/uL (150-400); Red Blood Cell Count 2.52 X10^6/uL (4.5-5.9); Red Cell Distribution Width 13.6 % (11.6-14.8); White Blood Cell Count 4.1 X10^3/uL (4.5-11.0)
[2023-09-30 06:34] LABS: BUN Creatinine Ratio 22.3 (6-22); Blood Urea Nitrogen 23 mg/dL (9-20); Carbon Dioxide 25 mmol/L (22-32); Chloride 102 mmol/L (98-107); Estimated Glomerular Filt Rate > 60 mL/min (>60); Glucose 91 mg/dL (80-110); HEMOLYSIS < 15 (0-50); Potassium 3.4 mmol/L (3.4-5.1); Sodium 129 mmol/L (137-145)
[2023-09-30 08:00] VITALS: BP 132/65; PULSE 61; RESP 18; TEMP 36.2; O2SAT 98
[2023-09-30] MEDS: AMLODIPINE 5 MG TABLET 2.5 MG PO (08:41)
[2023-09-30] MEDS: AMIODARONE 200 MG TABLET PO (08:41)
[2023-09-30 08:42] VITALS: BP 129/64; PULSE 63
[2023-09-30] MEDS: METOPROLOL ER 25 MG TABLET PO (08:42)
[2023-09-30 09:12] VITALS: PULSE 62
--- NOTE | 2023-09-30 10:17 | PM.DS.1 ---
History of Present Illness History of Present Illness Date Patient Seen: 09/30/23 Time Patient Seen: 07:35 Chief complaint: bloody stools Narrative: Chief complaint: bloody stools Narrative: 88-year-old male with history of atrial fibrillation on Eliquis, hypertension presents for evaluation of bloody stools for the last 2 days. Patient states that last night he notes a little bit of spotting on the toilet tissue, however today he had 2 frankly bloody bowel movements, prompting him to seek evaluation in the emergency department. Last bowel movement 12:30 p.m. Denies pain. States that he has not had a colonoscopy since he was in his 40s or 50s.' Discharge Providers Provider Date of admission: 09/28/23 18:22 Discharge Date: 09/30/23 Primary care physician: Rod Horn MD Consults: 09/29/23 13:30 Consult to Physical Therapy Evaluate & Treat Comment: Physician Instructions: Evaluate and Treat Discharge provider: Temo Merritt MD Summary Hospital Course Discharge Diagnosis: 1. Lower gastrointestinal bleeding, etiology unclear, suspected diverticular 2. Atrial fibrillation 3. Chronic anticoagulation, discontinued 4. History of recurrent falls 5. BPH with urinary retention, treated and stable 6. GERD Hospital Course: The patient presented with 5 bloody bowel movements on the day of admission, with 1 bloody bowel movement on the 2nd day of hospitalization and none on the 3rd day with the withholding of Eliquis. Given history of recurrent falls as well as recent gastrointestinal bleeding, was recommended to remain off Eliquis at this point, with close outpatient follow-up advised and Gastroenterology referral to consider elective colonoscopy. The patient remained hemodynamically stable throughout hospitalization with stable hematocrit at the time of discharge at 22.6%. The patient acknowledged understanding, agreement and appreciation of this plan of care, and agreed to call back with any questions or concerns. Exam Vital Signs (past 8 hours): - 09/30/23 06:00 09/30/23 08:00 09/30/23 08:42 Temperature 98.6 F 97.2 F L Pulse Rate 63 61 63 Respiratory Rate 16 18 Blood Pressure 129/65 132/65 129/64 Pulse Oximetry 97 98 Oxygen Flow Rate 0 0 Oxygen Delivery Method Room Air Oxygen Flow Rate 0 Narrative Exam Narrative: GENERAL: This is a thin male patient, in no apparent distress. HEAD: Atraumatic. Normocephalic. No temporal or scalp tenderness. EYES: Pupils equal round and reactive. Extraocular motions intact. No scleral icterus. No injection or drainage. ENT: Mucous membranes pink and moist. NECK: Trachea midline. No JVD, bruits or lymphadenopathy. Supple, nontender, no meningeal signs. CARDIOVASCULAR: Irregularly irregular rhythm without murmurs, gallops, or rubs. RESPIRATORY: Clear to auscultation. GASTROINTESTINAL: Abdomen soft, non-tender, nondistended. EXTREMITIES: No clubbing, cyanosis, or edema. NEUROLOGIC: Alert, oriented, speech fluent, full upper and lower motor strength, no focal deficits evident. DERMATOLOGIC: No rashes or skin lesions. Objective Labs 09/30/23 05:55 09/30/23 05:55 Labs: Laboratory Results - last 24 hr 09/29/23 09/29/23 09/30/23 16:00 22:10 05:55 WBC 4.1 L RBC 2.52 L Hgb 8.3 L 7.8 L 7.9 L Hct 22.6 L MCV 89.7 MCH 31.4 MCHC 35.1 RDW 13.6 Plt Count 105 L Neut % (Auto) 56.6 Lymph % (Auto) 28.6 [place] % (Auto) 10.4 Eos % (Auto) 3.8 Baso % (Auto) 0.6 Neut # (Auto) 2300 Lymph # (Auto) 1200 [place] # (Auto) 400 Eos # (Auto) 200 Baso # (Auto) 0 Sodium 129 L Potassium 3.4 Chloride 102 Carbon Dioxide 25 BUN 23 H Creatinine 1.03 Estimated GFR > 60 BUN/Creatinine Ratio 22.3 H Glucose 91 Calcium 8.0 L [facility] Medical History Memory deficit Memory changes Iron deficiency anemia Melanoma Dermatitis Edema Rheumatic fever HLD (hyperlipidemia) HTN (hypertension) PSVT (paroxysmal supraventricular tachycardia) Diverticulosis GERD (gastroesophageal reflux disease) Left wrist fracture Heart disease Afib Surgical History History of total left hip arthroplasty Hx of transurethral resection of prostate Hx of prostatectomy Hx of sinus surgery History of total right hip arthroplasty (04/26/17) Hx of tonsillectomy Social History household members: spouse Smoking Status: Former smoker alcohol intake: current Discharge Plan Discharge Plan Patient Disposition: Home Discharge orders & Medications Prescriptions: Continued finasteride 5 MG tablet 5 mg PO HS Qty: 0 [VIT D3 ] 2,000 iu PO QDAY Qty: 0 ferrous sulfate [Iron (ferrous sulfate)] 325 MG tablet 325 mg PO QDAY Qty: 0 omeprazole 20 MG capsule,delayed release(DR/EC) 20 mg PO QPM Qty: 0 fluticasone propionate [Flonase Allergy Relief] 9.9 ML spray,suspension 1 spray Intranasal BID Qty: 0 amiodarone 200 MG tablet 200 mg PO QDAY Qty: 0 alfuzosin [Uroxatral] 10 MG tablet extended release 24 hr 10 mg PO QAM Qty: 0 multivitamin [Multiple Vitamins] 1 EACH tablet 1 tab PO QDAY Qty: 0 ascorbic acid (vitamin C) 500 MG tablet 1,000 mg PO QDAY Qty: 0 omega 1-pug-hjk-fish oil [Fish Oil] 1,000 MG capsule 1,000 mg PO QDAY Qty: 0 Linzess 145 mcg capsule 145 mcg PO DAILY loratadine 10 mg tablet 10 mg PO DAILY amlodipine 2.5 mg tablet 2.5 mg PO DAILY metoprolol succinate 25 mg tablet extended release 24 hr 25 mg PO DAILY rosuvastatin 10 mg tablet 10 mg PO DAILY Discontinued ibuprofen 600 MG tablet 600 mg PO QDAYP PRN (Reason: Pain (Scale Score 1-3)) Qty: 0 Eliquis 2.5 mg PO DAILY Follow up/Referrals: Rod Horn MD [Primary Care Provider] - Visit Report/Discharge Packet Stand Alone Forms: Patient Portal/API, Stroke Signs & Symptoms Discharge Data Primary Care Provider: Rod Horn Attending Provider: Zach James Admit Date/Time: 09/28/23 18:22 Quality VTE Deep Vein Thrombosis/Pulmonary Embolism Present on Admission: No
--- NOTE | 2023-09-30 12:00 | CM.DPNOTE ---
DCP Note CONTAINER MAKER reviewed EMR. Per hospitalist in morning multidisciplinary rounds, pt medically stable to dc home today. No anticipated CM needs. Per RN report, spouse will be here to p/u pt after adventist- approx 1pm. no obvious/new CM needs identified. f/u appt with outside plant cable engineer already scheduled. Plan; home with family assist today. transport with family. OP f/u with outside plant cable engineer anticipated. No identified CM needs, CM team will continue to follow as needed. LORETO Samuel
--- NOTE | 2023-09-30 14:36 | PC.NURSE ---
Discharge Note Patient A&O, VSS, RA, no complaints of pain/discomfort. Patient agreeable to discharge plan. Discharge packet reviewed with patient, all questions/concerns addressed. PIV/TELE discontinued. Patient able to dress self and pack all belongings. Patient taken down via wheelchair to POV.
== END 2023-09-30 14:00 | disposition home or self-care (01) ==
LOC: ED 14:42 → AC 18:22
PROVIDERS: Internal Medicine; Admitting Provider Student in an Organized Health Care Education/Training Program; Emergency Provider Emergency Medicine; PCP Family Medicine; Referring Provider Emergency Medicine; Visit Provider Student in an Organized Health Care Education/Training Program
CPT/HCPCS: 36415; 74174; 80048; 80053; 81003; 81015; 82272; 85014; 85018; 85025; 85610; 85730; 86850; 86900; 86901; 87086; 97161; 97530; 99284; G0378; C9113; Q9967

== ENCOUNTER 2023-10-01 12:08 | Observation (INO) | payer MEDICARE, OTHER, SELFPAY ==
[2023-10-01] VITALS (9 sets, daily range): BP systolic 113–170; BP diastolic 56–87; PULSE 60–75; RESP 10–20; TEMP 35.9–36.7; O2SAT 96–99; BMI 23.6
[2023-10-01] MEDS: PANTOPRAZOLE 40 MG VIAL 80 MG IV (13:27)
[2023-10-01 13:41] LABS: Add Manual Diff / Slide Review NO; Basophils Absolute Auto 0 /uL (0-100); Basophils Percent Auto 0.4 % (0-2); Eosinophils Absolute Auto 100 /uL (0-450); Hematocrit 23.7 % (41-53); Hemoglobin 8.5 g/dL (13.5-17.5); Lymphocytes Absolute Auto 1000 /uL (1100-4500); Lymphocytes Percent Auto 17.2 % (25-40); Mean Corpuscular Hemoglobin 31.7 PG (26-34); Mean Corpuscular Volume 88.1 fL (80-100); Monocytes Absolute Auto 600 /uL (0-900); Monocytes Percent Auto 9.6 % (3-14); Neutrophils Absolute Auto 4200 /uL (1500-7000); Neutrophils Percent Auto 71.8 % (50-75); Platelet Count 118 X10^3/uL (150-400); Red Blood Cell Count 2.69 X10^6/uL (4.5-5.9); Red Cell Distribution Width 13.6 % (11.6-14.8); White Blood Cell Count 5.8 X10^3/uL (4.5-11.0)
--- NOTE | 2023-10-01 13:42 | ED_ITS ---
HPI - GI Bleed General Chief complaint: GI Bleed Stated complaint: still bleeding from rectum Time Seen by Provider: 10/01/23 13:34 Source: patient Mode of arrival: Family Vehicle History of Present Illness HPI Narrative: Patient is an 80-year-old male. Was discharged yesterday from the hospital after being admitted for an acute GI bleed. He has been on Eliquis but has not been on it now since he was admitted hospital. During his admission time he did not have a colonoscopy and upper endoscopy. His H&H did drop but then became stable and yesterday he stated that he would multiple normal bowel movements without any issues. This morning he has now had 2 large bright red blood bowel movements. No pain with going to the bathroom. No vomiting. No fevers. No abdominal pain. No urinary symptoms. He was becoming lightheaded when he stands up. Related Data Home Medications Medication Instructions Recorded Confirmed [VIT D3 ] 2,000 iu PO QDAY ##0 05/30/10 09/28/23 finasteride 5 mg tablet 5 mg PO HS ##0 05/30/10 10/01/23 alfuzosin 10 mg tablet,extended 10 mg PO QAM ##0 04/05/17 10/01/23 release 24 hr (Uroxatral) amiodarone 200 mg tablet 200 mg PO QDAY ##0 04/05/17 10/01/23 ferrous sulfate 325 mg (65 mg 325 mg PO QDAY ##0 04/05/17 10/01/23 iron) tablet (Iron (ferrous sulfate)) fluticasone propionate 50 1 spray intranasal BID ##0 04/05/17 10/01/23 mcg/actuation nasal spray,suspension (Flonase Allergy Relief) omeprazole 20 mg capsule,delayed 20 mg PO QPM ##0 04/05/17 10/01/23 release ascorbic acid (vitamin C) 500 mg 1,000 mg PO QDAY ##0 04/10/17 10/01/23 tablet multivitamin (Multiple Vitamins 1 tab PO QDAY ##0 04/10/17 10/01/23 tablet) omega 5-rnl-phs-fish oil 1,000 mg 1,000 mg PO QDAY ##0 04/10/17 10/01/23 (120 mg-180 mg) capsule (Fish Oil) loratadine 10 mg tablet 10 mg PO DAILY 12/16/19 10/01/23 amlodipine 2.5 mg tablet 2.5 mg PO DAILY 09/13/22 10/01/23 metoprolol succinate 25 mg 25 mg PO DAILY 09/13/22 10/01/23 tablet,extended release 24 hr rosuvastatin 10 mg tablet 10 mg PO DAILY 09/13/22 10/01/23 linaclotide 145 mcg capsule 145 mcg PO DAILY 09/28/23 10/01/23 (Linzess) Allergies Allergy/AdvReac Type Severity Reaction Status Date / Time oxybutynin Allergy Hives Verified 10/01/23 12:57 tamsulosin Allergy Hives Verified 10/01/23 12:57 Review of Systems Review of Systems ROS Unobtainable: All systems reviewed & are unremarkable except as noted in HPI and below Patient History Medical History Memory deficit Memory changes Iron deficiency anemia Melanoma Dermatitis Edema Rheumatic fever HLD (hyperlipidemia) HTN (hypertension) PSVT (paroxysmal supraventricular tachycardia) Diverticulosis GERD (gastroesophageal reflux disease) Left wrist fracture Heart disease Afib Surgical History History of total left hip arthroplasty Hx of transurethral resection of prostate Hx of prostatectomy Hx of sinus surgery History of total right hip arthroplasty (04/26/17) Hx of tonsillectomy Social History household members: spouse Smoking Status: Former smoker alcohol intake: current Smoking Status: Former smoker alcohol intake frequency: holidays/special occasions only Substance Use Type: does not use Exam Initial Vital Signs Initial Vital Signs: Vital Signs Temperature 97.6 F 10/01/23 12:53 Pulse Rate 69 10/01/23 12:53 Respiratory Rate 17 10/01/23 12:53 Blood Pressure 113/56 L 10/01/23 12:53 Pulse Oximetry 98 10/01/23 12:53 Oxygen Delivery Method Room Air 10/01/23 12:53 HENMT Head: normal to inspection Resp Effort & Inspection: normal respiratory effort Auscultation: clear to auscultation bilaterally Cardio Rate: regular rate Rhythm: regular rhythm GI Inspection: normal to inspection and non-distended Skin General: no rashes or lesions noted Neuro General: patient alert, patient awake, patient oriented x3 and moves all extremities Extrem General: normal to inspection and capillary refill normal Course Orders Ordered: ED Orders 10/01/23 12:58 EKG-12 Lead Stat 10/01/23 13:28 Complete Blood Count AUTO DIFF Stat Comprehensive Metabolic Panel Stat PTT Partial Thromboplastin Enoch Stat Prothrombin Time INR Stat Type and Screen Stat 10/01/23 14:09 Consult to General Surgery Stat 10/01/23 14:41 Urinalysis and Microscopic Stat Urine Culture Stat Acetaminophen (Acetaminophen 325 Mg Tablet) 650 mg PO Q6H PRN PRN Reason: Fever/Mild Pain (1-3) Amiodarone HCl (Amiodarone 200 Mg Tablet) 200 mg PO DAILY [facility] Atorvastatin Calcium (Atorvastatin 20 Mg Tablet) 20 mg PO BEDTIME [facility] Finasteride (Finasteride 5 Mg Tablet) 5 mg PO BEDTIME [facility] Loratadine (Loratadine 10 Mg Tablet) 10 mg PO DAILY [facility] Melatonin (Melatonin 3 Mg Tablet) 6 mg PO BEDTIME PRN PRN Reason: Insomnia Metoprolol Succinate (Metoprolol Er 25 Mg Tablet) 25 mg PO DAILY [facility] Naloxone HCl (Naloxone 0.4 Mg/Ml Vial) 0.2 mg IV Q2MIN PRN PRN Reason: Opiate Reversal Alfuzosin [Uroxatral ] 10 Mg Tablet Extended Release 24 Hr 10 mg PO DAILY [facility] Ondansetron HCl (Ondansetron 4 Mg Odt) 4 mg SL NOW PRN PRN Reason: Nausea And Vomiting Ondansetron HCl (Ondansetron 4 Mg/2 Ml Inj) 4 mg IV Q4HR PRN PRN Reason: Nausea And Vomiting Pantoprazole Sodium (Pantoprazole Dr 20 Mg Tablet) 20 mg PO 0600 [facility] Discontinued Medications Ondansetron HCl (Ondansetron 4 Mg/2 Ml Inj) 4 mg IV NOW PRN PRN Reason: Nausea And Vomiting Pantoprazole Sodium (Pantoprazole 40 Mg Vial) 80 mg IV NOW ONE Stop: 10/01/23 12:59 Last Admin: 10/01/23 13:27 Dose: 80 mg Documented By: ES Polyethylene Glycol/Electrolytes ([id number]/Sod Sulf,Bicarb,Cl/Kcl 4,000 Ml Solution) 4,000 ml PO NOW ONE Stop: 10/01/23 14:56 Last Admin: 10/01/23 15:56 Dose: 4,000 ml Documented By: CLL Vital Signs Vital signs: Vital Signs - 8 hr 10/01/23 12:53 10/01/23 13:15 10/01/23 13:22 Temperature 97.6 F Pulse Rate 69 60 Respiratory Rate 17 Blood Pressure 113/56 L 168/87 H Pulse Oximetry 98 99 Oxygen Delivery Method Room Air 10/01/23 13:22 10/01/23 13:30 10/01/23 13:30 Temperature Pulse Rate 65 63 Respiratory Rate 10 L 20 Blood Pressure 170/78 H Pulse Oximetry 98 99 Oxygen Delivery Method Room Air 10/01/23 14:00 10/01/23 14:01 10/01/23 14:01 Temperature Pulse Rate 60 62 Respiratory Rate 15 17 Blood Pressure 155/72 H Pulse Oximetry 97 98 Oxygen Delivery Method 10/01/23 14:30 10/01/23 14:30 Temperature Pulse Rate 70 Respiratory Rate 18 Blood Pressure 170/74 H Pulse Oximetry Oxygen Delivery Method MDM - GI Bleed Medical Records Attestation: I reviewed the patient's medical records. Lab Data Attestation: I reviewed the patient's lab results. 10/01/23 13:28 10/01/23 13:28 Labs: Lab Results 10/01/23 10/01/23 Range/Units 13:28 14:41 WBC 5.8 (4.5-11.0) X10^3/uL RBC 2.69 L (4.5-5.9) X10^6/uL Hgb 8.5 L (13.5-17.5) g/dL Hct 23.7 L (41-53) % MCV 88.1 (80-100) fL MCH 31.7 (26-34) PG MCHC 36.0 (30-36) % RDW 13.6 (11.6-14.8) % Plt Count 118 L (150-400) X10^3/uL Neut % (Auto) 71.8 (50-75) % Lymph % (Auto) 17.2 L (25-40) % [place] % (Auto) 9.6 (3-14) % Eos % (Auto) 1.0 L (2-4) % Baso % (Auto) 0.4 (0-2) % Neut # (Auto) 4200 (3109-0340) /uL Lymph # (Auto) 1000 L (5446-5015) /uL [place] # (Auto) 600 (0-900) /uL Eos # (Auto) 100 (0-450) /uL Baso # (Auto) 0 (0-100) /uL PT 13.7 H (9.4-12.5) SECONDS INR 1.2 (0.9-1.3) APTT 30 (25.1-36.5) SECONDS Sodium 130 L (137-145) mmol/L Potassium 3.4 (3.4-5.1) mmol/L Chloride 100 (98-107) mmol/L Carbon Dioxide 24 (22-32) mmol/L BUN 22 H (9-20) mg/dL Creatinine 1.08 (0.66-1.25) mg/dL Estimated GFR > 60 (>60) mL/min BUN/Creatinine Ratio 20.4 (6-22) Glucose 117 H (80-110) mg/dL Calcium 8.4 (8.4-10.2) mg/dL Total Bilirubin 0.4 (0.2-1.3) mg/dL AST 23 (17-59) IU/L ALT 15 (<50) IU/L Alkaline Phosphatase 59 (38-126) U/L Total Protein 6.1 L (6.3-8.2) g/dL Albumin 3.6 (3.5-5.0) g/dL Globulin 2.5 (1.7-4.1) g/dL Albumin/Globulin Ratio 1.4 (1.0-2.8) Urine Color Yellow Urine Appearance Clear Urine pH 6.5 (4.5-8.0) Ur Specific [place] <=1.005 (1.000-1.035) Urine Protein Negative (Negative) Urine Glucose (UA) Negative (Negative) g/dL Urine Ketones Negative (NEGATIVE) Urine Occult Blood Negative (Negative) Urine Nitrate Negative (Negative) Urine Bilirubin Negative (NEGATIVE) Urine Urobilinogen 0.2 (0.2) E.U./dL Ur Leukocyte Esterase 1+ H (NEGATIVE) Urine RBC None seen (0-5/HPF) Urine WBC 1-5/hpf (0-5/HPF) Ur Squamous Epith Cells 0-1 /hpf (0-5/HPF) Urine Bacteria None seen (None) Ur Culture Indicated? Specimen cultured Vol Urine Centrifuged 10ml (spun) Blood Type B Positive Antibody Screen Negative ECG Data Attestation: I personally reviewed and interpreted this ECG as follows: Interpretation: Sinus rhythm Ventricular rate is 62 Normal axis Normal QRS Normal QTC No ST T wave changes MDM Narrative Medical decision making narrative: Patient did have 2 further episodes of bright red blood per rectum this morning. He also states he was getting very lightheaded when he stands up. His H&H today is actually somewhat better than when he was discharged. He has not hypotensive. Not tachycardic. He has not been on his blood thinners for least 3 days. I discussed the case with Dr. Richardson on-call for General surgery. She stated that if the patient is admitted to the hospital they can start the prep this evening and she would scope him tomorrow. I discussed the case with Dr. James hospitalist on-call who will admit. Discussed the need for admission with the patient. He expressed understanding and agreement as well. Discharge Plan Departure Patient Disposition: Admitted As Inpatient Clinical Impression: Acute GI bleeding Admit Date/Time: 10/01/23 14:49 Admit Provider: Zach James
[2023-10-01 13:52] LABS: Alanine Aminotransferase 15 IU/L (<50); Albumin 3.6 g/dL (3.5-5.0); Albumin Globulin Ratio 1.4 (1.0-2.8); Alkaline Phosphatase 59 U/L (38-126); Aspartate Aminotransferase 23 IU/L (17-59); BUN Creatinine Ratio 20.4 (6-22); Bilirubin Total 0.4 mg/dL (0.2-1.3); Blood Urea Nitrogen 22 mg/dL (9-20); Calcium 8.4 mg/dL (8.4-10.2); Carbon Dioxide 24 mmol/L (22-32); Chloride 100 mmol/L (98-107); Estimated Glomerular Filt Rate > 60 mL/min (>60); Globulin 2.5 g/dL (1.7-4.1); Glucose 117 mg/dL (80-110); HEMOLYSIS < 15 (0-50); Potassium 3.4 mmol/L (3.4-5.1); Sodium 130 mmol/L (137-145); Total Protein 6.1 g/dL (6.3-8.2)
[2023-10-01 14:01] LABS: INR 1.2 (0.9-1.3); Prothrombin Time 13.7 SECONDS (9.4-12.5)
[2023-10-01 14:04] LABS: PTT Partial Thromboplastin Tim 30 SECONDS (25.1-36.5)
--- NOTE | 2023-10-01 14:14 | P.HP_ITS ---
History of Present Illness History of Present Illness Date Patient Seen: 10/01/23 Chief complaint: still bleeding from rectum Narrative: Beto Hernandez is an 88yo M with PMH of A-fib on eliquis, HTN, HLD, GERD and BPH s/p TURP who presents with ongoing hematochezia after being discharged from the hospital yesterday. His eliquis was held with last dose being AM on 09/27. He had 5 bloody BM's on 09/27 then 1 on 09/28 and none on 09/29 so he was discharged. His Hgb was holding stable at that time. He now returns to the ED due to 2 more large bloody BM's this morning 09/30. He is also feeling more weak. Dr. Richardson gen surg consulted and will perform colonoscopy tomorrow. Patient also describes some left chest pain which has been on and off for months. He said the pain kept me up last night and describes it as stinging and constant. No EKG or troponin did in ED. He denies SOB, NV, abd pain or LE edema. [facility] Medical History Memory deficit Memory changes Iron deficiency anemia Melanoma Dermatitis Edema Rheumatic fever HLD (hyperlipidemia) HTN (hypertension) PSVT (paroxysmal supraventricular tachycardia) Diverticulosis GERD (gastroesophageal reflux disease) Left wrist fracture Heart disease Afib Surgical History History of total left hip arthroplasty Hx of transurethral resection of prostate Hx of prostatectomy Hx of sinus surgery History of total right hip arthroplasty (04/26/17) Hx of tonsillectomy Social History household members: spouse Smoking Status: Former smoker alcohol intake: current Meds Home Medications and Allergies Home Medications Medication Instructions Recorded Confirmed Type [VIT D3 ] 2,000 iu PO QDAY ##0 05/30/10 09/28/23 History finasteride 5 mg tablet 5 mg PO HS ##0 05/30/10 10/01/23 History alfuzosin 10 mg tablet,extended 10 mg PO QAM ##0 04/05/17 10/01/23 History release 24 hr (Uroxatral) amiodarone 200 mg tablet 200 mg PO QDAY ##0 04/05/17 10/01/23 History ferrous sulfate 325 mg (65 mg 325 mg PO QDAY ##0 04/05/17 10/01/23 History iron) tablet (Iron (ferrous sulfate)) fluticasone propionate 50 1 spray intranasal BID ##0 04/05/17 10/01/23 History mcg/actuation nasal spray,suspension (Flonase Allergy Relief) omeprazole 20 mg capsule,delayed 20 mg PO QPM ##0 04/05/17 10/01/23 History release ascorbic acid (vitamin C) 500 mg 1,000 mg PO QDAY ##0 04/10/17 10/01/23 History tablet multivitamin (Multiple Vitamins 1 tab PO QDAY ##0 04/10/17 10/01/23 History tablet) omega 0-wgy-lml-fish oil 1,000 mg 1,000 mg PO QDAY ##0 04/10/17 10/01/23 History (120 mg-180 mg) capsule (Fish Oil) loratadine 10 mg tablet 10 mg PO DAILY 12/16/19 10/01/23 History amlodipine 2.5 mg tablet 2.5 mg PO DAILY 09/13/22 10/01/23 History metoprolol succinate 25 mg 25 mg PO DAILY 09/13/22 10/01/23 History tablet,extended release 24 hr rosuvastatin 10 mg tablet 10 mg PO DAILY 09/13/22 10/01/23 History linaclotide 145 mcg capsule 145 mcg PO DAILY 09/28/23 10/01/23 History (Linzess) Allergies Allergy/AdvReac Type Severity Reaction Status Date / Time oxybutynin Allergy Hives Verified 10/01/23 12:57 tamsulosin Allergy Hives Verified 10/01/23 12:57 Review of Systems Review of Systems Narrative: All other systems reviewed with the patient and are negative unless otherwise stated. Exam Vital Signs (past 8 hours): - 10/01/23 12:53 10/01/23 13:15 10/01/23 13:22 Temperature 97.6 F Pulse Rate 69 60 Respiratory Rate 17 Blood Pressure 113/56 L 168/87 H Pulse Oximetry 98 99 Oxygen Delivery Method Room Air 10/01/23 13:22 10/01/23 13:30 10/01/23 13:30 Temperature Pulse Rate 65 63 Respiratory Rate 10 L 20 Blood Pressure 170/78 H Pulse Oximetry 98 99 Oxygen Delivery Method Room Air Oxygen Delivery Method Room Air Narrative Exam Narrative: GEN: no acute distress, elderly male HEENT: moist mucous membranes, PERRL NECK: trachea midline, no JVD CV: irregularly irregular, no murmurs PULM: clear bilaterally ABD: soft, nontender, nondistended, no organomegaly EXT: warm and well perfused with no edema NEURO: awake, alert, oriented, no focal deficits Objective Labs 10/01/23 13:28 10/01/23 13:28 Labs: Laboratory Results - last 24 hr 10/01/23 13:28 WBC 5.8 RBC 2.69 L Hgb 8.5 L Hct 23.7 L MCV 88.1 MCH 31.7 MCHC 36.0 RDW 13.6 Plt Count 118 L Neut % (Auto) 71.8 Lymph % (Auto) 17.2 L [place] % (Auto) 9.6 Eos % (Auto) 1.0 L Baso % (Auto) 0.4 Neut # (Auto) 4200 Lymph # (Auto) 1000 L [place] # (Auto) 600 Eos # (Auto) 100 Baso # (Auto) 0 PT 13.7 H INR 1.2 APTT 30 Sodium 130 L Potassium 3.4 Chloride 100 Carbon Dioxide 24 BUN 22 H Creatinine 1.08 Estimated GFR > 60 BUN/Creatinine Ratio 20.4 Glucose 117 H Calcium 8.4 Total Bilirubin 0.4 AST 23 ALT 15 Alkaline Phosphatase 59 Total Protein 6.1 L Albumin 3.6 Globulin 2.5 Albumin/Globulin Ratio 1.4 Assessment & Plan Assessment & Plan narrative: # persistent hematochezia - 5 bloody BM's on 09/27, 1 bloody BM on 09/28, 2 large bloody BM's on 09/30 - prep for colonoscopy on 10/[address] Dylan lima surg - trend Hgb, transfuse at <7 # chest pain - patient notes pain in left chest which is sharp and constant, doesn't change with palpation and deep breaths - check EKG and troponin - tele # A-fib - amiodarone, BB - eliquis now stopped. Last dose morning of 09/27. # Urinary retention / Hx of TURP - afluzosin, finasteride # GERD - PPI Code status is DNR, confirmed with patient. DVT prophylaxis with SCDs. Proxy is . I have reviewed home meds and used all available resources to reconcile the home meds. Case discussed with ED physician/APC and patient will be admitted to the hospitalist service for further workup and management. This patient will be admitted as observation and will require less than 2 midnights of hospital time to treat hematochezia.
[2023-10-01 14:43] LABS: Appearance Urine UA CLEAR; Bilirubin Urine UA NEGATIVE (NEGATIVE); Color Urine UA YELLOW; Glucose Urine UA NEGATIVE (Negative); Ketones Urine UA NEGATIVE (NEGATIVE); Leukocyte Esterase Urine UA 1+ (NEGATIVE); Nitrite Urine UA NEGATIVE (Negative); Occult Blood Urine UA NEGATIVE (Negative); Protein Urine UA NEGATIVE (Negative); Specific Gravity Urine UA <=1.005 (1.000-1.035); Urobilinogen Urine UA 0.2 E.U./dL (0.2); pH Urine UA 6.5 (4.5-8.0)
[2023-10-01 14:45] LABS: Urine Volume 10mL (spun)
[2023-10-01 14:48] LABS: Bacteria Urine None Seen; Culture Indicated Urine Specimen Cultured; RBC Urine None Seen (0-5/HPF); Squamous Epithelial Cell Urine 0-1 /HPF (0-5/HPF); WBC Urine 1-5/HPF (0-5/HPF)
[2023-10-01] MEDS: PEG3350/SOD SULF,BICARB,CL/KCL 4,000 ML SOLUTION 4000 ML PO (15:56)
--- NOTE | 2023-10-01 16:20 | PC.NURSE ---
Patient settled in his room and bed, go lytely prep started for patient and he is going to have a colonscopy tomorrow.
[2023-10-01 17:49] LABS: Troponin I < 0.012 ng/mL (0.01-0.034)
[2023-10-01] MEDS: ATORVASTATIN 20 MG TABLET PO (21:06)
[2023-10-01] MEDS: FINASTERIDE 5 MG TABLET PO (21:06)
--- NOTE | 2023-10-01 23:39 | PC.NURSE ---
Addendum entered by Roopa Russo R.N. 10/02/23 06:21: BP stable overnight. Patient stated he feels fine. Golytely prep completed. Addendum entered by Roopa Russo R.N. 10/02/23 01:02: Patient experienced dizziness and felt faint after standing up to [facility], BP 77/55 (MAP 52), HR 69, O2 saturation 98% on RA. Patient is alert and responsive to questions. Placed patient in trendelenberg. B. Notified MD Whelan, new orders: NS 500cc bolus, cont IVF of NS 100cc/hr, & stat H/H. BP currently 138/62, HR 67. 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 Forgetful at times. States that his chest pain on left side has decreased; is tender when pressing with his hand or when he takes a deep breath, declined pain medication. Otherwise patient states he is comfortable. VSS, O2 saturation 98% on RA, cont tele monitoring in place. Drinking golytely prep for colonoscopy tomorrow. Denies N/V, SOB. Oriented to call-light, fall precautions in place. Plan of care ongoing.
[2023-10-02] VITALS (12 sets, daily range): BP systolic 77–169; BP diastolic 55–87; PULSE 67–78; RESP 12–19; TEMP 36.3–37.1; O2SAT 97–99
[2023-10-02] MEDS: SODIUM CHLORIDE 0.9% 500 ML 1000 ML IV (01:09)
[2023-10-02] MEDS: SODIUM CHLORIDE 0.9% 1,000 ML 100 ML IV (01:10)
[2023-10-02 01:24] LABS: Hemoglobin 7.9 g/dL (13.5-17.5)
[2023-10-02] MEDS: PANTOPRAZOLE DR 20 MG TABLET PO (05:04)
[2023-10-02 05:27] LABS: Add Manual Diff / Slide Review NO; Basophils Absolute Auto 0 /uL (0-100); Basophils Percent Auto 0.3 % (0-2); Eosinophils Absolute Auto 100 /uL (0-450); Eosinophils Percent Auto 1.2 % (2-4); Hemoglobin 8.6 g/dL (13.5-17.5); Lymphocytes Absolute Auto 1000 /uL (1100-4500); Lymphocytes Percent Auto 17.6 % (25-40); Mean Corpuscular HGB Conc 35.7 % (30-36); Mean Corpuscular Hemoglobin 31.7 PG (26-34); Mean Corpuscular Volume 88.7 fL (80-100); Monocytes Absolute Auto 600 /uL (0-900); Monocytes Percent Auto 9.4 % (3-14); Neutrophils Absolute Auto 4200 /uL (1500-7000); Neutrophils Percent Auto 71.5 % (50-75); Platelet Count 125 X10^3/uL (150-400); Red Blood Cell Count 2.71 X10^6/uL (4.5-5.9); Red Cell Distribution Width 13.4 % (11.6-14.8); White Blood Cell Count 5.9 X10^3/uL (4.5-11.0)
[2023-10-02 05:38] LABS: BUN Creatinine Ratio 17.6 (6-22); Blood Urea Nitrogen 16 mg/dL (9-20); Calcium 7.9 mg/dL (8.4-10.2); Carbon Dioxide 29 mmol/L (22-32); Chloride 103 mmol/L (98-107); Estimated Glomerular Filt Rate > 60 mL/min (>60); Glucose 104 mg/dL (80-110); HEMOLYSIS < 15 (0-50); Potassium 3.2 mmol/L (3.4-5.1); Sodium 135 mmol/L (137-145)
--- NOTE | 2023-10-02 07:20 | P.PN_ITS ---
Subjective Subjective Interval history: From admission: Beto Hernandez is an 88yo M with PMH of A-fib on eliquis, HTN, HLD, GERD and BPH s/p TURP who presents with ongoing hematochezia after being discharged from the hospital yesterday. His eliquis was held with last dose being AM on 09/27. He had 5 bloody BM's on 09/27 then 1 on 09/28 and none on 09/29 so he was discharged. His Hgb was holding stable at that time. He now returns to the ED due to 2 more large bloody BM's this morning 09/30. He is also feeling more weak. Dr. Richardson gen surg consulted and will perform colonoscopy tomorrow. Patient also describes some left chest pain which has been on and off for months. He said the pain kept me up last night and describes it as stinging and constant. No EKG or troponin did in ED. He denies SOB, NV, abd pain or LE edema. Today: He denies abdominal pain, or nausea. He is mostly cleared with his prep. No shortness a breath. Exam Vital Signs (past 8 hours): - 10/02/23 00:00 10/02/23 00:45 10/02/23 01:00 Temperature 97.3 F L Pulse Rate 74 69 67 Respiratory Rate 17 Blood Pressure 135/61 77/55 L 138/62 Pulse Oximetry 98 98 Oxygen Flow Rate 0 0 10/02/23 05:00 Temperature 97.6 F Pulse Rate 71 Respiratory Rate 17 Blood Pressure 165/75 H Pulse Oximetry 98 Oxygen Flow Rate 0 Oxygen Delivery Method Room Air Oxygen Flow Rate 0 Narrative Exam Narrative: NAD, alert and oriented. Fluent speech. Lungs are clear, normal rate and effort. Heart is regular, no murmur gallop or rub. Abdomen is soft, non distended. Extremities are free of edema. Objective Labs 10/02/23 05:00 10/02/23 05:00 Labs: Laboratory Results - last 24 hr 10/01/23 10/01/23 10/02/23 13:28 14:41 01:11 WBC 5.8 RBC 2.69 L Hgb 8.5 L 7.9 L Hct 23.7 L 22.0 L MCV 88.1 MCH 31.7 MCHC 36.0 RDW 13.6 Plt Count 118 L Neut % (Auto) 71.8 Lymph % (Auto) 17.2 L [place] % (Auto) 9.6 Eos % (Auto) 1.0 L Baso % (Auto) 0.4 Neut # (Auto) 4200 Lymph # (Auto) 1000 L [place] # (Auto) 600 Eos # (Auto) 100 Baso # (Auto) 0 PT 13.7 H INR 1.2 APTT 30 Sodium 130 L Potassium 3.4 Chloride 100 Carbon Dioxide 24 BUN 22 H Creatinine 1.08 Estimated GFR > 60 BUN/Creatinine Ratio 20.4 Glucose 117 H Calcium 8.4 Total Bilirubin 0.4 AST 23 ALT 15 Alkaline Phosphatase 59 Troponin I < 0.012 Total Protein 6.1 L Albumin 3.6 Globulin 2.5 Albumin/Globulin Ratio 1.4 Urine Color Yellow Urine Appearance Clear Urine pH 6.5 Ur Specific [place] <=1.005 Urine Protein Negative Urine Glucose (UA) Negative Urine Ketones Negative Urine Occult Blood Negative Urine Nitrate Negative Urine Bilirubin Negative Urine Urobilinogen 0.2 Ur Leukocyte Esterase 1+ H Urine RBC None seen Urine WBC 1-5/hpf Ur Squamous Epith Cells 0-1 /hpf Urine Bacteria None seen Ur Culture Indicated? Specimen cultured Vol Urine Centrifuged 10ml (spun) Blood Type B Positive Antibody Screen Negative 10/02/23 05:00 WBC 5.9 RBC 2.71 L Hgb 8.6 L Hct 24.0 L MCV 88.7 MCH 31.7 MCHC 35.7 RDW 13.4 Plt Count 125 L Neut % (Auto) 71.5 Lymph % (Auto) 17.6 L [place] % (Auto) 9.4 Eos % (Auto) 1.2 L Baso % (Auto) 0.3 Neut # (Auto) 4200 Lymph # (Auto) 1000 L [place] # (Auto) 600 Eos # (Auto) 100 Baso # (Auto) 0 PT INR APTT Sodium 135 L Potassium 3.2 L Chloride 103 Carbon Dioxide 29 BUN 16 Creatinine 0.91 Estimated GFR > 60 BUN/Creatinine Ratio 17.6 Glucose 104 Calcium 7.9 L Total Bilirubin AST ALT Alkaline Phosphatase Troponin I Total Protein Albumin Globulin Albumin/Globulin Ratio Urine Color Urine Appearance Urine pH Ur Specific [place] Urine Protein Urine Glucose (UA) Urine Ketones Urine Occult Blood Urine Nitrate Urine Bilirubin Urine Urobilinogen Ur Leukocyte Esterase Urine RBC Urine WBC Ur Squamous Epith Cells Urine Bacteria Ur Culture Indicated? Vol Urine Centrifuged Blood Type Antibody Screen [facility] Medical History Memory deficit Memory changes Iron deficiency anemia Melanoma Dermatitis Edema Rheumatic fever HLD (hyperlipidemia) HTN (hypertension) PSVT (paroxysmal supraventricular tachycardia) Diverticulosis GERD (gastroesophageal reflux disease) Left wrist fracture Heart disease Afib Surgical History History of total left hip arthroplasty Hx of transurethral resection of prostate Hx of prostatectomy Hx of sinus surgery History of total right hip arthroplasty (04/26/17) Hx of tonsillectomy Social History household members: spouse Smoking Status: Former smoker alcohol intake: current Assessment & Plan Assessment & Plan narrative: # Hematochezia, present on admission and active. - 5 bloody BM's on 09/27, 1 bloody BM on 09/28, 2 large bloody BM's on 09/30 - prep for colonoscopy on 10/[address] Richardson general surgery. - trend Hgb, transfuse at <7 # chest pain (chronic for 2 months), present on admission and active. - patient notes pain in left chest which is sharp and constant, doesn't change with palpation and deep breaths - check EKG and troponin - tele # A-fib (chronic), present on admission and active. - amiodarone, BB - eliquis now stopped. Last dose morning of 09/27. # Urinary retention / Hx of TURP, present on admission and active. - afluzosin, finasteride # GERD, present on admission and active. - PPI Code status is DNR, confirmed with patient. DVT prophylaxis with SCDs. Proxy is . BHUMI 10/02. Quality VTE Deep Vein Thrombosis/Pulmonary Embolism Present on Admission: No
--- NOTE | 2023-10-02 09:13 | OT.IPNOTE ---
Per nursing pt to have colonoscopy today and therefore hold OT eval. Check on pt afterwards or as appropriate.
[2023-10-02] MEDS: METOPROLOL ER 25 MG TABLET PO (09:32)
--- NOTE | 2023-10-02 10:29 | PC.NURSE ---
Addendum entered by Yeimi Moy R.N. 10/02/23 15:19: [place] [facility] [place] worked with occupational therapy. Blood Pressure dropped to 102/53, blood pressure medications held. He is visiting with his now. Original Note: Patient has been on the bed gaines all morning after getting a bowel prep last night for a colonoscopy today. The last stool was loose, watery, and crimson colored. Patients blood pressure up to systolic of 160. Metoprolol given with a small sip of water. He is resting and we have asked to get him up to the bed side commode but he does not want to at this time. He had a near syncopal episode in the esl tutor and pressure went down to 77/55. He is alert, [place], and sometimes forgetful. He denies any dizziness and is resting.
--- NOTE | 2023-10-02 11:16 | CM.DANOTE ---
Patient is an 88 yo male, resident of [place], arrives with suspected lower GI bleed, admitted for medical management and close monitoring of H+H. Readmit after discharge couple days ago on 09/30/23 and now to have colonoscopy later this afternoon to determine source of bleed. PCP: Rod Horn Payer: [facility]/ [employer] Reviewed chart, met w/patient bedside to introduce self and role. Patient reports he lives w/spouse, indp with most ADLs, spouse assists with higher ADLs and typically drives. Patient /spouse have three daughters, two live out of town, one lives in [place] and available to assist as needed. No hx of HH or SNF. Pt confirms he discharged home a couple days ago via spouse POV and no discharge needs at that time and then yesterday morning had blood during bm and was readmitted to the hospital. Pt is hopeful to discharge home later today after colonoscopy but aware he may need to remain overnight. Pt does not anticipate any discharge needs at this time and preference is home at discharge. Plan: SW to follow closely after colonoscopy to confirm safe d/c home with spouse and any further identified discharge planning needs. LORETO Du Discharge Planning/Care Management CM Discharge Assessment Start: 10/02/23 11:14 Freq: Status: Active Protocol: Document 10/02/23 11:14 BF (Rec: 10/02/23 11:16 [id number]) Discharge Planning Assessment Assigned Seed Collector LORETO Levine DPOA/Assigned Designee Name spouse Lyly Contact Information [phone] Advance Directives? Yes Advance Directives on File No History Provided By Patient,Medical Record Has Patient been admitted in last 30 Yes days? Comment Just discharged on 09/30/23 for similar and discharged home no needs, readmit Prior Living Arrangements House Household Members spouse Type of transporation used prior to Drives own vehicle admit Independent with ADL's Yes Is patient alert and oriented? Yes: memory mild short term memory Needs Assistance With Home Chores / Shopping Caregiver for Another No DME Already Rented / Owned Cane Comment Follow post colonoscopy later today to confirm if HH needed at d/c Barriers to Discharge No Comment Home w/family is expected. Patient may be a good candidiate for HH Discharge Plan Home Transportation Arrangement Family Additional Comment TBD. Following closely as medical plan of care unfolds Whiteboard Updated in Patient Room with Yes name and ext. # of Seed Collector Review Status In Process Please Provide Date Initial DC 10/02/23 Assessment Was Performed Next Review Type Continued Stay Review
--- NOTE | 2023-10-02 11:48 | PT-IP ANOTE ---
PT marisol received and reviewed EMR. per nurse, pt is not appropriate for PT at this time. pt is going to have colonoscopy this afternoon and is doing his prep right now and is using the bed gaines. also stated that pt has low BP this morning. will f/u after colonoscopy.
[2023-10-02 12:53] LABS: Hematocrit 22.1 % (41-53)
--- NOTE | 2023-10-02 12:56 | PM.CN ---
History of Present Illness Consult details Date Patient Seen: 10/02/23 Time Patient Seen: 12:57 Chief complaint: still bleeding from rectum Reason for consult: GI bleed, anticoagulation held Requesting provider: Zach James Narrative: Patient has confusion and dementia. Returned to ED after his rectal bleeding recurred. No abdominal pain. Bowel prepped with blood tinged liquid stool now. Hgb was stable on morning draw. Meds Home Medications and Allergies Home Medications Medication Instructions Recorded Confirmed Type [VIT D3 ] 2,000 iu PO QDAY ##0 05/30/10 10/01/23 History finasteride 5 mg tablet 5 mg PO HS ##0 05/30/10 10/01/23 History alfuzosin 10 mg tablet,extended 10 mg PO QAM ##0 04/05/17 10/01/23 History release 24 hr (Uroxatral) amiodarone 200 mg tablet 200 mg PO QDAY ##0 04/05/17 10/01/23 History ferrous sulfate 325 mg (65 mg 325 mg PO QDAY ##0 04/05/17 10/01/23 History iron) tablet (Iron (ferrous sulfate)) fluticasone propionate 50 1 spray intranasal BID ##0 04/05/17 10/01/23 History mcg/actuation nasal spray,suspension (Flonase Allergy Relief) omeprazole 20 mg capsule,delayed 20 mg PO QPM ##0 04/05/17 10/01/23 History release ascorbic acid (vitamin C) 500 mg 1,000 mg PO QDAY ##0 04/10/17 10/01/23 History tablet multivitamin (Multiple Vitamins 1 tab PO QDAY ##0 04/10/17 10/01/23 History tablet) omega 3-pqr-ljr-fish oil 1,000 mg 1,000 mg PO QDAY ##0 04/10/17 10/01/23 History (120 mg-180 mg) capsule (Fish Oil) loratadine 10 mg tablet 10 mg PO DAILY 12/16/19 10/01/23 History amlodipine 2.5 mg tablet 2.5 mg PO DAILY 09/13/22 10/01/23 History metoprolol succinate 25 mg 25 mg PO DAILY 09/13/22 10/01/23 History tablet,extended release 24 hr rosuvastatin 10 mg tablet 10 mg PO DAILY 09/13/22 10/01/23 History linaclotide 145 mcg capsule 145 mcg PO DAILY 09/28/23 10/01/23 History (Linzess) lysine 500 mg capsule 500 mg PO DAILY 10/02/23 10/02/23 History Allergies Allergy/AdvReac Type Severity Reaction Status Date / Time oxybutynin Allergy Hives Verified 10/01/23 12:57 tamsulosin Allergy Hives Verified 10/01/23 12:57 Review of Systems Review of Systems ROS: Yes unobtainable due to mental condition Exam Vital Signs (past 8 hours): - 10/02/23 05:00 10/02/23 08:44 10/02/23 12:00 Temperature 97.6 F 97.4 F L 97.8 F Pulse Rate 71 78 69 Respiratory Rate 17 19 18 Blood Pressure 165/75 H 163/73 H 150/72 H Pulse Oximetry 98 97 98 Oxygen Flow Rate 0 0 0 Oxygen Delivery Method Room Air Oxygen Flow Rate 0 Const General: anxious and frail appearing Nutritional Appearance: thin HENMT Head: normal to inspection, normocephalic and atraumatic Eyes General: appearance normal, both eyes and all related structures Sclera: sclerae normal Neck Neck: trachea midline Resp Effort & Inspection: normal respiratory effort and able to speak in complete sentences Cardio Rate: regular rate Rhythm: abnormal rhythm GI Inspection: non-distended Palpation: soft and No tender Skin General: atrophy Neuro General: patient alert, patient awake and moves all extremities Psych Judgment: limited Objective Labs 10/02/23 05:00 10/02/23 05:00 Labs: Laboratory Results - last 24 hr 10/01/23 10/01/23 10/02/23 13:28 14:41 01:11 WBC 5.8 RBC 2.69 L Hgb 8.5 L 7.9 L Hct 23.7 L 22.0 L MCV 88.1 MCH 31.7 MCHC 36.0 RDW 13.6 Plt Count 118 L Neut % (Auto) 71.8 Lymph % (Auto) 17.2 L [place] % (Auto) 9.6 Eos % (Auto) 1.0 L Baso % (Auto) 0.4 Neut # (Auto) 4200 Lymph # (Auto) 1000 L [place] # (Auto) 600 Eos # (Auto) 100 Baso # (Auto) 0 PT 13.7 H INR 1.2 APTT 30 Sodium 130 L Potassium 3.4 Chloride 100 Carbon Dioxide 24 BUN 22 H Creatinine 1.08 Estimated GFR > 60 BUN/Creatinine Ratio 20.4 Glucose 117 H Calcium 8.4 Total Bilirubin 0.4 AST 23 ALT 15 Alkaline Phosphatase 59 Troponin I < 0.012 Total Protein 6.1 L Albumin 3.6 Globulin 2.5 Albumin/Globulin Ratio 1.4 Urine Color Yellow Urine Appearance Clear Urine pH 6.5 Ur Specific [place] <=1.005 Urine Protein Negative Urine Glucose (UA) Negative Urine Ketones Negative Urine Occult Blood Negative Urine Nitrate Negative Urine Bilirubin Negative Urine Urobilinogen 0.2 Ur Leukocyte Esterase 1+ H Urine RBC None seen Urine WBC 1-5/hpf Ur Squamous Epith Cells 0-1 /hpf Urine Bacteria None seen Ur Culture Indicated? Specimen cultured Vol Urine Centrifuged 10ml (spun) Blood Type B Positive Antibody Screen Negative 10/02/23 05:00 WBC 5.9 RBC 2.71 L Hgb 8.6 L Hct 24.0 L MCV 88.7 MCH 31.7 MCHC 35.7 RDW 13.4 Plt Count 125 L Neut % (Auto) 71.5 Lymph % (Auto) 17.6 L [place] % (Auto) 9.4 Eos % (Auto) 1.2 L Baso % (Auto) 0.3 Neut # (Auto) 4200 Lymph # (Auto) 1000 L [place] # (Auto) 600 Eos # (Auto) 100 Baso # (Auto) 0 PT INR APTT Sodium 135 L Potassium 3.2 L Chloride 103 Carbon Dioxide 29 BUN 16 Creatinine 0.91 Estimated GFR > 60 BUN/Creatinine Ratio 17.6 Glucose 104 Calcium 7.9 L Total Bilirubin AST ALT Alkaline Phosphatase Troponin I Total Protein Albumin Globulin Albumin/Globulin Ratio Urine Color Urine Appearance Urine pH Ur Specific [place] Urine Protein Urine Glucose (UA) Urine Ketones Urine Occult Blood Urine Nitrate Urine Bilirubin Urine Urobilinogen Ur Leukocyte Esterase Urine RBC Urine WBC Ur Squamous Epith Cells Urine Bacteria Ur Culture Indicated? Vol Urine Centrifuged Blood Type Antibody Screen [facility] Medical History Memory deficit Memory changes Iron deficiency anemia Melanoma Dermatitis Edema Rheumatic fever HLD (hyperlipidemia) HTN (hypertension) PSVT (paroxysmal supraventricular tachycardia) Diverticulosis GERD (gastroesophageal reflux disease) Left wrist fracture Heart disease Afib Surgical History History of total left hip arthroplasty Hx of transurethral resection of prostate Hx of prostatectomy Hx of sinus surgery History of total right hip arthroplasty (04/26/17) Hx of tonsillectomy Social History household members: spouse Tobacco & Substance Use Smoking Status: Former smoker alcohol intake: current Assessment & Plan Assessment & Plan narrative: Colonoscopy with possible hemorrhoid banding. For lower GI bleed. Hold anticoagulant. Time Spent With Patient Time with patient: less than 30 minutes
--- NOTE | 2023-10-02 13:19 | PM.CN ---
History of Present Illness Consult details Date Patient Seen: 10/02/23 Time Patient Seen: 13:19 Chief complaint: still bleeding from rectum Narrative: 88-year-old man admitted to the hospital for GI bleed. Bright red blood per rectum hemodynamically stable current hematocrit 22. Was hospitalized last week for the same issue did not undergo endoscopy at that time. History of atrial fibrillation on Eliquis has been on hold for several days now. Meds Home Medications and Allergies Home Medications Medication Instructions Recorded Confirmed Type [VIT D3 ] 2,000 iu PO QDAY ##0 05/30/10 10/01/23 History finasteride 5 mg tablet 5 mg PO HS ##0 05/30/10 10/01/23 History alfuzosin 10 mg tablet,extended 10 mg PO QAM ##0 04/05/17 10/01/23 History release 24 hr (Uroxatral) amiodarone 200 mg tablet 200 mg PO QDAY ##0 04/05/17 10/01/23 History ferrous sulfate 325 mg (65 mg 325 mg PO QDAY ##0 04/05/17 10/01/23 History iron) tablet (Iron (ferrous sulfate)) fluticasone propionate 50 1 spray intranasal BID ##0 04/05/17 10/01/23 History mcg/actuation nasal spray,suspension (Flonase Allergy Relief) omeprazole 20 mg capsule,delayed 20 mg PO QPM ##0 04/05/17 10/01/23 History release ascorbic acid (vitamin C) 500 mg 1,000 mg PO QDAY ##0 04/10/17 10/01/23 History tablet multivitamin (Multiple Vitamins 1 tab PO QDAY ##0 04/10/17 10/01/23 History tablet) omega 3-lci-aue-fish oil 1,000 mg 1,000 mg PO QDAY ##0 04/10/17 10/01/23 History (120 mg-180 mg) capsule (Fish Oil) loratadine 10 mg tablet 10 mg PO DAILY 12/16/19 10/01/23 History amlodipine 2.5 mg tablet 2.5 mg PO DAILY 09/13/22 10/01/23 History metoprolol succinate 25 mg 25 mg PO DAILY 09/13/22 10/01/23 History tablet,extended release 24 hr rosuvastatin 10 mg tablet 10 mg PO DAILY 09/13/22 10/01/23 History linaclotide 145 mcg capsule 145 mcg PO DAILY 09/28/23 10/01/23 History (Linzess) lysine 500 mg capsule 500 mg PO DAILY 10/02/23 10/02/23 History Allergies Allergy/AdvReac Type Severity Reaction Status Date / Time oxybutynin Allergy Hives Verified 10/01/23 12:57 tamsulosin Allergy Hives Verified 10/01/23 12:57 Exam Vital Signs (past 8 hours): - 10/02/23 08:44 10/02/23 12:00 Temperature 97.4 F L 97.8 F Pulse Rate 78 69 Respiratory Rate 19 18 Blood Pressure 163/73 H 150/72 H Pulse Oximetry 97 98 Oxygen Flow Rate 0 0 Oxygen Delivery Method Room Air Oxygen Flow Rate 0 Narrative Exam Narrative: General adult man alert oriented no acute distress Chest nonlabored respiration Extremities warm well perfused Objective Labs 10/02/23 12:40 10/02/23 05:00 Labs: Laboratory Results - last 24 hr 10/01/23 10/01/23 10/02/23 13:28 14:41 01:11 WBC 5.8 RBC 2.69 L Hgb 8.5 L 7.9 L Hct 23.7 L 22.0 L MCV 88.1 MCH 31.7 MCHC 36.0 RDW 13.6 Plt Count 118 L Neut % (Auto) 71.8 Lymph % (Auto) 17.2 L [place] % (Auto) 9.6 Eos % (Auto) 1.0 L Baso % (Auto) 0.4 Neut # (Auto) 4200 Lymph # (Auto) 1000 L [place] # (Auto) 600 Eos # (Auto) 100 Baso # (Auto) 0 PT 13.7 H INR 1.2 APTT 30 Sodium 130 L Potassium 3.4 Chloride 100 Carbon Dioxide 24 BUN 22 H Creatinine 1.08 Estimated GFR > 60 BUN/Creatinine Ratio 20.4 Glucose 117 H Calcium 8.4 Total Bilirubin 0.4 AST 23 ALT 15 Alkaline Phosphatase 59 Troponin I < 0.012 Total Protein 6.1 L Albumin 3.6 Globulin 2.5 Albumin/Globulin Ratio 1.4 Urine Color Yellow Urine Appearance Clear Urine pH 6.5 Ur Specific [place] <=1.005 Urine Protein Negative Urine Glucose (UA) Negative Urine Ketones Negative Urine Occult Blood Negative Urine Nitrate Negative Urine Bilirubin Negative Urine Urobilinogen 0.2 Ur Leukocyte Esterase 1+ H Urine RBC None seen Urine WBC 1-5/hpf Ur Squamous Epith Cells 0-1 /hpf Urine Bacteria None seen Ur Culture Indicated? Specimen cultured Vol Urine Centrifuged 10ml (spun) Blood Type B Positive Antibody Screen Negative 10/02/23 10/02/23 05:00 12:40 WBC 5.9 RBC 2.71 L Hgb 8.6 L 8.0 L Hct 24.0 L 22.1 L MCV 88.7 MCH 31.7 MCHC 35.7 RDW 13.4 Plt Count 125 L Neut % (Auto) 71.5 Lymph % (Auto) 17.6 L [place] % (Auto) 9.4 Eos % (Auto) 1.2 L Baso % (Auto) 0.3 Neut # (Auto) 4200 Lymph # (Auto) 1000 L [place] # (Auto) 600 Eos # (Auto) 100 Baso # (Auto) 0 PT INR APTT Sodium 135 L Potassium 3.2 L Chloride 103 Carbon Dioxide 29 BUN 16 Creatinine 0.91 Estimated GFR > 60 BUN/Creatinine Ratio 17.6 Glucose 104 Calcium 7.9 L Total Bilirubin AST ALT Alkaline Phosphatase Troponin I Total Protein Albumin Globulin Albumin/Globulin Ratio Urine Color Urine Appearance Urine pH Ur Specific [place] Urine Protein Urine Glucose (UA) Urine Ketones Urine Occult Blood Urine Nitrate Urine Bilirubin Urine Urobilinogen Ur Leukocyte Esterase Urine RBC Urine WBC Ur Squamous Epith Cells Urine Bacteria Ur Culture Indicated? Vol Urine Centrifuged Blood Type Antibody Screen PENDING SALE TO [facility] Medical History Memory deficit Memory changes Iron deficiency anemia Melanoma Dermatitis Edema Rheumatic fever HLD (hyperlipidemia) HTN (hypertension) PSVT (paroxysmal supraventricular tachycardia) Diverticulosis GERD (gastroesophageal reflux disease) Left wrist fracture Heart disease Afib Surgical History History of total left hip arthroplasty Hx of transurethral resection of prostate Hx of prostatectomy Hx of sinus surgery History of total right hip arthroplasty (04/26/17) Hx of tonsillectomy Social History household members: spouse Tobacco & Substance Use Smoking Status: Former smoker alcohol intake: current Assessment & Plan Assessment & Plan narrative: 88-year-old man history of AFib on Eliquis hemodynamically stable with GI bleed presumably lower. Plan is for diagnostic colonoscopy with possible hemorrhoidal banding. Overview of procedure discussed. Procedural risks including hemorrhage, missed diagnosis, intestinal injury were reviewed. Questions have been answered he provides his consent to proceed.
[2023-10-02] MEDS: LACTATED RINGERS 1,000 ML 150 ML IV (13:21)
--- NOTE | 2023-10-02 13:55 | PM.OP.EC ---
Operative Date/Time/Diagnoses Date of procedure: 10/02/23 Time of procedure: 13:55 Pre-op diagnosis: GI bleed Post-op diagnosis: other (Aguilar's ulcer) Procedure & Clinicians Study performed: Diagnostic esophagogastroduodenoscopy and colonoscopy Same procedure as scheduled: Yes Indications: 88-year-old man readmitted to the hospital with GI bleed hemodynamically stable. Surgeon: Jarred Dexter Procedure Notes Procedure in detail: The history and physical was performed/updated and the patient is ASA class is 3E. The procedure was discussed in detail with the patient. Potential risks complications including infection, bleeding, missed diagnosis, perforation, need for surgery, and were explained. Their questions were answered and informed consent was obtained. Examination began with a thorough inspection of the perianal area there was no evidence of fissures, fistulae, external hemorrhoids or cutaneous malignancy. The colonoscopy scope was then placed into the anal canal and was advanced to the cecum, which was identified by the ileocecal valve, the appendiceal orifice and the confluence of the taenia. The scope was then slowly withdrawn examining colon thoroughly in all directions, irrigating it of any residual stool. A bite block was placed. the scope was inserted into the mouth and advanced through the esophagus and into the stomach. the pylorus was intubated and the duodenum was examined to the 2nd portion. The scope was retroflexed within the stomach. The stomach was then decompressed and scope pulled back to the GE junction. The scope was then removed FINDINGS -clots of blood within the colon all the way to the ileocecal valve. - No active bleeding within the colon. -Upper endoscopy notable for a nonbleeding linear shallow ulcer/Aguilar's ulcer within gastric cardia secondary to a hiatal hernia. The patient tolerated the procedure well. They will be discharged once criteria are met. The prep was of poor quality. The withdrawl time was * minutes. Specimen(s): none sent Impression: Nonbleeding Aguilar's ulcer Post-procedure Plan for aftercare: Continued to hold Eliquis. Continue PPI therapy Disposition: Acute Care
--- NOTE | 2023-10-02 15:00 | OT.IP.EVAL ---
Current Diagnoses Melena (10/01/23) Surgery Performed Operation Date: 10/02/23 14:30 Actual Procedures p Colonoscopy(Not Applicable) - Jarred Dexter MD s Esophagogastroduodenoscopy(Not Applicable) - Jarred Dexter MD Past Medical History (Last Reviewed 10/02/23 @ 13:20 by Jarred Dexter MD) Afib Dermatitis Diverticulosis Edema GERD (gastroesophageal reflux disease) Heart disease HLD (hyperlipidemia) HTN (hypertension) Iron deficiency anemia Left wrist fracture Melanoma Memory changes Memory deficit PSVT (paroxysmal supraventricular tachycardia) Rheumatic fever Surgical History (Last Reviewed 10/02/23 @ 13:20 by Jarred Dexter MD) 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 Activities of Daily Living and IADL's Pt states prior was completely independent with all ADL and IADL needs. Social History Household Members spouse Living Arrangements House Number of Floors (Floors) 3 or More Floors Number of Stairs To Enter/Railing? 3 steps with left rail to enter the house. 4 steps with bilateral rails to the den downstairs and 8+ steps with bilateral rails up to the bedroom . Pt has a one step to the living room. Home Environment High Toilet,Walk in Shower Home Equipment Hand Held Shower,Grab Bars Near Toilet Additional Social History Comment Pt has a hurry cane. 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 M2 OT-IP Current Condition Start: 10/02/23 15:04 Freq: Status: Active Protocol: Document 10/02/23 15:04 [facility] (Rec: 10/02/23 15:20 [facility] [id number]) Occupational Therapy Current Condition Current Condition Evaluation Date 10/02/23 Treatment Diagnosis Hematochezia, weakness Diagnosis Onset Date 10/01/23 M3 OT- IP Subjective and Pain Start: 10/02/23 15:04 Freq: Status: Active Protocol: Document 10/02/23 15:04 [facility] (Rec: 10/02/23 15:20 [facility] [id number]) OT- Subjective Occupational Therapy Visit Type Type Initial Evaluation Visit Start Time 14:30 Visit Stop Time 15:00 Occupational Therapy Visit Comments Patient Comments Pt wanting to use the bathroom . Patient/Caregiver Goals To go home. OT Pain Assessment Pain When Pain Assessed At Rest Pain Present Pain Present Denied Pain M4 OT- IP ADL's Start: 10/02/23 15:04 Freq: Status: Active Protocol: Document 10/02/23 15:04 [facility] (Rec: 10/02/23 15:20 [facility] [id number]) OT [id number] Comments OT Self-Feeding Comments Pt was NPO this morning. OT ADL-Grooming Comments OT Grooming Comments Not performed. OT ADL-Oral Care Comments Oral Care Comments Not performed. OT ADL-Dressing General Eval Lower Body Dressing Ability Minimal Assistance Comments OT Dressing Comments Assist to help get his the brief over his feet and CGA for balance while putting up the brief over his hips. OT ADL-Toileting General Evaluation Toileting Ability Minimal Assistance Areas Needing Assistance Manage Clothing Comments OT Toileting Comments Assist for brief and vc for completeness to wipe. OT ADL-Bathing Comments OT Bathing Comments Pt having low BP , not performed. Suggested to his to get a shower chair for the shower. M5 OT- IP IADL's Start: 10/02/23 15:04 Freq: Status: Active Protocol: Document 10/02/23 15:04 [facility] (Rec: 10/02/23 15:20 [facility] [id number]) OT-Instrumental Activities of Daily Living Home Safety Awareness Awareness of Need for Assistance at Home Good Awareness Ability to Problem Solve Emergency Able to Problem Solve Situations Medication Management Medication Management Comments Pt uses a pill box. Money Management Money Management Comments Pt pays the bills. Meal Preparation Meal Preparation Caregiver Provides Assist Pan Washer Pan Washer Caregiver Provides Assist M6 OT- IP Functional Cognition Start: 10/02/23 15:04 Freq: Status: Active Protocol: Document 10/02/23 15:04 [facility] (Rec: 10/02/23 15:20 [facility] [id number]) Cognitive Factors Limiting Selfcare Function Cognitive Ability Level of Alertness Alert Patient Orientation Name,Age,Birthday,Month,Date, Year,Day of Week,Place, Situation Attention Span Ability Capable of Focused Attention, Capable of Sustained Attention Ability to Follow Commands Able to Follow One Step Commands Cognitive Comments Cognitive Assessment Comments Pt able to follow directions for ADL an mobility needs but very hard of hearing, pt does not have his hearing aids in. OT- Vision and Hearing OT- Hearing Assessment OT- Hearing Assessment Hearing Impaired,Use of Hearing Aids OT- Vision Assessment Visual Acuity Glasses All The Time Visual Attentiveness WFL Occular Pursuits WFL Vision Assessment Comments Pt able to read the clock accurately. M7 OT- IP Mobility and Balance Start: 10/02/23 15:04 Freq: Status: Active Protocol: Document 10/02/23 15:04 [facility] (Rec: 10/02/23 15:20 [facility] [id number]) OT- Bed Mobility Assessment Supine to Sit Supine to Sit Assist Contact Guard Assistance Scooting Scooting to Edge of Bed Contact Guard Assistance OT-Transfer Assessment Sit to and From Stand Sit to and from Stand Contact Guard Assistance Transfers Transfer Ability Minimal Assistance Technique Transfer Destination Bed,Bedside Commode Transfer Technique Stand Step Pivot Devices Transfer Assistive Devices None,Gait Belt Comments Mobility Comments Pt BP supine 157/65, sitting 124/61 and feeling dizzy, after transfer to BSC 132/72, 151/77, after getting back to bed 103/53 O2 on RA 99%. Pt very unsteady on his feet and needing FRANCESCA for the transfer and at this time best to use a FWW. Pt's states their house is too small for a FWW. OT- Balance Assessment Sitting Balance and Reactions Static Sitting Balance Ability Good Dynamic Sitting Balance Ability Fair Standing Balance and Reactions Static Standing Balance Ability Fair Dynamic Standing Balance Ability Poor+ M8 OT- IP Objective Assessments Start: 10/02/23 15:04 Freq: Status: Active Protocol: Document 10/02/23 15:04 [facility] (Rec: 10/02/23 15:20 [facility] [id number]) OT Gross Range of Motion Upper Extremity Range of Motion Assessment Within Functional Limits OT Strength Upper Extremity Strength Assessment Within Functional Limits M9 OT- IP Assessment and Plan Start: 10/02/23 15:04 Freq: Status: Active Protocol: Document 10/02/23 15:04 [facility] (Rec: 10/02/23 15:20 [facility] [id number]) OT Summary Assessment and Plan Potential Rehabilitation Potential Good Analytic Complexity at Evaluation Moderate Summary OT Impairments Strength,Balance,Functional Mobility,Grooming,Dressing, Toileting,Bathing,Toilet Transfers,Shower Transfers, Activity Tolerance Progress Towards Goals Slow Progress due to Medical Issues,Slow Progress due to Activity Tolerance Assessment Summary Pt MOD complexity and here due to persistent hematochezia and weakness. Pending progress and medical needs. Pt to go home with assist and home health. Pt able to transfer to the [facility] but getting dizzy and BP dropped from 151/77 to 103/53. Goals Grooming Goal Independent Dressing Goal Independent Toileting Goal Independent Bathing Goal Independent Toilet Transfer Goal Independent Shower Transfer Goal Independent Patient/Caregiver Education Goal Demonstrate Energy Conservation and Pacing Days to Meet Goals 7 Frequency of Treatment Frequency Of Treatment Once a Day Treatment Plan OT Treatment Plan ADL Training,Functional Mobility,Patient/Family Education,Discharge Planning Discharge Recommendations OT Discharge Recommendations Home with Assistance,Home Health Home Equipment Needs shower chair, FWW? Transportation Needs at Discharge Private Vehicle
--- NOTE | 2023-10-02 15:10 | PT.IIE ---
Current Diagnoses Melena (10/01/23) Surgery Performed Operation Date: 10/02/23 14:30 Actual Procedures p Colonoscopy(Not Applicable) - Jarred Dexter MD s Esophagogastroduodenoscopy(Not Applicable) - Jarred Dexter MD Surgical History (Last Reviewed 10/02/23 @ 13:20 by Jarred Dexter MD) 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 right hip arthroplasty (04/26/17) Hx of prostatectomy Hx of sinus surgery Hx of tonsillectomy Hx of transurethral resection of prostate Medical History (Last Reviewed 10/02/23 @ 13:20 by Jarred Dexter MD) Afib Dermatitis Diverticulosis Edema GERD (gastroesophageal reflux disease) Heart disease HLD (hyperlipidemia) HTN (hypertension) Iron deficiency anemia Left wrist fracture Melanoma Memory changes Memory deficit PSVT (paroxysmal supraventricular tachycardia) Rheumatic fever Physical Therapy Inpatient Evaluation/Re-Eval M1 PT/OT-IP Prior Functional Status Start: 10/02/23 11:48 Freq: NEEDED Status: Active Protocol: Document 10/02/23 15:10 [facility] (Rec: 10/02/23 16:09 [id number]) Medical Review Prior Functional Status Medical History Reviewed Yes Communication able to make needs known Mobility and Gait pt stated that he was modified independent with all mobilities and ambulation without AD but occasionally uses a hurrycane for outdoor mobility Social History Household Members spouse Living Arrangements House Number of Floors (Floors) 3 or More Floors Number of Stairs To Enter/Railing? 3 steps with B rail to enter the house has a one step down to the living room and also a step up to dining room has 13 steps B rails to get to bedroom level Home Environment High Toilet,Walk in Shower Home Equipment Hand Held Shower,Grab Bars Near Toilet Additional Social History Comment Pt has a hurry cane. 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 M2 PT-IP Current Condition Start: 10/02/23 11:48 Freq: NEEDED Status: Active Protocol: Document 10/02/23 15:10 [facility] (Rec: 10/02/23 16:09 [facility] [id number]) Physical Therapy Current Condition Current Condition Evaluation Date 10/02/23 Treatment Diagnosis GI bleed; difficulty in walking Onset Date 10/01/23 M3 PT-IP Subjective Start: 10/02/23 11:48 Freq: NEEDED Status: Active Protocol: Document 10/02/23 15:10 [facility] (Rec: 10/02/23 16:09 AB [id number]) Subjective Physical Therapy Visit Type Type Initial Evaluation Visit Start Time 15:10 Visit Stop Time 15:45 Number of [employer] Visits 0 Physical Therapy Visit Comments Patient Comments requested to use the toilet M4 PT-IP Mobility and Gait Start: 10/02/23 11:48 Freq: NEEDED Status: Active Protocol: Document 10/02/23 15:10 [facility] (Rec: 10/02/23 16:09 AB [id number]) PT-Bed Mobility Assessment Supine to Sit Supine to Sit Standby Assistance Sit to Supine Sit to Supine Standby Assistance PT-Transfer Assessment Sit to and From Stand Sit to and from Stand Contact Guard Assistance,1 Person Assistance,Use of Upper Extremities Equipment Transfer Assistive Device Gait Belt,Front Wheeled Walker Orthotic/Prosthetic Devices or Brace: No Transfers Transfer Destination Bedside Commode Transfer Technique Stand Step Pivot Transfer Ability Level of Assist Contact Guard Assistance,1 Person Assistance,Use of Upper Extremities Comments Mobility Comments pt supine in bed. spouse in room. obtained PLOF and home set up from pt. pt has just admitted to the hospital 09/27 to 09/30/23 also for GI bleed. pt requesting to use the toilet. per nurse: pt's BP tends to drop. BP monitored . BP in supine: 155/66. pt completed supine to sit SBA. able to sit on EOB SBA. pt with increase upper back lordosis and with forward head position. pt with c/o lightheadedness. BP sittin/68. nurse in room also to assist if needed. pt completed sit to stand CGA and step transfer to bedside commode CGA. assisted pt the brief management. BP after transfers: 119/60. c/o lightheadedness, numbness on the head per pt. pt completed sit to stand from bedside commode CGA and step transfer back to bed CGA using fWW. BP sitting on EOB after transfers: 138/64. pt completed sit to supine SBA. positioned pt in bed. call light and table placed within reach. hospitalist came in to check on pt. Left pt with hospitalist and nurse in room. Gait Assessment Comments Gait Comments ambulation not attempted due to decrease in BP but pt able to take steps during transfers using FWW CGA PT-Balance Assessment Sitting Balance and Reactions Static Sitting Balance Ability Normal Dynamic Sitting Balance Ability Good Standing Balance and Reactions Static Standing Balance Ability Fair Dynamic Standing Balance Ability Fair Device Used FWW M5 PT-IP Objective Assessments Start: 10/02/23 11:48 Freq: NEEDED Status: Active Protocol: Document 10/02/23 15:10 [facility] (Rec: 10/02/23 16:09 AB [id number]) Orientation Orientation/Cognition Level of Alertness Alert Orientation Name,Place,Situation Language Function Ability Hard of Hearing Safety Awareness Decreased Safety Awareness Memory Description Short Term Impaired Gross Range of Motion Lower Extremity ROM Assessment Within Functional Limits Strength Lower Extremity Strength Assessment Within Functional Limits Muscle Tone Muscle Tone WNL Yes M6 PT-IP Treatment Start: 10/02/23 11:48 Freq: NEEDED Status: Active Protocol: Document 10/02/23 15:10 [facility] (Rec: 10/02/23 16:09 AB [id number]) Physical Therapy Treatment Education Education Provided Safety M7 PT-IP Assessment and Plan Start: 10/02/23 11:48 Freq: NEEDED Status: Active Protocol: Document 10/02/23 15:10 [facility] (Rec: 10/02/23 16:09 AB [id number]) PT Summary Assessment and Plan Potential Rehabilitation Potential Fair Status of Condition at Evaluation Evolving Summary Impairments Pain,ROM,Strength,Balance, Coordination,Sensation,Tone, Cognition,Bed Mobility, Transfers,Gait,Activity Tolerance Assessment Summary pt is an 88 y/o M who presented back to the ED due to bloody stool. pt was just admitted to the hospital 09/27-09/30/23 also for the same concern. Pt admitted for GI bleed. pt just completed endoscopy and colonoscopy procedure. pt requiring SBA for bed mobility and CGA for transfers using fWW. Ambulation not attempted today due to pt's decrease in BP and c/o lightheadedness. will continue to assess progress. pt plans to go home and spouse to assist pt if needed. Goals Bed Mobility Goal Independent Transfer Goal Independent,Front Wheeled Walker Gait Goal Independent,Front Wheel Walker Gait Distance 250 Other Goals improve transfers and ambulation using hurrycane/ LRAD/without AD mod I up/down 13 steps B rails mod I up/down 1 step without rails mod I Days to Meet Goals 10 Frequency of Treatment Frequency Of Treatment Once a Day Treatment Plan Physical Therapy Treatment Plan Bed Mobility Training,Transfer Training,Gait Training, Therapeutic Exercise,Balance Retraining,Post Op Education, Discharge Planning,Hot or Cold Pack,Neuromuscular Re-ed, Coordination Retraining,Manual Therapy Precautions Other Precautions BP Recommendations To Nursing Amount of Assist Needed 1 Person Assist Discharge Recommendations PT Discharge Recommendations Home with 11/12 Assist Available,Home Health Transportation Needs at Discharge Private Vehicle
[2023-10-02] MEDS: POTASSIUM CHLORIDE 20 MEQ TAB 40 MEQ PO ×2 (17:18→22:25)
[2023-10-02] MEDS: ATORVASTATIN 20 MG TABLET PO (20:23)
[2023-10-02] MEDS: FINASTERIDE 5 MG TABLET PO (20:23)
[2023-10-02] MEDS: SODIUM CHLORIDE 0.9% FLUSH 10 ML IV (20:36)
[2023-10-03] VITALS (8 sets, daily range): BP systolic 127–168; BP diastolic 55–80; PULSE 62–72; RESP 17–22; TEMP 36.1–36.8; O2SAT 96–98
[2023-10-03 05:08] LABS: BUN Creatinine Ratio 9.9 (6-22); Blood Urea Nitrogen 9 mg/dL (9-20); Calcium 7.9 mg/dL (8.4-10.2); Carbon Dioxide 27 mmol/L (22-32); Chloride 101 mmol/L (98-107); Estimated Glomerular Filt Rate > 60 mL/min (>60); Glucose 91 mg/dL (80-110); HEMOLYSIS < 15 (0-50); Potassium 3.5 mmol/L (3.4-5.1); Sodium 130 mmol/L (137-145)
[2023-10-03 05:18] LABS: Add Manual Diff / Slide Review NO; Basophils Absolute Auto 0 /uL (0-100); Basophils Percent Auto 0.5 % (0-2); Eosinophils Absolute Auto 200 /uL (0-450); Eosinophils Percent Auto 3.7 % (2-4); Hemoglobin 7.1 g/dL (13.5-17.5); Lymphocytes Absolute Auto 1300 /uL (1100-4500); Mean Corpuscular HGB Conc 35.9 % (30-36); Mean Corpuscular Hemoglobin 31.8 PG (26-34); Mean Corpuscular Volume 88.6 fL (80-100); Monocytes Absolute Auto 500 /uL (0-900); Monocytes Percent Auto 10.1 % (3-14); Neutrophils Absolute Auto 3000 /uL (1500-7000); Neutrophils Percent Auto 59.7 % (50-75); Red Blood Cell Count 2.24 X10^6/uL (4.5-5.9); Red Cell Distribution Width 13.6 % (11.6-14.8)
[2023-10-03 05:50] LABS: Hematocrit 19.9 % (41-53)
[2023-10-03 05:51] LABS: Platelet Count 118 X10^3/uL (150-400)
[2023-10-03] MEDS: PANTOPRAZOLE DR 20 MG TABLET PO (05:52)
[2023-10-03] MEDS: AMIODARONE 200 MG TABLET PO (08:39)
[2023-10-03] MEDS: METOPROLOL ER 25 MG TABLET PO (08:39)
[2023-10-03] MEDS: LORATADINE 10 MG TABLET PO (08:39)
[2023-10-03] MEDS: SODIUM CHLORIDE 0.9% FLUSH 10 ML IV (08:40)
--- NOTE | 2023-10-03 10:11 | OT.IPNOTE ---
Pt having low HH, hold OT.
--- NOTE | 2023-10-03 10:16 | PT-IP ANOTE ---
Pt with hgb of 7.1 and Hct 19.9. pt currently receiving blood transfusion. PT hold for this morning. will f/u
[2023-10-03] MEDS: POTASSIUM CHLORIDE 20 MEQ TAB 40 MEQ PO (10:35)
--- NOTE | 2023-10-03 11:05 | P.PN_ITS ---
Subjective Subjective Interval history: No pain or bowel movements overnight. He slept well. No chest pain or dyspnea. Hemoglobin slightly lower, we will give 1 unit of blood this morning. Exam Vital Signs (past 8 hours): - 10/03/23 04:00 10/03/23 08:00 10/03/23 08:29 Temperature 98.3 F 97.0 F L 97 F L Pulse Rate 71 69 69 Respiratory Rate 17 19 19 Blood Pressure 127/67 146/65 H 146/65 H Pulse Oximetry 97 96 Oxygen Flow Rate 0 0 10/03/23 08:39 10/03/23 08:45 Temperature 97.6 F Pulse Rate 69 64 Respiratory Rate 18 Blood Pressure 146/65 H 168/80 H Pulse Oximetry Oxygen Flow Rate Oxygen Delivery Method Room Air Oxygen Flow Rate 0 Narrative Exam Narrative: NAD, alert and oriented. Fluent speech. Lungs are clear, normal rate and effort. Heart is regular, no murmur gallop or rub. Abdomen is soft, non distended. Extremities are free of edema. Objective Labs 10/03/23 04:20 10/03/23 04:20 Labs: Laboratory Results - last 24 hr 10/01/23 10/02/23 10/03/23 13:28 12:40 04:20 WBC 5.0 RBC 2.24 L Hgb 8.0 L 7.1 L Hct 22.1 L 19.9 L* MCV 88.6 MCH 31.8 MCHC 35.9 RDW 13.6 Plt Count 118 L Neut % (Auto) 59.7 Lymph % (Auto) 26.0 [place] % (Auto) 10.1 Eos % (Auto) 3.7 Baso % (Auto) 0.5 Neut # (Auto) 3000 Lymph # (Auto) 1300 [place] # (Auto) 500 Eos # (Auto) 200 Baso # (Auto) 0 Sodium 130 L Potassium 3.5 Chloride 101 Carbon Dioxide 27 BUN 9 Creatinine 0.91 Estimated GFR > 60 BUN/Creatinine Ratio 9.9 Glucose 91 Calcium 7.9 L Blood Type B Positive Antibody Screen Negative Crossmatch See Detail [facility] Medical History Memory deficit Memory changes Iron deficiency anemia Melanoma Dermatitis Edema Rheumatic fever HLD (hyperlipidemia) HTN (hypertension) PSVT (paroxysmal supraventricular tachycardia) Diverticulosis GERD (gastroesophageal reflux disease) Left wrist fracture Heart disease Afib Surgical History History of total left hip arthroplasty Hx of transurethral resection of prostate Hx of prostatectomy Hx of sinus surgery History of total right hip arthroplasty (04/26/17) Hx of tonsillectomy Social History household members: spouse Smoking Status: Former smoker alcohol intake: current Assessment & Plan Assessment & Plan narrative: 1. Hematochezia, present on admission and improved. 2. Acute blood loss anemia requiring 1 unit of blood this morning, present on admission and active. Plan: -hold Eliquis indefinitely at discharge, continue current usual medications, repeat hemoglobin this afternoon and monitor for any clinical evidence of recurrent bleeding. We will advance diet and if he does well he will likely go home later today. Quality VTE Deep Vein Thrombosis/Pulmonary Embolism Present on Admission: No
--- NOTE | 2023-10-03 12:15 | CM.DPC ---
DCP Cont. Reviewed the EMR and team rounds for status updates. Pt was having low H&H this morning, and had not yet had a BM overnight. Plan is for him to be transfused today, advance diet, and likely d/c either later this afternoon or tomorrow, depending on improvement. Will continue to monitor for any d/c needs/recommendations for assistance.
[2023-10-03 13:29] LABS: Hematocrit 27.8 % (41-53); Hemoglobin 9.7 g/dL (13.5-17.5)
--- NOTE | 2023-10-03 13:53 | P.DS_ITS ---
History of Present Illness History of Present Illness Chief complaint: still bleeding from rectum Narrative: daylin Hernandez is an 88yo M with PMH of A-fib on eliquis, HTN, HLD, GERD and BPH s/p TURP who presents with ongoing hematochezia after being discharged from the hospital yesterday. His eliquis was held with last dose being AM on 09/27. He had 5 bloody BM's on 09/27 then 1 on 09/28 and none on 09/29 so he was discharged. His Hgb was holding stable at that time. He now returns to the ED due to 2 more large bloody BM's this morning 09/30. He is also feeling more weak. Dr. Richardson gen surg consulted and will perform colonoscopy tomorrow. Patient also describes some left chest pain which has been on and off for months. He said the pain kept me up last night and describes it as stinging and constant. No EKG or troponin did in ED. He denies SOB, NV, abd pain or LE edema. Discharge Providers Provider Date of admission: 10/01/23 14:49 Discharge Date: 10/03/23 Primary care physician: Rod Horn MD Consults: 10/01/23 14:09 Consult to General Surgery Stat Comment: Consulting Provider: Roz Richardson Reason for consultation: Gi bleed Has provider been notified: Yes 10/01/23 14:59 Consult to Occupational Therapy Evaluate & Treat Comment: Physician Instructions: Evaluate and treat Consult to Physical Therapy Evaluate & Treat Comment: Physician Instructions: Evaluate and Treat Discharge provider: Chip Elise MD Summary Hospital Course Discharge Diagnosis: 1. Hematochezia, present on admission and improved. 2. Acute blood loss anemia requiring 1 unit of blood this morning, present on admission and active. Hospital Course: He was readmitted for ongoing rectal bleeding. He underwent endoscopy which revealed evidence of Aguilar lesions and no active bleeding. His colonoscopy was unremarkable. He did have a significant blood loss anemia with a slow drift prompting 1 unit of blood to be given on October 02. He had no clinical evidence of ongoing rectal bleeding. He felt well through his entire admission and denied any abdominal pain, nausea. His post transfusion hemoglobin was 9. He felt well and was felt to be stable for discharge. He understands to come back immediately if there is any evidence of recurrent rectal bleeding. I discussed the situation as well as a plan for Protonix outpatient with he and his and they are both quite comfortable with the plan. Status at Discharge Cognitive/behavioral status at discharge: oriented Functional status at discharge: independent ambulation Overall status at discharge: patient is back to baseline Time Spent with Patient Time spent: Greater than 30 minutes Exam Vital Signs (past 8 hours): - 10/03/23 08:00 10/03/23 08:29 10/03/23 08:39 Temperature 97.0 F L 97 F L Pulse Rate 69 69 69 Respiratory Rate 19 19 Blood Pressure 146/65 H 146/65 H 146/65 H Pulse Oximetry 96 Oxygen Flow Rate 0 10/03/23 08:45 10/03/23 11:20 10/03/23 12:00 Temperature 97.6 F 97.4 F L 98.0 F Pulse Rate 64 62 72 Respiratory Rate 18 18 22 Blood Pressure 168/80 H 158/77 H 138/72 Pulse Oximetry 97 Oxygen Flow Rate Oxygen Delivery Method Room Air Oxygen Flow Rate 0 Narrative Exam Narrative: NAD, alert and oriented. Fluent speech. Lungs are clear, normal rate and effort. Heart is regular, no murmur gallop or rub. Abdomen is soft, non distended. Extremities are free of edema. Objective Labs 10/03/23 13:10 10/03/23 04:20 Labs: Laboratory Results - last 24 hr 10/01/23 10/03/23 10/03/23 13:28 04:20 13:10 WBC 5.0 RBC 2.24 L Hgb 7.1 L 9.7 L Hct 19.9 L* 27.8 L MCV 88.6 MCH 31.8 MCHC 35.9 RDW 13.6 Plt Count 118 L Neut % (Auto) 59.7 Lymph % (Auto) 26.0 Barton % (Auto) 10.1 Eos % (Auto) 3.7 Baso % (Auto) 0.5 Neut # (Auto) 3000 Lymph # (Auto) 1300 Barton # (Auto) 500 Eos # (Auto) 200 Baso # (Auto) 0 Sodium 130 L Potassium 3.5 Chloride 101 Carbon Dioxide 27 BUN 9 Creatinine 0.91 Estimated GFR > 60 BUN/Creatinine Ratio 9.9 Glucose 91 Calcium 7.9 L Blood Type B Positive Antibody Screen Negative Crossmatch See Detail [facility] Medical History Memory deficit Memory changes Iron deficiency anemia Melanoma Dermatitis Edema Rheumatic fever HLD (hyperlipidemia) HTN (hypertension) PSVT (paroxysmal supraventricular tachycardia) Diverticulosis GERD (gastroesophageal reflux disease) Left wrist fracture Heart disease Afib Surgical History History of total left hip arthroplasty Hx of transurethral resection of prostate Hx of prostatectomy Hx of sinus surgery History of total right hip arthroplasty (04/26/17) Hx of tonsillectomy Social History household members: spouse Smoking Status: Former smoker alcohol intake: current Discharge Assessment & Plan Assessment and Plan Assessment: Hematochezia, present on admission and active. - 5 bloody BM's on 09/27, 1 bloody BM on 09/28, 2 large bloody BM's on 09/30 - prep for colonoscopy on 10/[address] Richardson general surgery. - trend Hgb, transfuse at <7 Acute blood loss anemia, present on admission and improved. Chest pain (chronic for 2 months), present on admission and stable. - patient notes pain in left chest which is sharp and constant, doesn't change with palpation and deep breaths - check EKG and troponin - tele A-fib (chronic), present on admission and active. - amiodarone, BB - eliquis now stopped. Last dose morning of 09/27. Urinary retention / Hx of TURP, present on admission and active. - afluzosin, finasteride # GERD, present on admission and active. - PPI Plan of Treatment: He will be discharged home with Protonix 40 b.i.d. for least a month. Follow up with PCP within a week with a repeat hemoglobin at that point. 911 or seek medical attention immediately for recurrent rectal bleeding. Discharge Plan Discharge Plan Patient Disposition: Home Provider Discharge Comment: Stable for discharge home. He states he was taking Eliquis, he will hold this until follow up. This likely would be advised to be held for at least 2 weeks and then resume with caution. He knows to follow up immediately or call for assistance for recurrent rectal bleeding. Discharge orders & Medications Prescriptions: New pantoprazole [Protonix] 40 mg tablet,delayed release (DR/EC) 40 mg PO DAILY Qty: 60 1RF Continued finasteride 5 MG tablet 5 mg PO HS Qty: 0 [VIT D3 ] 2,000 iu PO QDAY Qty: 0 ferrous sulfate [Iron (ferrous sulfate)] 325 MG tablet 325 mg PO QDAY Qty: 0 omeprazole 20 MG capsule,delayed release(DR/EC) 20 mg PO QPM Qty: 0 fluticasone propionate [Flonase Allergy Relief] 9.9 ML spray,suspension 1 spray Intranasal BID Qty: 0 amiodarone 200 MG tablet 200 mg PO QDAY Qty: 0 alfuzosin [Uroxatral] 10 MG tablet extended release 24 hr 10 mg PO QAM Qty: 0 multivitamin [Multiple Vitamins] 1 EACH tablet 1 tab PO QDAY Qty: 0 ascorbic acid (vitamin C) 500 MG tablet 1,000 mg PO QDAY Qty: 0 omega [id number] oil [Fish Oil] 1,000 MG capsule 1,000 mg PO QDAY Qty: 0 Linzess 145 mcg capsule 145 mcg PO DAILY lysine 500 mg Capsule 500 mg PO DAILY loratadine 10 mg tablet 10 mg PO DAILY amlodipine 2.5 mg tablet 2.5 mg PO DAILY metoprolol succinate 25 mg tablet extended release 24 hr 25 mg PO DAILY rosuvastatin 10 mg tablet 10 mg PO DAILY Follow up/Referrals: Rod Horn MD [Primary Care Provider] - Discharge Health Status Multidrug resistant organism: No MDRO Diet/Activity/Treatments Diet: Regular Visit Report/Discharge Packet Instructions: DI for Gastric Ulcer Stand Alone Forms: Patient Portal/API, Colonoscopy Result: Isld Surg, Colonoscopy Result: IFP, EGD Result: Isld Surg Discharge Data Primary Care Provider: Rod Horn Attending Provider: Zach James Admit Date/Time: 10/01/23 14:49 Quality VTE Deep Vein Thrombosis/Pulmonary Embolism Present on Admission: No
--- NOTE | 2023-10-03 14:45 | OT.IP.TRT ---
Current Diagnoses Melena (10/01/23) Surgery Performed Operation Date: 10/02/23 14:30 Actual Procedures p Colonoscopy(Not Applicable) - Jarred Dexter MD s Esophagogastroduodenoscopy(Not Applicable) - Jarred Dexter MD Occupational Therapy Treatment Note M2 OT-IP Current Condition Start: 10/02/23 15:04 Freq: Status: Active Protocol: Document 10/02/23 15:04 [facility] (Rec: 10/02/23 15:20 [facility] [id number]) Occupational Therapy Current Condition Current Condition Evaluation Date 10/02/23 Treatment Diagnosis Hemaochezia, weakness Diagnosis Onset Date 10/01/23 M3 OT- IP Subjective and Pain Start: 10/02/23 15:04 Freq: Status: Active Protocol: Document 10/03/23 14:38 [facility] (Rec: 10/03/23 14:52 [facility] [id number]) OT- Subjective Occupational Therapy Visit Type Type Treatment Note Visit Start Time 14:15 Visit Stop Time 14:45 Occupational Therapy Visit Comments Patient Comments Pt looking to go home and wanting to get dressed. Patient/Caregiver Goals To go home. M4 OT- IP ADL's Start: 10/02/23 15:04 Freq: Status: Active Protocol: Document 10/03/23 14:38 [facility] (Rec: 10/03/23 14:52 [facility] [id number]) OT ADL-Dressing General Eval Upper Body Dressing Ability Independent Lower Body Dressing Ability Standby Assistance Comments OT Dressing Comments Increased time to do all his LB dressing needs today but able to do on his own. OT ADL-Toileting Comments OT Toileting Comments Pt not having to go. Pt states has urinals at home to use as needed. OT ADL-Bathing Comments OT Bathing Comments Still suggested pt gets a shower chair as per pt states has been feeling whoozy at times while getting up recently. M5 OT- IP IADL's Start: 10/02/23 15:04 Freq: Status: Active Protocol: Document 10/02/23 15:04 [facility] (Rec: 10/02/23 15:20 [facility] [id number]) OT-Instrumental Activities of Daily Living Home Safety Awareness Awareness of Need for Assistance at Home Good Awareness Ability to Problem Solve Emergency Able to Problem Solve Situations Medication Management Medication Management Comments Pt uses a pill box. Money Management Money Management Comments Pt pays the bills. Meal Preparation Meal Preparation Caregiver Provides Assist Soa Integration Developer Soa Integration Developer Caregiver Provides Assist M6 OT- IP Functional Cognition Start: 10/02/23 15:04 Freq: Status: Active Protocol: Document 10/03/23 14:38 [facility] (Rec: 10/03/23 14:52 [facility] [id number]) Cognitive Factors Limiting Selfcare Function Cognitive Comments Cognitive Assessment Comments Pt's states will do the driving until pt feels better. M7 OT- IP Mobility and Balance Start: 10/02/23 15:04 Freq: Status: Active Protocol: Document 10/03/23 14:38 [facility] (Rec: 10/03/23 14:52 [facility] [id number]) OT- Bed Mobility Assessment Supine to Sit Supine to Sit Assist Independent OT-Transfer Assessment Sit to and From Stand Sit to and from Stand Independent Transfers Transfer Ability Standby Assistance Technique Transfer Destination Bed Comments Mobility Comments BP sittin 134/60 and after standing 128/63. Pt much steadier on his feet today but moves slowly. Able to try the 4ww with pt just in case pt having to sit down if walking a long distance. Pt able to use the 4ww with good safety. Pt states does not feel that he needs 4ww and states will just use his cane. Pt did agree that he may benefit form physical therapy as states not moving as well since he had COVID. Pt insists that his PCP will order outpt PT for him. OT- Balance Assessment Sitting Balance and Reactions Static Sitting Balance Ability Normal Dynamic Sitting Balance Ability Good Standing Balance and Reactions Static Standing Balance Ability Good Dynamic Standing Balance Ability Fair Comments Other Balance Tests/Deviations/Treatment Pt able to walk without a : device but very slowly and use of surfaces at times. Trial of 4ww and pt seems to move better and also a place to sit especially if pt feels whoozy . M8 OT- IP Objective Assessments Start: 10/02/23 15:04 Freq: Status: Active Protocol: Document 10/02/23 15:04 [facility] (Rec: 10/02/23 15:20 [facility] [id number]) OT Gross Range of Motion Upper Extremity Range of Motion Assessment Within Functional Limits OT Strength Upper Extremity Strength Assessment Within Functional Limits M9 OT- IP Assessment and Plan Start: 10/02/23 15:04 Freq: Status: Active Protocol: Document 10/03/23 14:38 [facility] (Rec: 10/03/23 14:52 [facility] [id number]) OT Summary Assessment and Plan Potential Rehabilitation Potential Good Analytic Complexity at Evaluation Moderate Summary OT Impairments Strength,Balance,Functional Mobility,Grooming,Dressing, Toileting,Bathing,Toilet Transfers,Shower Transfers, Activity Tolerance Progress Towards Goals Progressing Toward Goals Assessment Summary Pt to go home with his to assist. Pt will benefit from a shower chair at home and use of 4ww for longer distances. Pt also would benefit from outpt PT. Goals Bathing Goal Independent Patient/Caregiver Education Goal Demonstrate Energy Conservation and Pacing Days to Meet Goals 3 Frequency of Treatment Frequency Of Treatment Once a Day Treatment Plan OT Treatment Plan ADL Training,Functional Mobility,Patient/Family Education,Discharge Planning Discharge Recommendations OT Discharge Recommendations Home with Assistance, Outpatient PT Home Equipment Needs shower chair, 4ww Transportation Needs at Discharge Private Vehicle
--- NOTE | 2023-10-03 15:25 | PC.NURSE ---
IVs and telemetry removed. Patient belongings packed up. discussed pain medication, worsening symptoms, follow up with primary care, and stopping elliquis. Discussed worsening symptoms and when to seek medical care. no further questions. Pt wheeled out to vehicle via WC by RN.
== END 2023-10-03 15:10 | disposition home or self-care (01) ==
LOC: ED 14:14 → AC 14:59
PROVIDERS: Hospitalist; Internal Medicine; Surgery; Admitting Provider Student in an Organized Health Care Education/Training Program; Emergency Provider Emergency Medicine; PCP Family Medicine; Referring Provider Emergency Medicine; Visit Provider Student in an Organized Health Care Education/Training Program
PROC: 0DJD8ZZ Inspection of Lower Intestinal Tract, Via Natural or Artificial Opening Endoscopic (ICD-10-PCS; CPT 45378; principal; 2023-10-02 14:30)
PROC: 0DJ08ZZ Inspection of Upper Intestinal Tract, Via Natural or Artificial Opening Endoscopic (ICD-10-PCS; CPT 43235; 2023-10-02 14:30)
DX: K92.1 Melena (principal); K25.9 Gastric ulcer, unspecified as acute or chronic, without hemorrhage or perforation; K44.9 Diaphragmatic hernia without obstruction or gangrene; I48.0 Paroxysmal atrial fibrillation; K21.9 Gastro-esophageal reflux disease without esophagitis; I10 Essential (primary) hypertension; R07.9 Chest pain, unspecified; R33.9 Retention of urine, unspecified; D62 Acute posthemorrhagic anemia
CPT/HCPCS: 45378; 43235; 36430; 36415; 74174; 80048; 80053; 81001; 81003; 81015; 82272; 84484; 85014; 85018; 85025; 85610; 85730; 86850; 86900; 86901; 87077; 87086; 87186; 93005; 93010; 96374; 97161; 97163; 97166; 97530; 97535; 99284; G0378; P9016; C9113; J2704; Q9967